=== PATIENT | female | born 1965 | race Caucasian/White ===

== ENCOUNTER 2024-06-25 14:11 | Emergency (ER) | payer OTHER ==
[2024-06-25] MEDS: KETOROLAC 15 MG/ML 1 ML VIAL IVP STA (15:40)
[2024-06-25] MEDS: CYCLOBENZAPRINE 10 MG TAB PO STA (15:46)
[2024-06-25] MEDS: DEXAMETHASONE SOD PHOSPHATE 10 MG/ML 1 ML VIAL IVP STA (15:54)
[2024-06-25] MEDS: MORPHINE SULFATE 4 MG/ML SYRINGE IVP STA (15:57)
--- NOTE | 2024-06-25 16:15 | ED ---
Back Pain HPI - General Chief Complaint: Neck Pain/Injury Stated Complaint: back pain Time Seen by Provider: 06/25/24 14:26 Source: patient, RN notes reviewed Mode of arrival: ambulatory Limitations: no limitations - History of Present Illness Initial Comments: This is a 59-year-old female who presents to the emergency department for lower back pain. States that this started about 3 months ago. Pain is across the majority of the low back. Denies any injuries. She has not yet had this evaluated. She tried taking naproxen without much relief. She occasionally has some pain going down both of her legs, but states that this is not all of the time. Denies any loss of bowel/bladder control or saddle anesthesia. MD Complaint: back pain - Related Data Previous Rx's Medication Instructions Recorded Cyclobenzaprine [Flexeril] 10 mg PO TID PRN #30 tab 06/25/24 Meloxicam [Mobic] 15 mg PO DAILY PRN #30 tab 06/25/24 Allergies Allergy/AdvReac Type Severity Reaction Status Date / Time No Known Allergies Allergy Verified 06/25/24 14:16 Review of Systems ROS Statement: Those systems with pertinent positive or pertinent negative responses have been documented in the HPI. ROS Other: All systems not noted in ROS Statement are negative. Past Medical History Past Medical History: No Reported History History of Any Multi-Drug Resistant Organisms: None Reported Past Surgical History: Orthopedic Surgery Smoking Status: Current every day smoker Past Alcohol Use History: None Reported Past Drug Use History: None Reported General Exam Limitations: no limitations General appearance: alert, in no apparent distress Head exam: Present: atraumatic, normocephalic, normal inspection Respiratory exam: Present: normal lung sounds bilaterally. Absent: respiratory distress, wheezes, rales, rhonchi, stridor Cardiovascular Exam: Present: regular rate, normal rhythm, normal heart sounds. Absent: systolic murmur, diastolic murmur, rubs, gallop, clicks Back exam: Present: other (Tenderness to palpation of the lumbar spine) Neurological exam: Present: alert, oriented X3, CN II-XII intact Psychiatric exam: Present: normal affect, normal mood Skin exam: Present: warm, dry, intact, normal color. Absent: rash Course Vital Signs 06/25/24 06/25/24 06/25/24 14:14 15:38 17:03 Temperature 98 F 98.1 F Pulse Rate 100 99 89 Respiratory 16 18 16 Rate Blood Pressure 157/74 134/72 146/81 O2 Sat by Pulse 97 99 100 Oximetry Medical Decision Making - Medical Decision Making This is a 59 year old female who presents to the emergency department for back pain. Was pt. sent in by a medical professional or institution? @ -No Did you speak to anyone other than the patient for history? @ -No Did you review nursing and triage notes? @ -Yes, and I agree, it is accurate with regards to the patient's symptoms. Were old charts reviewed? @ -No Differential Diagnosis? @ -Differential Back Pain: Strain, zoster, cauda equina syndrome, epidural abscess, vertebral osteomyelitis, discitis, fracture, subluxation, disc herniation, DJD, spinal stenosis, dissection, AAA, pancreatitis, peptic ulcer disease, pyelonephritis, kidney stone, this is not meant to be an all-inclusive list. EKG interpreted by me (3pts min.)? @ -Not obtained X-rays interpreted by me (1pt min.)? @ -X-ray of the lumbar spine obtained. My interpretation identifies no acute fractures. CT interpreted by me (1pt min.)? @ -Not obtained U/S interpreted by me (1pt. min.)? @ -Not obtained What testing was considered but not performed? (CT, X-rays, U/S, labs)? Why? @ -None What meds were considered but not given? Why? @ -None Did you discuss the management of the patient with other professionals? @ -No Did you reconcile home meds? @ -No Was smoking cessation discussed for >3mins.? @ -No Was critical care preformed (if so, how long)? @ -No Were there social determinants of health that impacted care today? How? (Homelessness, low income, unemployed, alcoholism, drug addiction, transportation, low edu. Level, literacy, decrease access to med. care, [facility], rehab)? @ -No Was there de-escalation of care discussed even if they declined? (Discuss DNR or withdrawal of care, Hospice)? @ -No What co-morbidities impacted this encounter? (DM, HTN, Smoking, COPD, CAD, Cancer, CVA, Hep., AIDS, mental health diagnosis, sleep apnea, morbid obesity)? @ -None Was patient admitted / discharged? @ -Discharged. X-ray of the lumbar spine demonstrates degenerative changes without any acute process. Pain managed in the emergency department. Rx for Mobic and Flexeril provided. Advised continuing with Tylenol and Lidocaine patches as well. Information for orthopedic follow up provided, advised she contact them for further evaluation. Patient discharged home in stable condition. Case discussed with ED attending, Dr. Paige. Undiagnosed new problem with uncertain prognosis? @ -None Drug Therapy requiring intensive monitoring for toxicity (Heparin, Nitro, Insulin, Cardizem)? @ -None Were any procedures done? @ -None Diagnosis/symptom? @ -Low back pain Acute, or Chronic, or Acute on Chronic? @ -Chronic Uncomplicated (without systemic symptoms) or Complicated (systemic symptoms)? @ -Uncomplicated Side effects of treatment? @ -None Exacerbation, Progression, or Severe Exacerbation] @ -Progression Poses a threat to life or bodily function? @ -The pain is limiting her function to some extent. - Radiology Data Radiology results: report reviewed, image reviewed Disposition Clinical Impression: Back pain Disposition: HOME SELF-CARE Instructions (If sedation given, give patient instructions): Back Pain (ED) Additional Instructions: Return to the emergency department with any new, worsening, or concerning symptoms. Try taking the Mobic once daily as needed for pain relief. Avoid taking any other anti-inflammatories such as ibuprofen or Aleve when you take this. Take whichever is more effective. Take this with Tylenol for additional relief. Take the Flexeril up to 3 times daily, however be aware that this may make you drowsy. Contact the orthopedic provider listed below for a follow-up appointment. Prescriptions: Cyclobenzaprine [Flexeril] 10 mg PO TID PRN #30 tab PRN Reason: Pain Meloxicam [Mobic] 15 mg PO DAILY PRN #30 tab PRN Reason: Pain Is patient prescribed a controlled substance at d/c from ED?: No Referrals: None,Stated [Primary Care Provider] - 1-2 days Robert Tobar DO [Doctor of Osteopathic Medicine] - 1-2 days Forms: Area PCPs Time of Disposition: 16:45
--- NOTE | 2024-06-25 16:33 | XR ---
Lumbar spine HISTORY: Low back pain COMPARISON: None. TECHNIQUE: 3 views lumbar spine were obtained. FINDINGS: The lumbar vertebral segments are normal in height and alignment and there is no fracture or subluxat ion. Disc spaces are well-maintained in height is no significant degenerative disc disease. There is sclerotic changes of facet joints from L3 through S1 indicating facet osteoarthrosis. Sacrum and SI joints normal. IMPRESSION: Facet arthritis with no other significant abnormality seen.
[2024-06-25] MEDS: traMADol 50 MG STARTER PACK 3 TAB BTL PO STA (16:59)
[2024-06-25 17:05] VITALS: BP 146/81; PULSE 89; RESP 16; TEMP 98.1
== END 2024-06-25 17:05 | disposition home or self-care (01) ==
LOC: EC 14:11
DX: M47.816 Spondylosis without myelopathy or radiculopathy, lumbar region (principal); F17.200 Nicotine dependence, unspecified, uncomplicated
CPT/HCPCS: 72100; 99283; 96374; 96375 ×2; J2270; J1100; J1885

== ENCOUNTER 2024-07-11 12:47 | Emergency (ER) | payer OTHER ==
--- NOTE | 2024-07-11 13:02 | ED ---
Back Pain HPI - General Chief Complaint: Back Pain/Injury Stated Complaint: severe back pain Time Seen by Provider: 07/11/24 13:01 Source: patient, RN notes reviewed Mode of arrival: ambulatory Limitations: no limitations - History of Present Illness Initial Comments: 59-year-old female presented the ER with a chief complaint of chronic back pain. Patient states has been ongoing for the past 3 months and as she is having difficulty following up outpatient. She has been taking Aleve, using pain patches and gel without relief. She denies any saddle paresthesias, bowel or bladder incontinence. She does report frequent radiation down bilateral lower extremities. No new injuries or traumas. - Related Data Previous Rx's Medication Instructions Recorded Cyclobenzaprine [Flexeril] 10 mg PO TID PRN #30 tab 06/25/24 Meloxicam [Mobic] 15 mg PO DAILY PRN #30 tab 06/25/24 Cyclobenzaprine [Flexeril] 10 mg PO TID PRN #15 tab 07/11/24 Lidocaine 4% Patch 1 patch TOPICAL DAILY #30 patch 07/11/24 Allergies Allergy/AdvReac Type Severity Reaction Status Date / Time No Known Allergies Allergy Verified 07/11/24 12:59 Review of Systems ROS Statement: Those systems with pertinent positive or pertinent negative responses have been documented in the HPI. ROS Other: All systems not noted in ROS Statement are negative. Past Medical History Past Medical History: No Reported History History of Any Multi-Drug Resistant Organisms: None Reported Past Surgical History: Orthopedic Surgery Past Psychological History: No Psychological Hx Reported Smoking Status: Current every day smoker Past Alcohol Use History: None Reported Past Drug Use History: None Reported General Exam - General Exam Comments Initial Comments: Visual Physical Exam General: Well-appearing, nontoxic, no acute distress. Head: Normocephalic, atraumatic Eyes: PERRLA, EOMI ENT: Airway patent Chest: Nonlabored breathing Skin: No visual rash, normal skin tone Neuro: Alert and oriented 3 Musculoskeletal: No gross abnormalities Limitations: no limitations General appearance: alert, in no apparent distress Neck exam: Present: normal inspection. Absent: tenderness, meningismus, lymphadenopathy Respiratory exam: Present: normal lung sounds bilaterally. Absent: respiratory distress, wheezes, rales, rhonchi, stridor Cardiovascular Exam: Present: regular rate, normal rhythm, normal heart sounds. Absent: systolic murmur, diastolic murmur, rubs, gallop, clicks Extremities exam: Present: normal inspection, full ROM, normal capillary refill. Absent: tenderness, pedal edema, joint swelling, calf tenderness Back exam: Present: tenderness (Lumbar spine. No overlying skin changes. Negative straight leg raise bilaterally.) Course Vital Signs 07/11/24 07/11/24 12:56 17:41 Temperature 97.3 F L 97.6 F Pulse Rate 121 H 98 Respiratory 20 18 Rate Blood Pressure 134/60 128/89 O2 Sat by Pulse 100 100 Oximetry - Reevaluation(s) Reevaluation #1: 07/11/24 17:25 Patient reevaluated. Patient is reporting improved pain. Patient eager for discharge. No signs of acute distress. Medical Decision Making - Medical Decision Making I performed the quick note portion of this chart. Electronically signed by Jose Putnam PA-C Was pt. sent in by a medical professional or institution (RANJANA Walker, PREPARATION CENTER COORDINATOR, urgent care, hospital, or [facility]...) When possible be specific @ -No Did you speak to anyone other than the patient for history (EMS, parent, family, police, friend...)? What history was obtained from this source @ -No Did you review nursing and triage notes (agree or disagree)? Why? @ -I reviewed and agree with nursing and triage notes Were old charts reviewed (outside hosp., previous admission, EMS record, old EKG, old radiological studies, urgent care reports/EKG's, [facility] records)? Report findings @ -No old charts were reviewed Differential Diagnosis (chest pain, altered mental status, abdominal pain women, abdominal pain men, vaginal bleeding, weakness, fever, dyspnea, syncope, headache, dizziness, GI bleed, back pain, seizure, CVA, palpatations, mental health, musculoskeletal)? @ -Differential Back Pain:Strain, zoster, cauda equina syndrome, epidural abscess, vertebral osteomyelitis, discitis, fracture, subluxation, disc herniation, DJD, spinal stenosis, dissection, AAA, pancreatitis, peptic ulcer disease, pyelonephritis, kidney stone, this is not meant to be an all-inclusive list. EKG interpreted by me (3pts min.). @ -None X-rays interpreted by me (1pt min.). @ -Lumbar spine x-ray showing a minimal superior endplate irregularity of L3. Scattered mild degenerative disc disease. CT interpreted by me (1pt min.). @ -None done U/S interpreted by me (1pt. min.). @ -None done What testing was considered but not performed or refused? (CT, X-rays, U/S, labs)? Why? @ -None What meds were considered but not given or refused? Why? @ -None Did you discuss the management of the patient with other professionals (professionals i.e. , PA, PREPARATION CENTER COORDINATOR, lab, RT, psych nurse, social insurance administrator, digital director, teacher, founder and chief technical officer, case maker)? Give summary @ -No Was smoking cessation discussed for >3mins.? @ -No Was critical care preformed (if so, how long)? @ -No Were there social determinants of health that impacted care today? How? (Homelessness, low income, unemployed, alcoholism, drug addiction, transportation, low edu. Level, literacy, decrease access to med. care, prison, rehab)? @ -No Was there de-escalation of care discussed even if they declined (Discuss DNR or withdrawal of care, Hospice)? DNR status @ -No What co-morbidities impacted this encounter? (DM, HTN, Smoking, COPD, CAD, Cancer, CVA, ARF, Chemo, Hep., AIDS, mental health diagnosis, sleep apnea, morbid obesity)? @ -None Was patient admitted / discharged? Hospital course, mention meds given and route, prescriptions, significant lab abnormalities, going to OR and other pertinent info. @ -Discharge. 59-year-old female presented to ER with a chief complaint of back pain. History and physical exam completed. Vitals stable. Patient mildly tachycardic but believed to be anxiety and pain related. No red flag back pain symptoms indicative of cauda equina syndrome.. X-rays obtained concerning of a compression fracture of L3. Symptomatic control in the ER, with improvement. Patient stable for discharge at this time. Advise close follow-up with spine orthopedics, referral given. Tylenol 3 starter pack given. Lidocaine patch and Flexeril prescribed. Return parameters discussed. Patient discharged in stable condition. Patient verbally expressed understanding agreement care plan. Case discussed with the attending, Dr. Reed. Undiagnosed new problem with uncertain prognosis? @ -No Drug Therapy requiring intensive monitoring for toxicity (Heparin, Nitro, Insulin, Cardizem)? @ -No Were any procedures done? @ -No Diagnosis/symptom? @ -Compression fracture L3 Acute, or Chronic, or Acute on Chronic? @ -Acute Uncomplicated (without systemic symptoms) or Complicated (systemic symptoms)? @ -Uncomplicated Side effects of treatment? @ -No Exacerbation, Progression, or Severe Exacerbation? @ -No Poses a threat to life or bodily function? How? (Chest pain, [place], NH, pneumonia, PE, COPD, DKA, ARF, appy, cholecystitis, CVA, Diverticulitis, Homicidal, Suicidal, threat to staff... and all critical care pts) @ -No - Radiology Data Radiology results: report reviewed, image reviewed Disposition Clinical Impression: Back pain, Compression fracture of L3 vertebra Disposition: HOME SELF-CARE Condition: Stable Instructions (If sedation given, give patient instructions): Acute Low Back Pain (ED) Additional Instructions: Follow-up with orthopedics for further evaluation and treatment. Return to the ER for any new or worsening concerns. Prescriptions: Cyclobenzaprine [Flexeril] 10 mg PO TID PRN #15 tab PRN Reason: Muscle Spasm Lidocaine 4% Patch 1 patch TOPICAL DAILY #30 patch Is patient prescribed a controlled substance at d/c from ED?: No Referrals: None,Stated [Primary Care Provider] - 1-2 days Robb Lindsay MD [STAFF PHYSICIAN] - 1-2 days Forms: Area PCPs Time of Disposition: 17:25
--- NOTE | 2024-07-11 13:55 | XR ---
EXAMINATION TYPE: XR lumbar spine 3V DATE OF EXAM: 07/11/2024 Comparison: 06/25/2024 Clinical History: 59-year-old female back pain for 3 months Findings: 5 lumbar type vertebral bodies. Hypertrophic facet arthropathy mid to lower lumbar spine. Trace grade 1 retrolisthesis L4-L5. Remaining alignment is maintained. There is mild degenerative disc disease t hroughout. Minimal superior endplate Schmorl's node at L3 remains unchanged but is better seen on the present exam. Otherwise, vertebral body heights are preserved and remaining alignment is maintained. Impression: 1. Minimal superior endplate irregularity of L3 is better seen on the present exam. Age-indeterminate Schmorl's node injury is suspected. Correlate for any focal pain at this level. 2. Scattered mild degenerative disc disease. Hypertrophic facet arthropathy mid to lower lumbar spine . Trace grade 1 retrolisthesis L4-L5.
[2024-07-11] MEDS: KETOROLAC 15 MG/ML 1 ML VIAL IVP STA (15:33)
[2024-07-11] MEDS: CYCLOBENZAPRINE 10 MG TAB PO STA (15:34)
[2024-07-11] MEDS: DEXAMETHASONE SOD PHOSPHATE 10 MG/ML 1 ML VIAL IVP STA (15:34)
[2024-07-11] MEDS: MORPHINE SULFATE 2 MG/ML SYRINGE IVP ONE (16:36)
[2024-07-11] MEDS: ACET/COD 300 MG/30 MG STARTER PACK 6 TAB BTL PO STA (17:38)
[2024-07-11 17:43] VITALS: BP 128/89; PULSE 98; RESP 18; TEMP 97.6
== END 2024-07-11 17:43 | disposition home or self-care (01) ==
LOC: EC 12:47
CPT/HCPCS: 72100; 96374; 96375; 99283

== ENCOUNTER 2024-08-05 09:25 | Inpatient (IN) | payer OTHER ==
[2024-08-05] MEDS: SODIUM CHLORIDE 0.9% 500 ML 500 ML IV STA (10:02)
[2024-08-05] MEDS: HYDROmorphone 0.5 MG/0.5 ML SYRINGE IVP STA ×2 (10:03→13:01)
--- NOTE | 2024-08-05 10:16 | ED ---
General Adult HPI - General Chief complaint: Back Pain/Injury Stated complaint: Back Pain Time Seen by Provider: 08/05/24 09:28 Source: patient, EMS, RN notes reviewed Mode of arrival: EMS Limitations: no limitations - History of Present Illness Initial comments: 5-year-old female presents emergency department via EMS chief complaint of back pain, weakness. Patient states that she has been dealing with increasing back pain for several months and saw orthopedics in which she had an MRI as she received a phone call stating that she needs to see oncology because of concerning changes for cancer of her spine. Patient states pain has become so unbearable she cannot get around she states she is also had increasing shortness of breath, leg swelling. She denies any bowel, bladder and cons retention no saddle anesthesias she does have pain at radiates down both legs. She has noticed leg swelling without history of CHF. - Related Data Previous Rx's Medication Instructions Recorded Cyclobenzaprine [Flexeril] 10 mg PO TID PRN #30 tab 06/25/24 Meloxicam [Mobic] 15 mg PO DAILY PRN #30 tab 06/25/24 Cyclobenzaprine [Flexeril] 10 mg PO TID PRN #15 tab 07/11/24 Lidocaine 4% Patch 1 patch TOPICAL DAILY #30 patch 07/11/24 Allergies Allergy/AdvReac Type Severity Reaction Status Date / Time No Known Allergies Allergy Verified 08/05/24 09:33 Review of Systems ROS Statement: Those systems with pertinent positive or pertinent negative responses have been documented in the HPI. ROS Other: All systems not noted in ROS Statement are negative. Past Medical History Past Medical History: No Reported History History of Any Multi-Drug Resistant Organisms: None Reported Past Surgical History: Orthopedic Surgery Past Psychological History: No Psychological Hx Reported Smoking Status: Current every day smoker Past Alcohol Use History: None Reported Past Drug Use History: None Reported General Exam Limitations: no limitations General appearance: alert, in no apparent distress Head exam: Present: atraumatic, normocephalic, normal inspection Eye exam: Present: normal appearance, PERRL, EOMI. Absent: scleral icterus, conjunctival injection, periorbital swelling ENT exam: Present: normal exam, normal oropharynx, mucous membranes moist Neck exam: Present: normal inspection, full ROM. Absent: tenderness, meningismus, lymphadenopathy Respiratory exam: Present: normal lung sounds bilaterally. Absent: respiratory distress, wheezes, rales, rhonchi, stridor Cardiovascular Exam: Present: normal rhythm, tachycardia, normal heart sounds. Absent: systolic murmur, diastolic murmur, rubs, gallop, clicks GI/Abdominal exam: Present: soft, normal bowel sounds. Absent: distended, tenderness, guarding, rebound, rigid Extremities exam: Present: pedal edema. Absent: full ROM Back exam: Present: tenderness, paraspinal tenderness, vertebral tenderness. Absent: full ROM Neurological exam: Present: alert, oriented X3, CN II-XII intact, reflexes normal. Absent: motor sensory deficit Course Vital Signs 08/05/24 08/05/24 08/05/24 09:27 11:30 12:25 Temperature 99.1 F 98.6 F Pulse Rate 115 H 98 101 H Respiratory 18 18 20 Rate Blood Pressure 153/62 136/79 140/67 O2 Sat by Pulse 100 97 Oximetry 08/05/24 12:40 Temperature 98 F Pulse Rate 102 H Respiratory 20 Rate Blood Pressure 134/64 O2 Sat by Pulse 99 Oximetry Medical Decision Making - Medical Decision Making Was pt. sent in by a medical professional or institution (, PA, BARREL ASSEMBLER, urgent c are, hospital, or group home...) When possible be specific @ -No Did you speak to anyone other than the patient for history (EMS, parent, family, police, friend...)? What history was obtained from this source @ -No Did you review nursing and triage notes (agree or disagree)? Why? @ -I reviewed and agree with nursing and triage notes Were old charts reviewed (outside hosp., previous admission, EMS record, old EKG, old radiological studies, urgent care reports/EKG's, group home records)? Report findings @ -No old charts were reviewed Differential Diagnosis (chest pain, altered mental status, abdominal pain women, abdominal pain men, vaginal bleeding, weakness, fever, dyspnea, syncope, h eadache, dizziness, GI bleed, back pain, seizure, CVA, palpatations, mental health, musculoskeletal)? @ -Differential Weakness: Hypoglycemia, shock, sepsis, hyponatremia, anemia, infection, LA, ETOH, adverse medicine reaction, overdose, stroke, this is not meant to be an all-inclusive list. Differential Back Pain: Strain, zoster, cauda equina syndrome, epidural abscess, vertebral osteomyelitis, discitis, fracture, subluxation, disc herniation, DJD, spinal stenosis, dissection, AAA, pancreatitis, peptic ulcer disease, pyelonephritis, kidney stone, this is not meant to be an all-inclusive list. EKG interpreted by me (3pts min.). @ -As above X-rays interpreted by me (1pt min.). @ -X-ray shows no acute cardiopulmonary process CT interpreted by me (1pt min.). @ -CT angio chest negative for acute PE no acute pulmonary process CT abdomen pelvis showing mass within the left renal pelvis, left ureter concerning for transitional cell carcinoma, lytic lesion L3 U/S interpreted by me (1pt. min.). @ -None done What testing was considered but not performed or refused? (CT, X-rays, U/S, labs)? Why? @ -None What meds were considered but not given or refused? Why? @ -None Did you discuss the management of the patient with other professionals (professionals i.e. , PA, BARREL ASSEMBLER, lab, RT, psych nurse, rn social work, distribution driver, teacher, division officer weapons department, family service caseworker)? Give summary @ -EMH for admission Was smoking cessation discussed for >3mins.? @ -No Was critical care preformed (if so, how long)? @ -35 minutes Were there social determinants of health that impacted care today? How? (Homelessness, low income, unemployed, alcoholism, drug addiction, transportation, low edu. Level, literacy, decrease access to med. care, m[facility], rehab)? @ -No Was there de-escalation of care discussed even if they declined (Discuss DNR or withdrawal of care, Hospice)? DNR status @ -No What co-morbidities impacted this encounter? (DM, HTN, Smoking, COPD, CAD, Cancer, CVA, ARF, Chemo, Hep., AIDS, mental health diagnosis, sleep apnea, morbid obesity)? @ -None Was patient admitted / discharged? Hospital course, mention meds given and route, prescriptions, significant lab abnormalities, going to OR and other pertinent info. @ -Admitted patient presented for increasing weakness, back pain. 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 Patient updated on results Undiagnosed new problem with uncertain prognosis? @ -Yes Drug Therapy requiring intensive monitoring for toxicity (Heparin, Nitro, Insulin, Cardizem)? @ -No Were any procedures done? @ -No Diagnosis/symptom? @ -Anemia, transitional cell carcinoma, L3 lytic lesion, Acute, or Chronic, or Acute on Chronic? @ -Acute Uncomplicated (without systemic symptoms) or Complicated (systemic symptoms)? @ -Complicated Side effects of treatment? @ -No Exacerbation, Progression, or Severe Exacerbation? @ -No Poses a threat to life or bodily function? How? (Chest pain, USA, LA, pneumonia, PE, COPD, DKA, ARF, appy, cholecystitis, CVA, Diverticulitis, Homicidal, Suicidal, threat to staff... and all critical care pts) @ -Yes anemia, cancer causing endorgan failure - Lab Data Result diagrams: 08/05/24 10:36 08/05/24 10:36 Lab Results 08/05/24 08/05/24 08/05/24 Range/Units 10:05 10:05 10:05 WBC 17.5 H (3.8-10.6) k/uL RBC 1.41 L (3.80-5.40) m/uL Hgb 3.9 L* (11.4-16.0) gm/dL Hct 12.9 L* (34.0-46.0) % MCV 91.6 (80.0-100.0) fL MCH 27.5 (25.0-35.0) pg MCHC 30.0 L (31.0-37.0) g/dL RDW 23.8 H (11.5-15.5) % Plt Count 306 (150-450) k/uL MPV 7.8 Neutrophils % (Manual) 74 % Band Neuts % (Manual) 3 % Lymphocytes % (Manual) 19 % Monocytes % (Manual) 2 % Eosinophils % (Manual) 1 % Metamyelocytes % 2 % Myelocytes % 1 % Neutrophils # (Manual) 13.40 H (1.3-7.7) k/uL Lymphocytes # (Manual) 3.33 (1.0-4.8) k/uL Monocytes # (Manual) 0.35 (0-1.0) k/uL Eosinophils # (Manual) 0.18 (0-0.7) k/uL Metamyelocytes # (Man) 0.35 H (0) k/uL Myelocytes # (Manual) 0.18 H (0) k/uL Nucleated RBCs 2 H (0-0) /100 WBC Manual Slide Review Performed Hypochromasia Marked Poikilocytosis Anisocytosis Moderate Macrocytosis Slight Target Cells Present PT (10.0-12.5) sec INR (<1.2) APTT (22.0-30.0) sec D-Dimer (<0.60) mg/L FEU Sodium (137-145) mmol/L Potassium (3.5-5.1) mmol/L Chloride (98-107) mmol/L Carbon Dioxide (22-30) mmol/L Anion Gap mmol/L BUN (7-17) mg/dL Creatinine (0.52-1.04) mg/dL Est GFR (CKD-EPI)AfAm (>60 ml/min/1.73 sqM) Est GFR (CKD-EPI)NonAf (>60 ml/min/1.73 sqM) Glucose (74-99) mg/dL Lactic Ac Sepsis Rflx Plasma Lactic Acid Jared (0.7-2.0) mmol/L Calcium (8.4-10.2) mg/dL Magnesium (1.6-2.3) mg/dL Total Bilirubin (0.2-1.3) mg/dL AST (14-36) U/L ALT (4-34) U/L Alkaline Phosphatase (38-126) U/L Troponin I (0.000-0.034) ng/mL C-Reactive Protein (<1.0) mg/dL NT-Pro-B Natriuret Pep pg/mL Total Protein (6.3-8.2) g/dL Albumin (3.5-5.0) g/dL Urine Color Yellow Urine Appearance Cloudy H (Clear) Urine pH 7.5 (5.0-8.0) Ur Specific [place] 1.030 (1.001-1.035) Urine Protein 1+ H (Negative) Urine Glucose (UA) Negative (Negative) Urine Ketones Negative (Negative) Urine Blood Moderate H (Negative) Urine Nitrite Negative (Negative) Urine Bilirubin Negative (Negative) Urine Urobilinogen <2.0 (<2.0) mg/dL Ur Leukocyte Esterase Negative (Negative) Urine RBC 98 H (0-5) /hpf Urine WBC 59 H (0-5) /hpf Urine WBC Clumps Rare H (None) /hpf Ur Squamous Epith Cells <1 (0-4) /hpf Urine Bacteria Rare H (None) /hpf Hyaline Casts 4 H (0-2) /lpf Blood Type Blood Type Confirm Blood Type Recheck Bld Type Recheck Status Antibody Screen Crossmatch Spec Expiration Date 08/05/24 08/05/24 08/05/24 Range/Units 10:36 10:36 10:36 WBC (3.8-10.6) k/uL RBC (3.80-5.40) m/uL Hgb (11.4-16.0) gm/dL Hct (34.0-46.0) % MCV (80.0-100.0) fL MCH (25.0-35.0) pg MCHC (31.0-37.0) g/dL RDW (11.5-15.5) % Plt Count (150-450) k/uL MPV Neutrophils % (Manual) % Band Neuts % (Manual) % Lymphocytes % (Manual) % Monocytes % (Manual) % Eosinophils % (Manual) % Metamyelocytes % % Myelocytes % % Neutrophils # (Manual) (1.3-7.7) k/uL Lymphocytes # (Manual) (1.0-4.8) k/uL Monocytes # (Manual) (0-1.0) k/uL Eosinophils # (Manual) (0-0.7) k/uL Metamyelocytes # (Man) (0) k/uL Myelocytes # (Manual) (0) k/uL Nucleated RBCs (0-0) /100 WBC Manual Slide Review Hypochromasia Poikilocytosis Anisocytosis Macrocytosis Target Cells PT 14.5 H (10.0-12.5) sec INR 1.4 H (<1.2) APTT 27.2 (22.0-30.0) sec D-Dimer 1.83 H (<0.60) mg/L FEU Sodium 131 L (137-145) mmol/L Potassium 4.0 (3.5-5.1) mmol/L Chloride 106 (98-107) mmol/L Carbon Dioxide 17 L (22-30) mmol/L Anion Gap 8 mmol/L BUN 23 H (7-17) mg/dL Creatinine 0.88 (0.52-1.04) mg/dL Est GFR (CKD-EPI)AfAm 83 (>60 ml/min/1.73 sqM) Est GFR (CKD-EPI)NonAf 72 (>60 ml/min/1.73 sqM) Glucose 113 H (74-99) mg/dL Lactic Ac Sepsis Rflx Plasma Lactic Acid Jared 2.4 H* (0.7-2.0) mmol/L Calcium 8.5 (8.4-10.2) mg/dL Magnesium 1.7 (1.6-2.3) mg/dL Total Bilirubin 0.5 (0.2-1.3) mg/dL AST 27 (14-36) U/L ALT 12 (4-34) U/L Alkaline Phosphatase 503 H (38-126) U/L Troponin I (0.000-0.034) ng/mL C-Reactive Protein 41.1 H (<1.0) mg/dL NT-Pro-B Natriuret Pep 4880 pg/mL Total Protein 4.9 L (6.3-8.2) g/dL Albumin 2.4 L (3.5-5.0) g/dL Urine Color Urine Appearance (Clear) Urine pH (5.0-8.0) Ur Specific [place] (1.001-1.035) Urine Protein (Negative) Urine Glucose (UA) (Negative) Urine Ketones (Negative) Urine Blood (Negative) Urine Nitrite (Negative) Urine Bilirubin (Negative) Urine Urobilinogen (<2.0) mg/dL Ur Leukocyte Esterase (Negative) Urine RBC (0-5) /hpf Urine WBC (0-5) /hpf Urine WBC Clumps (None) /hpf Ur Squamous Epith Cells (0-4) /hpf Urine Bacteria (None) /hpf Hyaline Casts (0-2) /lpf Blood Type Blood Type Confirm Blood Type Recheck Bld Type Recheck Status Antibody Screen Crossmatch Spec Expiration Date 08/05/24 08/05/24 08/05/24 Range/Units 10:36 10:36 10:45 WBC 15.3 H (3.8-10.6) k/uL RBC 1.73 L (3.80-5.40) m/uL Hgb 4.7 L* (11.4-16.0) gm/dL Hct 15.6 L* (34.0-46.0) % MCV 90.2 (80.0-100.0) fL MCH 27.3 (25.0-35.0) pg MCHC 30.3 L (31.0-37.0) g/dL RDW 24.1 H (11.5-15.5) % Plt Count 261 (150-450) k/uL MPV 8.0 Neutrophils % (Manual) 79 % Band Neuts % (Manual) 3 % Lymphocytes % (Manual) 13 % Monocytes % (Manual) 3 % Eosinophils % (Manual) % Metamyelocytes % 2 % Myelocytes % 2 % Neutrophils # (Manual) 12.50 H (1.3-7.7) k/uL Lymphocytes # (Manual) 1.99 (1.0-4.8) k/uL Monocytes # (Manual) 0.46 (0-1.0) k/uL Eosinophils # (Manual) (0-0.7) k/uL Metamyelocytes # (Man) 0.31 H (0) k/uL Myelocytes # (Manual) 0.31 H (0) k/uL Nucleated RBCs 2 H (0-0) /100 WBC Manual Slide Review Performed Hypochromasia Marked Poikilocytosis Slight Anisocytosis Marked Macrocytosis Slight Target Cells Present PT (10.0-12.5) sec INR (<1.2) APTT (22.0-30.0) sec D-Dimer (<0.60) mg/L FEU Sodium (137-145) mmol/L Potassium (3.5-5.1) mmol/L Chloride (98-107) mmol/L Carbon Dioxide (22-30) mmol/L Anion Gap mmol/L BUN (7-17) mg/dL Creatinine (0.52-1.04) mg/dL Est GFR (CKD-EPI)AfAm (>60 ml/min/1.73 sqM) Est GFR (CKD-EPI)NonAf (>60 ml/min/1.73 sqM) Glucose (74-99) mg/dL Lactic Ac Sepsis Rflx Plasma Lactic Acid Jared (0.7-2.0) mmol/L Calcium (8.4-10.2) mg/dL Magnesium (1.6-2.3) mg/dL Total Bilirubin (0.2-1.3) mg/dL AST (14-36) U/L ALT (4-34) U/L Alkaline Phosphatase (38-126) U/L Troponin I <0.012 (0.000-0.034) ng/mL C-Reactive Protein (<1.0) mg/dL NT-Pro-B Natriuret Pep pg/mL Total Protein (6.3-8.2) g/dL Albumin (3.5-5.0) g/dL Urine Color Urine Appearance (Clear) Urine pH (5.0-8.0) Ur Specific [place] (1.001-1.035) Urine Protein (Negative) Urine Glucose (UA) (Negative) Urine Ketones (Negative) Urine Blood (Negative) Urine Nitrite (Negative) Urine Bilirubin (Negative) Urine Urobilinogen (<2.0) mg/dL Ur Leukocyte Esterase (Negative) Urine RBC (0-5) /hpf Urine WBC (0-5) /hpf Urine WBC Clumps (None) /hpf Ur Squamous Epith Cells (0-4) /hpf Urine Bacteria (None) /hpf Hyaline Casts (0-2) /lpf Blood Type O Positive Blood Type Confirm Blood Type Recheck No Previous Record Bld Type Recheck Status CABO Indicated Antibody Screen NEGATIVE Crossmatch See Detail Spec Expiration Date 08/08/2024 - 234408/05/24 08/05/24 Range/Units 11:00 11:31 WBC (3.8-10.6) k/uL RBC (3.80-5.40) m/uL Hgb (11.4-16.0) gm/dL Hct (34.0-46.0) % MCV (80.0-100.0) fL MCH (25.0-35.0) pg MCHC (31.0-37.0) g/dL RDW (11.5-15.5) % Plt Count (150-450) k/uL MPV Neutrophils % (Manual) % Band Neuts % (Manual) % Lymphocytes % (Manual) % Monocytes % (Manual) % Eosinophils % (Manual) % Metamyelocytes % % Myelocytes % % Neutrophils # (Manual) (1.3-7.7) k/uL Lymphocytes # (Manual) (1.0-4.8) k/uL Monocytes # (Manual) (0-1.0) k/uL Eosinophils # (Manual) (0-0.7) k/uL Metamyelocytes # (Man) (0) k/uL Myelocytes # (Manual) (0) k/uL Nucleated RBCs (0-0) /100 WBC Manual Slide Review Hypochromasia Poikilocytosis Anisocytosis Macrocytosis Target Cells PT (10.0-12.5) sec INR (<1.2) APTT (22.0-30.0) sec D-Dimer (<0.60) mg/L FEU Sodium (137-145) mmol/L Potassium (3.5-5.1) mmol/L Chloride (98-107) mmol/L Carbon Dioxide (22-30) mmol/L Anion Gap mmol/L BUN (7-17) mg/dL Creatinine (0.52-1.04) mg/dL Est GFR (CKD-EPI)AfAm (>60 ml/min/1.73 sqM) Est GFR (CKD-EPI)NonAf (>60 ml/min/1.73 sqM) Glucose (74-99) mg/dL Lactic Ac Sepsis Rflx Y Plasma Lactic Acid Jared (0.7-2.0) mmol/L Calcium (8.4-10.2) mg/dL Magnesium (1.6-2.3) mg/dL Total Bilirubin (0.2-1.3) mg/dL AST (14-36) U/L ALT (4-34) U/L Alkaline Phosphatase (38-126) U/L Troponin I (0.000-0.034) ng/mL C-Reactive Protein (<1.0) mg/dL NT-Pro-B Natriuret Pep pg/mL Total Protein (6.3-8.2) g/dL Albumin (3.5-5.0) g/dL Urine Color Urine Appearance (Clear) Urine pH (5.0-8.0) Ur Specific [place] (1.001-1.035) Urine Protein (Negative) Urine Glucose (UA) (Negative) Urine Ketones (Negative) Urine Blood (Negative) Urine Nitrite (Negative) Urine Bilirubin (Negative) Urine Urobilinogen (<2.0) mg/dL Ur Leukocyte Esterase (Negative) Urine RBC (0-5) /hpf Urine WBC (0-5) /hpf Urine WBC Clumps (None) /hpf Ur Squamous Epith Cells (0-4) /hpf Urine Bacteria (None) /hpf Hyaline Casts (0-2) /lpf Blood Type Blood Type Confirm O Positive Blood Type Recheck Bld Type Recheck Status Antibody Screen Crossmatch Spec Expiration Date Critical Care Time Critical Care Time: Yes Total Critical Care Time: 35 Disposition Clinical Impression: Transitional cell carcinoma, Lesion of lumbar spine, Anemia, Weakness Disposition: ADMITTED IP TO THIS [facility] Condition: Poor Time of Disposition: 13:27
[2024-08-05 10:21] LABS: Anisocytosis Moderate; Hypochromasia Marked; MCH 27.5 pg (25.0-35.0); MCV 91.6 fL (80.0-100.0); Macrocytosis Slight; Mean Platelet Volume 7.8; Platelet Count 306 k/uL (150-450); RBC 1.41 m/uL (3.80-5.40); RDW 23.8 % (11.5-15.5)
[2024-08-05 10:26] LABS: HCT 12.9 % (34.0-46.0); HGB 3.9 gm/dL (11.4-16.0)
[2024-08-05 10:41] LABS: Band Neutrophils % 3 %; Eosinophils # (M) 0.18 k/uL (0-0.7); Metamyelocytes % 2 %; Myelocytes # (M) 0.18 k/uL (0); Myelocytes % 1 %; Neutrophils % (M) 74 %; Nucleated Red Blood Cells 2 /100 WBC (0-0); Total Cells Counted 200
[2024-08-05 10:46] LABS: Lymphocytes # (M) 3.33 k/uL (1.0-4.8); Metamyelocytes # (M) 0.35 k/uL (0); Monocytes # (M) 0.35 k/uL (0-1.0); WBC 17.5 k/uL (3.8-10.6)
[2024-08-05 10:48] LABS: Target Cells Present
[2024-08-05 11:05] LABS: Anisocytosis Marked; Hypochromasia Marked; MCH 27.3 pg (25.0-35.0); MCHC 30.3 g/dL (31.0-37.0); MCV 90.2 fL (80.0-100.0); Macrocytosis Slight; Platelet Count 261 k/uL (150-450); Poikilocytosis Slight; RBC 1.73 m/uL (3.80-5.40); RDW 24.1 % (11.5-15.5)
[2024-08-05 11:09] LABS: HGB 4.7 gm/dL (11.4-16.0)
[2024-08-05 11:10] LABS: HCT 15.6 % (34.0-46.0)
[2024-08-05 11:16] LABS: ALT 12 U/L (4-34); AST 27 U/L (14-36); African American GFR (CKD) 83 (>60 ml/min/1.73 sqM); Albumin 2.4 g/dL (3.5-5.0); Alkaline Phosphatase 503 U/L (38-126); Anion Gap 8 mmol/L; Blood Urea Nitrogen 23 mg/dL (7-17); Calcium 8.5 mg/dL (8.4-10.2); Carbon Dioxide 17 mmol/L (22-30); Chloride 106 mmol/L (98-107); Glucose 113 mg/dL (74-99); INR 1.4 (<1.2); Magnesium 1.7 mg/dL (1.6-2.3); Non-African American GFR(CKD) 72 (>60 ml/min/1.73 sqM); Partial Thromboplastin Time 27.2 sec (22.0-30.0); Prothrombin Time 14.5 sec (10.0-12.5); Sodium 131 mmol/L (137-145); Total Bilirubin 0.5 mg/dL (0.2-1.3); Total Protein 4.9 g/dL (6.3-8.2)
[2024-08-05 11:21] LABS: NT-Pro-B-Type Natriuretic Pept 4880 pg/mL
--- NOTE | 2024-08-05 11:24 | XR ---
EXAMINATION TYPE: XR chest 2V DATE OF EXAM: 08/05/2024 COMPARISON: None INDICATION: Back pain and chest pain TECHNIQUE: Frontal and lateral views of the chest are obtained. FINDINGS: The heart size is normal. The pulmonary vasculature is normal. The lungs are clear. IMPRESSION: 1. No acute pulmonary process. [facility], Workstation: [facility], 08/05/2024 11:21 AM
[2024-08-05 11:44] LABS: C Reactive Protein 41.1 mg/dL (<1.0)
[2024-08-05 11:46] LABS: Band Neutrophils % 3 %; Lymphocytes # (M) 1.99 k/uL (1.0-4.8); Metamyelocytes # (M) 0.31 k/uL (0); Metamyelocytes % 2 %; Monocytes # (M) 0.46 k/uL (0-1.0); Myelocytes # (M) 0.31 k/uL (0); Myelocytes % 2 %; Neutrophils % (M) 79 %; Nucleated Red Blood Cells 2 /100 WBC (0-0); Total Cells Counted 200; WBC 15.3 k/uL (3.8-10.6)
[2024-08-05 11:48] LABS: Target Cells Present
--- NOTE | 2024-08-05 12:49 | CT ---
CTA CHEST EXAMINATION TYPE: CT chest angio for PE DATE OF EXAM: 08/05/2024 INDICATION: pe CT DLP: 386.1 mGycm, Automated exposure control for dose reduction was used. CONTRAST: Patient injected with 100 mL of Isovue 370. COMPARISON: None TECHNIQUE: CT of the chest is performed on a spiral scan at 2 mm thick sections. Study is performed with intravenous contrast timed for evaluation for pulmonary embolism. This will limit additional po rtions of the evaluation. 3-D MIP images reconstructed by the technologist are reviewed on the compu ter in the coronal and sagittal planes. FINDINGS: No persistent filling defects are evident to suggest an acute pulmonary embolism. No mediastinal or hilar adenopathy enlarged by CT criteria is evident. The ascending aorta diameter at the level of the main pulmonary artery is 2.6 cm. The main pulmonary artery diameter at the bifurcation is 2.5 cm. Lung windows are clear. Some emphysematous changes are present. Limited CT sections were through the upper abdomen. Left adrenal gland is thickened measuring 1.7 cm . There appears to be hydronephrosis of the superior pole left kidney. IMPRESSION: 1. No acute pulmonary embolism 2. No acute pulmonary process. 3. Cc CT abdomen and pelvis report regarding right kidney. [facility], Workstation: [facility], 08/05/2024 12:46 PM
[2024-08-05 13:17] LABS: Appearance,Urine Cloudy (Clear); Bacteria,Urine Rare /hpf; Bilirubin,Urine Negative (Negative); Blood,Urine Moderate (Negative); Color,Urine Yellow; Glucose,Urine (UA) Negative (Negative); Hyaline Casts,Urine 4 /lpf (0-2); Ketones,Urine Negative (Negative); Leukocyte Esterase,Urine Negative (Negative); Nitrite,Urine Negative (Negative); PH, Urine 7.5 (5.0-8.0); Protein,Urine 1+ (Negative); RBC,Urine 98 /hpf (0-5); Squamous Epithelial Cell,Urine <1 /hpf (0-4); Urobilinogen,Urine <2.0 mg/dL (<2.0); WBC,Urine 59 /hpf (0-5)
--- NOTE | 2024-08-05 13:18 | CT ---
EXAMINATION TYPE: CT abdomen pelvis w con DATE OF EXAM: 08/05/2024 COMPARISON: None INDICATION: WEAKNESS DLP: 341 mGycm, Automated exposure control for dose reduction was used. CONTRAST: 100 mL of Isovue 370. Study performed without Oral Contrast TECHNIQUE: Axial images were obtained from above the diaphragm to the pubic rami in the axial plane a t 5 mm thick sections. Reconstructed images are reviewed on the computer in the coronal plane. FINDINGS: Limited CT sections are obtained the lung bases. The lung bases are clear. CT ABDOMEN: Liver: Normal Spleen: Normal Pancreas: Normal Adrenal glands: Left adrenal gland is thickened at 1.7 cm. Right adrenal gland appears normal. Gallbladder: Normal Kidneys: No masses are evident. There is hydronephrosis of the left kidney. There is increased size o f the left renal pelvis. Density is somewhat increased in relation to the hydronephrosis. Underlying mass should be considered. There may be some additional area of increased density within the distal m id left pelvic ureter. Consider neoplasm such as transitional cell carcinoma. Additional workup is re commended. Moderately prominent hydroureter is present. No cysts are present. There may be some megan yed excretion of the left kidney in relation to the right. Aorta: Vascular calcification is within the aorta. Inferior vena cava: Normal. CT PELVIS: Loops of bowel within the abdomen and pelvis are normal. This study is without oral contrast limi ting bowel evaluation. Appendix: Normal as visualized. Urinary bladder: Distended but otherwise unremarkable Genitourinary structures: Uterus appears normal, adnexa are normal. Osseous structures: There may be a lytic area along the lateral aspect of the L3 vertebral level. IMPRESSION: 1. 1. Increased density within the prominent left renal pelvis and distal left ureter. Consider neoplasm such as transitional cell carcinoma. 2. Moderate left hydronephrosis. 3. Suspected lytic area of L3. 4. Thickened left adrenal gland. [facility], Workstation: [facility], 08/05/2024 1:16 PM
[2024-08-05] MEDS ORDERED: NALOXONE 0.4 MG/ML 1 ML VIAL IV PRN (13:27)
[2024-08-05] MEDS: HYDROmorphone 0.5 MG/0.5 ML SYRINGE IVP PRN (15:05)
[2024-08-05] MEDS: ALPRAZolam 0.25 MG TAB PO PRN (15:05)
[2024-08-05] MEDS: HYDROcodone/APAP 5-325MG 1 EACH TAB PO PRN (17:07)
[2024-08-05 19:21] LABS: Anisocytosis Moderate; HCT 25.4 % (34.0-46.0); Hypochromasia Marked; MCH 26.8 pg (25.0-35.0); MCHC 30.8 g/dL (31.0-37.0); MCV 86.9 fL (80.0-100.0); Mean Platelet Volume 7.9; Platelet Count 214 k/uL (150-450); Poikilocytosis Slight; RBC 2.93 m/uL (3.80-5.40); RDW 21.1 % (11.5-15.5)
[2024-08-05 19:32] LABS: HGB 7.8 gm/dL (11.4-16.0)
[2024-08-05 19:52] LABS: Nucleated Red Blood Cells 4 /100 WBC (0-0)
[2024-08-05 19:55] LABS: Band Neutrophils % 6 %; Lymphocytes # (M) 2.12 k/uL (1.0-4.8); Monocytes # (M) 0.14 k/uL (0-1.0); Myelocytes # (M) 0.28 k/uL (0); Myelocytes % 2 %; Neutrophils % (M) 77 %; Total Cells Counted 200; WBC 14.1 k/uL (3.8-10.6)
[2024-08-05] MEDS: PANTOPRAZOLE 40 MG/10 ML VIAL IVP SCH (21:16)
[2024-08-05] MEDS: SYMBICORT 80-4.5 MCG INHALER INHALATION SCH (21:26)
[2024-08-06] MEDS: CYCLOBENZAPRINE 10 MG TAB PO PRN (00:03)
--- NOTE | 2024-08-06 01:46 | HP ---
HISTORY AND PHYSICAL CHIEF COMPLAINT: Back pain. HISTORY OF PRESENT ILLNESS: This 59-year-old woman with a past medical history of multiple medical problems including DJD was complaining of back pain. The patient apparently was evaluated by Orthopedic Surgery. MRI showed lytic lesions. The patient was asked to come to the [facility]. CT scan of the abdomen showed possible left transitional carcinoma and a suspected lytic lesion in the L3. The patient also complains of bilateral leg weakness and has swelling also. There is no history of fever, rigors, or chills at this time. Hemoglobin is 4.6. PAST MEDICAL HISTORY: DJD. Rest of the chart is also reviewed. HOME MEDICATIONS: Reviewed and include fluticasone and Flexeril. ALLERGIES: None. FAMILY HISTORY: No history of heart disease or strokes. SOCIAL HISTORY: Current smoker. REVIEW OF SYSTEMS: A 14-point review is negative except as mentioned earlier. PHYSICAL EXAMINATION: VITAL SIGNS: Pulse is 98, blood pressure 130/64, respirations 20. HEENT: Conjunctivae normal. NECK: No JVD. CARDIOVASCULAR: S1, S2. RESPIRATIONS: Breath sounds diminished at the bases. ABDOMEN: Soft, obese. LEGS: Bilateral leg edema and diffuse significant swelling. SKIN: Pale. 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 Sensation is also impaired. LABORATORY DATA: WBC 15.2, hemoglobin 4.7. Rest of the labs noted. ASSESSMENT: 1. Severe back pain with possible L3 lytic lesion with renal cell carcinoma and mets. 2. Severe symptomatic anemia of undetermined etiology. 3. Rule out paraparesis. 4. Elevated white blood count. 5. Degenerative joint disease. RECOMMENDATIONS: This is a 59-year-old woman who presented with multiple complex medical issues. We will monitor the patient closely. I would recommend transfusions. Hematology/oncology consultations. Urology consultation has been also requested from the ER. I would monitor hemoglobin closely. We will also obtain cultures to rule out the possibility of sepsis also. Otherwise, the D-dimer is elevated, and the CT angio of the chest was also done, which showed no acute pulmonary embolism. I have reviewed the radiological studies, and as mentioned earlier, prognosis is extremely guarded. I would also recommend ultrasound of the legs also to rule out the possibility of any pulmonary embolism. Neurology will be consulted. The patient might require further MRI testing of the lumbosacral spine also. DVT prophylaxis. See orders for details. MMODL / IJN: [id number] /
[2024-08-06] MEDS: ACETAMINOPHEN TAB 325 MG TAB PO PRN (06:40)
[2024-08-06 07:00] LABS: Anisocytosis Moderate; Basophils % (A) 0 %; Eosinophils % (A) 0 %; HCT 24.7 % (34.0-46.0); HGB 7.8 gm/dL (11.4-16.0); Hypochromasia Marked; Lymphocytes # (A) 1.5 k/uL (1.0-4.8); Lymphocytes % (A) 10 %; MCH 27.4 pg (25.0-35.0); MCHC 31.7 g/dL (31.0-37.0); MCV 86.4 fL (80.0-100.0); Mean Platelet Volume 7.6; Monocytes # (A) 0.7 k/uL (0-1.0); Monocytes % (A) 5 %; Neutrophils # (A) 12.2 k/uL (1.3-7.7); Neutrophils % (A) 83 %; Platelet Count 211 k/uL (150-450); Poikilocytosis Slight; RBC 2.86 m/uL (3.80-5.40); RDW 21.6 % (11.5-15.5); WBC 14.7 k/uL (3.8-10.6)
[2024-08-06 07:14] LABS: African American GFR (CKD) >90 (>60 ml/min/1.73 sqM); Anion Gap 8 mmol/L; Blood Urea Nitrogen 18 mg/dL (7-17); Calcium 8.7 mg/dL (8.4-10.2); Carbon Dioxide 20 mmol/L (22-30); Chloride 104 mmol/L (98-107); Glucose 98 mg/dL (74-99); Non-African American GFR(CKD) >90 (>60 ml/min/1.73 sqM); Potassium 4.6 mmol/L (3.5-5.1); Sodium 132 mmol/L (137-145)
[2024-08-06] MEDS: DEXAMETHASONE SOD PHOSPHATE 4 MG/ML 1 ML VIAL IVP SCH (12:06)
--- NOTE | 2024-08-06 14:36 | NM ---
EXAMINATION TYPE: NM bone scan whole body DATE OF EXAM: 08/06/2024 COMPARISON: NONE CLINICAL INDICATION: Female, 59 years old with history of bone mets; TECHNIQUE: Delayed whole-body scanning was performed following the injection of 23.3 mCi Tc 99m MDP. Images acquired 4.25 hours post injection. FINDINGS: There is diffuse increased activity throughout both appendicular and axial skeleton. IMPRESSION: SuperScan compatible with diffuse osseous metastatic disease. [facility], , 08/06/2024 2:34 PM
--- NOTE | 2024-08-06 14:56 | CT ---
CT cervical, thoracic and lumbar spine with contrast HISTORY: Metastatic disease. COMPARISON: None TECHNIQUE: Multiple axial images are obtained from the skull base through the sacrum finding uneventf ul administration of nonionic IV contrast material. There are multiple subtle areas of mixed sclerotic/ lucent lesions of C6 and probably T1, T2 T4, T5, T7, T11, L3, L4 and S1. There are no compression fractures. T9/T10 level there is a posterior hypertrophic spur results in mild mass effect on the ventral aspect of thecal sac. There are small bilateral pleural effusions and bibasilar atelectasis. There is an enlarged 13 mm supraclavicular lymph node on the left. There is mild pericholecystic fluid. There is marked hydronephrosis of the left kidney. There is retroperitoneal adenopathy. IMPRESSION: 1. Multiple mixed lucent/sclerotic lesions in the dorsal spine as described above. There are no compr ession fractures. Correlate with bone scan regarding bone metastasis. 2. Multiple abdominal abnormalities as described above. Refer to CT abdomen and pelvis dated 4. 3 small bibasilar pleural effusions and atelectasis 4. Enlargement of a left supraclavicular lymph node 5. Retroperitoneal adenopathy on the left. 6. Possible acute cholecystitis [facility], , 08/06/2024 2:54 PM
--- NOTE | 2024-08-06 15:02 | P.PN ---
Progress Note - Text Progress Note Date: 08/06/24 I went multiple times to see the patient but he was not in the room and he was getting tested. Will attempt to come back again.
--- NOTE | 2024-08-06 15:11 | US ---
EXAMINATION TYPE: US venous doppler duplex LE DATE OF EXAM: 08/06/2024 12:40 PM COMPARISON: NONE CLINICAL INDICATION: Female, 59 years old with history of rule out dvt; Left leg pain TECHNIQUE: The lower extremity deep venous system is examined utilizing real time linear array sonog sharlene with graded compression, color doppler sonography, and spectral doppler. SIDE PERFORMED: Bilateral FINDINGS: VESSELS IMAGED: Common Femoral Vein Deep Femoral Vein Greater Saphenous Vein * Femoral Vein Popliteal Vein Small Saphenous Vein * Proximal Calf Veins (* superficial vessels) Right Leg: Appears negative for DVT Left Leg: Appears negative for DVT Grayscale, color doppler, spectral doppler imaging performed of the deep veins of the lower extremiti es. IMPRESSION: No evidence for DVT within the bilateral lower extremities imaged from the groin to the upper calves. [facility], , 08/06/2024 3:09 PM
[2024-08-06 16:27] LABS: Glucose,Whole Blood 198 mg/dL (70-110)
[2024-08-06] MEDS: HYDROcodone/APAP 10-325MG 1 EACH TAB PO PRN (16:58)
[2024-08-06] MEDS: INSULIN ASPART (NovoLOG) 100 UNIT/ML VIAL SQ SCH (16:59)
--- NOTE | 2024-08-06 19:41 | P.CNNES ---
History of Present Illness Consult date: 08/06/24 Requesting physician: Faustina Ocampo Reason for Consult: paraparesis, L3 lsion History of Present Illness: This is a 59-year-old woman who presented emergency department because of back pain with weakness over the left lower extremity. Patient stated she has been having lower back pain with radiation to her bilateral lower extremity and has weakness and she noticed this has been going on for the past several months. In itially she was referred to orthopedic and she was notified that she needs to follow-up with a neurologist. Did not have any upper extremity weakness according to her. But she feels when she is trying to grab something she is having pain in the left upper extremity but denies any dropping things from her left upper extremity. Has denies any numbness. Denies any speech difficulty. Denies any difficulty swallowing. Denies any history of stroke. She states that she smokes half a pack a day. She denies any A-fib. States she has not bowel movement in a few days. It seems that the patient had recent MRI back at outside outpatient facility and there is concern for changes for cancer of the spine and needs to see an oncologist. Some of workup during this hospital visit consisted of: This hospital visit patient hemoglobin was severely low was 3.9 and 08/05/2024 and she had blood transfusion currently 7.8. CT cervical, thoracic and lumbar spine is reported as multiple mixed lucent scle rotic lesion in the dorsal spine. Correlate with bone scan regarding bone metastasis. NM bone scan whole body is reported as SuperScan compatible with diffuse osseous metastasis disease. CT abdomen and pelvis is reported as increased density with and a prominent left renal pelvis and distal left ureter consider neoplasm such as transitional cell carcinoma. Moderate left hydronephrosis. Suspected lytic area of L3. Thickened left adrenal gland. Review of Systems The positive and negative as per HPI. Past Medical History Past Medical History: No Reported History History of Any Multi-Drug Resistant Organisms: None Reported Past Surgical History: Orthopedic Surgery Additional Past Surgical History / Comment(s): CAtaract surgery, shoulder surgery Past Anesthesia/Blood Transfusion Reactions: No Reported Reaction Past Psychological History: No Psychological Hx Reported Smoking Status: Current every day smoker Past Alcohol Use History: None Reported Past Drug Use History: None Reported Medications and Allergies Home Medications Medication Instructions Recorded Confirmed Type Cyclobenzaprine [Flexeril] 10 mg PO TID PRN #15 tab 07/11/24 08/05/24 Rx Fluticasone Propion/Salmeterol 1 puff INHALATION RT-BID 08/05/24 08/05/24 History [Advair 250-50 Diskus] HYDROcodone/APAP 5-325MG [[place] 1 tab PO BID PRN 08/05/24 08/05/24 History 5-325] Allergies Allergy/AdvReac Type Severity Reaction Status Date / Time No Known Allergies Allergy Verified 08/05/24 14:23 Physical Examination - Vital Signs Vital Signs: Vital Signs Temp Pulse Pulse Resp BP BP Pulse Ox 08/06/24 17:03 100 18 136/72 97 08/06/24 12:05 98.6 F 104 H 16 133/72 99 08/06/24 07:50 98.5 F 107 H 18 137/71 97 08/06/24 07:00 99 14 149/63 98 08/06/24 06:00 103 H 15 148/81 97 08/06/24 05:56 99.8 F H 08/06/24 05:00 98 12 153/67 96 08/06/24 04:00 99 17 143/53 97 08/06/24 03:00 99.1 F 96 18 135/58 98 08/06/24 02:00 98 16 132/58 97 08/06/24 01:00 96 15 137/60 95 08/06/24 00:00 94 13 135/52 98 08/05/24 23:11 96 15 135/52 99 Intake and Output 08/06/24 08/06/24 08/06/24 06:59 14:59 22:59 Intake Total 230 236 Output Total 800 Balance 230 -564 Intake: Oral 230 236 Output: Urine 800 Other: Weight 68.039 kg GENERAL: The patient is lying in bed and is not in acute distress. HENT: Supple neck. NEUROLOGICAL: Higher mental function: The patient is awake, alert, oriented to self, place and time. Patient is following commands. No aphasia and no neglect. Cranial nerves: The pupils are round, equal and reactive to light and accommodation. Visual hutchison are full to confrontation throughout. Extraocular movement is intact no nystagmus is noted. Facial sensation is normal to touch throughout. The facial strength is normal throughout. Hearing is normal bilaterally to hand rub. Tongue is midline and moved [id number] without any difficulty. +ve mild dysatrhia. Shoulder shrug is normal bilaterally. Motor: The strength is left upper extremity is 4- and left hand ppa teacher is 4+ to 5- . Otherwise the right upper is 5/5. Left lower is 3/5 and ankle is 4-4+. Right lower is 4+ to 5-. Decrease tone over the left lower. Normal bulk. Cerebellum: Normal finger to nose bilaterally. Sensation: Sensation is normal to touch throughout. Reflexes (right/left): 2+ throughout. Plantars are downgoing bilaterally. Results - Laboratory Findings CBC and BMP: 08/06/24 06:34 08/06/24 06:34 Abnormal Lab Findings: Abnormal Labs 08/05/24 08/05/24 08/05/24 10:05 10:05 10:36 WBC 17.5 H RBC 1.41 L Hgb 3.9 L* Hct 12.9 L* MCHC 30.0 L RDW 23.8 H Neutrophils # Neutrophils # (Manual) 13.40 H Metamyelocytes # (Man) 0.35 H Myelocytes # (Manual) 0.18 H Nucleated RBCs 2 H PT INR D-Dimer Sodium 131 L Carbon Dioxide 17 L BUN 23 H Glucose 113 H POC Glucose (mg/dL) Plasma Lactic Acid Jared Alkaline Phosphatase 503 H C-Reactive Protein 41.1 H Total Protein 4.9 L Albumin 2.4 L Urine Appearance Cloudy H Urine Protein 1+ H Urine Blood Moderate H Urine RBC 98 H Urine WBC 59 H Urine WBC Clumps Rare H Urine Bacteria Rare H Hyaline Casts 4 H Crossmatch 08/05/24 08/05/24 08/05/24 10:36 10:36 10:36 WBC 15.3 H RBC 1.73 L Hgb 4.7 L* Hct 15.6 L* MCHC 30.3 L RDW 24.1 H Neutrophils # Neutrophils # (Manual) 12.50 H Metamyelocytes # (Man) 0.31 H Myelocytes # (Manual) 0.31 H Nucleated RBCs 2 H PT 14.5 H INR 1.4 H D-Dimer 1.83 H Sodium Carbon Dioxide BUN Glucose POC Glucose (mg/dL) Plasma Lactic Acid Jared 2.4 H* Alkaline Phosphatase C-Reactive Protein Total Protein Albumin Urine Appearance Urine Protein Urine Blood Urine RBC Urine WBC Urine WBC Clumps Urine Bacteria Hyaline Casts Crossmatch 08/05/24 08/05/24 08/06/24 10:45 19:12 06:34 WBC 14.1 H 14.7 H RBC 2.93 L 2.86 L Hgb 7.8 L D 7.8 L Hct 25.4 L 24.7 L MCHC 30.8 L RDW 21.1 H 21.6 H Neutrophils # 12.2 H Neutrophils # (Manual) 11.70 H Metamyelocytes # (Man) Myelocytes # (Manual) 0.28 H Nucleated RBCs 4 H PT INR D-Dimer Sodium Carbon Dioxide BUN Glucose POC Glucose (mg/dL) Plasma Lactic Acid Jared Alkaline Phosphatase C-Reactive Protein Total Protein Albumin Urine Appearance Urine Protein Urine Blood Urine RBC Urine WBC Urine WBC Clumps Urine Bacteria Hyaline Casts Crossmatch See Detail 08/06/24 08/06/24 06:34 16:17 WBC RBC Hgb Hct MCHC RDW Neutrophils # Neutrophils # (Manual) Metamyelocytes # (Man) Myelocytes # (Manual) Nucleated RBCs PT INR D-Dimer Sodium 132 L Carbon Dioxide 20 L BUN 18 H Glucose POC Glucose (mg/dL) 198 H Plasma Lactic Acid Jared Alkaline Phosphatase C-Reactive Protein Total Protein Albumin Urine Appearance Urine Protein Urine Blood Urine RBC Urine WBC Urine WBC Clumps Urine Bacteria Hyaline Casts Crossmatch Assessment and Plan Assessment: This is a 59-year-old woman with lower back pain for several months is having radicular pain to her legs and feels she is having significant weakness in the left lower extremity. She was referred to orthopedic as an outpatient she had MRI which there is a concern for spinal cancer and was recommended to follow-up with oncologist. In our facility she had a bone scan whole body which shows feels osseous metastatic disease that is diffuse. On imaging of the CT of the abdomen pelvis there is a concern for neoplasm in the left renal pelvis and left ureter. Suspected lytic area of the L3. Examination patient has weakness over the left side with some dysarthria. Acute left-hemipresis with some dysarthria rule out brain mets and cervical mass Newly diagnosed diffuse osseous metastatic disease Suspected lytic area of L3 due osseous metastatic disease Concern for neoplasm in the left renal pelvis and ureter on imaging Tobacco use. Plan: I ordered MRI of the brain and cervical spine with and without. Oncology is consulted Will defer the rest of the medical management to primary and other specialist Patient was counseled on tobacco cessation. Thank you for the consultation. Time with Patient: Greater than 30
[2024-08-06] MEDS: DOCUSATE 100 MG CAP PO SCH (20:07)
--- NOTE | 2024-08-06 20:26 | P.CONS ---
History of Present Illness - Reason for Consult Consult date: 08/06/24 kidney mass, lytic lesion Requesting physician: Leroy Marquez - Chief Complaint weakness, back pain - History of Present Illness Patient is a 59-year-old female presented emergency room for lower back pain. Patient reports over the last couple months she has been having progressing lower back pain. Today she reports "my legs feel like bricks." She reports 1 episode of fecal incontinence during episodes of loose stools. Denies urinary incontinence. Denies hematuria. Denies dizziness and lightheadedness. She is also reporting difficulty ambulating over the last couple days. Denies abdominal pain, nausea vomiting, blood in stool, and melena. Upon admission hemoglobin was noted at 4.7, MCV 90.2, MCH 27.3. WBC 15.3, platelets 261,000. S/p 2 units PRBCs with an appropriate response in hemoglobin, 7.8 today. Patient states she has been evaluated Dr. Tobar and had an MRI of the spine which showed spinal lesions at which time she was instructed to present to the emergency room for further evaluation. MRI is not within EMR and is not able to be reviewed. Patient has a significant history of approx [id number] smoker. Denies personal history of cancer. ALP elevated 503. Calcium 8.5. Chest x-ray showed no acute cardiopulmonary processes. CTA chest showed negative for acute PE. No acute pulmonary processes. CT abdomen pelvis showed increased density within the prominent left renal pelvis and distal left ureter. Moderate left hydronephrosis. Suspected lytic lesion of T3. Thickened left adrenal gland. UA positive for hematuria. Urology consulted Review of Systems 10 point ROS is negative except as stated in the HPI Past Medical History Past Medical History: No Reported History History of Any Multi-Drug Resistant Organisms: None Reported Past Surgical History: Orthopedic Surgery Additional Past Surgical History / Comment(s): CAtaract surgery, shoulder surgery Past Anesthesia/Blood Transfusion Reactions: No Reported Reaction Past Psychological History: No Psychological Hx Reported Smoking Status: Current every day smoker Past Alcohol Use History: None Reported Past Drug Use History: None Reported Medications and Allergies Home Medications Medication Instructions Recorded Confirmed Type Cyclobenzaprine [Flexeril] 10 mg PO TID PRN #15 tab 07/11/24 08/05/24 Rx Fluticasone Propion/Salmeterol 1 puff INHALATION RT-BID 08/05/24 08/05/24 History [Advair 250-50 Diskus] HYDROcodone/APAP 5-325MG [[place] 1 tab PO BID PRN 08/05/24 08/05/24 History 5-325] Allergies Allergy/AdvReac Type Severity Reaction Status Date / Time No Known Allergies Allergy Verified 08/05/24 14:23 Physical Exam Vitals: Vital Signs Temp Pulse Pulse Resp BP BP Pulse Ox 08/06/24 07:50 98.5 F 107 H 18 137/71 97 08/06/24 07:00 99 14 149/63 98 08/06/24 06:00 103 H 15 148/81 97 08/06/24 05:56 99.8 F H 08/06/24 05:00 98 12 153/67 96 08/06/24 04:00 99 17 143/53 97 08/06/24 03:00 99.1 F 96 18 135/58 98 08/06/24 02:00 98 16 132/58 97 08/06/24 01:00 96 15 137/60 95 08/06/24 00:00 94 13 135/52 98 08/05/24 23:11 96 15 135/52 99 08/05/24 18:15 97.6 F 98 16 144/63 99 08/05/24 15:45 97.7 F 98 16 136/61 98 08/05/24 15:25 97.7 F 92 16 132/59 99 08/05/24 14:59 97.7 F 92 18 139/83 100 08/05/24 14:53 97.9 F 96 18 133/66 100 08/05/24 14:00 97.9 F 99 18 117/59 100 08/05/24 13:00 97.9 F 98 20 138/64 100 08/05/24 12:40 98 F 102 H 20 134/64 99 08/05/24 12:25 98.6 F 101 H 20 140/67 Intake and Output 08/05/24 08/06/24 08/06/24 22:59 06:59 14:59 Intake Total 285 120 Output Total 1500 Balance -1215 120 Intake: Oral 120 Blood Product 285 Rc Pheresis 2 As3 Unit 285 [id number] Output: Urine 1500 Other: Weight 68.039 kg - Constitutional General appearance: average body habitus, no acute distress - EENT Eyes: anicteric sclerae, EOMI ENT: hearing grossly normal Results CBC & Chem 7: 08/06/24 06:34 08/06/24 06:34 Labs: Abnormal Lab Results - Last 24 Hours (Table) 08/05/24 08/05/24 08/05/24 Range/Units 10:05 10:45 19:12 WBC 14.1 H (3.8-10.6) k/uL RBC 2.93 L (3.80-5.40) m/uL Hgb 7.8 L D (11.4-16.0) gm/dL Hct 25.4 L (34.0-46.0) % MCHC 30.8 L (31.0-37.0) g/dL RDW 21.1 H (11.5-15.5) % Neutrophils # (1.3-7.7) k/uL Neutrophils # (Manual) 11.70 H (1.3-7.7) k/uL Myelocytes # (Manual) 0.28 H (0) k/uL Nucleated RBCs 4 H (0-0) /100 WBC Sodium (137-145) mmol/L Carbon Dioxide (22-30) mmol/L BUN (7-17) mg/dL Urine Appearance Cloudy H (Clear) Urine Protein 1+ H (Negative) Urine Blood Moderate H (Negative) Urine RBC 98 H (0-5) /hpf Urine WBC 59 H (0-5) /hpf Urine WBC Clumps Rare H (None) /hpf Urine Bacteria Rare H (None) /hpf Hyaline Casts 4 H (0-2) /lpf Crossmatch See Detail 08/06/24 08/06/24 Range/Units 06:34 06:34 WBC 14.7 H (3.8-10.6) k/uL RBC 2.86 L (3.80-5.40) m/uL Hgb 7.8 L (11.4-16.0) gm/dL Hct 24.7 L (34.0-46.0) % MCHC (31.0-37.0) g/dL RDW 21.6 H (11.5-15.5) % Neutrophils # 12.2 H (1.3-7.7) k/uL Neutrophils # (Manual) (1.3-7.7) k/uL Myelocytes # (Manual) (0) k/uL Nucleated RBCs (0-0) /100 WBC Sodium 132 L (137-145) mmol/L Carbon Dioxide 20 L (22-30) mmol/L BUN 18 H (7-17) mg/dL Urine Appearance (Clear) Urine Protein (Negative) Urine Blood (Negative) Urine RBC (0-5) /hpf Urine WBC (0-5) /hpf Urine WBC Clumps (None) /hpf Urine Bacteria (None) /hpf Hyaline Casts (0-2) /lpf Crossmatch Chest x-ray: report reviewed CT scan - abdomen: report reviewed CT scan - chest: report reviewed CT scan - pelvis: report reviewed Assessment and Plan (1) Renal mass Current Visit: Yes Status: Acute Priority: High Code(s): N28.89 - OTHER SPECIFIED DISORDERS OF KIDNEY AND URETER SNOMED Code(s): 291800312 (2) Anemia Current Visit: Yes Status: Acute Priority: High Code(s): D64.9 - ANEMIA, UNSPECIFIED SNOMED Code(s): 453237014 (3) Lesion of lumbar spine Current Visit: Yes Status: Acute Priority: High Code(s): M89.9 - DISORDER OF BONE, UNSPECIFIED SNOMED Code(s): 608595654 (4) Weakness Current Visit: Yes Status: Acute Priority: High Code(s): R53.1 - WEAKNESS SNOMED Code(s): 36195186 Plan: L3 lesion/kidney mass: Presented to the emergency room for lower back pain. Patient reports over the last couple months she has been having progressing lower back pain. Today she reports "my legs feel like bricks", and has not been able to ambulate over the last cpl days. She also reports 1 episode of fecal incontinence during episodes of diarrhea. Denies urinary incontinence. MRI obtained by orthopedic surgery not within EMR, but per pt suspicious osseous lesions noted -Progressing BLE weakness, and RUE parentheses -Urology consulted for kidney mass -Decadron 4mg q6hrs ordered due to progressing BLE weakness -Unfortunately patient was unable to tolerate recent MRI exam. Will obtain CT cervical/thoracic/lumbar spine with contrast for further evaluation Normocytic anemia: Denies abdominal pain, blood in stool, and melena. Upon admission hemoglobin was noted at 4.7, MCV 90.2, MCH 27.3. WBC 15.3, platelets 261,000. -S/p 2 units PRBCs with an appropriate response in hemoglobin, 7.8 today. -Upon admit, metamyelocytes and myelocytes elevated, likely reactive, with mostly neutrophilia -Will obtain nutritional studies and paraproteineia labs -Contnue to monitor CBC. Transfuse for hgb less than 7 or if symptomatic attests: I have seen and examined patient, performed H&P, developed imp ression and plan of care. Discussed with dictator. Agree with documentation, dictated as a scribe
[2024-08-06 20:38] LABS: Glucose,Whole Blood 189 mg/dL (70-110)
[2024-08-07 01:19] LABS: Immunoglobulin M <35.0 mg/dL (40.0-280.0)
--- NOTE | 2024-08-07 01:26 | PN ---
PROGRESS NOTE DATE OF SERVICE: 08/06/2024 SUBJECTIVE: This is a 59-year-old woman, who was admitted with severe back pain and paraparesis, being closely monitored for possible metastases. Hematology/Oncology recommended cervical, thoracic, lumbar CT scan, and bone scan. OBJECTIVE: VITAL SIGNS: Pulse is 107, blood pressure 137/70, respirations 18. CHEST: Clear to auscultation. CARDIOVASCULAR: S1, S2. ABDOMEN: Soft. NERVOUS SYSTEM: Nonfocal. LABORATORY DATA: Hemoglobin 7.8, white count 14.7. Sodium is 132. ASSESSMENT: 1. Severe back pain and possible L3 lytic lesion with renal cell carcinoma with mets. 2. Severe symptomatic anemia of undetermined etiology. 3. Paraparesis. 4. Elevated WBC. 5. Degenerative joint disease. RECOMMENDATIONS: Recommend to continue current management and continue symptomatic treatment. Closely follow with Neurology and as well as Hematology/Oncology. Guarded prognosis because of multiple complex medical issues. Further recommendations to follow. MMODL / IJN: [id number] /
[2024-08-07 01:36] LABS: % Iron Saturation 23.16 (12.00-45.00)
[2024-08-07 06:04] LABS: Glucose,Whole Blood 147 mg/dL (70-110)
--- NOTE | 2024-08-07 06:40 | P.GSCN ---
History of Present Illness Consult date: 08/06/24 Reason for Consult: Left renal pelvic mass Requesting physician: Faustina Ocampo History of present illness: The patient is a 59-year-old white female with recent low back pain. Evaluation showed a lytic lesion at L-3. She has been admitted for further evaluation. Bone scan shows widespread osseous metastases. CT scan suggest the presence of tumor within the left renal pelvis and ureter, consistent with urothelial c arcinoma. She states that she has experienced lower back pain, predominantly midline and left-sided, for 2 to 3 months. She denies dysuria and hematuria. Review of Systems - Genitourinary Genitourinary: Reports as per HPI Past Medical History Past Medical History: No Reported History History of Any Multi-Drug Resistant Organisms: None Reported Past Surgical History: Orthopedic Surgery (shoulder surgery ) Additional Past Surgical History / Comment(s): Cataract surgery Past Psychological History: No Psychological Hx Reported Smoking Status: Current every day smoker Past Alcohol Use History: None Reported Past Drug Use History: None Reported Medications and Allergies Home Medications Medication Instructions Recorded Confirmed Type Cyclobenzaprine [Flexeril] 10 mg PO TID PRN #15 tab 07/11/24 08/05/24 Rx Fluticasone Propion/Salmeterol 1 puff INHALATION RT-BID 08/05/24 08/05/24 History [Advair 250-50 Diskus] HYDROcodone/APAP 5-325MG [Avenel 1 tab PO BID PRN 08/05/24 08/05/24 History 5-325] Allergies Allergy/AdvReac Type Severity Reaction Status Date / Time No Known Allergies Allergy Verified 08/05/24 14:23 Surgical - Exam Vital Signs Temp Pulse Resp BP Pulse Ox 99.1 F 115 H 18 153/62 100 08/05/24 09:27 08/05/24 09:27 08/05/24 09:27 08/05/24 09:27 08/05/24 09:27 - General well developed, well nourished, no distress - Respiratory normal respiratory effort - Abdomen Abdomen: soft, non tender, no guarding, no rigid, no rebound - Psychiatric oriented to time, oriented to person, oriented to place, speech is normal, me maria guadalupe intact Results - Labs 08/06/24 06:34 08/06/24 06:34 Abnormal Lab Results - Last 24 Hours (Table) 08/05/24 08/05/24 08/05/24 Range/Units 10:05 10:05 10:36 WBC 17.5 H (3.8-10.6) k/uL RBC 1.41 L (3.80-5.40) m/uL Hgb 3.9 L* (11.4-16.0) gm/dL Hct 12.9 L* (34.0-46.0) % MCHC 30.0 L (31.0-37.0) g/dL RDW 23.8 H (11.5-15.5) % Neutrophils # (1.3-7.7) k/uL Neutrophils # (Manual) 13.40 H (1.3-7.7) k/uL Metamyelocytes # (Man) 0.35 H (0) k/uL Myelocytes # (Manual) 0.18 H (0) k/uL Nucleated RBCs 2 H (0-0) /100 WBC PT (10.0-12.5) sec INR (<1.2) D-Dimer (<0.60) mg/L FEU Sodium 131 L (137-145) mmol/L Carbon Dioxide 17 L (22-30) mmol/L BUN 23 H (7-17) mg/dL Glucose 113 H (74-99) mg/dL Plasma Lactic Acid Jared (0.7-2.0) mmol/L Alkaline Phosphatase 503 H (38-126) U/L C-Reactive Protein 41.1 H (<1.0) mg/dL Total Protein 4.9 L (6.3-8.2) g/dL Albumin 2.4 L (3.5-5.0) g/dL Urine Appearance Cloudy H (Clear) Urine Protein 1+ H (Negative) Urine Blood Moderate H (Negative) Urine RBC 98 H (0-5) /hpf Urine WBC 59 H (0-5) /hpf Urine WBC Clumps Rare H (None) /hpf Urine Bacteria Rare H (None) /hpf Hyaline Casts 4 H (0-2) /lpf Crossmatch 08/05/24 08/05/24 08/05/24 Range/Units 10:36 10:36 10:36 WBC 15.3 H (3.8-10.6) k/uL RBC 1.73 L (3.80-5.40) m/uL Hgb 4.7 L* (11.4-16.0) gm/dL Hct 15.6 L* (34.0-46.0) % MCHC 30.3 L (31.0-37.0) g/dL RDW 24.1 H (11.5-15.5) % Neutrophils # (1.3-7.7) k/uL Neutrophils # (Manual) 12.50 H (1.3-7.7) k/uL Metamyelocytes # (Man) 0.31 H (0) k/uL Myelocytes # (Manual) 0.31 H (0) k/uL Nucleated RBCs 2 H (0-0) /100 WBC PT 14.5 H (10.0-12.5) sec INR 1.4 H (<1.2) D-Dimer 1.83 H (<0.60) mg/L FEU Sodium (137-145) mmol/L Carbon Dioxide (22-30) mmol/L BUN (7-17) mg/dL Glucose (74-99) mg/dL Plasma Lactic Acid Jared 2.4 H* (0.7-2.0) mmol/L Alkaline Phosphatase (38-126) U/L C-Reactive Protein (<1.0) mg/dL Total Protein (6.3-8.2) g/dL Albumin (3.5-5.0) g/dL Urine Appearance (Clear) Urine Protein (Negative) Urine Blood (Negative) Urine RBC (0-5) /hpf Urine WBC (0-5) /hpf Urine WBC Clumps (None) /hpf Urine Bacteria (None) /hpf Hyaline Casts (0-2) /lpf Crossmatch 08/05/24 08/05/24 08/06/24 Range/Units 10:45 19:12 06:34 WBC 14.1 H 14.7 H (3.8-10.6) k/uL RBC 2.93 L 2.86 L (3.80-5.40) m/uL Hgb 7.8 L D 7.8 L (11.4-16.0) gm/dL Hct 25.4 L 24.7 L (34.0-46.0) % MCHC 30.8 L (31.0-37.0) g/dL RDW 21.1 H 21.6 H (11.5-15.5) % Neutrophils # 12.2 H (1.3-7.7) k/uL Neutrophils # (Manual) 11.70 H (1.3-7.7) k/uL Metamyelocytes # (Man) (0) k/uL Myelocytes # (Manual) 0.28 H (0) k/uL Nucleated RBCs 4 H (0-0) /100 WBC PT (10.0-12.5) sec INR (<1.2) D-Dimer (<0.60) mg/L FEU Sodium (137-145) mmol/L Carbon Dioxide (22-30) mmol/L BUN (7-17) mg/dL Glucose (74-99) mg/dL Plasma Lactic Acid Jared (0.7-2.0) mmol/L Alkaline Phosphatase (38-126) U/L C-Reactive Protein (<1.0) mg/dL Total Protein (6.3-8.2) g/dL Albumin (3.5-5.0) g/dL Urine Appearance (Clear) Urine Protein (Negative) Urine Blood (Negative) Urine RBC (0-5) /hpf Urine WBC (0-5) /hpf Urine WBC Clumps (None) /hpf Urine Bacteria (None) /hpf Hyaline Casts (0-2) /lpf Crossmatch See Detail 08/06/24 Range/Units 06:34 WBC (3.8-10.6) k/uL RBC (3.80-5.40) m/uL Hgb (11.4-16.0) gm/dL Hct (34.0-46.0) % MCHC (31.0-37.0) g/dL RDW (11.5-15.5) % Neutrophils # (1.3-7.7) k/uL Neutrophils # (Manual) (1.3-7.7) k/uL Metamyelocytes # (Man) (0) k/uL Myelocytes # (Manual) (0) k/uL Nucleated RBCs (0-0) /100 WBC PT (10.0-12.5) sec INR (<1.2) D-Dimer (<0.60) mg/L FEU Sodium 132 L (137-145) mmol/L Carbon Dioxide 20 L (22-30) mmol/L BUN 18 H (7-17) mg/dL Glucose (74-99) mg/dL Plasma Lactic Acid Jared (0.7-2.0) mmol/L Alkaline Phosphatase (38-126) U/L C-Reactive Protein (<1.0) mg/dL Total Protein (6.3-8.2) g/dL Albumin (3.5-5.0) g/dL Urine Appearance (Clear) Urine Protein (Negative) Urine Blood (Negative) Urine RBC (0-5) /hpf Urine WBC (0-5) /hpf Urine WBC Clumps (None) /hpf Urine Bacteria (None) /hpf Hyaline Casts (0-2) /lpf Crossmatch Diabetes panel 08/05/24 08/06/24 Range/Units 10:36 06:34 Sodium 131 L 132 L (137-145) mmol/L Potassium 4.0 4.6 (3.5-5.1) mmol/L Chloride 106 104 (98-107) mmol/L Carbon Dioxide 17 L 20 L (22-30) mmol/L BUN 23 H 18 H (7-17) mg/dL Creatinine 0.88 0.70 (0.52-1.04) mg/dL Glucose 113 H 98 (74-99) mg/dL Calcium 8.5 8.7 (8.4-10.2) mg/dL AST 27 (14-36) U/L ALT 12 (4-34) U/L Alkaline Phosphatase 503 H (38-126) U/L Total Protein 4.9 L (6.3-8.2) g/dL Albumin 2.4 L (3.5-5.0) g/dL Calcium panel 08/05/24 08/06/24 Range/Units 10:36 06:34 Calcium 8.5 8.7 (8.4-10.2) mg/dL Albumin 2.4 L (3.5-5.0) g/dL Pituitary panel 08/05/24 08/06/24 Range/Units 10:36 06:34 Sodium 131 L 132 L (137-145) mmol/L Potassium 4.0 4.6 (3.5-5.1) mmol/L Chloride 106 104 (98-107) mmol/L Carbon Dioxide 17 L 20 L (22-30) mmol/L BUN 23 H 18 H (7-17) mg/dL Creatinine 0.88 0.70 (0.52-1.04) mg/dL Glucose 113 H 98 (74-99) mg/dL Calcium 8.5 8.7 (8.4-10.2) mg/dL Adrenal panel 08/05/24 08/06/24 Range/Units 10:36 06:34 Sodium 131 L 132 L (137-145) mmol/L Potassium 4.0 4.6 (3.5-5.1) mmol/L Chloride 106 104 (98-107) mmol/L Carbon Dioxide 17 L 20 L (22-30) mmol/L BUN 23 H 18 H (7-17) mg/dL Creatinine 0.88 0.70 (0.52-1.04) mg/dL Glucose 113 H 98 (74-99) mg/dL Calcium 8.5 8.7 (8.4-10.2) mg/dL Total Bilirubin 0.5 (0.2-1.3) mg/dL AST 27 (14-36) U/L ALT 12 (4-34) U/L Alkaline Phosphatase 503 H (38-126) U/L Total Protein 4.9 L (6.3-8.2) g/dL Albumin 2.4 L (3.5-5.0) g/dL - Imaging CT scan - abdomen: report reviewed, image reviewed Assessment and Plan (1) 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 CT scan findings suggest the possibility of urothelial carcinoma within the left renal pelvis. In order to confirm this, I have suggested to the patient that she undergo cystoscopy, left retrograde pyelogram, left ureteroscopy with biopsy, possible left ureteral stent insertion. The rationale for this has been discussed, along with potential risks which include anesthesia, bleeding, infection, and ureteral injury. I am hopeful that this can be performed on August 07. Time with Patient: Greater than 30
[2024-08-07 07:23] LABS: African American GFR (CKD) >90 (>60 ml/min/1.73 sqM); Anion Gap 4 mmol/L; Blood Urea Nitrogen 22 mg/dL (7-17); Calcium 8.9 mg/dL (8.4-10.2); Carbon Dioxide 21 mmol/L (22-30); Chloride 106 mmol/L (98-107); Glucose 113 mg/dL (74-99); Non-African American GFR(CKD) >90 (>60 ml/min/1.73 sqM); Potassium 4.8 mmol/L (3.5-5.1); Sodium 131 mmol/L (137-145)
[2024-08-07 07:32] LABS: Anisocytosis Moderate; Basophils % (A) 0 %; Eosinophils % (A) 0 %; HCT 24.2 % (34.0-46.0); HGB 7.5 gm/dL (11.4-16.0); Hypochromasia Marked; Lymphocytes % (A) 11 %; MCH 27.1 pg (25.0-35.0); MCHC 31.1 g/dL (31.0-37.0); MCV 87.1 fL (80.0-100.0); Mean Platelet Volume 7.8; Monocytes # (A) 0.4 k/uL (0-1.0); Monocytes % (A) 2 %; Neutrophils # (A) 15.3 k/uL (1.3-7.7); Neutrophils % (A) 86 %; Platelet Count 187 k/uL (150-450); Poikilocytosis Slight; RBC 2.77 m/uL (3.80-5.40); RDW 22.2 % (11.5-15.5); WBC 17.9 k/uL (3.8-10.6)
[2024-08-07 12:07] LABS: Glucose,Whole Blood 123 mg/dL (70-110)
[2024-08-07] MEDS: IV FLUID CONTINUATION 1,000 ML IV ONE (15:01)
[2024-08-07] MEDS: ONDANSETRON 4 MG/2 ML VIAL IVP PRN (15:11)
[2024-08-07] MEDS: fentaNYL (PF) 50 MCG/ML 2 ML AMP IVP ONE (15:22)
[2024-08-07 15:32] LABS: Protein, Total 4.9 g/dL (6.2-8.2)
[2024-08-07] MEDS ORDERED: LIDOCAINE 1% INJ 10MG/ML (20 ML MDV) ONE (15:43)
[2024-08-07] MEDS ORDERED: HYDROmorphone (PF) 1 MG/ML ONE (15:43)
[2024-08-07] MEDS ORDERED: SUCCINYLCHOLINE CHLORIDE 200 MG/10 ML VIAL IV ONE (15:43)
[2024-08-07] MEDS ORDERED: KETOROLAC 15 MG/ML 1 ML VIAL ONE (15:43)
[2024-08-07] MEDS ORDERED: fentaNYL (PF) 50 MCG/ML 2 ML AMP ONE (15:43)
[2024-08-07] MEDS ORDERED: PROPOFOL 10 MG/ML 20 ML VIAL IV ONE (15:43)
[2024-08-07] MEDS ORDERED: MIDAZOLAM 2 MG/2 ML VIAL ONE (15:43)
[2024-08-07] MEDS: HEPARIN SODIUM,PORCINE 5,000 UNIT/ML 1 ML VIAL SQ SCH (16:08)
[2024-08-07] MEDS: IOPAMIDOL-370 100ML BTL MISCELLANE ONE (16:13)
--- NOTE | 2024-08-07 17:33 | P.OP ---
Date of Procedure: 08/07/24 Preoperative Diagnosis: Left ureteral neoplasm of uncertain behavior Postoperative Diagnosis: Same Procedure(s) Performed: Cystoscopy, left retrograde pyelogram, left ureteroscopy with biopsies Anesthesia: JOSH Surgeon: David Farrell Estimated Blood Loss (ml): 5 IV fluids (ml): 600 Condition: stable Disposition: PACU Indications for Procedure: The patient is a 59-year-old white female found to have widespread osseous metastases. CT scan shows what appears to be tumor within the left renal pelvis and left ureter. She now comes for further evaluation. Operative Findings: Multiple left distal ureteral papillary tumors. These have a low-grade, booker nvasive appearance. Description of Procedure: The patient was taken to the operating room and placed in the dorsolithotomy position, with her legs supported in Jarod stirrups. The external genitalia was prepped and draped sterilely. The 30 degree lens was used to introduce the 22 Ukrainian start cystoscopic sheath through the urethra and into the bladder under direct vision. The urethra appeared normal. The bladder was unremarkable. No tumors or foreign bodies were seen. The right ureteral orifice appeared normal. However, the left ureteral orifice was bulging, suggesting an intramural mass. A small amount of papillary tumor was seen extruding from the left ureteral orifice. A 6 Ukrainian open-ended catheter was passed through the cystoscope. The left ureteral orifice was cannulated, and the catheter was advanced several centimeters, at which point resistance was met. Contrast was injected, revealing multiple filling defects within the left distal ureter. The cystoscope was then removed, and the [facility] semirigid ureteroscope was advanced into the bladder. The left ureteral orifice was cannulated, and the ureteroscope was slowly advanced under direct vision. Multiple tumors were seen within the left distal ureter. These had a papillary, low-grade appearance. Piranha forceps were used to obtain multiple biopsies, which were saved and sent to Pathology. There was no evidence ureteral perforation. Bleeding was minimal. The patient tolerated the procedure well was taken to the recovery in stable condition.
--- NOTE | 2024-08-07 17:44 | FL ---
EXAMINATION TYPE: FL guidance operating room DATE OF EXAM: 08/07/2024 FLUOROSCOPY CYSTO. 0.6925 DAP AND 4.6 SEC FL TIME Images show injection into the left ureter with multiple filling defects encountered. Air bubbles uriel lolis urothelial lesions, or other filling defects such as stones or clot are all possibilities. [facility], , 08/07/2024 5:42 PM
[2024-08-07] MEDS: hydrALAZINE HCL 20 MG/ML 1 ML VIAL IVP STA (17:47)
--- NOTE | 2024-08-07 18:24 | P.PN ---
Subjective Progress Note Date: 08/07/24 No acute events. Reporting improved pain control on current pain regimen. States she was able to ambulate short distance with walker today. Scheduled today for cystoscopy Objective - Vital Signs Vital signs: Vital Signs Temp 97.4 F L 08/07/24 08:00 Pulse 91 08/07/24 08:00 Resp 16 08/07/24 08:00 BP 139/70 08/07/24 08:00 Pulse Ox 98 08/07/24 08:00 FiO2 Intake & Output 08/06/24 08/07/24 08/07/24 18:59 06:59 18:59 Intake Total 466 0 Output Total 800 500 Balance -334 -500 0 Weight 68.039 kg 64.5 kg Intake: Oral 466 0 Output: Urine 800 500 Other: Voiding Method Indwelling Catheter Indwelling Catheter # Voids 0 # Bowel Movements 1 0 - Constitutional General appearance: Present: average body habitus, no acute distress - EENT Eyes: Present: anicteric sclerae, EOMI ENT: Present: hearing grossly normal - Respiratory Details: breathing is even and unlabored - Cardiovascular Details: skin warm and dry - Integumentary Integumentary: Present: pale. Absent: cyanotic, jaundiced - Psychiatric Psychiatric: Present: A&O x's 3 - Labs CBC & Chem 7: 08/07/24 06:46 08/07/24 06:46 Labs: Abnormal Lab Results - Last 24 Hours (Table) 08/05/24 08/06/24 08/06/24 Range/Units 10:36 06:34 16:17 WBC (3.8-10.6) k/uL RBC (3.80-5.40) m/uL Hgb (11.4-16.0) gm/dL Hct (34.0-46.0) % RDW (11.5-15.5) % Neutrophils # (1.3-7.7) k/uL Sodium (137-145) mmol/L Carbon Dioxide (22-30) mmol/L BUN (7-17) mg/dL Glucose (74-99) mg/dL POC Glucose (mg/dL) 198 H (70-110) mg/dL Iron 44 L (50-170) UG/DL TIBC 190 L (228-460) UG/DL Transferrin 136.0 L (204.0-354.0) mg/dL Ferritin 1729.0 H (10.0-291.0) ng/mL Vitamin B12 2321.0 H (200.0-944.0) pg/mL IgG 687.0 L (700.0-1600.0) mg/dL IgM <35.0 L (40.0-280.0) mg/dL 08/06/24 08/07/24 08/07/24 Range/Units 20:35 06:02 06:46 WBC 17.9 H (3.8-10.6) k/uL RBC 2.77 L (3.80-5.40) m/uL Hgb 7.5 L (11.4-16.0) gm/dL Hct 24.2 L (34.0-46.0) % RDW 22.2 H (11.5-15.5) % Neutrophils # 15.3 H (1.3-7.7) k/uL Sodium (137-145) mmol/L Carbon Dioxide (22-30) mmol/L BUN (7-17) mg/dL Glucose (74-99) mg/dL POC Glucose (mg/dL) 189 H 147 H (70-110) mg/dL Iron (50-170) UG/DL TIBC (228-460) UG/DL Transferrin (204.0-354.0) mg/dL Ferritin (10.0-291.0) ng/mL Vitamin B12 (200.0-944.0) pg/mL IgG (700.0-1600.0) mg/dL IgM (40.0-280.0) mg/dL 08/07/24 Range/Units 06:46 WBC (3.8-10.6) k/uL RBC (3.80-5.40) m/uL Hgb (11.4-16.0) gm/dL Hct (34.0-46.0) % RDW (11.5-15.5) % Neutrophils # (1.3-7.7) k/uL Sodium 131 L (137-145) mmol/L Carbon Dioxide 21 L (22-30) mmol/L BUN 22 H (7-17) mg/dL Glucose 113 H (74-99) mg/dL POC Glucose (mg/dL) (70-110) mg/dL Iron (50-170) UG/DL TIBC (228-460) UG/DL Transferrin (204.0-354.0) mg/dL Ferritin (10.0-291.0) ng/mL Vitamin B12 (200.0-944.0) pg/mL IgG (700.0-1600.0) mg/dL IgM (40.0-280.0) mg/dL Microbiology - Last 24 Hours (Table) 08/05/24 19:12 Blood Culture - Preliminary Blood 08/05/24 10:05 Urine Culture - Final Urine,Voided Assessment and Plan (1) Renal mass Current Visit: Yes Status: Acute Priority: High Code(s): N28.89 - OTHER SPECIFIED DISORDERS OF KIDNEY AND URETER SNOMED Code(s): 240431183 (2) Anemia Current Visit: Yes Status: Acute Priority: High Code(s): D64.9 - ANEMIA, U NSPECIFIED SNOMED Code(s): 334065084 (3) Lesion of lumbar spine Current Visit: Yes Status: Acute Priority: High Code(s): M89.9 - DISORDER OF BONE, UNSPECIFIED SNOMED Code(s): 844484315 (4) Weakness Current Visit: Yes Status: Acute Priority: High Code(s): R53.1 - WEAKNESS SNOMED Code(s): 50125407 Plan: Metastatic osseous lesions/kidney mass: Presented to the emergency room for lower back pain. Patient reports over the last couple months she has been having progressing lower back pain. Today she reports "my legs feel like bricks", and has not been able to ambulate over the last cpl days. She also reports 1 episode of fecal incontinence during episodes of diarrhea. Denies urinary incontinence. MRI obtained by orthopedic surgery not within EMR, but per pt suspicious osseous lesions noted -Progressing BLE weakness, and RUE parentheses -Urology consulted for kidney mass. Scheduled for cystoscopy today -Continue Decadron 4mg q6hrs -Patient was unable to tolerate recent MRI exam. Will obtain CT cervical/thoracic/lumbar spine with contrast for further evaluation -CT scan showed multiple mixed lucent/sclerotic lesions in the dorsal spine at C6, T1, T2, T4, T5, T8 7, T11, L3, L4, and S1. Enlargement of left supraclavicular lymph node. Retroperitoneal adenopathy on the left. Bone scan compatible with diffuse osseous metastatic disease throughout both appendicular and axial skeleton. Results and POC discussed with patient. All questions and concerns were addressed Normocytic anemia: Denies abdominal pain, blood in stool, and melena and gross hematuria. UA positive for hematuria. Upon admission hemoglobin was noted at 4.7, MCV 90.2, MCH 27.3. WBC 15.3, platelets 261,000. -S/p 2 units PRBCs with an appropriate response. Hemoglobin 7.5 today. -Upon admit, metamyelocytes and myelocytes elevated, likely reactive, with mostly neutrophilia -No nutritional deficiencies noted, consistent with anemia of inflammation. Paraproteinemia workup pending -Continue to monitor CBC. Transfuse for hgb less than 7 or if symptomatic attests: I have seen and examined patient, performed H&P, developed impression and plan of care. Discussed with dictator. Agree with documentation, dictated as a scribe
--- NOTE | 2024-08-07 19:13 | P.PN ---
Progress Note - Text Progress Note Date: 08/07/24 I went to follow-up with patient and was not in room. Will reassess later.
[2024-08-07 20:06] LABS: Glucose,Whole Blood 136 mg/dL (70-110)
--- NOTE | 2024-08-08 00:44 | PN ---
PROGRESS NOTE DATE OF SERVICE: 08/07/2024 SUBJECTIVE: This is a 59-year-old woman who was admitted with severe back pain and possible L3 lytic lesion, is being closely monitored at this time. Venous Doppler was negative for DVT. A CT scan of the thoracic, cervical, and lumbar CT scan showed multiple lesions in the osseous spine with no compression fractures. Enlargement of the left supraclavicular lymph node, retroperitoneal neuropathy and multiple abnormalities also. The bone scan showed diffuse osseous metastatic disease. PAST MEDICAL HISTORY: Reviewed. REVIEW OF SYSTEMS: A 14-point review is negative except as mentioned earlier. CURRENT MEDICATIONS: Reviewed. PHYSICAL EXAMINATION: VITAL SIGNS: Pulse is 91, blood pressure 139/70, respirations 16. HEENT: Conjunctivae normal. CARDIOVASCULAR: S1, S2. RESPIRATIONS: Breath sounds diminished at the bases. A few scattered rhonchi. ABDOMEN: Soft. LEGS: No edema. NERVOUS SYSTEM: Diffusely weak. Paraparesis present. LABORATORY DATA: WBC 17.9. ASSESSMENT: 1. Severe back pain, possibly L3 lytic lesion with renal cell carcinoma with multiple METS. 2. Diffuse bony METS, possibly. 3. Severe symptomatic anemia possibly secondary to malignancy. 4. Paraparesis. 5. Increased WBC. 6. Degenerative joint disease. 7. Full code. RECOMMENDATIONS AND DISCUSSION: This is a 59-year-old woman, who presented with multiple complex medical history. We will monitor the patient closely. Continue the current medications, continue symptomatic treatment. Otherwise, I recommend empiric steroids and closely monitor. Overall prognosis extremely guarded because of multiple complex medical issues and further recommendations to follow. MMODL / IJN: [id number] /
[2024-08-08 05:20] LABS: Methylmalonic Acid 0.24 umol/L (<0.40)
[2024-08-08 06:15] LABS: Glucose,Whole Blood 111 mg/dL (70-110)
[2024-08-08 07:33] LABS: Anisocytosis Moderate; HCT 22.1 % (34.0-46.0); Hypochromasia Marked; MCH 27.7 pg (25.0-35.0); MCHC 31.6 g/dL (31.0-37.0); MCV 87.7 fL (80.0-100.0); Mean Platelet Volume 8.3; Platelet Count 182 k/uL (150-450); Poikilocytosis Slight; RBC 2.51 m/uL (3.80-5.40); RDW 21.7 % (11.5-15.5)
[2024-08-08 07:44] LABS: ALT 12 U/L (4-34); AST 29 U/L (14-36); African American GFR (CKD) >90 (>60 ml/min/1.73 sqM); Albumin 2.2 g/dL (3.5-5.0); Alkaline Phosphatase 453 U/L (38-126); Anion Gap 5 mmol/L; Blood Urea Nitrogen 29 mg/dL (7-17); Calcium 8.2 mg/dL (8.4-10.2); Carbon Dioxide 23 mmol/L (22-30); Chloride 102 mmol/L (98-107); Glucose 90 mg/dL (74-99); Non-African American GFR(CKD) 86 (>60 ml/min/1.73 sqM); Sodium 130 mmol/L (137-145); Total Bilirubin 0.5 mg/dL (0.2-1.3); Total Protein 4.6 g/dL (6.3-8.2)
[2024-08-08 08:32] LABS: Band Neutrophils % 1 %; Metamyelocytes % 4 %; Monocytes # (M) 0.17 k/uL (0-1.0); Myelocytes # (M) 0.17 k/uL (0); Myelocytes % 1 %; Neutrophils % (M) 80 %; Nucleated Red Blood Cells 2 /100 WBC (0-0); Total Cells Counted 200
[2024-08-08 08:33] LABS: Lymphocytes # (M) 2.39 k/uL (1.0-4.8); Metamyelocytes # (M) 0.68 k/uL (0); WBC 17.1 k/uL (3.8-10.6)
[2024-08-08 11:20] LABS: Glucose,Whole Blood 159 mg/dL (70-110)
--- NOTE | 2024-08-08 12:31 | P.PN ---
Subjective Progress Note Date: 08/08/24 Principal diagnosis: Neoplasm of uncertain behavior, left renal pelvis and left ureter. The patient was admitted with back pain and has been found to have widespread osseous metastases. CT scan suggested the presence of tumor within the left renal pelvis and ureter. Cystoscopy and left ureteroscopy on August 07 confirmed the presence of multiple ureteral tumors. Biopsy results are pending but are expected to show urothelial carcinoma. She currently denies dysuria and hematuria. Objective - Vital Signs Vital signs: Vital Signs Temp 98.1 F 08/08/24 04:00 Pulse 90 08/08/24 04:00 Resp 18 08/08/24 04:00 BP 118/66 08/08/24 04:00 Pulse Ox 96 08/08/24 04:00 FiO2 Intake & Output 08/07/24 08/08/24 08/08/24 18:59 06:59 18:59 Intake Total 800 300 Output Total 5 Balance 795 300 Weight 60.3 kg Intake: IV 800 Oral 0 300 Output: Estimated Blood Loss 5 Other: Voiding Method Indwelling Catheter Toilet External Catheter # Voids 0 1 # Bowel Movements 0 - Constitutional General appearance: Present: average body habitus, no acute distress - Psychiatric Psychiatric: Present: A&O x's 3 - Labs CBC & Chem 7: 08/08/24 06:51 08/08/24 06:51 Labs: Abnormal Lab Results - Last 24 Hours (Table) 08/07/24 08/07/24 08/07/24 Range/Units 11:43 12:04 20:05 POC Glucose (mg/dL) 123 H 136 H (70-110) mg/dL Total Protein (PEP) 4.9 L (6.2-8.2) g/dL 08/08/24 Range/Units 06:14 POC Glucose (mg/dL) 111 H (70-110) mg/dL Total Protein (PEP) (6.2-8.2) g/dL Microbiology - Last 24 Hours (Table) 08/05/24 19:12 Blood Culture - Preliminary Blood Assessment and Plan (1) 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
--- NOTE | 2024-08-08 14:26 | P.PN ---
Subjective Progress Note Date: 08/08/24 This is a pleasant 59-year-old female who was recently admitted with back pain and difficulty with ambulation and a possible L3 lytic lesion being closely monitored with multiple medical consultations. Patient also underwent CT scanning showing multiple lesions in the osseous spine although no compression fractures noted. Patient also with a left supraclavicular lymph node enlargement and underwent a nuclear med bone scan which showed diffuse osseous metastatic disease. Patient is status post cystoscopy with pyelogram and left biopsy of the ureter and highly suspicious of carcinoma per urology. Patient's hemoglobin is 7.0 today with no active bleeding noted although will give unit of PRBC and follow-up with repeat labs. Recommend PT/OT therapy evaluation and discuss further with case management for possible ECF. Review of systems: Constitutional: No reports of fatigue, fever, or chills Cardiovascular: No reports of chest pain or palpitations Respiratory: No reports of shortness of breath or cough GI: No reports of nausea, no reports of vomiting, no diarrhea : No reports of dysuria or retention Neurovascular: reports of generalized weakness, but feels is improving All medications have been reviewed PHYSICAL EXAMINATION: GENERAL: The patient is alert and oriented x4, Well developed, thin built, elderly appearing HEENT: Pupils are round and equally reacting to light. EOMI. no scleral icterus. No conjunctival pallor. Normocephalic, atraumatic. No pharyngeal erythema. No thyromegaly. CARDIOVASCULAR: S1 and S2 muffled PULMONARY: diminished breath sounds bilaterally with no wheezing or rhonchi noted. ABDOMEN: soft. Nontender on exam. non-distended, normoactive bowel sounds. No palpable organomegaly. MUSCULOSKELETAL: No joint swelling or deformity. EXTREMITIES: No cyanosis, clubbing, or pedal edema. NEUROLOGICAL: Gross neurological examination did not reveal any focal deficits. Diffuse weakness SKIN: No rashes. Assessment: Severe back pain, possible L3 lytic lesion with renal cell carcinoma with multiple mets Bone scan this admission showing concerns for diffuse bony mets Severe symptomatic anemia, possibly secondary to malignancy Possible neoplasm of uncertain behavior of the left renal pelvis and left ureter status post ureteroscopy with cystoscopy and biopsies taken, pending Paraparesis Increased white count, improving Degenerative joint disease Continued ongoing nicotine dependence GI prophylaxis DVT prophylaxis Full code Plan: Recommend to continue with current medications and management with multiple consultations following. Patient is status post biopsies with urology with cystoscopy and awaiting pathology report Oncology following recommending outpatient follow-up once biopsy results have been obtained PT/OT therapy evaluation. Patient is persistent ongoing home and will arrange for home care and also necessary equipment including a wheelchair and walker. Will follow-up on repeat labs and follow-up on CBC status post PRBC today. Hemoglobin was 7 and 1 unit of PRBC ordered Will discuss with other consultations with possible discharge planning in the next 24 to 48 hours Overall prognosis is guarded at this time The impression and plan of care has been dictated by Carmella Moore, nurse practitioner as directed. Dr. Terrence MD I have performed a history and examination and MDM of this patient, discussed the same with the dictator, and agree with the dictator's assessment and plan as written ,documented as a scribe. Based on total visit time, I have performed more than 50% of the visit. Any additional findings or plans will be noted. Objective - Vital Signs Vital signs: Vital Signs Temp 97.9 F 08/08/24 11:11 Pulse 83 08/08/24 11:41 Resp 16 08/08/24 11:41 BP 149/71 08/08/24 11:41 Pulse Ox 99 08/08/24 11:41 FiO2 Intake & Output 08/07/24 08/08/24 08/08/24 18:59 06:59 18:59 Intake Total 800 300 120 Output Total 5 Balance 795 300 120 Weight 60.3 kg Intake: IV 800 Oral 0 300 120 Blood Product 0 Rc As-1 Unit 0 [id number] Output: Estimated Blood Loss 5 Other: Voiding Method Indwelling Catheter Toilet Toilet External Catheter External Catheter # Voids 0 1 # Bowel Movements 0 - Labs CBC & Chem 7: 08/08/24 06:51 08/08/24 06:51 Labs: Abnormal Lab Results - Last 24 Hours (Table) 08/05/24 08/07/24 08/07/24 Range/Units 10:45 11:43 20:05 WBC (3.8-10.6) k/uL RBC (3.80-5.40) m/uL Hgb (11.4-16.0) gm/dL Hct (34.0-46.0) % RDW (11.5-15.5) % Neutrophils # (Manual) (1.3-7.7) k/uL Metamyelocytes # (Man) (0) k/uL Myelocytes # (Manual) (0) k/uL Nucleated RBCs (0-0) /100 WBC Sodium (137-145) mmol/L BUN (7-17) mg/dL POC Glucose (mg/dL) 136 H (70-110) mg/dL Calcium (8.4-10.2) mg/dL Alkaline Phosphatase (38-126) U/L Total Protein (6.3-8.2) g/dL Total Protein (PEP) 4.9 L (6.2-8.2) g/dL Albumin (3.5-5.0) g/dL Crossmatch See Detail 08/08/24 08/08/24 08/08/24 Range/Units 06:14 06:51 06:51 WBC 17.1 H (3.8-10.6) k/uL RBC 2.51 L (3.80-5.40) m/uL Hgb 7.0 L (11.4-16.0) gm/dL Hct 22.1 L (34.0-46.0) % RDW 21.7 H (11.5-15.5) % Neutrophils # (Manual) 13.80 H (1.3-7.7) k/uL Metamyelocytes # (Man) 0.68 H (0) k/uL Myelocytes # (Manual) 0.17 H (0) k/uL Nucleated RBCs 2 H (0-0) /100 WBC Sodium 130 L (137-145) mmol/L BUN 29 H (7-17) mg/dL POC Glucose (mg/dL) 111 H (70-110) mg/dL Calcium 8.2 L (8.4-10.2) mg/dL Alkaline Phosphatase 453 H (38-126) U/L Total Protein 4.6 L (6.3-8.2) g/dL Total Protein (PEP) (6.2-8.2) g/dL Albumin 2.2 L (3.5-5.0) g/dL Crossmatch 08/08/24 Range/Units 11:16 WBC (3.8-10.6) k/uL RBC (3.80-5.40) m/uL Hgb (11.4-16.0) gm/dL Hct (34.0-46.0) % RDW (11.5-15.5) % Neutrophils # (Manual) (1.3-7.7) k/uL Metamyelocytes # (Man) (0) k/uL Myelocytes # (Manual) (0) k/uL Nucleated RBCs (0-0) /100 WBC Sodium (137-145) mmol/L BUN (7-17) mg/dL POC Glucose (mg/dL) 159 H (70-110) mg/dL Calcium (8.4-10.2) mg/dL Alkaline Phosphatase (38-126) U/L Total Protein (6.3-8.2) g/dL Total Protein (PEP) (6.2-8.2) g/dL Albumin (3.5-5.0) g/dL Crossmatch Microbiology - Last 24 Hours (Table) 08/05/24 19:12 Blood Culture - Preliminary Blood
[2024-08-08 16:23] LABS: Glucose,Whole Blood 147 mg/dL (70-110)
--- NOTE | 2024-08-08 19:10 | P.PN ---
Subjective Progress Note Date: 08/08/24 No acute events. S/p cystoscopy, tolerated procedure well. Reporting improved pain control on current pain regimen, pain is controlled with pain <5. States she is having better ROM of lower extremities and ambulation is improving Objective - Vital Signs Vital signs: Vital Signs Temp 97.9 F 08/08/24 11:11 Pulse 83 08/08/24 11:41 Resp 16 08/08/24 11:41 BP 149/71 08/08/24 11:41 Pulse Ox 99 08/08/24 11:41 FiO2 Intake & Output 08/07/24 08/08/24 08/08/24 18:59 06:59 18:59 Intake Total 800 300 120 Output Total 5 Balance 795 300 120 Weight 60.3 kg Intake: IV 800 Oral 0 300 120 Blood Product 0 Rc As-1 Unit 0 [id number] Output: Estimated Blood Loss 5 Other: Voiding Method Indwelling Catheter Toilet Toilet External Catheter External Catheter # Voids 0 1 # Bowel Movements 0 - Constitutional General appearance: Present: average body habitus, no acute distress - EENT Eyes: Present: anicteric sclerae, EOMI ENT: Present: hearing grossly normal - Respiratory Details: breathing is even and unlabored - Cardiovascular Details: skin warm and dry - Integumentary Integumentary: Absent: cyanotic - Psychiatric Psychiatric: Present: A&O x's 3 - Labs CBC & Chem 7: 08/08/24 06:51 08/08/24 06:51 Labs: Abnormal Lab Results - Last 24 Hours (Table) 08/05/24 08/07/24 08/07/24 Range/Units 10:45 11:43 20:05 WBC (3.8-10.6) k/uL RBC (3.80-5.40) m/uL Hgb (11.4-16.0) gm/dL Hct (34.0-46.0) % RDW (11.5-15.5) % Neutrophils # (Manual) (1.3-7.7) k/uL Metamyelocytes # (Man) (0) k/uL Myelocytes # (Manual) (0) k/uL Nucleated RBCs (0-0) /100 WBC Sodium (137-145) mmol/L BUN (7-17) mg/dL POC Glucose (mg/dL) 136 H (70-110) mg/dL Calcium (8.4-10.2) mg/dL Alkaline Phosphatase (38-126) U/L Total Protein (6.3-8.2) g/dL Total Protein (PEP) 4.9 L (6.2-8.2) g/dL Albumin (3.5-5.0) g/dL Crossmatch See Detail 08/08/24 08/08/24 08/08/24 Range/Units 06:14 06:51 06:51 WBC 17.1 H (3.8-10.6) k/uL RBC 2.51 L (3.80-5.40) m/uL Hgb 7.0 L (11.4-16.0) gm/dL Hct 22.1 L (34.0-46.0) % RDW 21.7 H (11.5-15.5) % Neutrophils # (Manual) 13.80 H (1.3-7.7) k/uL Metamyelocytes # (Man) 0.68 H (0) k/uL Myelocytes # (Manual) 0.17 H (0) k/uL Nucleated RBCs 2 H (0-0) /100 WBC Sodium 130 L (137-145) mmol/L BUN 29 H (7-17) mg/dL POC Glucose (mg/dL) 111 H (70-110) mg/dL Calcium 8.2 L (8.4-10.2) mg/dL Alkaline Phosphatase 453 H (38-126) U/L Total Protein 4.6 L (6.3-8.2) g/dL Total Protein (PEP) (6.2-8.2) g/dL Albumin 2.2 L (3.5-5.0) g/dL Crossmatch 08/08/24 Range/Units 11:16 WBC (3.8-10.6) k/uL RBC (3.80-5.40) m/uL Hgb (11.4-16.0) gm/dL Hct (34.0-46.0) % RDW (11.5-15.5) % Neutrophils # (Manual) (1.3-7.7) k/uL Metamyelocytes # (Man) (0) k/uL Myelocytes # (Manual) (0) k/uL Nucleated RBCs (0-0) /100 WBC Sodium (137-145) mmol/L BUN (7-17) mg/dL POC Glucose (mg/dL) 159 H (70-110) mg/dL Calcium (8.4-10.2) mg/dL Alkaline Phosphatase (38-126) U/L Total Protein (6.3-8.2) g/dL Total Protein (PEP) (6.2-8.2) g/dL Albumin (3.5-5.0) g/dL Crossmatch Microbiology - Last 24 Hours (Table) 08/05/24 19:12 Blood Culture - Preliminary Blood Assessment and Plan (1) Renal mass Current Visit: Yes Status: Acute Priority: High Code(s): N28.89 - OTHER SPECIFIED DISORDERS OF KIDNEY AND URETER SNOMED Code(s): 817932634 (2) Anemia Current Visit: Yes Status: Acute Priority: High Code(s): D64.9 - ANEMIA, UNSPECIFIED SNOMED Code(s): 828460886 (3) Lesion of lumbar spine Current Visit: Yes Status: Acute Priority: High Code(s): M89.9 - DISORDER OF BONE, UNSPECIFIED SNOMED Code(s): 794385487 (4) Weakness Current Visit: Yes Status: Acute Priority: High Code(s): R53.1 - WEAKNESS SNOMED Code(s): 82621745 Plan: Metastatic osseous lesions/kidney mass: Presented to the emergency room for lower back pain. Patient reports over the last couple months she has been having progressing lower back pain. Today she reports "my legs feel like bricks", and has not been able to ambulate over the last cpl days. She also reports 1 episode of fecal incontinence during episodes of diarrhea. Denies urinary incontinence. MRI obtained by orthopedic surgery not within EMR, but per pt suspicious osseous lesions noted -Progressing BLE weakness, and RUE parentheses. PT/OT consulted -Urology consulted for kidney mass. S/p cystoscopy. 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 Will obtain CT cervical/thoracic/lumbar spine with contrast for further evaluation -CT scan showed multiple mixed lucent/sclerotic lesions in the dorsal spine at C6, T1, T2, T4, T5, T8 7, T11, L3, L4, and S1. Enlargement of left supr aclavicular lymph node. Retroperitoneal adenopathy on the left. Bone scan compatible with diffuse osseous metastatic disease throughout both appendicular and axial skeleton. -No cord compression noted on CT scans. Decadron discontinued Results and POC discussed with patient. All questions and concerns were addressed Normocytic anemia: Denies abdominal pain, blood in stool, and melena and gross hematuria. UA positive for hematuria. Upon admission hemoglobin was noted at 4.7, MCV 90.2, M CH 27.3. WBC 15.3, platelets 261,000. -S/p 2 units PRBCs with an appropriate response. Hemoglobin 7.0 today, additional unit PRBCs ordered. -Upon admit, metamyelocytes and myelocytes elevated, likely reactive, with mostly neutrophilia -No nutritional deficiencies noted, consistent with anemia of inflammation. Paraproteinemia workup pending -Continue to monitor CBC. Transfuse for hgb less than 7 or if symptomatic Briefly discussed case with admitting team. Pt will likely need rehab upon d ischarge attests: I have seen and examined patient, performed H&P, developed impression and plan of care. Discussed with dictator. Agree with documentation, dictated as a scribe
[2024-08-08 20:01] LABS: Glucose,Whole Blood 171 mg/dL (70-110)
[2024-08-08] MEDS: LIDOCAINE 4% CREAM 5 GM TUBE TOPICAL PRN (20:46)
[2024-08-09 04:19] LABS: Anisocytosis Slight; HCT 30.1 % (34.0-46.0); Hypochromasia Moderate; MCH 28.2 pg (25.0-35.0); MCHC 32.1 g/dL (31.0-37.0); MCV 87.7 fL (80.0-100.0); Mean Platelet Volume 8.3; Platelet Count 170 k/uL (150-450); Poikilocytosis Slight; RBC 3.43 m/uL (3.80-5.40); RDW 19.5 % (11.5-15.5); WBC 18.1 k/uL (3.8-10.6)
[2024-08-09 04:23] LABS: HGB 9.7 gm/dL (11.4-16.0)
[2024-08-09 04:44] LABS: Band Neutrophils % 15 %; Lymphocytes # (M) 0.72 k/uL (1.0-4.8); Metamyelocytes # (M) 0.36 k/uL (0); Metamyelocytes % 2 %; Monocytes # (M) 0.36 k/uL (0-1.0); Myelocytes # (M) 0.54 k/uL (0); Myelocytes % 3 %; Neutrophils % (M) 75 %; Nucleated Red Blood Cells 0 /100 WBC (0-0); Total Cells Counted 200
[2024-08-09 04:45] LABS: Toxic Granulation Present
[2024-08-09 07:23] LABS: Glucose,Whole Blood 124 mg/dL (70-110)
[2024-08-09] MEDS: HYDROmorphone 0.5 MG/0.5 ML SYRINGE IVP STA (09:38)
[2024-08-09] MEDS: HYDROmorphone 1 MG/ML 1 ML SYRINGE IVP PRN (10:56)
[2024-08-09] MEDS: MORPHINE SULFATE ER 15 MG TABLET PO SCH (11:00)
[2024-08-09 12:23] LABS: Glucose,Whole Blood 83 mg/dL (70-110)
[2024-08-09 14:32] LABS: Free Kappa Lt Chain Qnt, Serum 2.67 mg/dL (0.33-1.94); Free Lambda Lt Chain Qnt, Seru 2.22 mg/dL (0.57-2.63)
--- NOTE | 2024-08-09 14:48 | P.PN ---
Subjective Progress Note Date: 08/09/24 This is a pleasant 59-year-old female who was recently admitted with back pain and difficulty with ambulation and a possible L3 lytic lesion being closely monitored with multiple medical consultations. Patient also underwent CT scanning showing multiple lesions in the osseous spine although no compression fractures noted. Patient also with a left supraclavicular lymph node enlargement and underwent a nuclear med bone scan which showed diffuse osseous metastatic disease. Patient is status post cystoscopy with pyelogram and left biopsy of the ureter and highly suspicious of carcinoma per urology. Patient's hemoglobin is 7.0 today with no active bleeding noted although will give unit of PRBC and follow-up with repeat labs. Recommend PT/OT therapy evaluation and discuss further with case management for possible ECF. 08/09/2024 Patient is seen in follow-up today in severe 10/10 pain. Patient reports since yesterday afternoon into last night and this morning she was having severe pain in the lower back and is maintained on IV Dilaudid along with oral medications and lidocaine. Will adjust and have also discussed with oncology regarding pain management and they will be initiating long-acting pain management. Patient is scheduled to undergo an MRI of the brain which has been pending. Pathology remains pending as well. White count remains elevated although patient was on steroids which has been discontinued. Patient is afebrile with no reports of chest pain or shortness of breath. Will have PT/OT therapy reevaluate once pain is better controlled as patient reports she wants to go home. Concerned and fearful that she is extremely weak and may need ECF on discharge for continued strength and mobility. Review of systems: Constitutional: No reports of fatigue, fever, or chills Cardiovascular: No reports of chest pain or palpitations Respiratory: No reports of shortness of breath or cough GI: No reports of nausea, no reports of vomiting, no diarrhea : No reports of dysuria or retention Neurovascular: reports of generalized weakness, reports severe back pain All medications have been reviewed PHYSICAL EXAMINATION: GENERAL: The patient is alert and oriented x4, Well developed, thin built, elderly appearing, extremely anxious on exam HEENT: Pupils are round and equally reacting to light. EOMI. no scleral icterus. No conjunctival pallor. Normocephalic, atraumatic. No pharyngeal erythema. No thyromegaly. CARDIOVASCULAR: S1 and S2 muffled PULMONARY: diminished breath sounds bilaterally with no wheezing or rhonchi noted. ABDOMEN: soft. Nontender on exam. non-distended, normoactive bowel sounds. No palpable organomegaly. MUSCULOSKELETAL: No joint swelling or deformity. EXTREMITIES: No cyanosis, clubbing, or pedal edema. NEUROLOGICAL: Gross neurological examination did not reveal any focal deficits. Diffuse weakness SKIN: No rashes. Assessment: Severe back pain, possible L3 lytic lesion with renal cell carcinoma with multiple mets Bone scan this admission showing concerns for diffuse bony mets Severe symptomatic anemia, possibly secondary to malignancy Possible neoplasm of uncertain behavior of the left renal pelvis and left ureter status post ureteroscopy with cystoscopy and biopsies taken, biopsies pending Paraparesis Increased white count, improving, likely reactive as well as patient was on high-dose steroids Degenerative joint disease Continued ongoing nicotine dependence GI prophylaxis DVT prophylaxis Full code Plan: Recommend to continue with current medications and management with multiple consultations following. Patient is status post biopsies with urology with cystoscopy and awaiting pathology report Oncology following recommending outpatient follow-up once biopsy results have been obtained. Oncology initiating a long-acting pain medication as patient has uncontrolled lower back pain PT/OT therapy evaluation. Patient is persistent ongoing home and will arrange for home care and also necessary equipment including a wheelchair and walker. Discussed with patient and possibly considering rehab. Will have PT/OT therapy evaluate once pain is more manageable Patient is scheduled to undergo an MRI of the brain which is pending Repeat labs ordered for a.m. replace electrolytes per protocol Will discontinue Accu-Cheks and sliding scale as patient is no longer on high- dose steroids and patient is not a diabetic Overall prognosis is extremely guarded at this time The impression and plan of care has been dictated by Carmella Moore, nurse practitioner as directed. Dr. Terrence MD I have performed a history and examination and MDM of this patient, discussed the same with the dictator, and agree with the dictator's assessment and plan as written ,documented as a scribe. Based on total visit time, I have performed more than 50% of the visit. Any additional findings or plans will be noted. Objective - Vital Signs Vital signs: Vital Signs Temp 97.6 F 08/09/24 06:59 Pulse 85 08/09/24 06:59 Resp 20 08/09/24 06:59 BP 144/73 08/09/24 06:59 Pulse Ox 96 08/09/24 06:59 FiO2 Intake & Output 08/08/24 08/09/24 08/09/24 18:59 06:59 18:59 Intake Total 430 590 Output Total 600 900 Balance -170 -310 Intake: Oral 120 590 Blood Product 310 Rc As-1 Unit 310 [id number] Output: Urine 600 900 Other: Voiding Method Toilet External Catheter External Catheter - Labs CBC & Chem 7: 08/09/24 03:32 08/08/24 06:51 Labs: Abnormal Lab Results - Last 24 Hours (Table) 08/05/24 08/05/24 08/08/24 Range/Units 10:36 10:45 11:16 WBC (3.8-10.6) k/uL RBC (3.80-5.40) m/uL Hgb (11.4-16.0) gm/dL Hct (34.0-46.0) % RDW (11.5-15.5) % Neutrophils # (Manual) (1.3-7.7) k/uL Lymphocytes # (Manual) (1.0-4.8) k/uL Metamyelocytes # (Man) (0) k/uL Myelocytes # (Manual) (0) k/uL POC Glucose (mg/dL) 159 H (70-110) mg/dL RBC Folate 1,694 H (280 - 791) ng/mL Crossmatch See Detail 08/08/24 08/08/24 08/09/24 Range/Units 16:18 19:59 03:32 WBC 18.1 H (3.8-10.6) k/uL RBC 3.43 L (3.80-5.40) m/uL Hgb 9.7 L D (11.4-16.0) gm/dL Hct 30.1 L (34.0-46.0) % RDW 19.5 H (11.5-15.5) % Neutrophils # (Manual) 16.20 H (1.3-7.7) k/uL Lymphocytes # (Manual) 0.72 L (1.0-4.8) k/uL Metamyelocytes # (Man) 0.36 H (0) k/uL Myelocytes # (Manual) 0.54 H (0) k/uL POC Glucose (mg/dL) 147 H 171 H (70-110) mg/dL RBC Folate (280 - 791) ng/mL Crossmatch 08/09/24 Range/Units 07:22 WBC (3.8-10.6) k/uL RBC (3.80-5.40) m/uL Hgb (11.4-16.0) gm/dL Hct (34.0-46.0) % RDW (11.5-15.5) % Neutrophils # (Manual) (1.3-7.7) k/uL Lymphocytes # (Manual) (1.0-4.8) k/uL Metamyelocytes # (Man) (0) k/uL Myelocytes # (Manual) (0) k/uL POC Glucose (mg/dL) 124 H (70-110) mg/dL RBC Folate (280 - 791) ng/mL Crossmatch Microbiology - Last 24 Hours (Table) 08/05/24 19:12 Blood Culture - Preliminary Blood
[2024-08-09 16:53] LABS: Albumin 1.72 g/dL (3.80-4.90); Gamma Globulin 0.52 g/dL (0.70-1.50)
--- NOTE | 2024-08-09 17:20 | P.PN ---
Subjective Progress Note Date: 08/09/24 Patient reporting increased BLE pain and stiffness since yesterday evening. Reports norco is now not helping manage pain and is having to use IVP dilaudid. Also reporting bilateral shoulder pain. Shoulder pain is acute on chronic. Objective - Vital Signs Vital signs: Vital Signs Temp 97.6 F 08/09/24 06:59 Pulse 85 08/09/24 06:59 Resp 20 08/09/24 06:59 BP 144/73 08/09/24 06:59 Pulse Ox 96 08/09/24 06:59 FiO2 Intake & Output 08/08/24 08/09/24 08/09/24 18:59 06:59 18:59 Intake Total 430 590 Output Total 600 900 Balance -170 -310 Intake: Oral 120 590 Blood Product 310 Rc As-1 Unit 310 [id number] Output: Urine 600 900 Other: Voiding Method Toilet External Catheter External Catheter - Constitutional General appearance: Present: mild distress - EENT Eyes: Present: anicteric sclerae, EOMI ENT: Present: hearing grossly normal - Respiratory Details: breathing is even and unlabored - Cardiovascular Details: skin warm and dry - Integumentary Integumentary: Absent: cyanotic - Musculoskeletal Musculoskeletal Comment(s): BLE weakness - Psychiatric Psychiatric: Present: A&O x's 3 - Labs CBC & Chem 7: 08/09/24 03:32 08/08/24 06:51 Labs: Abnormal Lab Results - Last 24 Hours (Table) 08/05/24 08/05/24 08/08/24 Range/Units 10:36 10:45 11:16 WBC (3.8-10.6) k/uL RBC (3.80-5.40) m/uL Hgb (11.4-16.0) gm/dL Hct (34.0-46.0) % RDW (11.5-15.5) % Neutrophils # (Manual) (1.3-7.7) k/uL Lymphocytes # (Manual) (1.0-4.8) k/uL Metamyelocytes # (Man) (0) k/uL Myelocytes # (Manual) (0) k/uL POC Glucose (mg/dL) 159 H (70-110) mg/dL RBC Folate 1,694 H (280 - 791) ng/mL Crossmatch See Detail 08/08/24 08/08/24 08/09/24 Range/Units 16:18 19:59 03:32 WBC 18.1 H (3.8-10.6) k/uL RBC 3.43 L (3.80-5.40) m/uL Hgb 9.7 L D (11.4-16.0) gm/dL Hct 30.1 L (34.0-46.0) % RDW 19.5 H (11.5-15.5) % Neutrophils # (Manual) 16.20 H (1.3-7.7) k/uL Lymphocytes # (Manual) 0.72 L (1.0-4.8) k/uL Metamyelocytes # (Man) 0.36 H (0) k/uL Myelocytes # (Manual) 0.54 H (0) k/uL POC Glucose (mg/dL) 147 H 171 H (70-110) mg/dL RBC Folate (280 - 791) ng/mL Crossmatch 08/09/24 Range/Units 07:22 WBC (3.8-10.6) k/uL RBC (3.80-5.40) m/uL Hgb (11.4-16.0) gm/dL Hct (34.0-46.0) % RDW (11.5-15.5) % Neutrophils # (Manual) (1.3-7.7) k/uL Lymphocytes # (Manual) (1.0-4.8) k/uL Metamyelocytes # (Man) (0) k/uL Myelocytes # (Manual) (0) k/uL POC Glucose (mg/dL) 124 H (70-110) mg/dL RBC Folate (280 - 791) ng/mL Crossmatch Microbiology - Last 24 Hours (Table) 08/05/24 19:12 Blood Culture - Preliminary Blood Assessment and Plan (1) Renal mass Current Visit: Yes Status: Acute Priority: High Code(s): N28.89 - OTHER SPECIFIED DISORDERS OF KIDNEY AND URETER SNOMED Code(s): 632806790 (2) Anemia Current Visit: Yes Status: Acute Priority: High Code(s): D64.9 - ANEMIA, UNSPECIFIED SNOMED Code(s): 020249816 (3) Lesion of lumbar spine Current Visit: Yes Status: Acute Priority: High Code(s): M89.9 - DISORDER OF BONE, UNSPECIFIED SNOMED Code(s): 202032998 (4) Weakness Current Visit: Yes Status: Acute Priority: High Code(s): R53.1 - WEAKNESS SNOMED Code(s): 59049409 Plan: Metastatic osseous lesions/kidney mass: Presented to the emergency room for lower back pain. Patient reports over the last couple months she has been having progressing lower back pain. Today she reports "my legs feel like bricks", and has not been able to ambulate over the last cpl days. She also reports 1 episode of fecal incontinence during episodes of diarrhea. Denies urinary incontinence. MRI obtained by orthopedic surgery not within EMR, but per pt suspicious osseous lesions noted -Progressing BLE weakness, and RUE parentheses. PT/OT consulted -Urology consulted for kidney mass. S/p cystoscopy. 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 Will obtain CT cervical/thoracic/lumbar spine with contrast for further evaluation -CT scan showed multiple mixed lucent/sclerotic lesions in the dorsal spine at C6, T1, T2, T4, T5, T8 7, T11, L3, L4, and S1. Enlargement of left supraclavicular lymph node. Retroperitoneal adenopathy on the left. Bone scan compatible with diffuse osseous metastatic disease throughout both appendicular and axial skeleton. -No cord compression noted on CT scans. Decadron discontinued -Pain increased over the last 24 hours. Will start long acting pain medications and continue on IV dilaudid and norco prn, as well as flexiril and topical analgesics. If pain contonues to be difficult to manage, will likely need to add decadron back to regimen and do a slow taper. Results and POC discussed with patient. All questions and concerns were addressed Normocytic anemia: Denies abdominal pain, blood in stool, and melena and gross hematuria. UA positive for hematuria. Upon admission hemoglobin was noted at 4.7, MCV 90.2, MCH 27.3. WBC 15.3, platelets 261,000. -S/p 3 units PRBCs with an appropriate response. Hemoglobin 9.70 today -Upon admit, metamyelocytes and myelocytes elevated, likely reactive, with mostly neutrophilia -No nutritional deficiencies noted, consistent with anemia of inflammation. Paraproteinemia workup pending -Continue to monitor CBC. Transfuse for hgb less than 7 or if symptomatic Briefly discussed case with admitting team. Pt will likely need rehab upon discharge but is wanting to go home with boyfriend. Will continue monitor course of hospitalization and see how she progresses attests: I have seen and examined patient, performed H&P, developed impression and plan of care. Discussed with dictator. Agree with documentation, dictated as a scribe
--- NOTE | 2024-08-09 17:54 | P.PN ---
Subjective Progress Note Date: 08/09/24 I am following-up with patient and she state she could not tolerate MRI since having pain. Otherwise denies any new neurological issues. During this hospital visit patient had cystoscopy with left ureteroscopy with biopsy on 08/07/2024. Objective - Vital Signs Vital signs: Vital Signs Temp 98.1 F 08/09/24 14:00 Pulse 96 08/09/24 14:00 Resp 17 08/09/24 14:00 BP 136/78 08/09/24 14:00 Pulse Ox 97 08/09/24 14:00 FiO2 Intake & Output 08/08/24 08/09/24 08/09/24 18:59 06:59 18:59 Intake Total 430 590 Output Total 600 900 Balance -170 -310 Intake: Oral 120 590 Blood Product 310 Rc As-1 Unit 310 [id number] Output: Urine 600 900 Other: Voiding Method Toilet External Catheter External Catheter External Catheter # Voids 1 - Exam GENERAL: The patient is lying in bed and is not in acute distress. HENT: Supple neck. NEUROLOGICAL: Higher mental function: The patient is awake, alert, oriented to self, place and time. Patient is following commands. No aphasia and no neglect. Cranial nerves: The pupils are round, equal and reactive to light and accommodation. Visual [place] are full to confrontation throughout. Extraocular movement is intact no nystagmus is noted. Facial sensation is normal to touch throughout. The facial strength is normal throughout. Hearing is normal bilaterally to hand rub. Tongue is midline and moved [id number] without any difficulty. +ve mild dysatrhia. Shoulder shrug is normal bilaterally. Motor: The strength is left upper extremity is 4- and left hand [employer] is 4+ to 5- . Otherwise the right upper is 5/5. Left lower is 3/5 and ankle is 4-4+. Right lower is 4+ to 5-. Decrease tone over the left lower. Normal bulk. Cerebellum: Normal finger to nose bilaterally. Sensation: Sensation is normal to touch throughout. Reflexes (right/left): 2+ throughout. Plantars are downgoing bilaterally. Some of workup during this hospital visit consisted of: This hospital visit patient hemoglobin was severely low was 3.9 and 08/05/2024 and she had blood transfusion currently 7.8. Vitamin B12: 2321 RBC 1694 MMA: 0.24 CT cervical, thoracic and lumbar spine is reported as multiple mixed lucent sclerotic lesion in the dorsal spine. Correlate with bone scan regarding bone metastasis. NM bone scan whole body is reported as SuperScan compatible with diffuse osseous metastasis disease. CT abdomen and pelvis is reported as increased density with and a prominent left renal pelvis and distal left ureter consider neoplasm such as transitional cell carcinoma. Moderate left hydronephrosis. Suspected lytic area of L3. Thickened left adrenal gland. - Labs CBC & Chem 7: 08/09/24 03:32 08/08/24 06:51 Labs: Abnormal Lab Results - Last 24 Hours (Table) 08/07/24 08/08/24 08/09/24 Range/Units 11:43 19:59 03:32 WBC 18.1 H (3.8-10.6) k/uL RBC 3.43 L (3.80-5.40) m/uL Hgb 9.7 L D (11.4-16.0) gm/dL Hct 30.1 L (34.0-46.0) % RDW 19.5 H (11.5-15.5) % Neutrophils # (Manual) 16.20 H (1.3-7.7) k/uL Lymphocytes # (Manual) 0.72 L (1.0-4.8) k/uL Metamyelocytes # (Man) 0.36 H (0) k/uL Myelocytes # (Manual) 0.54 H (0) k/uL POC Glucose (mg/dL) 171 H (70-110) mg/dL Albumin (PEP) 1.72 L (3.80-4.90) g/dL Fjtbq-6-Bglaozvsg 0.94 H (0.10-0.40) g/dL Gamma Globulins 0.52 L (0.70-1.50) g/dL Free [place] LC, Quant 2.67 H (0.33-1.94) mg/dL 08/09/24 Range/Units 07:22 WBC (3.8-10.6) k/uL RBC (3.80-5.40) m/uL Hgb (11.4-16.0) gm/dL Hct (34.0-46.0) % RDW (11.5-15.5) % Neutrophils # (Manual) (1.3-7.7) k/uL Lymphocytes # (Manual) (1.0-4.8) k/uL Metamyelocytes # (Man) (0) k/uL Myelocytes # (Manual) (0) k/uL POC Glucose (mg/dL) 124 H (70-110) mg/dL Albumin (PEP) (3.80-4.90) g/dL Gnahu-8-Ctflpzyyv (0.10-0.40) g/dL Gamma Globulins (0.70-1.50) g/dL Free [place] LC, Quant (0.33-1.94) mg/dL Microbiology - Last 24 Hours (Table) 08/05/24 19:12 Blood Culture - Preliminary Blood Assessment and Plan Assessment: This is a 59-year-old woman with lower back pain for several months is having radicular pain to her legs and feels she is having significant weakness in the left lower extremity. She was referred to orthopedic as an outpatient she had MRI which there is a concern for spinal cancer and was recommended to follow-up with oncologist. In our facility she had a bone scan whole body which shows feels osseous metastatic disease that is diffuse. On imaging of the CT of the abdomen pelvis there is a concern for neoplasm in the left renal pelvis and left ureter. Suspected lytic area of the L3. Examination patient has weakness over the left side with some dysarthria. Acute left-hemipresis with some dysarthria rule out brain mets and cervical mass Newly diagnosed diffuse osseous metastatic disease Suspected lytic area of L3 due osseous metastatic disease Concern for neoplasm in the left renal pelvis and ureter on imaging Cystoscopy with left ureteroscopy with biopsy on 08/07/2024. Tobacco use. Plan: Could not tolerate MRI since had pain. Once pain is more controlled then recommend pursuing with MRI brain and cervical spine with and without. Oncology is consulted Biopsy report is pending Will defer the rest of the medical management to primary and other specialist Patient was counseled on tobacco cessation. Will follow-up with patient sporadically. Time with Patient: Less than 30
[2024-08-09] MEDS: TEMAZEPAM 15 MG CAP PO PRN (21:14)
[2024-08-10 08:39] LABS: HCT 31.6 % (37.2-46.3); HGB 10.1 g/dL (12.0-15.0); MCH 27.7 pg (27.0-32.0); MCV 86.6 FL (80.0-97.0); Mean Platelet Volume 10.4 FL (9.5-12.2); NRBC Per 100 WBC 0.12 X 10*3/uL (0.00-0.01); Platelet Count 158 X 10*3/uL (140-440); RBC 3.65 X 10*6/uL (4.10-5.20); RDW 20.5 % (11.5-14.5)
[2024-08-10 08:53] LABS: ALT 11 U/L (8-44); AST 28 U/L (13-35); Albumin 2.4 g/dL (3.8-4.9); Albumin/Globulin Ratio 1.09 Ratio (1.60-3.17); Alkaline Phosphatase 579 U/L (41-126); Blood Urea Nitrogen 14.1 mg/dL (9.0-27.0); Carbon Dioxide 20.8 mmol/L (21.6-31.8); Chloride 99 mmol/L (96-109); Globulin 2.2 g/dL (1.6-3.3); Glucose 78 mg/dL (70-110); Magnesium 1.6 mg/dL (1.5-2.4); Potassium 4.2 mmol/L (3.5-5.5); Sodium 131 mmol/L (135-145); Total Bilirubin 0.9 mg/dL (0.3-1.2); Total Protein 4.6 g/dL (6.2-8.2)
--- NOTE | 2024-08-10 09:31 | P.PN ---
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 The patient was admitted with back pain and has been found to have widespread osseous metastases. CT scan suggested the presence of tumor within the left renal pelvis and ureter. Cystoscopy and left ureteroscopy on August 07 confirmed the presence of multiple ureteral tumors, and biopsies reveal high- grade urothelial carcinoma. She currently denies dysuria and hematuria. Objective - Vital Signs Vital signs: Vital Signs Temp 98.7 F 08/10/24 07:26 Pulse 110 H 08/10/24 07:26 Resp 16 08/10/24 07:26 BP 137/87 08/10/24 07:26 Pulse Ox 96 08/10/24 07:26 FiO2 Intake & Output 08/09/24 08/10/24 08/10/24 18:59 06:59 18:59 Intake Total 590 Output Total 300 Balance 290 Intake: Oral 590 Output: Urine 300 Other: Voiding Method External Catheter External Catheter # Voids 1 - Constitutional General appearance: Present: average body habitus, cooperative, no acute distress - Psychiatric Psychiatric: Present: A&O x's 3 - Labs CBC & Chem 7: 08/09/24 03:32 08/08/24 06:51 Labs: Abnormal Lab Results - Last 24 Hours (Table) 08/07/24 Range/Units 11:43 Albumin (PEP) 1.72 L (3.80-4.90) g/dL Rulbt-1-Urxwpfugw 0.94 H (0.10-0.40) g/dL Gamma Globulins 0.52 L (0.70-1.50) g/dL Free [place] LC, Quant 2.67 H (0.33-1.94) mg/dL Assessment and Plan (1) Neoplasm of uncertain behavior of left renal pelvis Current Visit: Yes Status: Acute Code(s): D41.12 - NEOPLASM OF UNCERTAIN BEHAVIOR OF LEFT RENAL PELVIS SNOMED Code(s): 626853645106516 Plan: It is my impression Mrs. Reyes has metastatic urothelial carcinoma. I do not believe that she would benefit from surgery, and it would be my recommendation that she be evaluated by Medical Oncology.
[2024-08-10 10:08] LABS: Anisocytosis (M) 2+; Basophils # (M) 0 X 10*3/uL (0.00-0.10); Eosinophils # (M) 0 X 10*3/uL (0.04-0.35); Lymphocytes # (M) 0.95 X 10*3/uL (0.90-5.00); Metamyelocytes % 4 % (0-0); Monocytes # (M) 0.71 X 10*3/uL (0.20-1.00); Myelocytes % 2 % (0-0); Neutrophils # (M) 20.62 X 10*3/uL (1.80-7.70); Neutrophils % (M) 87 %
[2024-08-10 13:10] VITALS: BMI 25.9
[2024-08-10] MEDS ORDERED: LORazepam 2 MG/ML INJ IV PRN (13:37)
[2024-08-10] MEDS: HYDROmorphone 1 MG/ML 1 ML SYRINGE IVP PRN (14:54)
[2024-08-10] MEDS: DEXAMETHASONE SOD PHOSPHATE 10 MG/ML 1 ML VIAL IVP SCH (14:54)
--- NOTE | 2024-08-10 17:13 | MR ---
EXAMINATION TYPE: MR brain/cspine wo/w DATE OF EXAM: 08/10/2024 4:27 PM COMPARISON: NONE HISTORY: Left sided weakness, concern for metastasis CONTRAST: Patient received 6 mL intravenous Gadavist gadolinium contrast. Multiplanar and multispin-echo imaging of the brain was performed . Pre and post contrast enhanced i mages are obtained. The ventricles, basal cisterns and sulci overlying the cerebral convexities are mildly enlarged. There is evidence of mild periventricular white matter ischemic demyelination. Remote deep white matter insults are also noted. No acute edema is seen on diffusion weighted imaging. There is no evidence for midline shift or mass effect. Acute intracranial hemorrhage or extra-axial collection is not evident. No enhancing lesions are seen. Suspect calvarial metastases. Chronic mastoiditis and mild chronic ethmoidal and frontal sinusitis changes seen. IMPRESSION: Age-related atrophic and chronic small vessel ischemic change. No acute intracranial process at this time. No enhancing lesions are seen. EXAMINATION TYPE: MR brain/cspine wo/w DATE OF EXAM: 08/10/2024 4:27 PM COMPARISON: NONE HISTORY: Left sided weakness, concern for metastasis CONTRAST: The patient was injected with 6 mL intravenous Gadavist gadolinium contrast. Multiplanar MultiSpin echo imaging of the cervical spine was performed. C2-C3: No evidence for degenerative disc disease. No disc bulge/herniation or protrusion. No Canal stenosis. Foramina are patent bilaterally. C3-C4: Moderate disc desiccation with circumferential disc bulge greatest posteriorly. There is moder ate central stenosis with early compressive myelopathy difficult to exclude. Degenerative change of t he cervical apophyseal joints resulting right greater than left foraminal encroachment. C4-C5: Moderate disc desiccation with circumferential disc bulge greatest posteriorly. There is moder ate central stenosis with early compressive myelopathy difficult to exclude. Degenerative change of t he cervical apophyseal joints resulting in bilateral foraminal encroachment. C5-C6: No evidence for d egenerative disc disease. No disc bulge/herniation or protrusion. No Canal stenosis. Foramina are patent bilaterally. C6-C7:Moderate disc desiccation with circumferential disc bulge greatest posteriorly. There is modera te central stenosis with early compressive myelopathy difficult to exclude. Degenerative change of th e cervical apophyseal joints resulting in moderate right-sided foraminal encroachment and severe left -sided encroachment seen. C7-T1: No evidence for degenerative disc disease. No disc bulge/herniation or protrusion. No Canal stenosis. Foramina are patent bilaterally. No cervical spine fracture. Sclerotic cervical lesions noted to involve C2, C4, C5, C6 and C7 as wel l as various thoracic segments compatible with bony metastases. There is normal alignment. Cervical spinal cord is of normal signal. Craniovertebral junction relationships are within normal limits. N o pathologic enhancement. IMPRESSION: 1. Multilevel degenerative disc disease and central stenosis as well as foraminal encroachment as out lined above. 2. Bony metastatic lesions as discussed. [facility], , 08/10/2024 5:10 PM
[2024-08-10] MEDS: ZOLEDRONIC ACID 4 MG in SODIUM CHLORIDE 0.9% 100 ML IV ONE (17:42)
[2024-08-10] MEDS ORDERED: DEXTROSE 50% SYRINGE 50 ML IVP PRN ×2 (17:52)
--- NOTE | 2024-08-10 17:52 | P.PN ---
Subjective Progress Note Date: 08/10/24 This is a pleasant 59-year-old female who was recently admitted with back pain and difficulty with ambulation and a possible L3 lytic lesion being closely monitored with multiple medical consultations. Patient also underwent CT scanning showing multiple lesions in the osseous spine although no compression fractures noted. Patient also with a left supraclavicular lymph node enlargement and underwent a nuclear med bone scan which showed diffuse osseous metastatic disease. Patient is status post cystoscopy with pyelogram and left biopsy of the ureter and highly suspicious of carcinoma per urology. Patient's hemoglobin is 7.0 today with no active bleeding noted although will give unit of PRBC and follow-up with repeat labs. Recommend PT/OT therapy evaluation and discuss further with case management for possible ECF. 08/09/2024 Patient is seen in follow-up today in severe 10/10 pain. Patient reports since yesterday afternoon into last night and this morning she was having severe pain in the lower back and is maintained on IV Dilaudid along with oral medications and lidocaine. Will adjust and have also discussed with oncology regarding pain management and they will be initiating long-acting pain management. Patient is scheduled to undergo an MRI of the brain which has been pending. Pathology remains pending as well. White count remains elevated although patient was on steroids which has been discontinued. Patient is afebrile with no reports of chest pain or shortness of breath. Will have PT/OT therapy reevaluate once pain is better controlled as patient reports she wants to go home. Concerned and fearful that she is extremely weak and may need ECF on discharge for continued strength and mobility. 08/10/2024 Patient is seen in follow-up this morning with multiple consultations following including urology status post biopsy. Pathology is positive for high-grade non invasive papillary urothelial carcinoma. Patient is scheduled to undergo MRI of the brain and cervical spine today for further evaluation and highly suspicious for bone mets. Patient is in extreme amount of pain reporting 10/10 and is having difficulty controlling the pain. Will adjust pain medications accordingly and oncology has added long-acting. Overall prognosis is guarded at this time. Review of systems: Constitutional: No reports of fatigue, fever, or chills Cardiovascular: No reports of chest pain or palpitations Respiratory: reports of shortness of breath due to the pain GI: No reports of nausea, no reports of vomiting, no diarrhea : No reports of dysuria or retention Neurovascular: reports of generalized weakness, reports severe back pain All medications have been reviewed PHYSICAL EXAMINATION: GENERAL: The patient is alert and oriented x2-3, Well developed, thin built, elderly appearing, ill-appearing, extremely anxious on exam HEENT: Pupils are round and equally reacting to light. EOMI. no scleral icterus. No conjunctival pallor. Normocephalic, atraumatic. No pharyngeal erythema. No thyromegaly. CARDIOVASCULAR: S1 and S2 muffled, mildly tachycardic PULMONARY: diminished breath sounds bilaterally with no wheezing or rhonchi noted. ABDOMEN: soft. Nontender on exam. non-distended, normoactive bowel sounds. No palpable organomegaly. MUSCULOSKELETAL: No joint swelling or deformity. EXTREMITIES: No cyanosis, clubbing, or pedal edema. Extreme weakness 2/5 strength bilaterally lower extremities NEUROLOGICAL: Gross neurological examination did not reveal any focal deficits. Diffuse weakness SKIN: No rashes. Assessment: Severe back pain, MRI positive for L3 lytic lesion with renal cell carcinoma with multiple mets Bone scan this admission showing concerns for diffuse bony mets Severe symptomatic anemia, possibly secondary to malignancy Possible neoplasm of uncertain behavior of the left renal pelvis and left ureter status post ureteroscopy with cystoscopy and biopsies taken, biopsies are positive for high-grade carcinoma Paraparesis Increased white count, improving, likely reactive as well as patient is on high- dose steroids Degenerative joint disease Continued ongoing nicotine dependence GI prophylaxis DVT prophylaxis Full code Plan: Recommend to continue with current medications and management with multiple consultations following. Patient is status post biopsies with urology with cystoscopy and pathology is positive for high-grade papillary urothelial carcinoma. Oncology following making recommendations regarding pain management and also following closely with multiple other consultations will discuss further treatm ent plan moving forward. MRI of the of the brain and spine are pending today. PT/OT therapy evaluation. Patient is persistent ongoing home and will arrange for home care and also necessary equipment including a wheelchair and walker. Discussed with patient and possibly considering rehab. Will have PT/OT therapy evaluate once pain is more manageable Repeat labs ordered for a.m. replace electrolytes per protocol Resume Accu-Cheks and sliding scale as patient is being resumed on steroids per oncology Overall prognosis is extremely guarded at this time The impression and plan of care has been dictated by Carmella Moore, nurse practitioner as directed. Dr. Terrence MD I have performed a history and examination and MDM of this patient, discussed the same with the dictator, and agree with the dictator's assessment and plan as written ,documented as a scribe. Based on total visit time, I have performed more than 50% of the visit. Any additional findings or plans will be noted. Objective - Vital Signs Vital signs: Vital Signs Temp 98.7 F 08/10/24 07:26 Pulse 98 08/10/24 08:20 Resp 16 08/10/24 07:26 BP 137/87 08/10/24 07:26 Pulse Ox 96 08/10/24 07:26 FiO2 Intake & Output 08/09/24 08/10/24 08/10/24 18:59 06:59 18:59 Intake Total 590 Output Total 300 Balance 290 Weight 60.3 kg Intake: Oral 590 Output: Urine 300 Other: Voiding Method External Catheter External Catheter External Catheter # Voids 1 - Labs CBC & Chem 7: 08/10/24 04:38 08/10/24 04:35 Labs: Abnormal Lab Results - Last 24 Hours (Table) 08/07/24 08/10/24 08/10/24 Range/Units 11:43 04:35 04:38 WBC 23.70 H (4.50-10.00) X 10*3/uL RBC 3.65 L (4.10-5.20) X 10*6/uL Hgb 10.1 L (12.0-15.0) g/dL Hct 31.6 L (37.2-46.3) % RDW 20.5 H (11.5-14.5) % Neutrophils # (Manual) 20.62 H (1.80-7.70) X 10*3/uL Eosinophils # (Manual) 0 L (0.04-0.35) X 10*3/uL NRBC/100 WBC Diff 0.12 H (0.00-0.01) X 10*3/uL Anisocytosis (manual) 2+ A Sodium 131 L (135-145) mmol/L Carbon Dioxide 20.8 L (21.6-31.8) mmol/L BUN/Creatinine Ratio 23.50 H (12.00-20.00) Ratio Alkaline Phosphatase 579 H (41-126) U/L Total Protein 4.6 L (6.2-8.2) g/dL Albumin 2.4 L (3.8-4.9) g/dL Albumin (PEP) 1.72 L (3.80-4.90) g/dL Albumin/Globulin Ratio 1.09 L (1.60-3.17) Ratio Bwjqp-3-Tfdwsxhau 0.94 H (0.10-0.40) g/dL Gamma Globulins 0.52 L (0.70-1.50) g/dL Free [place] LC, Quant 2.67 H (0.33-1.94) mg/dL
[2024-08-10 20:35] LABS: Glucose,Whole Blood 237 mg/dL (70-110)
[2024-08-10] MEDS: INSULIN ASPART (NovoLOG) 100 UNIT/ML VIAL SQ SCH (20:40)
[2024-08-11 07:10] LABS: Glucose,Whole Blood 157 mg/dL (70-110)
--- NOTE | 2024-08-11 07:58 | P.PN ---
Subjective Progress Note Date: 08/10/24 Patient reporting persisting BLE pain and stiffness and back pain. Continues on long acting and short acting pain meds. Scheduled for brain/cervical MRI today Objective - Vital Signs Vital signs: Vital Signs Temp 98.2 F 08/10/24 13:39 Pulse 107 H 08/10/24 13:39 Resp 16 08/10/24 13:39 BP 130/80 08/10/24 13:39 Pulse Ox 96 08/10/24 13:39 FiO2 Intake & Output 08/09/24 08/10/24 08/10/24 18:59 06:59 18:59 Intake Total 590 Output Total 300 Balance 290 Weight 60.3 kg Intake: Oral 590 Output: Urine 300 Other: Voiding Method External Catheter External Catheter External Catheter # Voids 1 - Constitutional General appearance: Present: no acute distress - EENT Eyes: Present: anicteric sclerae, EOMI ENT: Present: hearing grossly normal - Respiratory Details: breathing is even and unlabored - Cardiovascular Details: skin warm and dry - Integumentary Integumentary: Absent: cyanotic - Psychiatric Psychiatric: Present: A&O x's 3 - Labs CBC & Chem 7: 08/10/24 04:38 08/10/24 04:35 Labs: Abnormal Lab Results - Last 24 Hours (Table) 08/07/24 08/10/24 08/10/24 Range/Units 11:43 04:35 04:38 WBC 23.70 H (4.50-10.00) X 10*3/uL RBC 3.65 L (4.10-5.20) X 10*6/uL Hgb 10.1 L (12.0-15.0) g/dL Hct 31.6 L (37.2-46.3) % RDW 20.5 H (11.5-14.5) % Neutrophils # (Manual) 20.62 H (1.80-7.70) X 10*3/uL Eosinophils # (Manual) 0 L (0.04-0.35) X 10*3/uL NRBC/100 WBC Diff 0.12 H (0.00-0.01) X 10*3/uL Anisocytosis (manual) 2+ A Sodium 131 L (135-145) mmol/L Carbon Dioxide 20.8 L (21.6-31.8) mmol/L BUN/Creatinine Ratio 23.50 H (12.00-20.00) Ratio Alkaline Phosphatase 579 H (41-126) U/L Total Protein 4.6 L (6.2-8.2) g/dL Albumin 2.4 L (3.8-4.9) g/dL Albumin (PEP) 1.72 L (3.80-4.90) g/dL Albumin/Globulin Ratio 1.09 L (1.60-3.17) Ratio [id number] 0.94 H (0.10-0.40) g/dL Gamma Globulins 0.52 L (0.70-1.50) g/dL Assessment and Plan (1) Renal mass Current Visit: Yes Status: Acute Priority: High Code(s): N28.89 - OTHER SPECIFIED DISORDERS OF KIDNEY AND URETER SNOMED Code(s): 490139683 (2) Anemia Current Visit: Yes Status: Acute Priority: High Code(s): D64.9 - ANEMIA, UNSPECIFIED SNOMED Code(s): 061610153 (3) Lesion of lumbar spine Current Visit: Yes Status: Acute Priority: High Code(s): M89.9 - DISORDER OF BONE, UNSPECIFIED SNOMED Code(s): 223063042 (4) Weakness Current Visit: Yes Status: Acute Priority: High Code(s): R53.1 - WEAKNESS SNOMED Code(s): 08817164 Plan: Metastatic osseous lesions/kidney mass: Presented to the emergency room for lower back pain. Patient reports over the last couple months she has been having progressing lower back pain. Today she reports "my legs feel like bricks", and has not been able to ambulate over the last cpl days. She also reports 1 episode of fecal incontinence during episodes of diarrhea. Denies urinary incontinence. MRI obtained by orthopedic surgery not within EMR, but per pt suspicious osseous lesions noted -Progressing BLE weakness, and RUE parentheses. PT/OT consulted -Urology consulted for kidney mass. S/p cystoscopy. 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 Will obtain CT cervical/thoracic/lumbar spine with contrast for further evaluation -CT scan showed multiple mixed lucent/sclerotic lesions in the dorsal spine at C6, T1, T2, T4, T5, T8 7, T11, L3, L4, and S1. Enlargement of left supraclavicular lymph node. Retroperitoneal adenopathy on the left. Bone scan compatible with diffuse osseous metastatic disease throughout both appendicular and axial skeleton. -No cord compression noted on CT scans. Decadron was discontinued -Brain/Cervical MRI pending -Pain has increased over the last 48 hours. Continues on long acting and short acting pain meds. Continue flexiril and topical analgesics. Dexamethsone restarted at 8mg BID. Will continue to monitor pain control and adjust as needed. Bowel regimen in place Results and POC discussed with patient. All questions and concerns were addressed Normocytic anemia: Denies abdominal pain, blood in stool, and melena and gross hematuria. UA positive for hematuria. Upon admission hemoglobin was noted at 4.7, MCV 90.2, MCH 27.3. WBC 15.3, platelets 261,000. -S/p 3 units PRBCs with an appropriate response. Hemoglobin 10.1 today -Upon admit, metamyelocytes and myelocytes elevated, likely reactive, with mo stly neutrophilia -No nutritional deficiencies noted, consistent with anemia of inflammation. -Paraproteinemia workup showing IgG [place], M-spike negative, K/L ratio normal at 1.2. May be incidental finding/MGUS. Will repeat outpt in 3months -Continue to monitor CBC. Transfuse for hgb less than 7 or if symptomatic Briefly discussed case with admitting team. Pt will likely need rehab upon disc harge but is wanting to go home with boyfriend. Will continue monitor course of hospitalization and see how she progresses attests: I have seen and examined patient, performed H&P, developed im pression and plan of care. Discussed with dictator. Agree with documentation, dictated as a scribe
[2024-08-11 08:04] LABS: ALT 13 U/L (4-34); AST 26 U/L (14-36); African American GFR (CKD) >90 (>60 ml/min/1.73 sqM); Albumin 2.2 g/dL (3.5-5.0); Albumin/Globulin Ratio 0.9; Alkaline Phosphatase 492 U/L (38-126); Anion Gap 7 mmol/L; Anisocytosis Slight; Basophils % (A) 0 %; Blood Urea Nitrogen 20 mg/dL (7-17); Calcium 9.3 mg/dL (8.4-10.2); Carbon Dioxide 24 mmol/L (22-30); Chloride 100 mmol/L (98-107); Eosinophils % (A) 0 %; Globulin 2.4 g/dL; Glucose 139 mg/dL (74-99); HCT 29.9 % (34.0-46.0); HGB 9.4 gm/dL (11.4-16.0); Hypochromasia Moderate; Lymphocytes # (A) 1.6 k/uL (1.0-4.8); Lymphocytes % (A) 7 %; MCH 27.7 pg (25.0-35.0); MCHC 31.5 g/dL (31.0-37.0); MCV 88.1 fL (80.0-100.0); Mean Platelet Volume 8.7; Monocytes # (A) 0.6 k/uL (0-1.0); Monocytes % (A) 3 %; Neutrophils # (A) 19.3 k/uL (1.3-7.7); Neutrophils % (A) 89 %; Non-African American GFR(CKD) >90 (>60 ml/min/1.73 sqM); Platelet Count 199 k/uL (150-450); Potassium 4.3 mmol/L (3.5-5.1); RBC 3.39 m/uL (3.80-5.40); RDW 19.2 % (11.5-15.5); Sodium 131 mmol/L (137-145); Total Bilirubin 0.5 mg/dL (0.2-1.3); Total Protein 4.6 g/dL (6.3-8.2); WBC 21.7 k/uL (3.8-10.6)
[2024-08-11] MEDS: KETOROLAC 15 MG/ML 1 ML VIAL IVP PRN (08:09)
[2024-08-11] MEDS: MAGNESIUM HYDROXIDE 2,400 MG/30 ML CUP PO PRN (08:13)
[2024-08-11 08:22] LABS: Magnesium 1.7 mg/dL (1.6-2.3)
[2024-08-11 12:12] LABS: Glucose,Whole Blood 178 mg/dL (70-110)
[2024-08-11 17:32] LABS: Glucose,Whole Blood 177 mg/dL (70-110)
[2024-08-11 20:12] LABS: Glucose,Whole Blood 236 mg/dL (70-110)
--- NOTE | 2024-08-11 21:04 | P.PN ---
Subjective This is a pleasant 59-year-old female who was recently admitted with back pain and difficulty with ambulation and a possible L3 lytic lesion being closely monitored with multiple medical consultations. Patient also underwent CT scanning showing multiple lesions in the osseous spine although no compression fractures noted. Patient also with a left supraclavicular lymph node enlargement and underwent a nuclear med bone scan which showed diffuse osseous metastatic disease. Patient is status post cystoscopy with pyelogram and left biopsy of the ureter and highly suspicious of carcinoma per urology. Patient's hemoglobin is 7.0 today with no active bleeding noted although will give unit of PRBC and follow-up with repeat labs. Recommend PT/OT therapy evaluation and discuss further with case management for possible ECF. 08/09/2024 Patient is seen in follow-up today in severe 10/10 pain. Patient reports since yesterday afternoon into last night and this morning she was having severe pain in the lower back and is maintained on IV Dilaudid along with oral medications and lidocaine. Will adjust and have also discussed with oncology regarding pain management and they will be initiating long-acting pain management. Patient is scheduled to undergo an MRI of the brain which has been pending. Pathology remains pending as well. White count remains elevated although patient was on steroids which has been discontinued. Patient is afebrile with no reports of chest pain or shortness of breath. Will have PT/OT therapy reevaluate once pain is better controlled as patient reports she wants to go home. Concerned and fearful that she is extremely weak and may need ECF on discharge for continued strength and mobility. 08/10/2024 Patient is seen in follow-up this morning with multiple consultations following including urology status post biopsy. Pathology is positive for high-grade noninvasive papillary urothelial carcinoma. Patient is scheduled to undergo MRI of the brain and cervical spine today for further evaluation and highly suspicious for bone mets. Patient is in extreme amount of pain reporting 10/10 and is having difficulty controlling the pain. Will adjust pain medications accordingly and oncology has added long-acting. Overall prognosis is guarded at this time. 08/11/24 Patient sitting up in bed, looks tired and generally weak but pleasant and relaxed She states her pain almost controlled for her. She is not in distress Continue with pain medication Objective - Vital Signs Vital signs: Vital Signs Temp 97.9 F 08/11/24 07:07 Pulse 91 08/11/24 10:00 Resp 17 08/11/24 10:00 BP 152/88 08/11/24 07:07 Pulse Ox 93 L 08/11/24 07:07 FiO2 Intake & Output 08/10/24 08/11/24 08/11/24 18:59 06:59 18:59 Intake Total 590 590 Output Total 1200 Balance 590 -610 Weight 60.3 kg Intake: Oral 590 590 Output: Urine 1200 Other: Voiding Method External Catheter External Catheter - Exam -GENERAL: The patient is alert and oriented x3, not in any acute distress. Well developed, well nourished. Generally weak HEENT: Pupils are round and equally reacting to light. EOMI. No scleral icterus. No conjunctival pallor. Normocephalic, atraumatic. No pharyngeal erythema. No thyromegaly. CARDIOVASCULAR: S1 and S2 present. No murmurs, rubs, or gallops. PULMONARY: Chest is clear to auscultation, no wheezing , no crackles. ABDOMEN: Soft, nontender, nondistended, normoactive bowel sounds. No palpable organomegaly. MUSCULOSKELETAL: No joint swelling or deformity. EXTREMITIES: No cyanosis, clubbing, or pedal edema. NEUROLOGICAL: Gross neurological examination did not reveal any focal deficits. SKIN: No rashes. no petechiae. - Labs CBC & Chem 7: 08/11/24 07:24 08/11/24 07:24 Labs: Abnormal Lab Results - Last 24 Hours (Table) 08/10/24 08/11/24 08/11/24 Range/Units 20:34 07:08 07:24 WBC 21.7 H (3.8-10.6) k/uL RBC 3.39 L (3.80-5.40) m/uL Hgb 9.4 L (11.4-16.0) gm/dL Hct 29.9 L (34.0-46.0) % RDW 19.2 H (11.5-15.5) % Neutrophils # 19.3 H (1.3-7.7) k/uL Sodium (137-145) mmol/L BUN (7-17) mg/dL Glucose (74-99) mg/dL POC Glucose (mg/dL) 237 H 157 H (70-110) mg/dL Alkaline Phosphatase (38-126) U/L Total Protein (6.3-8.2) g/dL Albumin (3.5-5.0) g/dL 08/11/24 08/11/24 Range/Units 07:24 12:11 WBC (3.8-10.6) k/uL RBC (3.80-5.40) m/uL Hgb (11.4-16.0) gm/dL Hct (34.0-46.0) % RDW (11.5-15.5) % Neutrophils # (1.3-7.7) k/uL Sodium 131 L (137-145) mmol/L BUN 20 H (7-17) mg/dL Glucose 139 H (74-99) mg/dL POC Glucose (mg/dL) 178 H (70-110) mg/dL Alkaline Phosphatase 492 H (38-126) U/L Total Protein 4.6 L (6.3-8.2) g/dL Albumin 2.2 L (3.5-5.0) g/dL Microbiology - Last 24 Hours (Table) 08/05/24 19:12 Blood Culture - Final Blood Assessment and Plan Assessment: Severe back pain, MRI positive for L3 lytic lesion with renal cell carcinoma with multiple mets Bone scan this admission showing concerns for diffuse bony mets Severe symptomatic anemia, possibly secondary to malignancy Possible neoplasm of uncertain behavior of the left renal pelvis and left ureter status post ureteroscopy with cystoscopy and biopsies taken, biopsies are positive for high-grade carcinoma Paraparesis Increased white count, improving, likely reactive as well as patient is on high- dose steroids Degenerative joint disease Continued ongoing nicotine dependence Plan: Recommend to continue with current medications and management with multiple consultations following. Patient is status post biopsies with urology with cystoscopy and pathology is positive for high-grade papillary urothelial carcinoma. Oncology following making recommendations regarding pain management and also following closely with multiple other consultations will discuss further treatment plan moving forward. MRI of the of the brain and spine are pending today. PT/OT therapy evaluation. Patient is persistent ongoing home and will arrange for home care and also necessary equipment including a wheelchair and walker. Discussed with patient and possibly considering rehab. Will have PT/OT therapy evaluate once pain is more manageable Repeat labs ordered for a.m. replace electrolytes per protocol Resume Accu-Cheks and sliding scale as patient is being resumed on steroids per oncology Overall prognosis is extremely guarded at this time
[2024-08-12 07:10] LABS: Glucose,Whole Blood 127 mg/dL (70-110)
[2024-08-12 12:30] LABS: Glucose,Whole Blood 134 mg/dL (70-110)
--- NOTE | 2024-08-12 14:14 | P.PN ---
Subjective Progress Note Date: 08/12/24 Follow-up with the patient and she feels she is doing well. Denies any new neurological issues. Objective - Vital Signs Vital signs: Vital Signs Temp 98.1 F 08/12/24 12:59 Pulse 93 08/12/24 12:59 Resp 16 08/12/24 12:59 BP 146/76 08/12/24 12:59 Pulse Ox 94 L 08/12/24 12:59 FiO2 Intake & Output 08/11/24 08/12/24 08/12/24 18:59 06:59 18:59 Intake Total 590 Output Total 250 800 Balance -250 -210 Intake: Oral 590 Output: Urine 250 800 Other: Voiding Method External Catheter External Catheter # Voids 3 1 - Exam GENERAL: The patient is lying in bed and is not in acute distress. HENT: Supple neck. NEUROLOGICAL: Higher mental function: The patient is awake, alert, oriented to self, place and time. Patient is following commands. No aphasia and no neglect. Cranial nerves: The pupils are round, equal and reactive to light and accommodation. Visual [place] are full to confrontation throughout. Extraocular movement is intact no nystagmus is noted. Facial sensation is normal to touch throughout. The facial strength is normal throughout. Hearing is normal bilaterally to hand rub. Tongue is midline and moved [id number] without any difficulty. +ve mild dysatrhia. Shoulder shrug is normal bilaterally. 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 Otherwise the right upper is 5/5. Left lower is 4-4+. Right lower is 4+ to 5-. Decrease tone over the left lower. Normal bulk. Cerebellum: Normal finger to nose bilaterally. Sensation: Sensation is normal to touch throughout. Reflexes (right/left): 2+ throughout. Plantars are downgoing bilaterally. Some of workup during this hospital visit consisted of: This hospital visit patient hemoglobin was severely low was 3.9 and 08/05/2024 and she had blood transfusion currently 7.8. Vitamin B12: 2321 RBC 1694 MMA: 0.24 CT cervical, thoracic and lumbar spine is reported as multiple mixed lucent sclerotic lesion in the dorsal spine. Correlate with bone scan regarding bone metastasis. NM bone scan whole body is reported as SuperScan compatible with diffuse osseous metastasis disease. CT abdomen and pelvis is reported as increased density with and a prominent left renal pelvis and distal left ureter consider neoplasm such as transitional cell carcinoma. Moderate left hydronephrosis. Suspected lytic area of L3. Thi ckened left adrenal gland. MRI of the brain is reported as age related atrophy and chronic small vessel ischemic change. No acute intracranial process at this time. MRI of the cervical spine is reported as multilevel degenerative disc disease and central stenosis as well as foraminal encroachment. - Labs CBC & Chem 7: 08/11/24 07:24 08/11/24 07:24 Labs: Abnormal Lab Results - Last 24 Hours (Table) 08/11/24 08/11/24 08/12/24 Range/Units 17:30 20:11 07:09 POC Glucose (mg/dL) 177 H 236 H 127 H (70-110) mg/dL 08/12/24 Range/Units 12:29 POC Glucose (mg/dL) 134 H (70-110) mg/dL Assessment and Plan Assessment: This is a 59-year-old woman with lower back pain for several months is having radicular pain to her legs and feels she is having significant weakness in the left lower extremity. She was referred to orthopedic as an outpatient she had MRI which there is a concern for spinal cancer and was recommended to follow-up with oncologist. In our facility she had a bone scan whole body which shows feels osseous metastatic disease that is diffuse. On imaging of the CT of the abdomen pelvis there is a concern for neoplasm in the left renal pelvis and left ureter. Suspected lytic area of the L3. Examination patient has weakness over the left side with some dysarthria. Acute left-hemipresis with some dysarthria---dystharia has resolved. Possible due to severe cervical stenosis. No acute stroke or mets. Newly diagnosed diffuse osseous metastatic disease Suspected lytic area of L3 due osseous metastatic disease Concern for neoplasm in the left renal pelvis and ureter on imaging Cystoscopy with left ureteroscopy with biopsy on 08/07/2024. Tobacco use. Plan: I ordered MRI thoracic spine. Consulted orthopedic surgery team for left sided weakness. Oncology is consulted Biopsy report is pending Will defer the rest of the medical management to primary and other specialist Patient was counseled on tobacco cessation. Will follow-up with patient. Dr. Lucero will resume neurology service tomorrow A.M. Time with Patient: Less than 30
--- NOTE | 2024-08-12 14:20 | P.PN ---
Subjective Progress Note Date: 08/12/24 Patient reporting significant improvement in pain. Last Bm 4-5 days ago. Bowel regimen adjusted Objective - Vital Signs Vital signs: Vital Signs Temp 98.1 F 08/12/24 07:08 Pulse 92 08/12/24 07:08 Resp 16 08/12/24 07:08 BP 153/77 08/12/24 07:08 Pulse Ox 93 L 08/12/24 07:08 FiO2 Intake & Output 08/11/24 08/12/24 08/12/24 18:59 06:59 18:59 Intake Total 590 Output Total 250 800 Balance -250 -210 Intake: Oral 590 Output: Urine 250 800 Other: Voiding Method External Catheter # Voids 3 1 - Constitutional General appearance: Present: no acute distress - EENT Eyes: Present: anicteric sclerae, EOMI ENT: Present: hearing grossly normal - Respiratory Details: breathing is even and unlabored - Cardiovascular Details: skin warm and dry - Gastrointestinal General gastrointestinal: Present: soft. Absent: tenderness - Psychiatric Psychiatric: Present: A&O x's 3 - Labs CBC & Chem 7: 08/11/24 07:24 08/11/24 07:24 Labs: Abnormal Lab Results - Last 24 Hours (Table) 08/11/24 08/11/24 08/11/24 Range/Units 12:11 17:30 20:11 POC Glucose (mg/dL) 178 H 177 H 236 H (70-110) mg/dL 08/12/24 Range/Units 07:09 POC Glucose (mg/dL) 127 H (70-110) mg/dL - Imaging and Cardiology MRI - head: report reviewed Assessment and Plan (1) Renal mass Current Visit: Yes Status: Acute Priority: High Code(s): N28.89 - OTHER SPECIFIED DISORDERS OF KIDNEY AND URETER SNOMED Code(s): 109241012 (2) Anemia Current Visit: Yes Status: Acute Priority: High Code(s): D64.9 - ANEMIA, UNSPECIFIED SNOMED Code(s): 065227360 (3) Lesion of lumbar spine Current Visit: Yes Status: Acute Priority: High Code(s): M89.9 - DISORDER OF BONE, UNSPECIFIED SNOMED Code(s): 569961041 (4) Weakness Current Visit: Yes Status: Acute Priority: High Code(s): R53.1 - WEAKNESS SNOMED Code(s): 28848715 (5) Urothelial carcinoma Current Visit: Yes Status: Acute Priority: High Code(s): C68.9 - MALIGNANT NEOPLASM OF URINARY ORGAN, UNSPECIFIED SNOMED Code(s): 923226464 Plan: Metastatic urothelial carcinoma: Presented to the emergency room for lower back pain. Patient reports over the last couple months she has been having progressing lower back pain. Today she reports "my legs feel like bricks", and has not been able to ambulate over the last cpl days. She also reports 1 episode of fecal incontinence during episodes of diarrhea. Denies urinary incontinence. MRI obtained by orthopedic surgery not within EMR, but per pt suspicious osseous lesions noted -Progressing BLE weakness, and RUE paresthesia. PT/OT consulted. Home health referral placed -Urology consulted for kidney mass. S/p cystoscopy. 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 Will obtain CT cervical/thoracic/lumbar spine with contrast for further evaluation -CT scan showed multiple mixed lucent/sclerotic lesions in the dorsal spine at C6, T1, T2, T4, T5, T8 7, T11, L3, L4, and S1. Enlargement of left supraclavicular lymph node. Retroperitoneal adenopathy on the left. Bone scan compatible with diffuse osseous metastatic disease throughout both appendicular and axial skeleton. -No cord compression noted on CT scans. Decadron was discontinued -Pain had increased after d/c decadron. Continues on long acting and short acting pain meds. Continue flexiril and topical analgesics. Dexamethsone restarted at 8mg BID. Toradol added. Now reporting significant improvement in pain. Has not used IVP dilaudid since yesterday. Will continue to monitor pain control and adjust as needed. -No BM in 4-5 days. Bowel regimen adjusted -Brain/Cervical MRI negative for acute intracranial processes. No enhancing lesions noted. Cervical spine showing multilevel degenerative disc disease and central stenosis as well as foraminal encroachment. Metastatic lesions involving C2, C4, C5, C6 and C7 as well as various thoracic segments. Cervical spinal cord is of normal signal. No pathologic enhancement -Zometa given -Will discuss case with rad onc, inpt vs outpt evaluation Results and POC discussed with patient. All questions and concerns were addressed Normocytic anemia: Denies abdominal pain, blood in stool, and melena and gross hematuria. UA positive for hematuria. Upon admission hemoglobin was noted at 4.7, MCV 90.2, M CH 27.3. WBC 15.3, platelets 261,000. -S/p 3 units PRBCs with an appropriate response. Hemoglobin stable -No nutritional deficiencies noted, consistent with anemia of inflammation. -Paraproteinemia workup showing IgG [place], M-spike negative, K/L ratio normal at 1.2. May be incidental finding/MGUS. Will repeat outpt in 3months -Continue to monitor CBC. Transfuse for hgb less than 7 or if symptomatic Briefly discussed case with admitting team. Pt will likely need rehab upon discharge but is wanting to go home with boyfriend. Will continue monitor course of hospitalization and see how she progresses
[2024-08-12 17:06] LABS: Glucose,Whole Blood 141 mg/dL (70-110)
--- NOTE | 2024-08-12 17:50 | P.PN ---
Subjective This is a pleasant 59-year-old female who was recently admitted with back pain and difficulty with ambulation and a possible L3 lytic lesion being closely monitored with multiple medical consultations. Patient also underwent CT scanning showing multiple lesions in the osseous spine although no compression fractures noted. Patient also with a left supraclavicular lymph node enlargement and underwent a nuclear med bone scan which showed diffuse osseous metastatic disease. Patient is status post cystoscopy with pyelogram and left biopsy of the ureter and highly suspicious of carcinoma per urology. Patient's hemoglobin is 7.0 today with no active bleeding noted although will give unit of PRBC and follow-up with repeat labs. Recommend PT/OT therapy evaluation and discuss further with case management for possible ECF. 08/09/2024 Patient is seen in follow-up today in severe 10/10 pain. Patient reports since yesterday afternoon into last night and this morning she was having severe pain in the lower back and is maintained on IV Dilaudid along with oral medications and lidocaine. Will adjust and have also discussed with oncology regarding pain management and they will be initiating long-acting pain management. Patient is scheduled to undergo an MRI of the brain which has been pending. Pathology remains pending as well. White count remains elevated although patient was on steroids which has been discontinued. Patient is afebrile with no reports of chest pain or shortness of breath. Will have PT/OT therapy reevaluate once pain is better controlled as patient reports she wants to go home. Concerned and fearful that she is extremely weak and may need ECF on discharge for continued strength and mobility. 08/10/2024 Patient is seen in follow-up this morning with multiple consultations following including urology status post biopsy. Pathology is positive for high-grade noninvasive papillary urothelial carcinoma. Patient is scheduled to undergo MRI of the brain and cervical spine today for further evaluation and highly suspicious for bone mets. Patient is in extreme amount of pain reporting 10/10 and is having difficulty controlling the pain. Will adjust pain medications accordingly and oncology has added long-acting. Overall prognosis is guarded at this time. 08/11/24 Patient sitting up in bed, looks tired and generally weak but pleasant and relaxed She states her pain almost controlled for her. She is not in distress Continue with pain medication 08/12 Pain is controlled better today with Toradol Slept well last night Still has constipation On Colace and milk of magnesium, she does not want more for now Objective - Vital Signs Vital signs: Vital Signs Temp 98.1 F 08/12/24 07:08 Pulse 92 08/12/24 07:08 Resp 16 08/12/24 07:08 BP 153/77 08/12/24 07:08 Pulse Ox 93 L 08/12/24 07:08 FiO2 Intake & Output 08/11/24 08/12/24 08/12/24 18:59 06:59 18:59 Intake Total 590 Output Total 250 800 Balance -250 -210 Intake: Oral 590 Output: Urine 250 800 Other: Voiding Method External Catheter # Voids 3 - Exam -GENERAL: The patient is alert and oriented x3, not in any acute distress. Well developed, well nourished. Generally weak HEENT: Pupils are round and equally reacting to light. EOMI. No scleral icterus. No conjunctival pallor. Normocephalic, atraumatic. No pharyngeal erythema. No thyromegaly. CARDIOVASCULAR: S1 and S2 present. No murmurs, rubs, or gallops. PULMONARY: Chest is clear to auscultation, no wheezing , no crackles. ABDOMEN: Soft, nontender, nondistended, normoactive bowel sounds. No palpable organomegaly. MUSCULOSKELETAL: No joint swelling or deformity. EXTREMITIES: No cyanosis, clubbing, or pedal edema. NEUROLOGICAL: Gross neurological examination did not reveal any focal deficits. SKIN: No rashes. no petechiae. - Labs CBC & Chem 7: 08/11/24 07:24 08/11/24 07:24 Labs: Abnormal Lab Results - Last 24 Hours (Table) 08/11/24 08/11/24 08/11/24 Range/Units 12:11 17:30 20:11 POC Glucose (mg/dL) 178 H 177 H 236 H (70-110) mg/dL 08/12/24 Range/Units 07:09 POC Glucose (mg/dL) 127 H (70-110) mg/dL Assessment and Plan Assessment: Severe back pain, MRI positive for L3 lytic lesion with renal cell carcinoma with multiple mets Bone scan this admission showing concerns for diffuse bony mets Severe symptomatic anemia, possibly secondary to malignancy Possible neoplasm of uncertain behavior of the left renal pelvis and left ureter status post ureteroscopy with cystoscopy and biopsies taken, biopsies are positive for high-grade carcinoma Paraparesis Increased white count, improving, likely reactive as well as patient is on high- dose steroids Degenerative joint disease Continued ongoing nicotine dependence Plan: Recommend to continue with current medications and management with multiple consultations following. Patient is status post biopsies with urology with cystoscopy and pathology is positive for high-grade papillary urothelial carcinoma. Oncology following making recommendations regarding pain management and also following closely with multiple other consultations will discuss further treatm ent plan moving forward. MRI of the of the brain and spine are pending today. PT/OT therapy evaluation. Patient is persistent ongoing home and will arrange for home care and also necessary equipment including a wheelchair and walker. Discussed with patient and possibly considering rehab. Will have PT/OT therapy evaluate once pain is more manageable Repeat labs ordered for a.m. replace electrolytes per protocol Resume Accu-Cheks and sliding scale as patient is being resumed on steroids per oncology Overall prognosis is extremely guarded at this time
[2024-08-12 20:11] LABS: Glucose,Whole Blood 147 mg/dL (70-110)
--- NOTE | 2024-08-12 20:40 | P.PN ---
Progress Note - Text Progress Note Date: 08/12/24 Imaging reviewed, full consult pending. MRI of C spine shows multilevel degenerative changes with degenerative HNP and spondylosis with disc height collapse causing moderate to severe central stenosis from C5-7. Moderate noted at C4-5 and small HNP noted at C3-4 not causing stenosis. Flattened CL noted. No large lesions in the cervical spine. CT of the CTL spine is reviwed as well. L3 shows a large left sided lytic lesion in the vertebral body just anterior to and in the path of the pedicle. This could be either metestatic disease or a secondary primary disease. MRI w/wo contrast and biopsy is warranted for this area given the nature of her disease and the potential for fracture in this area. Ideally would be biopsy and likely ablation with cement augmentation to this VB to treat area. Will follow tomorrow with further recs.
[2024-08-12] MEDS: SENNOSIDES-DOCUSATE SODIUM 1 EACH TAB PO SCH (21:17)
[2024-08-13 07:04] LABS: Anisocytosis Slight; HCT 30.8 % (34.0-46.0); HGB 10.1 gm/dL (11.4-16.0); MCH 28.3 pg (25.0-35.0); MCHC 32.9 g/dL (31.0-37.0); Mean Platelet Volume 8.5; Platelet Count 242 k/uL (150-450); RBC 3.58 m/uL (3.80-5.40); RDW 19.7 % (11.5-15.5)
[2024-08-13 07:22] LABS: African American GFR (CKD) >90 (>60 ml/min/1.73 sqM); Anion Gap 7 mmol/L; Blood Urea Nitrogen 41 mg/dL (7-17); Calcium 7.3 mg/dL (8.4-10.2); Carbon Dioxide 22 mmol/L (22-30); Chloride 105 mmol/L (98-107); Glucose 96 mg/dL (74-99); Non-African American GFR(CKD) >90 (>60 ml/min/1.73 sqM); Sodium 134 mmol/L (137-145)
[2024-08-13 07:25] LABS: Glucose,Whole Blood 103 mg/dL (70-110)
[2024-08-13 07:56] LABS: Band Neutrophils % 3 %; Lymphocytes # (M) 1.32 k/uL (1.0-4.8); Metamyelocytes % 3 %; Monocytes # (M) 0.53 k/uL (0-1.0); Myelocytes # (M) 0.26 k/uL (0); Myelocytes % 2 %; Neutrophils % (M) 81 %; Nucleated Red Blood Cells 2 /100 WBC (0-0); Total Cells Counted 200; WBC 13.2 k/uL (3.8-10.6)
[2024-08-13 13:11] LABS: Glucose,Whole Blood 89 mg/dL (70-110)
--- NOTE | 2024-08-13 13:17 | P.PN ---
Progress Note - Text Progress Note Date: 08/13/24 MRI of the lumbar spine is reviewed There is widespread marrow changes throughout the lumbar spine noted in L3 on the left-hand side just anterior to the pedicle there is a large lytic lesion that translates to a hypodense T1 marginally intense hyper T2 signal change measuring around 21.3 x 17.2 mm AP to ML. This does start to invest into the pedicle on the left side and is also showing extravasation from the bone or extra medullary migration into the psoas muscle on the left-hand side. It is capsulated does not appear to invest intramuscular. No other fractures noted. No other large lesions like this however again marrow changes noted. Will discussed with the patient options and wishes. Will discuss with the team as well there is a potential for ablation of this tumor with a biopsy as well as cement augmentation. Intralesional removal if not a secondary primary tumor. Patient has history of transitional cell carcinoma if this is metastatic would favor that treatment if it is primary bone tumor she would need a spondylectomy at this level of which she would then need to be transferred to a different facility for treatment. Full consult pending
--- NOTE | 2024-08-13 15:57 | P.CNOR ---
History of Present Illness - [facility] Consult date: 08/13/24 Requesting physician: Pradeep Chiang Consult reason: other (left upper extremiy weakness wth cervical stenosis) History of present illness: Patient is a 59-year-old female who presents to the emergency department on 08/05/2024 due to back pain with left lower extremity weakness. Patient has been following with medicine, urology and neurology over the past week. Orthopedics was consulted from neurology based on cervical stenosis and left upper extremity weakness. Patient was seen this afternoon at bedside lying the semirecumbent position on 5 N. Patient states about 3 months ago she began having increasing low back pain. Patient states she did not have any trauma or falls. She said it was somewhat of an insidious onset of back pain. Patient says the pain is fairly constant. Patient says she does have numbness and tingling that moves down both lower extremities. She states also some numbness and tingling in the left upper extremity that goes from the left shoulder down into the hand. Patient also notes some left leg weakness. 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 Patient denies any previous history of stroke or heart attack. Patient does smoke half a pack a day. Patient denies any loss of bowel/bladder control or saddle anesthesia. Patient denies any previous orthopedic spine surgery. Patient says she has had 1 orthopedic surgery where she had pins placed in her right shoulder in the past. Patient denies issues with fine motor skills. CT scans of the cervical, thoracic and lumbar spine reported multiple mixed lucent sclerotic lesions throughout the spine. There is evident lytic lesion along the left side of the L3 vertebral body. Patient denies any other significant issues Past Medical History Past Medical History: No Reported History History of Any Multi-Drug Resistant Organisms: None Reported Past Surgical History: Orthopedic Surgery (shoulder surgery ) Additional Past Surgical History / Comment(s): Cataract surgery Past Anesthesia/Blood Transfusion Reactions: No Reported Reaction Past Psychological History: No Psychological Hx Reported Smoking Status: Current every day smoker Past Alcohol Use History: None Reported Past Drug Use History: None Reported Medications and Allergies Home Medications Medication Instructions Recorded Confirmed Type Cyclobenzaprine [Flexeril] 10 mg PO TID PRN #15 tab 07/11/24 08/05/24 Rx Fluticasone Propion/Salmeterol 1 puff INHALATION RT-BID 08/05/24 08/05/24 History [Advair 250-50 Diskus] HYDROcodone/APAP 5-325MG [Fombell 1 tab PO BID PRN 08/05/24 08/05/24 History 5-325] Allergies Allergy/AdvReac Type Severity Reaction Status Date / Time No Known Allergies Allergy Verified 08/05/24 14:23 Physical Examination Inspection: Negative for any significant for open fracture, erythema/ecchymosis. Positive for a couple wounds surrounding the bilateral knees. Sensation: Somewhat altered in the left upper extremity diffusely due to numbness tingling. Numbness and tingling present throughout the bilateral lower extremities on exam. Palpation: Some generalized tenderness to palpation throughout lumbar spine at m idline. Nontender to palpation throughout rest of exam. Range of motion: Patient has full range of motion throughout bilateral upper extremities on exam. Patient has good range of motion throughout right lower extremity on exam. Patient does have good range of motion in left ankle dorsi/plantarflexion and EHL/FHL. Patient does have limited range of motion in the left hip and left knee secondary to referred pain to the low back as well as weakness. Motor: 3/5 in left hip and knee flexion and extension. 4/5 in all other major motor groups in bilateral lower extremities. 4+/5 in all major motor groups in bilateral upper extremities. Neurovascular: Radial pulse intact, 2+ bilaterally. Cap refill under 3 seconds in digits of upper extremities. DP pulses palpable bilaterally. Special test: Negative Homans bilaterally. Negative clonus bilaterally. Negative Zoya bilaterally. Results - Labs Labs: Abnormal Lab Results - Last 24 Hours (Table) 08/12/24 08/12/24 08/13/24 Range/Units 17:04 20:09 06:38 WBC 13.2 H (3.8-10.6) k/uL RBC 3.58 L (3.80-5.40) m/uL Hgb 10.1 L (11.4-16.0) gm/dL Hct 30.8 L (34.0-46.0) % RDW 19.7 H (11.5-15.5) % Neutrophils # (Manual) 11.00 H (1.3-7.7) k/uL Metamyelocytes # (Man) 0.40 H (0) k/uL Myelocytes # (Manual) 0.26 H (0) k/uL Nucleated RBCs 2 H (0-0) /100 WBC Sodium (137-145) mmol/L BUN (7-17) mg/dL POC Glucose (mg/dL) 141 H 147 H (70-110) mg/dL Calcium (8.4-10.2) mg/dL 08/13/24 Range/Units 06:38 WBC (3.8-10.6) k/uL RBC (3.80-5.40) m/uL Hgb (11.4-16.0) gm/dL Hct (34.0-46.0) % RDW (11.5-15.5) % Neutrophils # (Manual) (1.3-7.7) k/uL Metamyelocytes # (Man) (0) k/uL Myelocytes # (Manual) (0) k/uL Nucleated RBCs (0-0) /100 WBC Sodium 134 L (137-145) mmol/L BUN 41 H (7-17) mg/dL POC Glucose (mg/dL) (70-110) mg/dL Calcium 7.3 L (8.4-10.2) mg/dL H & H 08/05/24 08/05/24 08/05/24 Range/Units 10:05 10:36 19:12 Hgb 3.9 L* 4.7 L* 7.8 L D (11.4-16.0) gm/dL Hct 12.9 L* 15.6 L* 25.4 L (34.0-46.0) % 08/06/24 08/07/24 08/08/24 Range/Units 06:34 06:46 06:51 Hgb 7.8 L 7.5 L 7.0 L (11.4-16.0) gm/dL Hct 24.7 L 24.2 L 22.1 L (34.0-46.0) % 08/09/24 08/10/24 08/11/24 Range/Units 03:32 04:38 07:24 Hgb 9.7 L D 10.1 L 9.4 L (11.4-16.0) gm/dL Hct 30.1 L 31.6 L 29.9 L (34.0-46.0) % 08/13/24 Range/Units 06:38 Hgb 10.1 L (11.4-16.0) gm/dL Hct 30.8 L (34.0-46.0) % Coagulation 08/05/24 Range/Units 10:36 INR 1.4 H (<1.2) Result Diagrams: 08/13/24 06:38 08/13/24 06:38 - Diagnostic results CT scan - cervical: report reviewed, image reviewed (CT of cervical spine does show multiple areas of cervical lesion at C2, C4, C5, C6 and C7. There is evidence for central canal stenosis as well as neuroforaminal stenosis.) CT Scan - lumbar: report reviewed, image reviewed (CT scan lumbar spine does show lytic lesion at L3 along the left side of the vertebral body.) Assessment and Plan Assessment: 1. Degenerative disc disease; cervical spine central canal stenosis; cervical spine neuroforaminal stenosis; L3 vertebral body lytic lesion; multiple lytic lesions throughout the cervical and thoracic spine Plan: 1. Degenerative disc disease; cervical spine central canal stenosis; cervical spine neuroforaminal stenosis; L3 vertebral body lytic lesion; multiple lytic lesions throughout the cervical and thoracic spine; left lower extremity weakness; left upper extremity radiculopathy; bilateral lower extremity radiculopathy -I did review the findings of the imaging and exam with my attending, Dr. Mc's and. There is evident lytic lesions throughout the cervical and thoracic spine and CT scan. Evidence for L3 lytic lesion of vertebral body. We are awaiting results of MRI of lumbar spine. At this time we are recommending potential ablation of L3 lytic lesion as well as biopsy and cement augmentation. Patient is agreeable with this treatment option. Pending MRI results of lumbar spine we will plan for intervention for later this week likely , 08/16/2024. Recommend pain medication as needed. PT/OT recommendations. We will continue to follow patient during her stay in hospital. 2. Appreciate medical, neuro, urology management 3. Pain management - tylenol; norco; morphine; flexeril 4. DVT prophylaxis - heparin 5. GI prophylaxis -Protonix; milk of magnesia; senna 6. PT/OT recs 7. Encourage incentive spirometer use 8. Appreciate consult Time with Patient: Less than 30
[2024-08-13 17:08] LABS: Glucose,Whole Blood 155 mg/dL (70-110)
[2024-08-13 20:14] LABS: Glucose,Whole Blood 112 mg/dL (70-110)
--- NOTE | 2024-08-13 20:47 | P.PN ---
Subjective Progress Note Date: 08/13/24 Principal diagnosis: Transitional cell carcinoma, metastatic disease. Pain from malignancy In f/u today pt reports she is feeling good, she is able to disposition clerk her legs, she has some strength, she wants to get up. Her abd feels really full and distended, she has not had a BM in 5 days now. No other acute c/o. Objective - Vital Signs Vital signs: Vital Signs Temp 97.5 F L 08/13/24 13:01 Pulse 91 08/13/24 13:01 Resp 18 08/13/24 13:01 BP 159/75 08/13/24 13:01 Pulse Ox 94 L 08/13/24 13:01 FiO2 Intake & Output 08/13/24 08/13/24 08/14/24 06:59 18:59 06:59 Intake Total 780 Output Total 225 Balance 555 Intake: Oral 780 Output: Urine 225 Other: Voiding Method External Catheter External Catheter # Voids 2 # Bowel Movements 1 - Constitutional General appearance: Present: average body habitus, cooperative, no acute distress - EENT Eyes: Present: anicteric sclerae, EOMI ENT: Present: hearing grossly normal - Respiratory Respiratory: bilateral: CTA - Cardiovascular Rhythm: regular Heart sounds: normal: S1, S2 Abnormal Heart Sounds: Absent: systolic murmur, diastolic murmur, rub, S3 Gallop, S4 Gallop, click, other - Peripheral edema leg Peripheral Edema: bilateral: None - Gastrointestinal Gastrointestinal Comment(s): firmness around umbilicus General gastrointestinal: Present: distended, tenderness - Integumentary Integumentary: Present: normal - Neurologic Neurologic: Present: CNII-XII intact - Musculoskeletal Musculoskeletal: Present: generalized weakness - Psychiatric Psychiatric: Present: A&O x's 3, appropriate affect, intact judgment & insight - Labs CBC & Chem 7: 08/13/24 06:38 08/13/24 06:38 Labs: Abnormal Lab Results - Last 24 Hours (Table) 08/13/24 08/13/24 08/13/24 Range/Units 06:38 06:38 17:06 WBC 13.2 H (3.8-10.6) k/uL RBC 3.58 L (3.80-5.40) m/uL Hgb 10.1 L (11.4-16.0) gm/dL Hct 30.8 L (34.0-46.0) % RDW 19.7 H (11.5-15.5) % Neutrophils # (Manual) 11.00 H (1.3-7.7) k/uL Metamyelocytes # (Man) 0.40 H (0) k/uL Myelocytes # (Manual) 0.26 H (0) k/uL Nucleated RBCs 2 H (0-0) /100 WBC Sodium 134 L (137-145) mmol/L BUN 41 H (7-17) mg/dL POC Glucose (mg/dL) 155 H (70-110) mg/dL Calcium 7.3 L (8.4-10.2) mg/dL 08/13/24 Range/Units 20:13 WBC (3.8-10.6) k/uL RBC (3.80-5.40) m/uL Hgb (11.4-16.0) gm/dL Hct (34.0-46.0) % RDW (11.5-15.5) % Neutrophils # (Manual) (1.3-7.7) k/uL Metamyelocytes # (Man) (0) k/uL Myelocytes # (Manual) (0) k/uL Nucleated RBCs (0-0) /100 WBC Sodium (137-145) mmol/L BUN (7-17) mg/dL POC Glucose (mg/dL) 112 H (70-110) mg/dL Calcium (8.4-10.2) mg/dL Assessment and Plan (1) Urothelial carcinoma Current Visit: Yes Status: Acute Priority: High Code(s): C68.9 - MALIGNANT NEOPLASM OF URINARY ORGAN, UNSPECIFIED SNOMED Code(s): 059156393 (2) Anemia Current Visit: Yes Status: Acute Priority: High Code(s): D64.9 - ANEMIA, UNSPECIFIED SNOMED Code(s): 717408632 (3) Lesion of lumbar spine Current Visit: Yes Status: Acute Priority: High Code(s): M89.9 - DISORDER OF BONE, UNSPECIFIED SNOMED Code(s): 141139360 Plan: Metastatic urothelial carcinoma, newly diagnosed -Presented with low back pain, progressive over few months, associated with some difficulty ambulating as well as some incontinence of stool when she was experiencing diarrhea. -Biopsy with Dr. Farrell 08/07. Path reporting high-grade, noninvasive papillary urothelial carcinoma, bx from the left ureter, renal pelvis -Vertebral bone metastases noted on imaging. Brain/Cervical MRI negative for acute intracranial processes. Cervical spine showing multilevel degenerative disc disease and central stenosis as well as foraminal encroachment. No pathologic enhancement, nothing appears to be acutely encroaching on the spinal cord. On physical exam today patient does have strength and sensation in the bilateral lower extremities, she denies incontinence. Zometa given for bone mets. -Orthopedic spine is following patient. Pending recommendations -Did speak with Physical Therapist. They are awaiting [facility]'s recommendations to see if the patient needs bracing for ambulation. -Referral to Radiation Oncology if patient's symptoms progress or pain is not able to be managed. -Discussed with case management need for durable medical equipment and also assistance in getting patient information so that she can apply for disability -Medications will be adjusted to pt tolerance-dex dose decreased, cont sherine and short acting pain meds, toradol PRN Constipation -Likely r/t pain meds, decreased mobility. MOM and warm prune juice ordered acutely. Cont all current meds Normocytic anemia -Hgb 4.7 on admit, s/p 3 units PRBCs with appropriate increase in Hgb. Hgb stable -No nutritional deficiencies noted, consistent with anemia of inflammation. -Vance paraproteinemia, M-spike negative, K/L ratio normal at 1.2. May be inc idental finding/MGUS. Will repeat outpt in 3months -Continue to monitor CBC. Transfuse for hgb less than 7 or if symptomatic
--- NOTE | 2024-08-13 21:05 | P.PN ---
Subjective This is a pleasant 59-year-old female who was recently admitted with back pain and difficulty with ambulation and a possible L3 lytic lesion being closely monitored with multiple medical consultations. Patient also underwent CT scanning showing multiple lesions in the osseous spine although no compression fractures noted. Patient also with a left supraclavicular lymph node enlargement and underwent a nuclear med bone scan which showed diffuse osseous metastatic disease. Patient is status post cystoscopy with pyelogram and left biopsy of the ureter and highly suspicious of carcinoma per urology. Patient's hemoglobin is 7.0 today with no active bleeding noted although will give unit of PRBC and follow-up with repeat labs. Recommend PT/OT therapy evaluation and discuss further with case management for possible ECF. 08/09/2024 Patient is seen in follow-up today in severe 10/10 pain. Patient reports since yesterday afternoon into last night and this morning she was having severe pain in the lower back and is maintained on IV Dilaudid along with oral medications and lidocaine. Will adjust and have also discussed with oncology regarding pain management and they will be initiating long-acting pain management. Patient is scheduled to undergo an MRI of the brain which has been pending. Pathology remains pending as well. White count remains elevated although patient was on steroids which has been discontinued. Patient is afebrile with no reports of chest pain or shortness of breath. Will have PT/OT therapy reevaluate once pain is better controlled as patient reports she wants to go home. Concerned and fearful that she is extremely weak and may need ECF on discharge for continued strength and mobility. 08/10/2024 Patient is seen in follow-up this morning with multiple consultations following including urology status post biopsy. Pathology is positive for high-grade noninvasive papillary urothelial carcinoma. Patient is scheduled to undergo MRI of the brain and cervical spine today for further evaluation and highly suspicious for bone mets. Patient is in extreme amount of pain reporting 10/10 and is having difficulty controlling the pain. Will adjust pain medications accordingly and oncology has added long-acting. Overall prognosis is guarded at this time. 08/11/24 Patient sitting up in bed, looks tired and generally weak but pleasant and relaxed She states her pain almost controlled for her. She is not in distress Continue with pain medication 08/12 Pain is controlled better today with Toradol Slept well last night Still has constipation On Colace and milk of magnesium, she does not want more for now 08/13 She looks pleasant and comfortable, she is sitting up in bed and smiling She had 1 bowel movement tonight MRI of the thoracolumbar spine is pending She is currently on dexamethasone 6 mg twice daily Objective - Vital Signs Vital signs: Vital Signs Temp 97.8 F 08/13/24 07:16 Pulse 89 08/13/24 07:16 Resp 16 08/13/24 07:16 BP 177/72 08/13/24 07:16 Pulse Ox 95 08/13/24 07:16 FiO2 Intake & Output 08/12/24 08/13/24 08/13/24 18:59 06:59 18:59 Intake Total 780 Output Total 150 225 Balance -150 555 Intake: Oral 780 Output: Urine 150 225 Other: Voiding Method External Catheter External Catheter # Voids 1 - Exam -GENERAL: The patient is alert and oriented x3, not in any acute distress. Well developed, well nourished. Generally weak HEENT: Pupils are round and equally reacting to light. EOMI. No scleral icterus. No conjunctival pallor. Normocephalic, atraumatic. No pharyngeal erythema. No thyromegaly. CARDIOVASCULAR: S1 and S2 present. No murmurs, rubs, or gallops. PULMONARY: Chest is clear to auscultation, no wheezing , no crackles. ABDOMEN: Soft, nontender, nondistended, normoactive bowel sounds. No palpable organomegaly. MUSCULOSKELETAL: No joint swelling or deformity. EXTREMITIES: No cyanosis, clubbing, or pedal edema. NEUROLOGICAL: Gross neurological examination did not reveal any focal deficits. SKIN: No rashes. no petechiae. - Labs CBC & Chem 7: 08/13/24 06:38 08/13/24 06:38 Labs: Abnormal Lab Results - Last 24 Hours (Table) 08/12/24 08/12/24 08/12/24 Range/Units 12:29 17:04 20:09 WBC (3.8-10.6) k/uL RBC (3.80-5.40) m/uL Hgb (11.4-16.0) gm/dL Hct (34.0-46.0) % RDW (11.5-15.5) % Neutrophils # (Manual) (1.3-7.7) k/uL Metamyelocytes # (Man) (0) k/uL Myelocytes # (Manual) (0) k/uL Nucleated RBCs (0-0) /100 WBC Sodium (137-145) mmol/L BUN (7-17) mg/dL POC Glucose (mg/dL) 134 H 141 H 147 H (70-110) mg/dL Calcium (8.4-10.2) mg/dL 08/13/24 08/13/24 Range/Units 06:38 06:38 WBC 13.2 H (3.8-10.6) k/uL RBC 3.58 L (3.80-5.40) m/uL Hgb 10.1 L (11.4-16.0) gm/dL Hct 30.8 L (34.0-46.0) % RDW 19.7 H (11.5-15.5) % Neutrophils # (Manual) 11.00 H (1.3-7.7) k/uL Metamyelocytes # (Man) 0.40 H (0) k/uL Myelocytes # (Manual) 0.26 H (0) k/uL Nucleated RBCs 2 H (0-0) /100 WBC Sodium 134 L (137-145) mmol/L BUN 41 H (7-17) mg/dL POC Glucose (mg/dL) (70-110) mg/dL Calcium 7.3 L (8.4-10.2) mg/dL Assessment and Plan Assessment: Severe back pain, MRI positive for L3 lytic lesion with renal cell carcinoma with multiple mets Bone scan this admission showing concerns for diffuse bony mets Severe symptomatic anemia, possibly secondary to malignancy Possible neoplasm of uncertain behavior of the left renal pelvis and left ureter status post ureteroscopy with cystoscopy and biopsies taken, biopsies are positive for high-grade carcinoma Paraparesis Increased white count, improving, likely reactive as well as patient is on high- dose steroids Degenerative joint disease Continued ongoing nicotine dependence Plan: Recommend to continue with current medications and management with multiple consultations following. Patient is status post biopsies with urology with cystoscopy and pathology is positive for high-grade papillary urothelial carcinoma. Oncology following making recommendations regarding pain management and also following closely with multiple other consultations will discuss further treatment plan moving forward. MRI of the of the thoracic and lumbar spine is ordered Orthopedic and oncology team on the case. Pain controlled continue with pain management PT/OT therapy evaluation. Patient is persistent ongoing home and will arrange for home care and also necessary equipment including a wheelchair and walker. Discussed with patient and possibly considering rehab. Will have PT/OT therapy evaluate once pain is more manageable Repeat labs ordered for a.m. replace electrolytes per protocol Resume Accu-Cheks and sliding scale as patient is being resumed on steroids per oncology Overall prognosis is extremely guarded at this time
[2024-08-13] MEDS: dexAMETHasone 2 MG TAB PO SCH (21:23)
[2024-08-14 07:25] LABS: Glucose,Whole Blood 102 mg/dL (70-110)
--- NOTE | 2024-08-14 08:51 | P.PN ---
Subjective Progress Note Date: 08/14/24 Principal diagnosis: Left upper extremity weakness Cervical spondylosis with stenosis Lumbar pain Patient seen and examined this morning. Patient is sitting up in chair at be dside. Patient continues to report an aching and sharp pain to the lumbar region that radiates into the bilateral lower extremities, associated with numbness and tingling. MRI results of the lumbar spine have been reviewed and discussed with patient. Discussed with patient surgical intervention of L3 tumor ablation with biopsy and kyphoplasty. Patient would like to proceed with this procedure. This has been tentatively scheduled for 08/16/2024. No acute concerns at this time. Objective - Vital Signs Vital signs: Vital Signs Temp 97.4 F L 08/14/24 07:19 Pulse 82 08/14/24 07:19 Resp 16 08/14/24 07:19 BP 165/76 08/14/24 07:19 Pulse Ox 96 08/14/24 07:19 FiO2 Intake & Output 08/13/24 08/14/24 08/14/24 18:59 06:59 18:59 Intake Total 1160 Output Total 500 Balance 660 Intake: Oral 1160 Output: Urine 500 Other: Voiding Method External Catheter External Catheter # Voids 2 # Bowel Movements 1 - Exam Physical Examination General: The patient is awake and alert, in no acute distress Skin: Skin is warm and dry with no obvious rashes or lesions. Eye: Pupils are equal, round and reactive to light, extra-ocular movements are intact; there is normal conjunctiva bilaterally. Neck: The neck is supple, there is no tenderness and ROM intact. Cardiovascular: There is a regular rate and rhythm. No murmur, rub or gallop is appreciated. Respiratory: Respirations are non-labored, breath sounds are equal. Gastrointestinal: Soft, non-distended, non-tender abdomen. Back: There is no tenderness to palpation in the midline, paralumbar, parathoracic or buttocks region. There is no obvious deformity . Musculoskeletal: ROM limited secondary to pain and stiffness. Right: Shoulder abduction 5/5, elbow flexors 5/5, wrist dorsiflexors 5/5. finger abductor 5/5, outpatient scheduler 5/5, hip flexor 4/5, knee flexor 4/5, ankle dorsiflexor 4/5, ankle plantarflexion 4/5 and extensor hallucis 5/5. Left: Shoulder abduction 5/5, elbow flexors 5/5, wrist dorsiflexors 5/5. finger abductor 5/5, outpatient scheduler 5/5, hip flexor 4/5, knee flexor 4/5, ankle dorsiflexor 4/5, ankle plantarflexion 4/5 and extensor hallucis 5/5. Neurological: CN 2-12 intact. There are no obvious motor or sensory deficits. Movement and coordination equal and intact. Sensory exam to light touch intact C5-T1 and intact from L2-S1. Reflexes 2/4 in bilateral upper and lower extremities. Negative Hoffmans, babinski, and clonus signs. Psychiatric: Cooperative, appropriate mood & affect, normal judgment. - Labs CBC & Chem 7: 08/13/24 06:38 08/13/24 06:38 Labs: Abnormal Lab Results - Last 24 Hours (Table) 08/13/24 08/13/24 Range/Units 17:06 20:13 POC Glucose (mg/dL) 155 H 112 H (70-110) mg/dL Assessment and Plan Assessment: Degenerative disc disease Cervical spine central canal stenosis Cervical spine neuroforaminal stenosis L3 vertebral body lytic lesion Multiple lytic lesions throughout the cervical and thoracic spine Plan: MRI has been reviewed and discussed with patient. At this time we do recommend a L3 ablation with biopsy and kyphoplasty. Patient would like to proceed with procedure. This has been tentatively scheduled for 08/16/2024. 2. Appreciate medical management 3. Pain management -continue with oral and IV pain medications, continue with use of ice and heat therapy. 4. GI prophylaxis -senna 5. DVT prophylaxis -heparin 6. PT/OT - weightbearing as tolerated with a walker as needed. 7. Appreciate consult
[2024-08-14 10:06] LABS: Blood Urea Nitrogen 31.3 mg/dL (9.0-27.0); Calcium 6.5 mg/dL (8.7-10.3); Chloride 101 mmol/L (96-109); Glucose 88 mg/dL (70-110); Potassium 5.1 mmol/L (3.5-5.5); Sodium 134 mmol/L (135-145)
[2024-08-14 12:13] LABS: Glucose,Whole Blood 143 mg/dL (70-110)
--- NOTE | 2024-08-14 13:34 | MR ---
EXAMINATION TYPE: MR lumbar spine wo/w con, MR thoracic spine wo/w con DATE OF EXAM: 08/13/2024 1:08 PM CLINICAL INDICATION: Female, 59 years old with history of lytic lesion L3, mets; PHH, lytic lesion L3 , mets (accession [id number]), Lt sided weakness (accession [id number]) COMPARISON: 08/06/2024 TECHNIQUE: Multi planar, multi sequence imaging was performed utilizing: T1-weighted, T2-weighted, a nd turbo inversion recovery imaging of the lumbar spine. IV Contrast: 6 cc Gadavist. (None if empty) FINDINGS: Alignment: The lumbar vertebral bodies have preserved heights and alignment. Cord: The conus medullaris and the distal spinal cord appear unremarkable with regards to their signa l intensity and morphology. Bones/Discs: Diffuse low signal throughout the bone marrow. Moderate degeneration changes throughout the spine with osteophyte formation and facet joint arthropathy. Intervertebral disc signal is mainta ined. Heterogenous bone marrow signal throughout the spine. Enhancing mass in the L3 vertebrae measur ing up to 22 x 14 mm which extends to the left lateral vertebral body wall. Limited thoracic spine MRI due to patient unable to lay flat for the post melvin images. There is somewh at diffuse heterogenous inversion recovery signal to the midthoracic spine. No discrete enhancing mas ses definitively visualized. No evidence for significant spinal canal stenosis and thoracic spine. Ec centric left disc bulging at the level of T9-T10 which displaces the spinal cord. T12-L1: No evidence of significant spinal canal stenosis or neural foraminal stenosis. L1-L2: No evidence of significant spinal canal stenosis or neural foraminal stenosis. L2-L3: No evidence of significant spinal canal stenosis. Facet joint arthropathy moderate bilateral n eural foraminal stenosis. L3-L4: No evidence of significant spinal canal stenosis. Facet joint arthropathy moderate bilateral n eural foraminal stenosis. L4-L5: Disc bulge and facet joint arthropathy result in mild spinal canal and moderate bilateral neur al foraminal stenosis. L5-S1: The disc has a rounded posterior morphology without significant spinal canal stenosis. Facet j oint arthropathy with mild bilateral neural foraminal stenosis. No significant spinal canal or neural foraminal stenosis in the remainder of the visualized levels. Other findings: Dilation of the left collecting system with layering excreted contrast present. The urinary bladder is distended. Trace high T2 signal in the bilateral pleural spaces. IMPRESSION: 1. L3 vertebral body enhancing mass which extends through the vertebral body lateral plate on CT edwin ging. Findings concerning for malignancy until proven otherwise. Consider pet/CT for complete evaluat ion. No evidence for significant spinal canal stenosis or evidence of fracture. 2. Limited thoracic spine MRI due to patient unable to lay flat for the post melvin images. There is so mewhat diffuse heterogenous inversion recovery signal to the midthoracic spine. No discrete masses de finitively visualized. 3. Eccentric left disc bulging at the level of T9-T10 which displaces the spinal cord. 4. No definitive evidence of disc herniation or significant spinal canal stenosis. 5. Mild to moderate disc degeneration with associated osteoarthritic changes and heterogenous bone m arrow signal.. 6. Moderate left hydronephrosis. 7. Trace bilateral pleural effusions. 8. Diffuse low signal throughout the bone marrow possibly secondary to red marrow reconversion. [facility], , 08/14/2024 1:32 PM
--- NOTE | 2024-08-14 15:58 | P.PN ---
Subjective Progress Note Date: 08/14/24 Patient reporting pain has overall improved, with intermittent sharp severe pain. Also reporting left hand tingling. Patient had large BM last night. Continues on senokot-S. Scheduled for lumbar MRI today, with possible surgery this with ortho spine. Objective - Vital Signs Vital signs: Vital Signs Temp 97.4 F L 08/14/24 07:19 Pulse 82 08/14/24 07:19 Resp 16 08/14/24 07:19 BP 165/76 08/14/24 07:19 Pulse Ox 96 08/14/24 07:19 FiO2 Intake & Output 08/13/24 08/14/24 08/14/24 18:59 06:59 18:59 Intake Total 1160 Output Total 500 Balance 660 Intake: Oral 1160 Output: Urine 500 Other: Voiding Method External Catheter External Catheter External Catheter # Voids 2 # Bowel Movements 1 - Constitutional General appearance: Present: average body habitus, no acute distress - EENT Eyes: Present: anicteric sclerae, EOMI ENT: Present: hearing grossly normal - Respiratory Details: breathing is even and unlabored - Cardiovascular Details: skin warm and dry - Gastrointestinal General gastrointestinal: Present: soft. Absent: tenderness - Psychiatric Psychiatric: Present: A&O x's 3 - Labs CBC & Chem 7: 08/13/24 06:38 08/14/24 05:05 Labs: Abnormal Lab Results - Last 24 Hours (Table) 08/13/24 08/13/24 08/14/24 Range/Units 17:06 20:13 05:05 Sodium 134 L (135-145) mmol/L Carbon Dioxide 21.0 L (21.6-31.8) mmol/L BUN 31.3 H (9.0-27.0) mg/dL Creatinine 0.5 L (0.6-1.5) mg/dL BUN/Creatinine Ratio 62.60 H (12.00-20.00) Ratio POC Glucose (mg/dL) 155 H 112 H (70-110) mg/dL Calcium 6.5 L (8.7-10.3) mg/dL Assessment and Plan (1) Renal mass Current Visit: Yes Status: Acute Priority: High Code(s): N28.89 - OTHER SPECIFIED DISORDERS OF KIDNEY AND URETER SNOMED Code(s): 123349298 (2) Anemia Current Visit: Yes Status: Acute Priority: High Code(s): D64.9 - ANEMIA, UNSPECIFIED SNOMED Code(s): 475639013 (3) Lesion of lumbar spine Current Visit: Yes Status: Acute Priority: High Code(s): M89.9 - DISORDER OF BONE, UNSPECIFIED SNOMED Code(s): 801991084 (4) Weakness Current Visit: Yes Status: Acute Priority: High Code(s): R53.1 - WEAKNESS SNOMED Code(s): 10520437 (5) Urothelial carcinoma Current Visit: Yes Status: Acute Priority: High Code(s): C68.9 - MALIGNANT NEOPLASM OF URINARY ORGAN, UNSPECIFIED SNOMED Code(s): 967871416 Plan: Metastatic urothelial carcinoma, newly diagnosed -Presented with low back pain, progressive over few months, associated with some difficulty ambulating as well as some incontinence of stool when she was expe riencing diarrhea. -Biopsy with Dr. Farrell 08/07. Path reporting high-grade, noninvasive papillary urothelial carcinoma, bx from the left ureter, renal pelvis -Vertebral bone metastases noted on imaging. Brain/Cervical MRI negative for acute intracranial processes. Cervical spine showing multilevel degenerative disc disease and central stenosis as well as foraminal encroachment. No pathologic enhancement, nothing appears to be acutely encroaching on the spinal cord. On physical exam today patient does have strength and sensation in the bilateral lower extremities, she denies incontinence. Zometa given for bone mets. -Orthopedic spine is following patient. Plan for L3 ablation and cementing pending MRI today -Referral to Radiation Oncology if patient's symptoms progress or pain is not able to be managed. -Discussed with case management need for durable medical equipment and also assistance in getting patient information so that she can apply for disability -Medications will be adjusted to pt tolerance-dex dose decreased, cont long and short acting pain meds, toradol PRN Constipation -Likely r/t pain meds, decreased mobility. MOM and warm prune juice ordered acutely. Had large BM yesterday -Cont Senokot-S and prn meds Normocytic anemia -Hgb 4.7 on admit, s/p 3 units PRBCs with appropriate increase in Hgb. Hgb stable -No nutritional deficiencies noted, consistent with anemia of inflammation. -IgG kappa paraprotein noted on immunofixation, M-spike negative, K/L ratio normal at 1.2. May be incidental finding/MGUS. Will repeat outpt in 3months -Continue to monitor CBC. Transfuse for hgb less than 7 or if symptomatic
[2024-08-14 17:10] LABS: Glucose,Whole Blood 165 mg/dL (70-110)
[2024-08-14] MEDS ORDERED: ZINC OXIDE PASTE (Z-GUARD) 1 APPLIC TOPICAL PRN (17:36)
--- NOTE | 2024-08-14 20:14 | P.PN ---
Subjective This is a pleasant 59-year-old female who was recently admitted with back pain and difficulty with ambulation and a possible L3 lytic lesion being closely monitored with multiple medical consultations. Patient also underwent CT scanning showing multiple lesions in the osseous spine although no compression fractures noted. Patient also with a left supraclavicular lymph node enlargement and underwent a nuclear med bone scan which showed diffuse osseous metastatic disease. Patient is status post cystoscopy with pyelogram and left biopsy of the ureter and highly suspicious of carcinoma per urology. Patient's hemoglobin is 7.0 today with no active bleeding noted although will give unit of PRBC and follow-up with repeat labs. Recommend PT/OT therapy evaluation and discuss further with case management for possible ECF. 08/09/2024 Patient is seen in follow-up today in severe 10/10 pain. Patient reports since yesterday afternoon into last night and this morning she was having severe pain in the lower back and is maintained on IV Dilaudid along with oral medications and lidocaine. Will adjust and have also discussed with oncology regarding pain management and they will be initiating long-acting pain management. Patient is scheduled to undergo an MRI of the brain which has been pending. Pathology remains pending as well. White count remains elevated although patient was on steroids which has been discontinued. Patient is afebrile with no reports of chest pain or shortness of breath. Will have PT/OT therapy reevaluate once pain is better controlled as patient reports she wants to go home. Concerned and fearful that she is extremely weak and may need ECF on discharge for continued strength and mobility. 08/10/2024 Patient is seen in follow-up this morning with multiple consultations following including urology status post biopsy. Pathology is positive for high-grade noninvasive papillary urothelial carcinoma. Patient is scheduled to undergo MRI of the brain and cervical spine today for further evaluation and highly suspicious for bone mets. Patient is in extreme amount of pain reporting 10/10 and is having difficulty controlling the pain. Will adjust pain medications accordingly and oncology has added long-acting. Overall prognosis is guarded at this time. 08/11/24 Patient sitting up in bed, looks tired and generally weak but pleasant and relaxed She states her pain almost controlled for her. She is not in distress Continue with pain medication 08/12 Pain is controlled better today with Toradol Slept well last night Still has constipation On Colace and milk of magnesium, she does not want more for now 08/13 She looks pleasant and comfortable, she is sitting up in bed and smiling She had 1 bowel movement tonight MRI of the thoracolumbar spine is pending She is currently on dexamethasone 6 mg twice daily 08/14 Patient back pain is controlled however it looks like she has some radicular symptoms with tingling in the extremities MRI of the thoracic spine showing no metastatic lesion but lumbar spine showing L3 tumor although there is no evidence of spinal cord compression but is symp tomatic. Therefore orthopedic team are planning for ( L3 tumor ablation with biopsy and kyphoplasty } on 08/16 Objective - Vital Signs Vital signs: Vital Signs Temp 98 F 08/14/24 19:24 Pulse 92 08/14/24 19:24 Resp 16 08/14/24 19:24 BP 164/82 08/14/24 19:24 Pulse Ox 97 08/14/24 19:24 FiO2 Intake & Output 08/14/24 08/14/24 08/15/24 06:59 18:59 06:59 Intake Total 1160 Output Total 500 600 Balance 660 -600 Weight 60.3 kg Intake: Oral 1160 Output: Urine 500 600 Other: Voiding Method External Catheter External Catheter - Exam -GENERAL: The patient is alert and oriented x3, not in any acute distress. Well developed, well nourished. Generally weak HEENT: Pupils are round and equally reacting to light. EOMI. No scleral icterus. No conjunctival pallor. Normocephalic, atraumatic. No pharyngeal erythema. No thyromegaly. CARDIOVASCULAR: S1 and S2 present. No murmurs, rubs, or gallops. PULMONARY: Chest is clear to auscultation, no wheezing , no crackles. ABDOMEN: Soft, nontender, nondistended, normoactive bowel sounds. No palpable organomegaly. MUSCULOSKELETAL: No joint swelling or deformity. EXTREMITIES: No cyanosis, clubbing, or pedal edema. NEUROLOGICAL: Gross neurological examination did not reveal any focal deficits. SKIN: No rashes. no petechiae. - Labs CBC & Chem 7: 08/13/24 06:38 08/14/24 05:05 Labs: Abnormal Lab Results - Last 24 Hours (Table) 08/13/24 08/14/24 08/14/24 Range/Units 20:13 05:05 12:12 Sodium 134 L (135-145) mmol/L Carbon Dioxide 21.0 L (21.6-31.8) mmol/L BUN 31.3 H (9.0-27.0) mg/dL Creatinine 0.5 L (0.6-1.5) mg/dL BUN/Creatinine Ratio 62.60 H (12.00-20.00) Ratio POC Glucose (mg/dL) 112 H 143 H (70-110) mg/dL Calcium 6.5 L (8.7-10.3) mg/dL 08/14/24 Range/Units 17:09 Sodium (135-145) mmol/L Carbon Dioxide (21.6-31.8) mmol/L BUN (9.0-27.0) mg/dL Creatinine (0.6-1.5) mg/dL BUN/Creatinine Ratio (12.00-20.00) Ratio POC Glucose (mg/dL) 165 H (70-110) mg/dL Calcium (8.7-10.3) mg/dL Assessment and Plan Assessment: -Severe back pain, with radiculopathy. MRI positive for L3 lytic lesion with renal cell carcinoma with multiple mets. MRI showing L3 vertebral body tumor with no spinal cord compression, plan for ( L3 tumor ablation with biopsy and kyphoplasty } on 08/16 -Bone scan this admission showing concerns for diffuse bony mets -Severe symptomatic anemia, possibly secondary to malignancy -Possible neoplasm of uncertain behavior of the left renal pelvis and left ureter status post ureteroscopy with cystoscopy and biopsies taken, biopsies are positive for high-grade carcinoma, Patient is status post stent of the left ureter -Paraparesis. -Increased white count, improving, likely reactive as well as patient is on high-dose steroids -Degenerative joint disease -Continued ongoing nicotine dependence Plan: Recommend to continue with current medications and management with multiple consultations following. Patient is status post biopsies with urology with cystoscopy and pathology is positive for high-grade papillary urothelial carcinoma. C. difficile are planning for ( L3 tumor ablation with biopsy and kyphoplasty } on 08/16 Oncology following making recommendations regarding pain management and also following closely with multiple other consultations will discuss further treatment plan moving forward. MRI of the of the thoracic and lumbar spine is ordered Orthopedic and oncology team on the case. Pain controlled continue with pain management PT/OT therapy evaluation. Patient is persistent ongoing home and will arrange for home care and also necessary equipment including a wheelchair and walker. Discussed with patient and possibly considering rehab. Will have PT/OT therapy evaluate once pain is more manageable Repeat labs ordered for a.m. replace electrolytes per protocol Resume Accu-Cheks and sliding scale as patient is being resumed on steroids per oncology Overall prognosis is extremely guarded at this time
[2024-08-14 20:18] LABS: Glucose,Whole Blood 118 mg/dL (70-110)
[2024-08-15 07:18] LABS: Glucose,Whole Blood 109 mg/dL (70-110)
--- NOTE | 2024-08-15 09:44 | P.PN ---
Subjective Progress Note Date: 08/15/24 Principal diagnosis: Left upper extremity weakness Cervical spondylosis with stenosis Lumbar pain Patient seen and examined this morning. [facility] is resting in bed[facility]. Patient continues to report an aching and sharp pain to the lumbar region that radiates into the bilateral lower extremities, associated with numbness and tingling. Patient is agreeable to proceed with surgical intervention of L3 tumor ablation with biopsy and kyph oplasty. This has been scheduled for 08/16/2024. Patient will be NPO at [place]. No acute concerns at this time. Objective - Vital Signs Vital signs: Vital Signs Temp 97.9 F 08/15/24 07:14 Pulse 83 08/15/24 07:14 Resp 18 08/15/24 07:14 BP 162/75 08/15/24 07:14 Pulse Ox 97 08/15/24 07:14 FiO2 Intake & Output 08/14/24 08/15/24 08/15/24 18:59 06:59 18:59 Output Total 600 500 Balance -600 -500 Weight 60.3 kg Output: Urine 600 500 Other: Voiding Method External Catheter External Catheter External Catheter - Exam Physical Examination General: The patient is awake and alert, in no acute distress Skin: Skin is warm and dry with no obvious rashes or lesions. Eye: Pupils are equal, round and reactive to light, extra-ocular movements are intact; there is normal conjunctiva bilaterally. Neck: The neck is supple, there is no tenderness and ROM intact. Cardiovascular: There is a regular rate and rhythm. No murmur, rub or gallop is appreciated. Respiratory: Respirations are non-labored, breath sounds are equal. Gastrointestinal: Soft, non-distended, non-tender abdomen. Back: There is no tenderness to palpation in the midline, paralumbar, parathoracic or buttocks region. There is no obvious deformity . Musculoskeletal: ROM limited secondary to pain and stiffness. Right: Shoulder abduction 5/5, elbow flexors 5/5, wrist dorsiflexors 5/5. finger abductor 5/5, hydroelectric plant mechanical engineer 5/5, hip flexor 4/5, knee flexor 4/5, ankle dorsiflexor 4/5, ankle plantarflexion 4/5 and extensor hallucis 5/5. Left: Shoulder abduction 5/5, elbow flexors 5/5, wrist dorsiflexors 5/5. finger abductor 5/5, hydroelectric plant mechanical engineer 5/5, hip flexor 4/5, knee flexor 4/5, ankle dorsiflexor 4/5, ankle plantarflexion 4/5 and extensor hallucis 5/5. Neurological: CN 2-12 intact. There are no obvious motor or sensory deficits. Movement and coordination equal and intact. Sensory exam to light touch intact C5-T1 and intact from L2-S1. Reflexes 2/4 in bilateral upper and lower extremiti es. Negative Hoffmans, babinski, and clonus signs. Psychiatric: Cooperative, appropriate mood & affect, normal judgment. - Labs CBC & Chem 7: 08/13/24 06:38 08/14/24 05:05 Labs: Abnormal Lab Results - Last 24 Hours (Table) 08/14/24 08/14/24 08/14/24 Range/Units 05:05 12:12 17:09 Sodium 134 L (135-145) mmol/L Carbon Dioxide 21.0 L (21.6-31.8) mmol/L BUN 31.3 H (9.0-27.0) mg/dL Creatinine 0.5 L (0.6-1.5) mg/dL BUN/Creatinine Ratio 62.60 H (12.00-20.00) Ratio POC Glucose (mg/dL) 143 H 165 H (70-110) mg/dL Calcium 6.5 L (8.7-10.3) mg/dL 08/14/24 Range/Units 20:17 Sodium (135-145) mmol/L Carbon Dioxide (21.6-31.8) mmol/L BUN (9.0-27.0) mg/dL Creatinine (0.6-1.5) mg/dL BUN/Creatinine Ratio (12.00-20.00) Ratio POC Glucose (mg/dL) 118 H (70-110) mg/dL Calcium (8.7-10.3) mg/dL Assessment and Plan Assessment: Degenerative disc disease Cervical spine central canal stenosis Cervical spine neuroforaminal stenosis L3 vertebral body lytic lesion Multiple lytic lesions throughout the cervical and thoracic spine Plan: L3 ablation with biopsy and kyphoplasty has been scheduled for tomorrow 08/16/2024. NPO at [place] 2. Appreciate medical management 3. Pain management -continue with oral and IV pain medications, continue with use of ice and heat therapy. 4. GI prophylaxis -senna 5. DVT prophylaxis -heparin, hold dosing on 08/16/24 6. PT/OT - weightbearing as tolerated with a walker as needed. 7. Appreciate consult
[2024-08-15 12:29] LABS: Glucose,Whole Blood 136 mg/dL (70-110)
--- NOTE | 2024-08-15 15:40 | P.PN ---
Subjective Progress Note Date: 08/15/24 Patient reporting pain has overall improved, but still experiencing intermittent sharp severe pain in BLE and low back. Also reporting left hand tingling. Scheduled for L3 tumor ablation with biopsy and kyphoplasty tomorrow. Objective - Vital Signs Vital signs: Vital Signs Temp 97.9 F 08/15/24 07:14 Pulse 83 08/15/24 07:14 Resp 18 08/15/24 07:14 BP 162/75 08/15/24 07:14 Pulse Ox 97 08/15/24 07:14 FiO2 Intake & Output 08/14/24 08/15/24 08/15/24 18:59 06:59 18:59 Output Total 600 500 Balance -600 -500 Weight 60.3 kg Output: Urine 600 500 Other: Voiding Method External Catheter External Catheter External Catheter - Constitutional General appearance: Present: no acute distress - EENT Eyes: Present: anicteric sclerae, EOMI ENT: Present: hearing grossly normal - Respiratory Details: breathing is even and unlabored - Cardiovascular Details: skin warm and dry - Psychiatric Psychiatric: Present: A&O x's 3 - Labs CBC & Chem 7: 08/13/24 06:38 08/14/24 05:05 Labs: Abnormal Lab Results - Last 24 Hours (Table) 08/14/24 08/14/24 08/14/24 Range/Units 12:12 17:09 20:17 POC Glucose (mg/dL) 143 H 165 H 118 H (70-110) mg/dL Assessment and Plan (1) Renal mass Current Visit: Yes Status: Acute Priority: High Code(s): N28.89 - OTHER SPECIFIED DISORDERS OF KIDNEY AND URETER SNOMED Code(s): 013972155 (2) Anemia Current Visit: Yes Status: Acute Priority: High Code(s): D64.9 - ANEMIA, UNSPECIFIED SNOMED Code(s): 028713739 (3) Lesion of lumbar spine Current Visit: Yes Status: Acute Priority: High Code(s): M89.9 - DISORDER OF BONE, UNSPECIFIED SNOMED Code(s): 832273257 (4) Weakness Current Visit: Yes Status: Acute Priority: High Code(s): R53.1 - WEAKNESS SNOMED Code(s): 13498784 (5) Urothelial carcinoma Current Visit: Yes Status: Acute Priority: High Code(s): C68.9 - MALIGNANT NEOPLASM OF URINARY ORGAN, UNSPECIFIED SNOMED Code(s): 584976245 Plan: Metastatic urothelial carcinoma, newly diagnosed -Presented with low back pain, progressive over few months, associated with some difficulty ambulating as well as some incontinence of stool when she was experiencing diarrhea. -Biopsy with Dr. Farrell 08/07. Path reporting high-grade, noninvasive papillary urothelial carcinoma, bx from the left ureter, renal pelvis -Vertebral bone metastases noted on imaging. Brain/Cervical MRI negative for acute intracranial processes. Cervical spine showing multilevel degenerative disc disease and central stenosis as well as foraminal encroachment. No pathologic enhancement, nothing appears to be acutely encroaching on the spinal cord. On physical exam today patient does have strength and sensation in the bilateral lower extremities, she denies incontinence. Zometa given for bone mets. -Orthopedic spine is following patient. -MRI thoracic and lumbar spine revealed L3 vertebral body enhancing mass which extends through the vertebral body lateral plate. Limited thoracic spine MRI. Somewhat diffuse heterogeneous inversion recovery signal to the mid thoracic spine. No discrete masses definitively visualized. Eccentric left disc bulging at the level of T9-T10 which displaces the spinal cord. Scheduled for L3 tumor ablation with biopsy and kyphoplasty tomorrow -Referral to Radiation Oncology if patient's symptoms progress or pain is not able to be managed. -Discussed with case management need for durable medical equipment and also assistance in getting patient information so that she can apply for disability -Medications will be adjusted to pt tolerance-continue decadron, long and short acting pain meds, toradol PRN. -Increase MS contin to 30mg BID Constipation -Likely r/t pain meds, decreased mobility. MOM and warm prune juice ordered acutely. Had large BM -Cont Senokot-S and prn meds Normocytic anemia -Hgb 4.7 on admit, s/p 3 units PRBCs with appropriate increase in Hgb. Hgb stable -No nutritional deficiencies noted, consistent with anemia of inflammation. -IgG kappa paraprotein noted on immunofixation, M-spike negative, K/L ratio normal at 1.2. May be incidental finding/MGUS. Will repeat outpt in 3months -Continue to monitor CBC. Transfuse for hgb less than 7 or if symptomatic
[2024-08-15 16:56] LABS: Glucose,Whole Blood 139 mg/dL (70-110)
[2024-08-15 19:56] LABS: Glucose,Whole Blood 110 mg/dL (70-110)
[2024-08-15] MEDS: MORPHINE SULFATE ER 30 MG TABLET PO SCH (20:49)
[2024-08-15 21:26] LABS: Anisocytosis Slight; Basophils # (A) 0.1 k/uL (0-0.2); Basophils % (A) 1 %; Eosinophils % (A) 0 %; HCT 31.2 % (34.0-46.0); HGB 9.6 gm/dL (11.4-16.0); Hypochromasia Marked; Lymphocytes # (A) 1.8 k/uL (1.0-4.8); Lymphocytes % (A) 12 %; MCH 28.2 pg (25.0-35.0); MCHC 30.7 g/dL (31.0-37.0); MCV 91.6 fL (80.0-100.0); Mean Platelet Volume 8.1; Monocytes # (A) 0.5 k/uL (0-1.0); Monocytes % (A) 3 %; Neutrophils # (A) 12.3 k/uL (1.3-7.7); Neutrophils % (A) 82 %; Platelet Count 253 k/uL (150-450); RBC 3.41 m/uL (3.80-5.40); RDW 19.3 % (11.5-15.5)
[2024-08-15 21:30] LABS: African American GFR (CKD) >90 (>60 ml/min/1.73 sqM); Anion Gap 7 mmol/L; Blood Urea Nitrogen 21 mg/dL (7-17); Carbon Dioxide 21 mmol/L (22-30); Chloride 102 mmol/L (98-107); Glucose 89 mg/dL (74-99); Non-African American GFR(CKD) >90 (>60 ml/min/1.73 sqM); Potassium 4.8 mmol/L (3.5-5.1); Sodium 130 mmol/L (137-145)
[2024-08-15 21:50] LABS: Calcium 6.1 mg/dL (8.4-10.2)
[2024-08-15] MEDS: CALCIUM GLUCONATE IN NACL 1 GM in SALINE 1 100ML.BAG IVPB SCH (22:31)
--- NOTE | 2024-08-15 23:32 | P.PN ---
Subjective This is a pleasant 59-year-old female who was recently admitted with back pain and difficulty with ambulation and a possible L3 lytic lesion being closely monitored with multiple medical consultations. Patient also underwent CT scanning showing multiple lesions in the osseous spine although no compression fractures noted. Patient also with a left supraclavicular lymph node enlargement and underwent a nuclear med bone scan which showed diffuse osseous metastatic disease. Patient is status post cystoscopy with pyelogram and left biopsy of the ureter and highly suspicious of carcinoma per urology. Patient's hemoglobin is 7.0 today with no active bleeding noted although will give unit of PRBC and follow-up with repeat labs. Recommend PT/OT therapy evaluation and discuss further with case management for possible ECF. 08/09/2024 Patient is seen in follow-up today in severe 10/10 pain. Patient reports since yesterday afternoon into last night and this morning she was having severe pain in the lower back and is maintained on IV Dilaudid along with oral medications and lidocaine. Will adjust and have also discussed with oncology regarding pain management and they will be initiating long-acting pain management. Patient is scheduled to undergo an MRI of the brain which has been pending. Pathology remains pending as well. White count remains elevated although patient was on steroids which has been discontinued. Patient is afebrile with no reports of chest pain or shortness of breath. Will have PT/OT therapy reevaluate once pain is better controlled as patient reports she wants to go home. Concerned and fearful that she is extremely weak and may need ECF on discharge for continued strength and mobility. 08/10/2024 Patient is seen in follow-up this morning with multiple consultations following including urology status post biopsy. Pathology is positive for high-grade noninvasive papillary urothelial carcinoma. Patient is scheduled to undergo MRI of the brain and cervical spine today for further evaluation and highly suspicious for bone mets. Patient is in extreme amount of pain reporting 10/10 and is having difficulty controlling the pain. Will adjust pain medications accordingly and oncology has added long-acting. Overall prognosis is guarded at this time. 08/11/24 Patient sitting up in bed, looks tired and generally weak but pleasant and relaxed She states her pain almost controlled for her. She is not in distress Continue with pain medication 08/12 Pain is controlled better today with Toradol Slept well last night Still has constipation On Colace and milk of magnesium, she does not want more for now 08/13 She looks pleasant and comfortable, she is sitting up in bed and smiling She had 1 bowel movement tonight MRI of the thoracolumbar spine is pending She is currently on dexamethasone 6 mg twice daily 08/14 Patient back pain is controlled however it looks like she has some radicular symptoms with tingling in the extremities MRI of the thoracic spine showing no metastatic lesion but lumbar spine showing L3 tumor although there is no evidence of spinal cord compression but is symp tomatic. Therefore orthopedic team are planning for ( L3 tumor ablation with biopsy and kyphoplasty } on 08/16 08/15 Patient today is pleasant sitting up in bed She denies chest pain or dyspnea She is agreeable and feels ready to go for surgery tomorrow Objective - Vital Signs Vital signs: Vital Signs Temp 98.2 F 08/15/24 20:00 Pulse 89 08/15/24 20:00 Resp 16 08/15/24 20:00 BP 160/77 08/15/24 20:00 Pulse Ox 96 08/15/24 20:00 FiO2 Intake & Output 08/15/24 08/15/24 08/16/24 06:59 18:59 06:59 Output Total 500 850 Balance -500 -850 Output: Urine 500 850 Other: Voiding Method External Catheter External Catheter External Catheter - Exam -GENERAL: The patient is alert and oriented x3, not in any acute distress. Well developed, well nourished. Generally weak HEENT: Pupils are round and equally reacting to light. EOMI. No scleral icterus. No conjunctival pallor. Normocephalic, atraumatic. No pharyngeal erythema. No thyromegaly. CARDIOVASCULAR: S1 and S2 present. No murmurs, rubs, or gallops. PULMONARY: Chest is clear to auscultation, no wheezing , no crackles. ABDOMEN: Soft, nontender, nondistended, normoactive bowel sounds. No palpable organomegaly. MUSCULOSKELETAL: No joint swelling or deformity. EXTREMITIES: No cyanosis, clubbing, or pedal edema. NEUROLOGICAL: Gross neurological examination did not reveal any focal deficits. SKIN: No rashes. no petechiae. - Labs CBC & Chem 7: 08/15/24 20:24 08/15/24 20:24 Labs: Abnormal Lab Results - Last 24 Hours (Table) 08/15/24 08/15/2408/15/24 Range/Units 12:28 16:54 20:24 WBC 15.0 H (3.8-10.6) k/uL RBC 3.41 L (3.80-5.40) m/uL Hgb 9.6 L (11.4-16.0) gm/dL Hct 31.2 L (34.0-46.0) % MCHC 30.7 L (31.0-37.0) g/dL RDW 19.3 H (11.5-15.5) % Neutrophils # 12.3 H (1.3-7.7) k/uL Sodium (137-145) mmol/L Carbon Dioxide (22-30) mmol/L BUN (7-17) mg/dL POC Glucose (mg/dL) 136 H 139 H (70-110) mg/dL Calcium (8.4-10.2) mg/dL 08/15/24 Range/Units 20:24 WBC (3.8-10.6) k/uL RBC (3.80-5.40) m/uL Hgb (11.4-16.0) gm/dL Hct (34.0-46.0) % MCHC (31.0-37.0) g/dL RDW (11.5-15.5) % Neutrophils # (1.3-7.7) k/uL Sodium 130 L (137-145) mmol/L Carbon Dioxide 21 L (22-30) mmol/L BUN 21 H (7-17) mg/dL POC Glucose (mg/dL) (70-110) mg/dL Calcium 6.1 L* (8.4-10.2) mg/dL Assessment and Plan Assessment: -Severe back pain, with radiculopathy. MRI positive for L3 lytic lesion with renal cell carcinoma with multiple mets. MRI showing L3 vertebral body tumor with no spinal cord compression, plan for ( L3 tumor ablation with biopsy and kyphoplasty } on 08/16 -Bone scan this admission showing concerns for diffuse bony mets -Severe symptomatic anemia, possibly secondary to malignancy -Possible neoplasm of uncertain behavior of the left renal pelvis and left ureter status post ureteroscopy with cystoscopy and biopsies taken, biopsies are positive for high-grade carcinoma, Patient is status post stent of the left ureter -Paraparesis. -Increased white count, improving, likely reactive as well as patient is on high-dose steroids -Degenerative joint disease -Continued ongoing nicotine dependence Plan: Recommend to continue with current medications and management with multiple consultations following. Patient is status post biopsies with urology with cystoscopy and pathology is positive for high-grade papillary urothelial carcinoma. C. difficile are planning for ( L3 tumor ablation with biopsy and kyphoplasty } on 08/16 Oncology following making recommendations regarding pain management and also following closely with multiple other consultations will discuss further treatment plan moving forward. MRI of the of the thoracic and lumbar spine is ordered Orthopedic and oncology team on the case. Pain controlled continue with pain management PT/OT therapy evaluation. Patient is persistent ongoing home and will arrange for home care and also necessary equipment including a wheelchair and walker. Discussed with patient and possibly considering rehab. Will have PT/OT therapy evaluate once pain is more manageable Repeat labs ordered for a.m. replace electrolytes per protocol Resume Accu-Cheks and sliding scale as patient is being resumed on steroids per oncology Overall prognosis is extremely guarded at this time
[2024-08-16] MEDS: IV FLUID CONTINUATION 1,000 ML IV ONE ×4 (06:41→06:50)
[2024-08-16] MEDS: ONDANSETRON 4 MG/2 ML VIAL IVP PRN (07:08)
[2024-08-16] MEDS: HYDROCORTISONE SUCCINATE 100 MG/2 ML VIAL IV STA (07:09)
[2024-08-16] MEDS: LACTATED RINGERS 1,000 ML BAG IV STA (07:09)
[2024-08-16 07:12] LABS: Glucose,Whole Blood 84 mg/dL (70-110)
[2024-08-16] MEDS ORDERED: PROPOFOL 10 MG/ML 20 ML VIAL IV ONE (07:25)
[2024-08-16] MEDS ORDERED: MIDAZOLAM 2 MG/2 ML VIAL ONE (07:25)
[2024-08-16] MEDS ORDERED: SUCCINYLCHOLINE CHLORIDE 200 MG/10 ML VIAL IV ONE (07:25)
[2024-08-16] MEDS ORDERED: LIDOCAINE 1% INJ 10MG/ML (20 ML MDV) ONE (07:25)
[2024-08-16] MEDS ORDERED: KETAMINE HCL IN 0.9 % NACL 50 MG/5 ML SYRINGE ONE (07:25)
[2024-08-16] MEDS ORDERED: fentaNYL (PF) 50 MCG/ML 2 ML AMP ONE (07:25)
--- NOTE | 2024-08-16 07:25 | P.PN ---
Progress Note - Text Progress Note Date: 08/16/24 Spine Surgery Clinical and Risk Review Raya Reyes is a 59 yo female presenting for evaluation of severe low back pain, debility, inability to ambulate and concern for spine lesions. Pt is from [place] and just moved back up here with her family. She has seen Urology and was found to have a renopelvic mass on the left. She states she is unsure what is going on as far as her diagnosis. There are potentials of transitional cell vs renal cell. No hx of trauma to the area. She states the pain has been getting worse now for the past two weeks. It was my pleasure to have seen and examined Raya Reyes. In our visit today we have had a chance to go over subjective complaints, physical examination findings and treatments including the natural course history without intervention and various interventional options. We will attempt to biopsy the area and while there ablate the tumor region and augment it. MRI of the neuralaxis shows multiple areas of likely metestatic type disease with largest foci in L3. She is also having LUE numbness/tingling and weakness. She has Cervical stenosis as well, but not related to tumor or any intraspinal lesions that are visible at this time. There are multilevel spondylotic chages with HNP and stenosis which are likely causing this. Her low back however is her main concern. The patients imaging demonstrates L3 lytic lesion on the left just anterior to the pedicle with extension past the cortical rim on the left into the left IS muscle. No posterior extension at this time. On physical exam, Raya Reyes demonstrates Severe low back pain, pain with motion, LLE weakness. 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 + flank Edema due to laying dependent for so long due to pain * Painful ROM low back and to lesser extent neck * Alignment normal * Abd soft and NTTP, nursing concern on the floor for new mass on the left near inguinal area, nothing palpated or visualized today. No pain with palpation. +BS. * Resp non labored * RRR, Sinus I have explained to the patient that as their condition progresses it will cause further neurological deficits and eventual paralysis. Based on the patients imaging, physical exam, and the rapid progression and disabling nature of their symptoms, at this time I recommend surgery in the form or a: L3 BIOPSY WITH ABLATION AND AUGMENTATION I discussed the risk and benefits of this procedure at length with Raya Reyes. The patient agreed to considered pursuing the procedure abovementioned. Prior to surgery, she should follow up with her PCP (Cardio, ID, IM etc) for clearance. Questions were invited and answered, and the patient wishes to proceed as outlined below. Currently, I am recommendin. L3 BIOPSY WITH ABLATION AND AUGMENTATION 2. Follow up with PCP for surgical clearance 3. Review of surgical risks and benefits as well as an educational packet on the proposed surgical procedure. Risks: All surgical procedures come with inherent risks, including those related to positioning, anesthesia, intraoperative findings, and postoperative complications. It is important to understand that surgery does not come with any guarantee of a successful outcome as complications and adverse events are always possible. The patient was given a handout in office today discussing the surgical procedure and risks associated with the intervention, both of which were discussed with the patient. These risks include but are not limited to the following: * Experiencing same, different or even worse symptoms in back, neck, arms, or legs compared to before surgery. * Requiring further surgery or other forms of treatment presently or at some time in the future at same or other levels of the intended spine surgery. * On an extreme but fortunately relatively rare basis severe complication such as blindness, stroke, heart attack, temporary and/or permanent nerve injury, paralysis, coma, or may occur, sometimes without known explanat ion. * Surgical complications may include but are not limited to risk of infection, fluid accumulation in the surgical dissection site, including a seroma or hematoma, that requires additional surgery, wound drainage, bleeding, new numbness or weakness, vision changes/loss, spinal fluid leakage, non-healing and/or infected incision, headaches, difficulty or inability to swallow, hoarseness, hemopneumothorax, pneumothorax, impotence, retrograde ejaculation, vaginal dryness; injury to nerves, spinal cord, blood vessels, lymphatics or other vital organs (i.e., bowel injury, injury to the great vessels); heterotopic bone formation; complications related to the hardware such as screws, rods, cages including misplaced hardware, device failure, instrumentation at the wrong spine level, hardware fracture/breakage, or hardware loosening; vertebral failure of the spinal column above or below the newly placed hardware; retained surgical instrumentations or devices and the need for further surgery. * Medical risks of the planned spine surgery include but are not limited to generalized Infections to the whole body or local areas outside of the surgical site (sepsis), heart attack, bleeding, anaphylaxis, meningitis, seizure, epilepsy, hearing loss, burn aldrich, laceration of the head or other areas of the body, bruising, hypersensitivity of the skin, bladder over distension; allergic reaction; shoulder injury related to positioning; fat, blood and air clots to other areas of the body like heart, lungs, brain; failure of internal organs such as lungs, kidneys, liver and excessive bleeding. If blood transfusions are necessary, note that transfusions may cause intolerance reactions such as anaphylaxis or other complex reactions. * Despite best efforts, the results of spine surgery might not heal in terms of bone, soft tissues such as skin, fascia, ligaments, and joints. Additionally, in order to achieve best possible results, spine surgery may be carried out beyond the initially planned levels and involve decompression, fusion including insertion of hardware at levels other than the original intended area of surgical interest change some portions of the procedure in order to ensure the best possible outcomes. * With spine surgery and spinal fusion, there are different off label uses of instrumentation (devices, implants and hardware) as well as biological substa nces (bone morphogenic proteins, demineralized bone matrix) as well as using extra bone from allograft sources (i.e. cadaver bone) or autograft (iliac crest bone, ribs, or the spine itself). The patient has been given information about these practices and their inherent risks and benefits. The patient has had a chance to review all the listed information, has been given print outs detailing this information, and has had all his/her questions answered to their satisfaction. It was my pleasure to have seen and examined Raya Reyes. In our visit today we have had a chance to go over my understanding of our patient's current condition, the natural course history without intervention and various interventional options. Questions were invited and answered, and the patient wishes to proceed as outlined above. I have seen and examined the patient for 25 minutes and we have spent more than 50% of the time in repeat and detailed counseling about the patient's condition, its natural course history with out and as much as can be predicted with surgery and re-review of various surgical treatment options. In conclusion, Raya Reyes and and family requested we proceed with the above suggested surgery and are willing to accept risks and limitations of the suggested surgery as nature of the disease process and our best attempts at treatment for the condition. Thank you again for allowing us to be part of your patient's care. Please don't hesitate to contact me if you have any further questions. Signed and authenticated by: Neri [facility] [address], [address] [address]
[2024-08-16] MEDS: BUPIVACAINE (PF) 0.5% 30 ML VIAL SQ ONE (08:10)
[2024-08-16] MEDS: IOPAMIDOL M200 10 ML VIAL MISCELLANE ONE (08:11)
[2024-08-16] MEDS: LIDOCAINE 2%-EPI 1:100,000 20 ML VIAL SQ ONE (08:11)
[2024-08-16] MEDS: LACTATED RINGERS 1,000 ML IV ONE (08:30)
--- NOTE | 2024-08-16 09:06 | XR ---
EXAM TYPE: LUMBAR SPINE X RAY SERIES COMPARISON: NONE HISTORY: Intraoperative images TECHNIQUE: 9 views are submitted. FINDINGS: Limited resolution intraoperative images demonstrate changes vertebral plasty. There does appear to b e hyperdense material extending into a tubular structure or vascular structure along the left lateral margin of the vertebral, which should be correlated clinically. Additional contrast material or kyph oplasty material is seen outside the left lateral margin of the vertebral body. IMPRESSION: 1. See above. [facility], , 08/16/2024 9:04 AM
[2024-08-16] MEDS ORDERED: hydrALAZINE HCL 20 MG/ML 1 ML VIAL IM STA (09:07)
--- NOTE | 2024-08-16 09:07 | FL ---
EXAMINATION TYPE: FL guidance operating room DATE OF EXAM: 08/16/2024 HISTORY: Fluoroscopy time Total dose area product (DAP) in uGy*m?, mGy*cm? (or similar): 12.944 IMPRESSION: 1. Fluoroscopy time. [facility], , 08/16/2024 9:04 AM
[2024-08-16] MEDS: hydrALAZINE HCL 20 MG/ML 1 ML VIAL IVP STA (09:10)
--- NOTE | 2024-08-16 09:14 | P.OP ---
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 Path called with results, high grade mets consistent with CA) Condition: stable Disposition: PACU Indications for Procedure: Raya Reyes is a 59 yo female presenting for evaluation of severe low back pain, debility, inability to ambulate and concern for spine lesions. Pt is from [place] and just moved back up here with her family. She has seen Urology and was found to have a renopelvic mass on the left. She states she is unsure what is going on as far as her diagnosis. There are potentials of transitional cell vs renal cell. No hx of trauma to the area. She states the pain has been getting worse now for the past two weeks. It was my pleasure to have seen and examined Raya Reyes. In our visit today we have had a chance to go over subjective complaints, physical examination findings and treatments including the natural course history without intervention and various interventional options. We will attempt to biopsy the area and while there ablate the tumor region and augment it. MRI of the neuralaxis shows multiple areas of likely metestatic type disease with largest foci in L3. She is also having LUE numbness/tingling and weakness. She has Cervical stenosis as well, but not related to tumor or any intraspinal lesions that are visible at this time. There are multilevel spondylotic chages with HNP and stenosis which are likely causing this. Her low back however is her main concern. The patients imaging demonstrates L3 lytic lesion on the left just anterior to the pedicle with extension past the cortical rim on the left into the left IS muscle. No posterior extension at this time. On physical exam, Raya Reyes demonstrates Severe low back pain, pain with motion, LLE weakness. 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 + flank Edema due to laying dependent for so long due to pain * Painful ROM low back and to lesser extent neck * Alignment normal * Abd soft and NTTP, nursing concern on the floor for new mass on the left near inguinal area, nothing palpated or visualized today. No pain with palpation. +BS. * Resp non labored * RRR, Sinus I have explained to the patient that as their condition progresses it will cause further neurological deficits and eventual paralysis. Based on the patients imaging, physical exam, and the rapid progression and disabling nature of their symptoms, at this time I recommend surgery in the form or a: L3 BIOPSY WITH ABLATION AND AUGMENTATION I discussed the risk and benefits of this procedure at length with Raya Reyes. The patient agreed to considered pursuing the procedure abovementioned. Prior to surgery, she should follow up with her PCP (Cardio, ID, IM etc) for clearance. Questions were invited and answered, and the patient wishes to proceed as outlined below. Currently, I am recommendin. L3 BIOPSY WITH ABLATION AND AUGMENTATION Description of Procedure: L3 BIOPSY, TUMORAL ABLATION AND VERTEBROPLASTY The patient was seen and examined in the preoperative area. All preoperative protocols were followed. Informed consent was obtained, risks and benefits of the procedure were discussed at length. Risks including bleeding infection damage to the surrounding tissue and risk of reoperation were discussed with the patient. Risk of anesthesia up to and including was discussed with the patient. These are outlined in the risk review. They were willing to accept these risks and all the risks of surgery. The patient was given a weight-based dose of antibiotics in the form of 2 g Ancef. The patient was seen and evaluated by the anesthesia team who deemed them fit for surgery. The site was marked, the patient was willing to proceed with the procedure. The patient was transferred to the operative suite by the Department of anesthesia. They were then drifted off to sleep by the department anesthesia and GETA was performed. The patient tolerated this well. Once confirmation of lines and ventilation the patient was transferred to a prone Scott table very carefully. All bony prominences including wrists, elbows, axilla, chest, hips, and thighs, and feet were padded very well. Special attention was paid to the genitalia, and these were padded accordingly. SCDs were placed on bilateral lower extremities and were connected. Arms were well padded and placed on arm boards up and out in the 90/90 position. Once in position, again we confirmed good ventilation capabilities and that lines were running appropriately. The patients Lumbar spine was then exposed. 1010s were placed outlining the incision site. Standard alcohol was used to clean the incision site and allowed to dry. C-arm was used to needle localize the pedicles at L3 and bio-ji the patient and confirm level for incision which was marked with a skin marker. Operative briefing was performed with all teams and everyone in agreement to proceed. The patient was then prepped and draped in a normal sterile fashion. Timeout was then performed, and all parties agreed with the procedure to be performed. Bilateral Skin jake was made. Jamshitdis was passed into the L3 vertebral body via the pedicle. This was done with biplane fluoroscopy. Once in good position in the body the trochar is removed. Biopsy needle was passed into the body and a biopsy taken. Drill was then passed and biopsy material taken from drill as well. Biopsy was sent frozen and permanent. Callback from pathologist confirmed high grade carcinoma consistent with metestatic disease. We then proceeded to ablation. Ablation probes were then passed into the vertebral body bilaterally and the tumoral ablation was run for 9 min as prescribed and as directed in [facility] Ablation protocol. Cement was then placed bilaterally under fluoroscopic guidance. Reasonable fill of cement was seen with some minor extravasation laterally due to vertebral body wall compromise and minor angiogram likey due to high grade tumoral angiogenisis in the area. Pt remained stable through the process. Once good fill, the Jamshedi was removed and the wound irrigated. AP and lateral confirmed good reduction of the fracture and good cement fill. The skin was closed with a simple stitch and dressed with glue and a bandaid. The patient was then transferred off the table back to their hospital bed a- traumatically. They were extubated by the department of anesthesia. They were then transferred to PACU in stable condition having tolerated the procedure with no complications. POST OP: Patient will be transferred to their room when awake and stable per PACU staff and anesthesia. They are able to be WBAT with limited BLTPP <10 lbs. Turn q2 while in bed to relieve pressures from her developing bed sores. Clean m eticulously after BM. Shower daily. PT/OT daily.
[2024-08-16 12:13] LABS: Glucose,Whole Blood 95 mg/dL (70-110)
--- NOTE | 2024-08-16 12:41 | P.PN ---
Subjective Progress Note Date: 08/15/24 Patient initially seen by Dr. Pradeep Chiang. Please refer to his note for details. Patient is a 59-year-old female with suspected new metastatic lesion to L3. MRI revealed L3 lytic lesion with renal cell carcinoma with multiple mets. Bone scan was concerning for diffuse bony mets. Patient at present in significant pain. She is stating that her quadriceps are hurting. This has been going on for few days. She states that it occurred because she has been sitting up a little bit more in the recliner. Patient is undergoing back surgery with fusion tomorrow. She walks with a walker. But her low back hurts very bad. This is a 59-year-old woman with lower back pain for several months is having radicular pain to her legs and feels she is having significant weakness in the left lower extremity. She was referred to orthopedic as an outpatient she had MRI which there is a concern for spinal cancer and was recommended to follow-up with oncologist. In our facility she had a bone scan whole body which shows feels osseous metastatic disease that is diffuse. On imaging of the CT of the abdomen pelvis there is a concern for neoplasm in the left renal pelvis and left ureter. Suspected lytic area of the L3. Some of workup during this hospital visit consisted of: This hospital visit patient hemoglobin was severely low was 3.9 and 08/05/2024 and she had blood transfusion currently 7.8. Vitamin B12: 2321 RBC 1694 MMA: 0.24 CT cervical, thoracic and lumbar spine is reported as multiple mixed lucent sclerotic lesion in the dorsal spine. Correlate with bone scan regarding bone metastasis. NM bone scan whole body is reported as SuperScan compatible with diffuse osseous metastasis disease. CT abdomen and pelvis is reported as increased density with and a prominent left renal pelvis and distal left ureter consider neoplasm such as transitional cell carcinoma. Moderate left hydronephrosis. Suspected lytic area of L3. Thickened left adrenal gland. MRI of the brain is reported as age related atrophy and chronic small vessel ischemic change. No acute intracranial process at this time. MRI of the cervical spine is reported as multilevel degenerative disc disease and central stenosis as well as foraminal encroachment. Objective - Vital Signs Vital signs: Vital Signs Temp 98.4 F 08/15/24 13:34 Pulse 87 08/15/24 13:34 Resp 18 10/16/24 13:34 BP 164/82 08/15/24 13:34 Pulse Ox 97 08/15/24 13:34 FiO2 Intake & Output 08/14/24 08/15/24 08/15/24 18:59 06:59 18:59 Output Total 600 500 Balance -600 -500 Weight 60.3 kg Output: Urine 600 500 Other: Voiding Method External Catheter External Catheter External Catheter - Exam Patient is alert and awake in no distress. Speech and language functions are normal. Cranial nerves are normal. Muscle strength appears normal in the arms, and ankle dorsiflexion. Hip flexion not checked. Examination performed very minimally because of back pain. - Labs CBC & Chem 7: 08/15/24 20:24 08/15/24 20:24 Labs: Abnormal Lab Results - Last 24 Hours (Table) 08/14/24 08/14/24 08/15/24 Range/Units 17:09 20:17 12:28 POC Glucose (mg/dL) 165 H 118 H 136 H (70-110) mg/dL Assessment and Plan Assessment: Severe back pain with radiculopathy. MRI positive for L3 lytic lesion with renal cell carcinoma with multiple mets. No spinal cord compression. Patient to undergo L3 tumor ablation with biopsy and kyphoplasty on 08/16/2024. Bone scan revealed diffuse bony mets. Possible neoplasm of uncertain behavior of the left renal pelvis and left ureter status post ureteroscopy with cystoscopy and biopsies taken. Biopsies positive for high-grade carcinoma. Patient is status post stent of the left ureter. Leg weakness Metastatic renal cancer. Cystoscopy with left ureteroscopy with biopsy on 08/07/2024. Tobacco use. Plan: * MRI of the thoracic and lumbar spine with and without contrast revealed L3 vertebral body enhancing mass which extends through the vertebral body lateral. On the CT imaging. Findings concerning for malignancy until proven otherwise. Consider PET/CT for complete evaluation. No evidence for significant spinal canal stenosis or evidence of fracture. Thoracic MRI was limited because patient not able to tolerate. There is somewhat diffuse heterogeneous inversion recovery signal to the mid thoracic spine. No discrete masses definitely visualized. Eccentric left disc bulging at the level of T9-T10 which displaces the spinal cord. No definitive evidence of disc herniation or significant spinal canal stenosis. Mild to moderate disc degeneration with associated osteoarthritic changes and heterogeneous bone marrow signal. Moderate left hydronephrosis. Diffuse low signal throughout the bone marrow possibly secondary to red marrow reconversion. * Orthopedic surgery on board. * Patient to undergo L3 tumor ablation with biopsy and kyphoplasty on 08/16/2024. 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 * Will defer the rest of the medical management to primary and other specialist * Patient was counseled on tobacco cessation. * Optimize pain control as per IM.
--- NOTE | 2024-08-16 13:58 | P.PN ---
Subjective This is a pleasant 59-year-old female who was recently admitted with back pain and difficulty with ambulation and a possible L3 lytic lesion being closely monitored with multiple medical consultations. Patient also underwent CT scanning showing multiple lesions in the osseous spine although no compression fractures noted. Patient also with a left supraclavicular lymph node enlargement and underwent a nuclear med bone scan which showed diffuse osseous metastatic disease. Patient is status post cystoscopy with pyelogram and left biopsy of the ureter and highly suspicious of carcinoma per urology. Patient's hemoglobin is 7.0 today with no active bleeding noted although will give unit of PRBC and follow-up with repeat labs. Recommend PT/OT therapy evaluation and discuss further with case management for possible ECF. 08/09/2024 Patient is seen in follow-up today in severe 10/10 pain. Patient reports since yesterday afternoon into last night and this morning she was having severe pain in the lower back and is maintained on IV Dilaudid along with oral medications and lidocaine. Will adjust and have also discussed with oncology regarding pain management and they will be initiating long-acting pain management. Patient is scheduled to undergo an MRI of the brain which has been pending. Pathology remains pending as well. White count remains elevated although patient was on steroids which has been discontinued. Patient is afebrile with no reports of chest pain or shortness of breath. Will have PT/OT therapy reevaluate once pain is better controlled as patient reports she wants to go home. Concerned and fearful that she is extremely weak and may need ECF on discharge for continued strength and mobility. 08/10/2024 Patient is seen in follow-up this morning with multiple consultations following including urology status post biopsy. Pathology is positive for high-grade noninvasive papillary urothelial carcinoma. Patient is scheduled to undergo MRI of the brain and cervical spine today for further evaluation and highly suspicious for bone mets. Patient is in extreme amount of pain reporting 10/10 and is having difficulty controlling the pain. Will adjust pain medications accordingly and oncology has added long-acting. Overall prognosis is guarded at this time. 08/11/24 Patient sitting up in bed, looks tired and generally weak but pleasant and relaxed She states her pain almost controlled for her. She is not in distress Continue with pain medication 08/12 Pain is controlled better today with Toradol Slept well last night Still has constipation On Colace and milk of magnesium, she does not want more for now 08/13 She looks pleasant and comfortable, she is sitting up in bed and smiling She had 1 bowel movement tonight MRI of the thoracolumbar spine is pending She is currently on dexamethasone 6 mg twice daily 08/14 Patient back pain is controlled however it looks like she has some radicular symptoms with tingling in the extremities MRI of the thoracic spine showing no metastatic lesion but lumbar spine showing L3 tumor although there is no evidence of spinal cord compression but is symp tomatic. Therefore orthopedic team are planning for ( L3 tumor ablation with biopsy and kyphoplasty } on 08/16 08/15 Patient today is pleasant sitting up in bed She denies chest pain or dyspnea She is agreeable and feels ready to go for surgery tomorrow 08/16 Patient is status post L3 vertebral body biopsy, frozen section and ablation and vertebroplasty. Today's postop day #0 Patient postoperatively fully awake oriented, she is pleasant smiling looks comfortable, states that she feels her pain and spasm in the back better, her left leg weakness slightly better but early to comment on that. Blood pressure 177/81. Leukocytosis improving down to 15,000, hemoglobin is 9.6. She is status post 3 units of blood transfusion on admission. Objective - Vital Signs Vital signs: Vital Signs Temp 97.9 F 08/16/24 09:56 Pulse 110 H 08/16/24 12:56 Resp 17 08/16/24 09:56 BP 177/82 08/16/24 12:56 Pulse Ox 96 08/16/24 12:56 FiO2 Intake & Output 08/15/24 08/16/24 08/16/24 18:59 06:59 18:59 Intake Total 300 1350 Output Total 850 1000 855 Balance -850 -700 495 Intake: IV 300 1350 Oral 0 Output: Urine 850 1000 850 Estimated Blood Loss 5 Other: Voiding Method External Catheter External Catheter External Catheter - Exam -GENERAL: The patient is alert and oriented x3, not in any acute distress. Well developed, well nourished. Generally weak HEENT: Pupils are round and equally reacting to light. EOMI. No scleral icterus. No conjunctival pallor. Normocephalic, atraumatic. No pharyngeal erythema. No thyromegaly. CARDIOVASCULAR: S1 and S2 present. No murmurs, rubs, or gallops. PULMONARY: Chest is clear to auscultation, no wheezing , no crackles. ABDOMEN: Soft, nontender, nondistended, normoactive bowel sounds. No palpable organomegaly. MUSCULOSKELETAL: No joint swelling or deformity. EXTREMITIES: No cyanosis, clubbing, or pedal edema. NEUROLOGICAL: Gross neurological examination did not reveal any focal deficits. SKIN: No rashes. no petechiae. - Labs CBC & Chem 7: 08/15/24 20:24 08/15/24 20:24 Labs: Abnormal Lab Results - Last 24 Hours (Table) 08/15/24 08/15/24 08/15/24 Range/Units 16:54 20:24 20:24 WBC 15.0 H (3.8-10.6) k/uL RBC 3.41 L (3.80-5.40) m/uL Hgb 9.6 L (11.4-16.0) gm/dL Hct 31.2 L (34.0-46.0) % MCHC 30.7 L (31.0-37.0) g/dL RDW 19.3 H (11.5-15.5) % Neutrophils # 12.3 H (1.3-7.7) k/uL Sodium 130 L (137-145) mmol/L Carbon Dioxide 21 L (22-30) mmol/L BUN 21 H (7-17) mg/dL POC Glucose (mg/dL) 139 H (70-110) mg/dL Calcium 6.1 L* (8.4-10.2) mg/dL Assessment and Plan Assessment: -Severe back pain, with radiculopathy. MRI positive for L3 lytic lesion with renal cell carcinoma with multiple mets. 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 -Increased white count, improving, likely reactive as well as patient is on high-dose steroids -Degenerative joint disease -Continued ongoing nicotine dependence Plan: Recommend to continue with current medications and management with multiple consultations following. Patient is status post biopsies with urology with cystoscopy and pathology is positive for high-grade papillary urothelial carcinoma. C. difficile are planning for ( L3 tumor ablation with biopsy and kyphoplasty } on 08/16 Oncology following making recommendations regarding pain management and also following closely with multiple other consultations will discuss further treatment plan moving forward. MRI of the of the thoracic and lumbar spine is ordered Orthopedic and oncology team on the case. Pain controlled continue with pain management PT/OT therapy evaluation. Patient is persistent ongoing home and will arrange for home care and also necessary equipment including a wheelchair and walker. Discussed with patient and possibly considering rehab. Will have PT/OT therapy evaluate once pain is more manageable Repeat labs ordered for a.m. replace electrolytes per protocol Resume Accu-Cheks and sliding scale as patient is being resumed on steroids per oncology Overall prognosis is extremely guarded at this time
--- NOTE | 2024-08-16 15:27 | P.CONS ---
History of Present Illness - Reason for Consult Consult date: 08/16/24 Metastatic urothelial cancer with osseous disease Requesting physician: Christine De La Cruz - Chief Complaint "My pain is better" - History of Present Illness Ms. Reyes is a 59-year-old with concern for metastatic urothelial carcinoma with diffuse osseous metastases. We are consulted for LBP and left arm paresthesias. The patient endorses a several month history of progressively worsening lower back pain. Over this period, she has also had intermittent left hand numbness, with episodes on the order of seconds. Due to such, she presented to the in early July. CT abdomen/pelvis on 08/05/2024 demonstrated a lytic L3 lesion and a left renal pelvis/ureteral mass. Bone scan on 08/06/2024 demonstrated diffuse osseous disease. Cystoscopy/ureteroscopy on 08/07/2024 demonstrated multiple distal ureteral papillary tumors. Final pathology demonstrated noninvasive high grade papillary carcinoma. CT cervical/thoracic/lumbar spine on 08/06/2024 confirmed metastatic disease throughout the spine. MRI brain and C-spine on 08/10/2024 were unremarkable. MRI thoracic and lumbar spines on 08/13/2024 reconfirmed L3 lesion without canal compromise. Due to persistent lower back pain, she underwent biopsy/cementing/augmentation of L3 per Dr. Benitez on 08/16/2024. Frozen section was consistent with metastatic carcinoma. Final pathology is pending. Today, the patient notes that her lower back pain is actually much improved. She denies bowel or bladder difficulties. She denies saddle anesthesia. She notes ongoing LLE weakness, but on formal examination, she admits that both legs are actually weak. She has not been up to ambulate in some time. She has never had cancer or radiation therapy before. She does not have a pacemaker. She notes her left arm paresthesias are chronic and not recently worse. Review of Systems as per HPI Past Medical History Past Medical History: No Reported History History of Any Multi-Drug Resistant Organisms: None Reported Past Surgical History: Orthopedic Surgery (shoulder surgery ) Additional Past Surgical History / Comment(s): Cataract surgery Past Anesthesia/Blood Transfusion Reactions: No Reported Reaction Past Psychological History: No Psychological Hx Reported Smoking Status: Current every day smoker Past Alcohol Use History: None Reported Past Drug Use History: None Reported Medications and Allergies Home Medications Medication Instructions Recorded Confirmed Type Cyclobenzaprine [Flexeril] 10 mg PO TID PRN #15 tab 07/11/24 08/05/24 Rx Fluticasone Propion/Salmeterol 1 puff INHALATION RT-BID 08/05/24 08/05/24 History [Advair 250-50 Diskus] HYDROcodone/APAP 5-325MG [[place] 1 tab PO BID PRN 08/05/24 08/05/24 History 5-325] Allergies Allergy/AdvReac Type Severity Reaction Status Date / Time No Known Allergies Allergy Verified 08/05/24 14:23 Physical Exam Vitals: Vital Signs Temp Pulse Pulse Resp BP BP Pulse Ox 08/16/24 12:56 110 H 177/82 96 08/16/24 11:56 90 166/88 97 08/16/24 11:26 89 172/75 98 08/16/24 10:56 98 168/74 99 08/16/24 10:41 102 H 158/80 98 08/16/24 10:26 90 154/78 98 08/16/24 10:11 97 156/71 97 08/16/24 09:56 97.9 F 101 H 17 168/80 96 08/16/24 09:32 153/70 08/16/24 09:24 87 16 168/75 97 08/16/24 09:15 87 16 184/80 100 08/16/24 08:59 92 14 188/84 100 08/16/24 08:54 97.7 F 83 14 184/80 100 08/16/24 08:40 102 H 98 17 08/16/24 06:44 99.0 F 87 16 155/71 97 08/16/24 01:32 98.2 F 87 16 168/73 97 08/15/24 20:00 98.2 F 89 16 160/77 96 Intake and Output 08/16/24 08/16/24 08/16/24 06:59 14:59 22:59 Intake Total 300 1350 Output Total 1000 855 Balance -700 495 Intake: IV 300 1350 Oral 0 Output: Urine 1000 850 Estimated Blood Loss 5 Other: Voiding Method External Catheter - Constitutional General appearance: average body habitus - Respiratory Respiratory: negative: prolonged expiration, prolonged inspiration - Neurologic 4-/5 weakness in bilateral lower extremities Neurologic: CNII-XII intact - Psychiatric Psychiatric: A&O x's 3 Results CBC & Chem 7: 08/15/24 20:24 08/15/24 20:24 Labs: Abnormal Lab Results - Last 24 Hours (Table) 08/15/24 08/15/24 08/15/24 Range/Units 16:54 20:24 20:24 WBC 15.0 H (3.8-10.6) k/uL RBC 3.41 L (3.80-5.40) m/uL Hgb 9.6 L (11.4-16.0) gm/dL Hct 31.2 L (34.0-46.0) % MCHC 30.7 L (31.0-37.0) g/dL RDW 19.3 H (11.5-15.5) % Neutrophils # 12.3 H (1.3-7.7) k/uL Sodium 130 L (137-145) mmol/L Carbon Dioxide 21 L (22-30) mmol/L BUN 21 H (7-17) mg/dL POC Glucose (mg/dL) 139 H (70-110) mg/dL Calcium 6.1 L* (8.4-10.2) mg/dL Assessment and Plan Assessment: Ms. Reyes is a 59-year-old with concern for metastatic urothelial carcinoma with diffuse osseous metastases. We are consulted for LBP and left arm paresthesias. Plan: The patient has concern for newly-diagnosed metastatic urothelial carcinoma. She will require PET/CT upon discharge followed by systemic therapy. Her lower back pain is much improved, and her LUE paresthesias are not new. Moreover, there is not an overly impressive cervical or thoracic spinal lesion that would explain these findings. There is no concern for malignant spinal cord compression. As such, there is no role for inpatient radiation therapy. I asked her to follow-up with me upon discharge. Should her symptoms persist, palliative radiation on a non-urgent basis may be considered. I would recommend PT/OT assessment as I also suspect a degree of deconditioning. Ricardo Mejia MD Radiation Oncology Time with Patient: Greater than 30
[2024-08-16 17:15] LABS: Glucose,Whole Blood 155 mg/dL (70-110)
--- NOTE | 2024-08-16 18:06 | P.PN ---
Subjective Progress Note Date: 08/16/24 S/p L3 tumor ablation and kyphoplasty today with Dr. Benitez. At todays visit, pt reporting no acute changes. Pain currently controlled Objective - Vital Signs Vital signs: Vital Signs Temp 97.9 F 08/16/24 09:56 Pulse 102 H 08/16/24 10:41 Resp 17 08/16/24 09:56 BP 158/80 08/16/24 10:41 Pulse Ox 98 08/16/24 10:41 FiO2 Intake & Output 08/15/24 08/16/24 08/16/24 18:59 06:59 18:59 Intake Total 300 1350 Output Total 850 1000 855 Balance -850 -700 495 Intake: IV 300 1350 Oral 0 Output: Urine 850 1000 850 Estimated Blood Loss 5 Other: Voiding Method External Catheter External Catheter - Constitutional General appearance: Present: average body habitus, no acute distress - EENT Eyes: Present: anicteric sclerae, EOMI ENT: Present: hearing grossly normal - Respiratory Details: breathing is even and unlabored - Cardiovascular Details: skin warm and dry - Integumentary Integumentary: Absent: cyanotic - Musculoskeletal Musculoskeletal: Present: strength equal bilaterally - Psychiatric Psychiatric: Present: A&O x's 3 - Labs CBC & Chem 7: 08/15/24 20:24 08/15/24 20:24 Labs: Abnormal Lab Results - Last 24 Hours (Table) 08/15/24 08/15/24 08/15/24 Range/Units 12:28 16:54 20:24 WBC 15.0 H (3.8-10.6) k/uL RBC 3.41 L (3.80-5.40) m/uL Hgb 9.6 L (11.4-16.0) gm/dL Hct 31.2 L (34.0-46.0) % MCHC 30.7 L (31.0-37.0) g/dL RDW 19.3 H (11.5-15.5) % Neutrophils # 12.3 H (1.3-7.7) k/uL Sodium (137-145) mmol/L Carbon Dioxide (22-30) mmol/L BUN (7-17) mg/dL POC Glucose (mg/dL) 136 H 139 H (70-110) mg/dL Calcium (8.4-10.2) mg/dL 08/15/24 Range/Units 20:24 WBC (3.8-10.6) k/uL RBC (3.80-5.40) m/uL Hgb (11.4-16.0) gm/dL Hct (34.0-46.0) % MCHC (31.0-37.0) g/dL RDW (11.5-15.5) % Neutrophils # (1.3-7.7) k/uL Sodium 130 L (137-145) mmol/L Carbon Dioxide 21 L (22-30) mmol/L BUN 21 H (7-17) mg/dL POC Glucose (mg/dL) (70-110) mg/dL Calcium 6.1 L* (8.4-10.2) mg/dL Assessment and Plan (1) Renal mass Current Visit: Yes Status: Acute Priority: High Code(s): N28.89 - OTHER SPECIFIED DISORDERS OF KIDNEY AND URETER SNOMED Code(s): 287927807 (2) Anemia Current Visit: Yes Status: Acute Priority: High Code(s): D64.9 - ANEMIA, U NSPECIFIED SNOMED Code(s): 010195154 (3) Lesion of lumbar spine Current Visit: Yes Status: Acute Priority: High Code(s): M89.9 - DISORDER OF BONE, UNSPECIFIED SNOMED Code(s): 392293255 (4) Weakness Current Visit: Yes Status: Acute Priority: High Code(s): R53.1 - WEAKNESS SNOMED Code(s): 87911034 (5) Urothelial carcinoma Current Visit: Yes Status: Acute Priority: High Code(s): C68.9 - MALIGNANT NEOPLASM OF URINARY ORGAN, UNSPECIFIED SNOMED Code(s): 708172804 Plan: Metastatic urothelial carcinoma, newly diagnosed -Presented with low back pain, progressive over few months, associated with some difficulty ambulating as well as some incontinence of stool when she was experiencing diarrhea. -Biopsy with Dr. Farrell 08/07. Path reporting high-grade, noninvasive papillary urothelial carcinoma, bx from the left ureter, renal pelvis -Vertebral bone metastases noted on imaging. Brain/Cervical MRI negative for acute intracranial processes. Cervical spine showing multilevel degenerative disc disease and central stenosis as well as foraminal encroachment. No pa thologic enhancement, nothing appears to be acutely encroaching on the spinal cord. On physical exam today patient does have strength and sensation in the bilateral lower extremities, she denies incontinence. Zometa given for bone mets. -Orthopedic spine is following patient. -MRI thoracic and lumbar spine revealed L3 vertebral body enhancing mass which extends through the vertebral body lateral plate. Limited thoracic spine MRI. Somewhat diffuse heterogeneous inversion recovery signal to the mid thoracic spine. No discrete masses definitively visualized. Eccentric left disc bulging at the level of T9-T10 which displaces the spinal cord. -S/p L3 tumor ablation with biopsy and kyphoplasty. Pathology pending -Spoke with Radiation Oncology regarding case, consult placed. Will plan for outpt f/u to revaluate, no plan for inpt RT -Discussed with case management need for durable medical equipment and also assistance in getting patient information so that she can apply for disability -Medications will be adjusted to pt tolerance-continue decadron, long and short acting pain meds, toradol PRN. -Increase MS contin to 30mg BID Constipation -Likely r/t pain meds, decreased mobility. MOM and warm prune juice ordered acutely. Had large BM -Cont Senokot-S and prn meds Normocytic anemia -Hgb 4.7 on admit, s/p 3 units PRBCs with appropriate increase in Hgb. Hgb stable -No nutritional deficiencies noted, consistent with anemia of inflammation. -IgG kappa paraprotein noted on immunofixation, M-spike negative, K/L ratio normal at 1.2. May be incidental finding/MGUS. Will repeat outpt in 3months -Continue to monitor CBC. Transfuse for hgb less than 7 or if symptomatic Doctor attests: I performed a history and physical examination of this patient, developed impression and plan of care. Discussed with dictator. I agree with dictators note, documented as a scribe.
[2024-08-16 20:06] LABS: Glucose,Whole Blood 300 mg/dL (70-110)
[2024-08-17 07:17] LABS: Glucose,Whole Blood 102 mg/dL (70-110)
--- NOTE | 2024-08-17 10:26 | P.PN ---
Subjective Progress Note Date: 08/17/24 Principal diagnosis: Degenerative disc disease; cervical spine central canal stenosis; cervical spine neuroforaminal stenosis; L3 vertebral body lytic lesion; multiple lytic lesions throughout the cervical and thoracic spine Patient was seen at bedside this morning sitting up in chair on 5 N. with legs elevated. Raguelles catheters currently in place. Dressings are present over l umbar spine. Patient says she is having moderate mount of pain in the back at this time as surgery was just performed yesterday. She says she did get up with therapy this morning and was hoping to walk out to the hallway but only moved from the bed to the chair. Patient is hoping to get up later today to work more with therapy. She says she is trying to do range of motion exercises while she is sitting up in a chair. Patient denies any other changes at this time. Objective - Vital Signs Vital signs: Vital Signs Temp 98.1 F 08/17/24 06:45 Pulse 95 08/17/24 06:45 Resp 17 08/17/24 06:45 BP 175/81 08/17/24 06:45 Pulse Ox 98 08/17/24 06:45 FiO2 Intake & Output 08/16/24 08/17/24 08/17/24 18:59 06:59 18:59 Intake Total 1890 590 Output Total 1555 1000 Balance 335 -410 Intake: IV 1350 Oral 540 590 Output: Urine 1550 1000 Estimated Blood Loss 5 Other: Voiding Method External Catheter External Catheter - Exam Inspection: Negative for any significant for open fracture, erythema/ecchymosis. Dressings over lumbar spine appear to be clean, dry, intact. Negative for any drainage. Positive for a couple wounds surrounding the bilateral knees. Sensation: Somewhat altered in the left upper extremity diffusely due to numbness tingling. Numbness and tingling present throughout the bilateral lower extremities on exam. Palpation: Some generalized tenderness to palpation throughout lumbar spine at m idline and near incisions. Nontender to palpation throughout rest of exam. Range of motion: Patient has full range of motion throughout bilateral upper extremities on exam. Patient has good range of motion throughout right lower extremity on exam. Patient does have good range of motion in left ankle dorsi/plantarflexion and EHL/FHL. Patient does have limited range of motion in the left hip and left knee secondary to referred pain to the low back as well as weakness. Motor: 3/5 in left hip and knee flexion and extension. 4/5 in all other major motor groups in bilateral lower extremities. 4+/5 in all major motor groups in bilateral upper extremities. Neurovascular: Radial pulse intact, 2+ bilaterally. Cap refill under 3 seconds in digits of upper extremities. DP pulses palpable bilaterally. Special test: Negative Homans bilaterally. Negative clonus bilaterally. Negative Zoya bilaterally. - Labs CBC & Chem 7: 08/15/24 20:24 08/15/24 20:24 Labs: Abnormal Lab Results - Last 24 Hours (Table) 08/16/24 08/16/24 08/17/24 Range/Units 17:14 20:04 05:09 POC Glucose (mg/dL) 155 H 300 H (70-110) mg/dL Calcium 6.5 L (8.4-10.2) mg/dL Assessment and Plan Assessment: 1. Degenerative disc disease; cervical spine central canal stenosis; cervical spine neuroforaminal stenosis; L3 vertebral body lytic lesion; multiple lytic lesions throughout the cervical and thoracic spine -Postop day 1 status post L3 VERTEBRAL BODY BIOPSY, FROZEN AND PERMANENT WITH TUMORAL ABLATION AND VERTEBROPLASTY Plan: 1. Degenerative disc disease; cervical spine central canal stenosis; cervical spine neuroforaminal stenosis; L3 vertebral body lytic lesion; multiple lytic lesions throughout the cervical and thoracic spine; left lower extremity weakness; left upper extremity radiculopathy; bilateral lower extremity radiculopathy -surgery performed yesterday, 08/16/2024 L3 VERTEBRAL BODY BIOPSY, FROZEN AND PERMANENT WITH TUMORAL ABLATION AND VERTEBROPLASTY. Pain medication as needed. Weightbearing as tolerated with walker and assistance. In addition to PT/OT, nursing staff to get patient out of bed to walk once every day in the afternoon. Dressings clean, dry, intact. Assess dressings daily. Orthopedics will continue to be available as needed. 2. Appreciate medical, neuro, urology management 3. Pain management - tylenol; norco; morphine; flexeril 4. DVT prophylaxis - mechanical 5. GI prophylaxis -Protonix; milk of magnesia; senna 6. PT/OT -weightbearing as tolerated with walker and assistance 7. Encourage incentive spirometer use Time with Patient: Less than 30
[2024-08-17 12:03] LABS: Glucose,Whole Blood 158 mg/dL (70-110)
[2024-08-17] MEDS: polyethylene glycoL 3350 17 GM POWD.PACK PO SCH (12:48)
[2024-08-17] MEDS: GABAPENTIN 300 MG CAP PO SCH (16:07)
[2024-08-17] MEDS ORDERED: IBUPROFEN 600 MG TAB PO PRN (16:22)
--- NOTE | 2024-08-17 16:35 | P.PN ---
Subjective Progress Note Date: 08/17/24 S/p L3 tumor ablation and kyphoplasty with Dr. Benitez. At todays visit, pt reporting worsening low back pain. No loss of bowel or bladder control Objective - Vital Signs Vital signs: Vital Signs Temp 97.9 F 08/17/24 12:52 Pulse 104 H 08/17/24 12:52 Resp 19 08/17/24 12:52 BP 139/85 08/17/24 12:52 Pulse Ox 96 08/17/24 12:52 FiO2 Intake & Output 08/16/24 08/17/24 08/17/24 18:59 06:59 18:59 Intake Total 1890 590 Output Total 1555 1000 Balance 335 -410 Intake: IV 1350 Oral 540 590 Output: Urine 1550 1000 Estimated Blood Loss 5 Other: Voiding Method External Catheter External Catheter Indwelling Catheter - Constitutional General appearance: Present: mild distress - EENT Eyes: Present: anicteric sclerae, EOMI ENT: Present: hearing grossly normal - Respiratory Details: breathing is even and unlabored - Cardiovascular Details: skin warm and dry - Gastrointestinal General gastrointestinal: Present: soft. Absent: tenderness - Musculoskeletal Musculoskeletal Comment(s): sensation of BLE intact Musculoskeletal: Present: strength equal bilaterally - Psychiatric Psychiatric: Present: A&O x's 3 - Labs CBC & Chem 7: 08/15/24 20:24 08/15/24 20:24 Labs: Abnormal Lab Results - Last 24 Hours (Table) 08/16/24 08/16/24 08/17/24 Range/Units 17:14 20:04 05:09 POC Glucose (mg/dL) 155 H 300 H (70-110) mg/dL Calcium 6.5 L (8.4-10.2) mg/dL 08/17/24 Range/Units 12:02 POC Glucose (mg/dL) 158 H (70-110) mg/dL Calcium (8.4-10.2) mg/dL Assessment and Plan (1) Renal mass Current Visit: Yes Status: Acute Priority: High Code(s): N28.89 - OTHER SPECIFIED DISORDERS OF KIDNEY AND URETER SNOMED Code(s): 668288161 (2) Anemia Current Visit: Yes Status: Acute Priority: High Code(s): D64.9 - ANEMIA, UNSPECIFIED SNOMED Code(s): 310912486 (3) Lesion of lumbar spine Current Visit: Yes Status: Acute Priority: High Code(s): M89.9 - DISORDER OF BONE, UNSPECIFIED SNOMED Code(s): 308885494 (4) Weakness Current Visit: Yes Status: Acute Priority: High Code(s): R53.1 - WEAKNESS SNOMED Code(s): 76931487 (5) Urothelial carcinoma Current Visit: Yes Status: Acute Priority: High Code(s): C68.9 - MALIGNANT NEOPLASM OF URINARY ORGAN, UNSPECIFIED SNOMED Code(s): 212794090 Plan: Metastatic urothelial carcinoma -Presented with low back pain, progressive over few months, associated with some difficulty ambulating as well as some incontinence of stool when she was experiencing diarrhea. -Biopsy with Dr. Farrell 08/07. Path reporting high-grade, noninvasive papillary urothelial carcinoma, bx from the left ureter, renal pelvis -Vertebral bone metastases noted on imaging. Brain/Cervical MRI negative for acute intracranial processes. Cervical spine showing multilevel degenerative disc disease and central stenosis as well as foraminal encroachment. No pathologic enhancement, nothing appears to be acutely encroaching on the spinal cord. On physical exam today patient does have strength and sensation in the bilateral lower extremities, she denies incontinence. Zometa given for bone mets. -Orthopedic spine is following . -MRI thoracic and lumbar spine revealed L3 vertebral body enhancing mass which extends through the vertebral body lateral plate. Limited thoracic spine MRI. Somewhat diffuse heterogeneous inversion recovery signal to the mid thoracic spine. No discrete masses definitively visualized. Eccentric left disc bulging at the level of T9-T10 which displaces the spinal cord. -S/p L3 tumor ablation with biopsy and kyphoplasty. Pathology pending -Spoke with Radiation Oncology regarding case, consult placed. Will plan for outpt f/u to revaluate, no plan for inpt RT -Discussed with case management need for durable medical equipment and also assistance in getting patient information so that she can apply for disability. -Pain continues to be difficult to manage. Medications will be adjusted to pt tolerance-continue decadron, long and short acting pain meds, motrin and topical analgesics prn. Increase MS contin to 30mg BID, norco d/c, start morphine IR 15mg q 4hrs prn. Will also add Gabapentin for radiculopathy and parathesias Constipation -Likely r/t pain meds, decreased mobility. -Cont Senokot-S and miralax and prn meds Normocytic anemia -Hgb 4.7 on admit, s/p 3 units PRBCs with appropriate increase in Hgb. Hgb stable -No nutritional deficiencies noted, consistent with anemia of inflammation. -IgG kappa paraprotein noted on immunofixation, M-spike negative, K/L ratio normal at 1.2. May be incidental finding/MGUS. Will repeat outpt in 3months -Continue to monitor CBC. Transfuse for hgb less than 7 or if symptomatic Doctor attests: I performed a history and physical examination of this patient, developed impression and plan of care. Discussed with dictator. I agree with dictators note, documented as a scribe.
[2024-08-17 17:21] LABS: Glucose,Whole Blood 111 mg/dL (70-110)
--- NOTE | 2024-08-17 18:58 | P.PN ---
Subjective This is a pleasant 59-year-old female who was recently admitted with back pain and difficulty with ambulation and a possible L3 lytic lesion being closely monitored with multiple medical consultations. Patient also underwent CT scanning showing multiple lesions in the osseous spine although no compression fractures noted. Patient also with a left supraclavicular lymph node enlargement and underwent a nuclear med bone scan which showed diffuse osseous metastatic disease. Patient is status post cystoscopy with pyelogram and left biopsy of the ureter and highly suspicious of carcinoma per urology. Patient's hemoglobin is 7.0 today with no active bleeding noted although will give unit of PRBC and follow-up with repeat labs. Recommend PT/OT therapy evaluation and discuss further with case management for possible ECF. 08/09/2024 Patient is seen in follow-up today in severe 10/10 pain. Patient reports since yesterday afternoon into last night and this morning she was having severe pain in the lower back and is maintained on IV Dilaudid along with oral medications and lidocaine. Will adjust and have also discussed with oncology regarding pain management and they will be initiating long-acting pain management. Patient is scheduled to undergo an MRI of the brain which has been pending. Pathology remains pending as well. White count remains elevated although patient was on steroids which has been discontinued. Patient is afebrile with no reports of chest pain or shortness of breath. Will have PT/OT therapy reevaluate once pain is better controlled as patient reports she wants to go home. Concerned and fearful that she is extremely weak and may need ECF on discharge for continued strength and mobility. 08/10/2024 Patient is seen in follow-up this morning with multiple consultations following including urology status post biopsy. Pathology is positive for high-grade noninvasive papillary urothelial carcinoma. Patient is scheduled to undergo MRI of the brain and cervical spine today for further evaluation and highly suspicious for bone mets. Patient is in extreme amount of pain reporting 10/10 and is having difficulty controlling the pain. Will adjust pain medications accordingly and oncology has added long-acting. Overall prognosis is guarded at this time. 08/11/24 Patient sitting up in bed, looks tired and generally weak but pleasant and relaxed She states her pain almost controlled for her. She is not in distress Continue with pain medication 08/12 Pain is controlled better today with Toradol Slept well last night Still has constipation On Colace and milk of magnesium, she does not want more for now 08/13 She looks pleasant and comfortable, she is sitting up in bed and smiling She had 1 bowel movement tonight MRI of the thoracolumbar spine is pending She is currently on dexamethasone 6 mg twice daily 08/14 Patient back pain is controlled however it looks like she has some radicular symptoms with tingling in the extremities MRI of the thoracic spine showing no metastatic lesion but lumbar spine showing L3 tumor although there is no evidence of spinal cord compression but is symp tomatic. Therefore orthopedic team are planning for ( L3 tumor ablation with biopsy and kyphoplasty } on 08/16 08/15 Patient today is pleasant sitting up in bed She denies chest pain or dyspnea She is agreeable and feels ready to go for surgery tomorrow 08/16 Patient is status post L3 vertebral body biopsy, frozen section and ablation and vertebroplasty. Today's postop day #0 Patient postoperatively fully awake oriented, she is pleasant smiling looks comfortable, states that she feels her pain and spasm in the back better, her left leg weakness slightly better but early to comment on that. Blood pressure 177/81. Leukocytosis improving down to 15,000, hemoglobin is 9.6. She is status post 3 units of blood transfusion on admission. 08/17 Patient had severe back pain today postoperative day #1. Related to her surgery yesterday at L3 vertebra with biopsy ablation and vertebroplasty. The pain has been addressed and when I checked on the patient later on she was more comfortable and sleeping Also has been complaining of from medication given her repeated doses of narcotics. Discussed with the staff she is on Colace senna and we will add MiraLAX daily Objective - Vital Signs Vital signs: Vital Signs Temp 97.9 F 08/17/24 12:52 Pulse 104 H 08/17/24 12:52 Resp 19 08/17/24 12:52 BP 139/85 08/17/24 12:52 Pulse Ox 96 08/17/24 12:52 FiO2 Intake & Output 08/16/24 08/17/24 08/17/24 18:59 06:59 18:59 Intake Total 1890 590 540 Output Total 1555 1000 1200 Balance 335 -410 -660 Intake: IV 1350 Oral 540 590 540 Output: Urine 1550 1000 1200 Estimated Blood Loss 5 Other: Voiding Method External Catheter External Catheter Indwelling Catheter - Exam -GENERAL: The patient is alert and oriented x3, not in any acute distress. Well developed, well nourished. Generally weak HEENT: Pupils are round and equally reacting to light. EOMI. No scleral icterus. No conjunctival pallor. Normocephalic, atraumatic. No pharyngeal erythema. No thyromegaly. CARDIOVASCULAR: S1 and S2 present. No murmurs, rubs, or gallops. PULMONARY: Chest is clear to auscultation, no wheezing , no crackles. ABDOMEN: Soft, nontender, nondistended, normoactive bowel sounds. No palpable organomegaly. MUSCULOSKELETAL: No joint swelling or deformity. EXTREMITIES: No cyanosis, clubbing, or pedal edema. NEUROLOGICAL: Gross neurological examination did not reveal any focal deficits. SKIN: No rashes. no petechiae. - Labs CBC & Chem 7: 08/15/24 20:24 08/15/24 20:24 Labs: Abnormal Lab Results - Last 24 Hours (Table) 08/16/24 08/17/24 08/17/24 Range/Units 20:04 05:09 12:02 POC Glucose (mg/dL) 300 H 158 H (70-110) mg/dL Calcium 6.5 L (8.4-10.2) mg/dL 08/17/24 Range/Units 17:18 POC Glucose (mg/dL) 111 H (70-110) mg/dL Calcium (8.4-10.2) mg/dL Assessment and Plan Assessment: -Severe back pain, with radiculopathy. MRI positive for L3 lytic lesion with renal cell carcinoma with multiple mets. 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 -Increased white count, improving, likely reactive as well as patient is on high-dose steroids -Degenerative joint disease -Continued ongoing nicotine dependence Plan: Recommend to continue with current medications and management with multiple consultations following. Patient is status post biopsies with urology with cystoscopy and pathology is positive for high-grade papillary urothelial carcinoma. C. difficile are planning for ( L3 tumor ablation with biopsy and kyphoplasty } on 08/16 Oncology following making recommendations regarding pain management and also following closely with multiple other consultations will discuss further treatment plan moving forward. MRI of the of the thoracic and lumbar spine is ordered Orthopedic and oncology team on the case. Pain controlled continue with pain management PT/OT therapy evaluation. Patient is persistent ongoing home and will arrange for home care and also necessary equipment including a wheelchair and walker. Discussed with patient and possibly considering rehab. Will have PT/OT therapy evaluate once pain is more manageable Repeat labs ordered for a.m. replace electrolytes per protocol Resume Accu-Cheks and sliding scale as patient is being resumed on steroids per oncology Overall prognosis is extremely guarded at this time
[2024-08-17 20:04] LABS: Glucose,Whole Blood 104 mg/dL (70-110)
[2024-08-18] MEDS: MORPHINE SULFATE IR 15 MG TABLET PO PRN (02:24)
[2024-08-18 07:44] LABS: Glucose,Whole Blood 92 mg/dL (70-110)
[2024-08-18 12:14] LABS: Glucose,Whole Blood 98 mg/dL (70-110)
--- NOTE | 2024-08-18 15:56 | P.PN ---
Subjective This is a pleasant 59-year-old female who was recently admitted with back pain and difficulty with ambulation and a possible L3 lytic lesion being closely monitored with multiple medical consultations. Patient also underwent CT scanning showing multiple lesions in the osseous spine although no compression fractures noted. Patient also with a left supraclavicular lymph node enlargement and underwent a nuclear med bone scan which showed diffuse osseous metastatic disease. Patient is status post cystoscopy with pyelogram and left biopsy of the ureter and highly suspicious of carcinoma per urology. Patient's hemoglobin is 7.0 today with no active bleeding noted although will give unit of PRBC and follow-up with repeat labs. Recommend PT/OT therapy evaluation and discuss further with case management for possible ECF. 08/09/2024 Patient is seen in follow-up today in severe 10/10 pain. Patient reports since yesterday afternoon into last night and this morning she was having severe pain in the lower back and is maintained on IV Dilaudid along with oral medications and lidocaine. Will adjust and have also discussed with oncology regarding pain management and they will be initiating long-acting pain management. Patient is scheduled to undergo an MRI of the brain which has been pending. Pathology remains pending as well. White count remains elevated although patient was on steroids which has been discontinued. Patient is afebrile with no reports of chest pain or shortness of breath. Will have PT/OT therapy reevaluate once pain is better controlled as patient reports she wants to go home. Concerned and fearful that she is extremely weak and may need ECF on discharge for continued strength and mobility. 08/10/2024 Patient is seen in follow-up this morning with multiple consultations following including urology status post biopsy. Pathology is positive for high-grade noninvasive papillary urothelial carcinoma. Patient is scheduled to undergo MRI of the brain and cervical spine today for further evaluation and highly suspicious for bone mets. Patient is in extreme amount of pain reporting 10/10 and is having difficulty controlling the pain. Will adjust pain medications accordingly and oncology has added long-acting. Overall prognosis is guarded at this time. 08/11/24 Patient sitting up in bed, looks tired and generally weak but pleasant and relaxed She states her pain almost controlled for her. She is not in distress Continue with pain medication 08/12 Pain is controlled better today with Toradol Slept well last night Still has constipation On Colace and milk of magnesium, she does not want more for now 08/13 She looks pleasant and comfortable, she is sitting up in bed and smiling She had 1 bowel movement tonight MRI of the thoracolumbar spine is pending She is currently on dexamethasone 6 mg twice daily 08/14 Patient back pain is controlled however it looks like she has some radicular symptoms with tingling in the extremities MRI of the thoracic spine showing no metastatic lesion but lumbar spine showing L3 tumor although there is no evidence of spinal cord compression but is symp tomatic. Therefore orthopedic team are planning for ( L3 tumor ablation with biopsy and kyphoplasty } on 08/16 08/15 Patient today is pleasant sitting up in bed She denies chest pain or dyspnea She is agreeable and feels ready to go for surgery tomorrow 08/16 Patient is status post L3 vertebral body biopsy, frozen section and ablation and vertebroplasty. Today's postop day #0 Patient postoperatively fully awake oriented, she is pleasant smiling looks comfortable, states that she feels her pain and spasm in the back better, her left leg weakness slightly better but early to comment on that. Blood pressure 177/81. Leukocytosis improving down to 15,000, hemoglobin is 9.6. She is status post 3 units of blood transfusion on admission. 08/17 Patient had severe back pain today postoperative day #1. Related to her surgery yesterday at L3 vertebra with biopsy ablation and vertebroplasty. The pain has been addressed and when I checked on the patient later on she was more comfortable and sleeping Also has been complaining of from medication given her repeated doses of narcotics. Discussed with the staff she is on Colace senna and we will add MiraLAX daily 08/18 Pain control down to 2-3/ Complains from constipation x 8 days but no abdominal distention or pain/tenderness We will add lactulose and DC MiraLAX Objective - Vital Signs Vital signs: Vital Signs Temp 98.3 F 08/18/24 12:09 Pulse 105 H 08/18/24 12:09 Resp 14 08/18/24 12:09 BP 144/77 08/18/24 12:09 Pulse Ox 95 08/18/24 12:09 FiO2 Intake & Output 08/17/24 08/18/24 08/18/24 18:59 06:59 18:59 Intake Total 540 540 Output Total 1200 1025 Balance -660 -485 Intake: Oral 540 540 Output: Urine 1200 1025 Other: Voiding Method Indwelling Catheter Diaper Diaper Indwelling Catheter Indwelling Catheter - Exam -GENERAL: The patient is alert and oriented x3, not in any acute distress. Well developed, well nourished. Generally weak HEENT: Pupils are round and equally reacting to light. EOMI. No scleral icterus. No conjunctival pallor. Normocephalic, atraumatic. No pharyngeal erythema. No thyromegaly. CARDIOVASCULAR: S1 and S2 present. No murmurs, rubs, or gallops. PULMONARY: Chest is clear to auscultation, no wheezing , no crackles. ABDOMEN: Soft, nontender, nondistended, normoactive bowel sounds. No palpable organomegaly. MUSCULOSKELETAL: No joint swelling or deformity. EXTREMITIES: No cyanosis, clubbing, or pedal edema. NEUROLOGICAL: Gross neurological examination did not reveal any focal deficits. SKIN: No rashes. no petechiae. - Labs CBC & Chem 7: 08/15/24 20:24 08/15/24 20:24 Labs: Abnormal Lab Results - Last 24 Hours (Table) 08/17/24 08/18/24 Range/Units 17:18 05:12 POC Glucose (mg/dL) 111 H (70-110) mg/dL Calcium 6.7 L (8.4-10.2) mg/dL Assessment and Plan Assessment: -Severe back pain, with radiculopathy. MRI positive for L3 lytic lesion with renal cell carcinoma with multiple mets. 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 -Increased white count, improving, likely reactive as well as patient is on high-dose steroids -Degenerative joint disease -Continued ongoing nicotine dependence Plan: Recommend to continue with current medications and management with multiple consultations following. Patient is status post biopsies with urology with cystoscopy and pathology is positive for high-grade papillary urothelial carcinoma. C. difficile are planning for ( L3 tumor ablation with biopsy and kyphoplasty } on 08/16 Oncology following making recommendations regarding pain management and also fo llowing closely with multiple other consultations will discuss further treatment plan moving forward. MRI of the of the thoracic and lumbar spine is ordered Orthopedic and oncology team on the case. Pain controlled continue with pain management PT/OT therapy evaluation. Patient is persistent ongoing home and will arrange for home care and also necessary equipment including a wheelchair and walker. Discussed with patient and possibly considering rehab. Will have PT/OT therapy evaluate once pain is more manageable Repeat labs ordered for a.m. replace electrolytes per protocol Resume Accu-Cheks and sliding scale as patient is being resumed on steroids per oncology Overall prognosis is extremely guarded at this time
[2024-08-18] MEDS: LACTULOSE 20 GM/30 ML CUP PO SCH (16:28)
[2024-08-18 17:07] LABS: Glucose,Whole Blood 185 mg/dL (70-110)
[2024-08-18 20:26] LABS: Glucose,Whole Blood 131 mg/dL (70-110)
[2024-08-19 07:47] LABS: Glucose,Whole Blood 113 mg/dL (70-110)
[2024-08-19 12:41] LABS: Glucose,Whole Blood 132 mg/dL (70-110)
--- NOTE | 2024-08-19 17:08 | P.PN ---
Subjective This is a pleasant 59-year-old female who was recently admitted with back pain and difficulty with ambulation and a possible L3 lytic lesion being closely monitored with multiple medical consultations. Patient also underwent CT scanning showing multiple lesions in the osseous spine although no compression fractures noted. Patient also with a left supraclavicular lymph node enlargement and underwent a nuclear med bone scan which showed diffuse osseous metastatic disease. Patient is status post cystoscopy with pyelogram and left biopsy of the ureter and highly suspicious of carcinoma per urology. Patient's hemoglobin is 7.0 today with no active bleeding noted although will give unit of PRBC and follow-up with repeat labs. Recommend PT/OT therapy evaluation and discuss further with case management for possible ECF. 08/09/2024 Patient is seen in follow-up today in severe 10/10 pain. Patient reports since yesterday afternoon into last night and this morning she was having severe pain in the lower back and is maintained on IV Dilaudid along with oral medications and lidocaine. Will adjust and have also discussed with oncology regarding pain management and they will be initiating long-acting pain management. Patient is scheduled to undergo an MRI of the brain which has been pending. Pathology remains pending as well. White count remains elevated although patient was on steroids which has been discontinued. Patient is afebrile with no reports of chest pain or shortness of breath. Will have PT/OT therapy reevaluate once pain is better controlled as patient reports she wants to go home. Concerned and fearful that she is extremely weak and may need ECF on discharge for continued strength and mobility. 08/10/2024 Patient is seen in follow-up this morning with multiple consultations following including urology status post biopsy. Pathology is positive for high-grade noninvasive papillary urothelial carcinoma. Patient is scheduled to undergo MRI of the brain and cervical spine today for further evaluation and highly suspicious for bone mets. Patient is in extreme amount of pain reporting 10/10 and is having difficulty controlling the pain. Will adjust pain medications accordingly and oncology has added long-acting. Overall prognosis is guarded at this time. 08/11/24 Patient sitting up in bed, looks tired and generally weak but pleasant and relaxed She states her pain almost controlled for her. She is not in distress Continue with pain medication 08/12 Pain is controlled better today with Toradol Slept well last night Still has constipation On Colace and milk of magnesium, she does not want more for now 08/13 She looks pleasant and comfortable, she is sitting up in bed and smiling She had 1 bowel movement tonight MRI of the thoracolumbar spine is pending She is currently on dexamethasone 6 mg twice daily 08/14 Patient back pain is controlled however it looks like she has some radicular symptoms with tingling in the extremities MRI of the thoracic spine showing no metastatic lesion but lumbar spine showing L3 tumor although there is no evidence of spinal cord compression but is symp tomatic. Therefore orthopedic team are planning for ( L3 tumor ablation with biopsy and kyphoplasty } on 08/16 08/15 Patient today is pleasant sitting up in bed She denies chest pain or dyspnea She is agreeable and feels ready to go for surgery tomorrow 08/16 Patient is status post L3 vertebral body biopsy, frozen section and ablation and vertebroplasty. Today's postop day #0 Patient postoperatively fully awake oriented, she is pleasant smiling looks comfortable, states that she feels her pain and spasm in the back better, her left leg weakness slightly better but early to comment on that. Blood pressure 177/81. Leukocytosis improving down to 15,000, hemoglobin is 9.6. She is status post 3 units of blood transfusion on admission. 08/17 Patient had severe back pain today postoperative day #1. Related to her surgery yesterday at L3 vertebra with biopsy ablation and vertebroplasty. The pain has been addressed and when I checked on the patient later on she was more comfortable and sleeping Also has been complaining of from medication given her repeated doses of narcotics. Discussed with the staff she is on Colace senna and we will add MiraLAX daily 08/18 Pain control down to 2-3/10 Complains from constipation x 8 days but no abdominal distention or pain/tenderness We will add lactulose and DC MiraLAX 08/19 Today patient is sleepy probably she is taking also morning pain medication for her L3 back surgery done on 08/16 No other new complaint. Still has some mild distention but is improving Objective - Vital Signs Vital signs: Vital Signs Temp 97.3 F L 08/19/24 12:35 Pulse 115 H 08/19/24 12:35 Resp 16 08/19/24 12:35 BP 166/78 08/19/24 12:35 Pulse Ox 92 L 08/19/24 12:35 FiO2 Intake & Output 08/18/24 08/19/24 08/19/24 18:59 06:59 18:59 Intake Total 540 Output Total 550 750 Balance -550 -210 Intake: Oral 540 Output: Urine 550 750 Other: Voiding Method Diaper Diaper Indwelling Catheter Indwelling Catheter Indwelling Catheter # Bowel Movements 1 - Exam -GENERAL: The patient is alert and oriented x3, not in any acute distress. Well developed, well nourished. Generally weak HEENT: Pupils are round and equally reacting to light. EOMI. No scleral icterus. No conjunctival pallor. Normocephalic, atraumatic. No pharyngeal erythema. No thyromegaly. CARDIOVASCULAR: S1 and S2 present. No murmurs, rubs, or gallops. PULMONARY: Chest is clear to auscultation, no wheezing , no crackles. ABDOMEN: Soft, nontender, nondistended, normoactive bowel sounds. No palpable organomegaly. MUSCULOSKELETAL: No joint swelling or deformity. EXTREMITIES: No cyanosis, clubbing, or pedal edema. NEUROLOGICAL: Gross neurological examination did not reveal any focal deficits. SKIN: No rashes. no petechiae. - Labs CBC & Chem 7: 08/15/24 20:24 08/15/24 20:24 Labs: Abnormal Lab Results - Last 24 Hours (Table) 08/18/24 08/18/24 08/19/24 Range/Units 17:06 20:24 05:02 POC Glucose (mg/dL) 185 H 131 H (70-110) mg/dL Calcium 7.0 L (8.4-10.2) mg/dL 08/19/24 08/19/24 Range/Units 07:41 12:38 POC Glucose (mg/dL) 113 H 132 H (70-110) mg/dL Calcium (8.4-10.2) mg/dL Assessment and Plan Assessment: -Severe back pain, with radiculopathy. MRI positive for L3 lytic lesion with renal cell carcinoma with multiple mets. 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 -Increased white count, improving, likely reactive as well as patient is on high-dose steroids -Degenerative joint disease -Continued ongoing nicotine dependence Plan: Recommend to continue with current medications and management with multiple consultations following. Patient is status post biopsies with urology with cystoscopy and pathology is positive for high-grade papillary urothelial carcino ma. C. difficile are planning for ( L3 tumor ablation with biopsy and kyphoplasty } on 08/16 Oncology following making recommendations regarding pain management and also following closely with multiple other consultations will discuss further treatment plan moving forward. MRI of the of the thoracic and lumbar spine is ordered Orthopedic and oncology team on the case. Pain controlled continue with pain management PT/OT therapy evaluation. Patient is persistent ongoing home and will arrange for home care and also necessary equipment including a wheelchair and walker. Discussed with patient and possibly considering rehab. Will have PT/OT therapy evaluate once pain is more manageable Repeat labs ordered for a.m. replace electrolytes per protocol Resume Accu-Cheks and sliding scale as patient is being resumed on steroids per oncology Overall prognosis is extremely guarded at this time
[2024-08-19 17:20] LABS: Glucose,Whole Blood 137 mg/dL (70-110)
[2024-08-19 20:05] LABS: Glucose,Whole Blood 147 mg/dL (70-110)
[2024-08-20] MEDS ORDERED: HYDROmorphone 0.5 MG/0.5 ML SYRINGE IVP PRN (07:21)
[2024-08-20 07:23] LABS: Glucose,Whole Blood 155 mg/dL (70-110)
[2024-08-20] MEDS: DEXAMETHASONE SOD PHOSPHATE 4 MG/ML 1 ML VIAL IV ONE (08:24)
[2024-08-20] MEDS: LACTATED RINGERS 1,000 ML IV SCH (08:45)
--- NOTE | 2024-08-20 11:36 | P.PN ---
Subjective Progress Note Date: 08/20/24 Principal diagnosis: Transitional cell carcinoma, metastatic disease. Pain from malignancy In f/u today pt reports decent pain control, she keeps pain in the 2-4 range or it gets out of control. Pain is in the back, no progressive, no neurological symptoms to report at this time. On meds to prevent narcotic induced constipation, she has had at least 3 BMs. No other acute c/o. Objective - Vital Signs Vital signs: Vital Signs Temp 98.2 F 08/20/24 08:00 Pulse 91 08/20/24 08:00 Resp 17 08/20/24 08:00 BP 137/82 08/20/24 08:00 Pulse Ox 93 L 08/20/24 08:00 FiO2 Intake & Output 08/19/24 08/20/24 08/20/24 18:59 06:59 18:59 Intake Total 240 540 Output Total 300 Balance 240 240 Intake: Oral 240 540 Output: Urine 300 Other: Voiding Method Indwelling Catheter Indwelling Catheter # Bowel Movements 1 - Constitutional General appearance: Present: cooperative, no acute distress, thin - EENT Eyes: Present: anicteric sclerae, EOMI ENT: Present: hearing grossly normal - Respiratory Details: resp even and unlabored - Cardiovascular Details: skin warm and dry to touch - Peripheral edema leg Peripheral Edema: bilateral: Trace - Gastrointestinal General gastrointestinal: Present: distended, normal bowel sounds, soft - Neurologic Neurologic: Present: CNII-XII intact - Musculoskeletal Musculoskeletal: Present: generalized weakness - Psychiatric Psychiatric: Present: A&O x's 3, appropriate affect, intact judgment & insight - Labs CBC & Chem 7: 08/15/24 20:24 08/15/24 20:24 Labs: Abnormal Lab Results - Last 24 Hours (Table) 08/19/24 08/19/24 08/19/24 Range/Units 12:38 17:15 20:03 POC Glucose (mg/dL) 132 H 137 H 147 H (70-110) mg/dL Calcium (8.4-10.2) mg/dL 08/20/24 08/20/24 Range/Units 04:58 07:20 POC Glucose (mg/dL) 155 H (70-110) mg/dL Calcium 7.1 L (8.4-10.2) mg/dL Assessment and Plan (1) Urothelial carcinoma Current Visit: Yes Status: Acute Priority: High Code(s): C68.9 - MALIGNANT NEOPLASM OF URINARY ORGAN, UNSPECIFIED SNOMED Code(s): 124670182 (2) Anemia Current Visit: Yes Status: Acute Priority: High Code(s): D64.9 - ANEMIA, UNSPECIFIED SNOMED Code(s): 028853532 (3) Lesion of lumbar spine Current Visit: Yes Status: Acute Priority: High Code(s): M89.9 - DISORDER OF BONE, UNSPECIFIED SNOMED Code(s): 806393005 Plan: Metastatic urothelial carcinoma, newly diagnosed -Presented with low back pain, progressive over few months, associated with some difficulty ambulating as well as some incontinence of stool when she was experiencing diarrhea. -Biopsy with Dr. Farrell 08/07. Path reporting high-grade, noninvasive papillary urothelial carcinoma, bx from the left ureter, renal pelvis -Vertebral bone metastases noted on imaging. Brain/Cervical MRI negative for acute intracranial processes. Cervical spine showing multilevel degenerative disc disease and central stenosis as well as foraminal encroachment. No pathologic enhancement, nothing appears to be acutely encroaching on the spinal cord. Zometa given for bone mets. -S/P surgical intervention with Orthopedic spine. Biopsy pending -PT/OT working with pt. Plans for rehab on DC, then home care after discharge fr rehab. -Options for systemic treatment of malignancy will be discussed at outpt follow up. No treatment until pt is discharged from rehab and home -Referral to Radiation Oncology after discharge from rehab-treatment if patient's symptoms progress or pain is not able to be managed. -Discussed with case management. Pending adequate pain mgmt on oral meds. Pt will also need home care when she goes home to transition. -Pt on ER morphine, IR morphine, 6mg dex BID (decrease to 4 BID), and gabapent in. Ibuprofen and flexeril PRN, which pt has not used, is available PRN If needed. Constipation -MOM and warm prune juice ordered acutely. Cont all current meds -Pt has had BMs now, cont aggressive bowel mgmt Normocytic anemia -Hgb 4.7 on admit, s/p 3 units PRBCs. She had an appropriate increase in Hgb. Not checked since last week, will recheck in AM. -No nutritional deficiencies noted, consistent with anemia of inflammation. -Small paraproteinemia, M-spike negative, K/L ratio normal at 1.2. May be incidental finding/MGUS. Will repeat outpt in 3months, no active mgmt needed -Continue to monitor CBC. Transfuse for hgb less than 7 or if symptomatic Called and spoke to Joe, pt room mate. Summarized pt hospitalization, reviewed the diagnosis of cancer, plan for rehab 1st then follow up with Oncology after she is stronger and at home. All questions were answered to his satisfaction.
[2024-08-20 12:28] LABS: Glucose,Whole Blood 125 mg/dL (70-110)
[2024-08-20 17:35] LABS: Glucose,Whole Blood 136 mg/dL (70-110)
[2024-08-20 20:11] LABS: Glucose,Whole Blood 149 mg/dL (70-110)
[2024-08-20] MEDS: dexAMETHasone 4 MG TAB PO SCH (21:57)
[2024-08-21] MEDS: BENZOCAINE/MENTHOL LOZENG 1 EACH LOZENGE MUCOUS MEM PRN (04:53)
[2024-08-21] MEDS: guaiFENesin-DM 100-10MG/5ML 10 ML CUP PO PRN (04:54)
[2024-08-21 05:11] LABS: Anisocytosis Slight; HCT 26.5 % (34.0-46.0); HGB 8.3 gm/dL (11.4-16.0); Hypochromasia Slight; MCH 28.2 pg (25.0-35.0); MCHC 31.5 g/dL (31.0-37.0); MCV 89.6 fL (80.0-100.0); Mean Platelet Volume 8.1; Platelet Count 176 k/uL (150-450); RBC 2.96 m/uL (3.80-5.40); RDW 19.6 % (11.5-15.5)
--- NOTE | 2024-08-21 05:42 | P.PN ---
Subjective Progress Note Date: 08/20/24 This is a pleasant 59-year-old female who was recently admitted with back pain and difficulty with ambulation and a possible L3 lytic lesion being closely monitored with multiple medical consultations. Patient also underwent CT scanning showing multiple lesions in the osseous spine although no compression fractures noted. Patient also with a left supraclavicular lymph node enlargement and underwent a nuclear med bone scan which showed diffuse osseous metastatic disease. Patient is status post cystoscopy with pyelogram and left biopsy of the ureter and highly suspicious of carcinoma per urology. Patient's hemoglobin is 7.0 today with no active bleeding noted although will give unit of PRBC and follow-up with repeat labs. Recommend PT/OT therapy evaluation and discuss further with case management for possible ECF. 08/09/2024 Patient is seen in follow-up today in severe 10/10 pain. Patient reports since yesterday afternoon into last night and this morning she was having severe pain in the lower back and is maintained on IV Dilaudid along with oral medications and lidocaine. Will adjust and have also discussed with oncology regarding pain management and they will be initiating long-acting pain management. Patient is scheduled to undergo an MRI of the brain which has been pending. Pathology remains pending as well. White count remains elevated although patient was on steroids which has been discontinued. Patient is afebrile with no reports of chest pain or shortness of breath. Will have PT/OT therapy reevaluate once pain is better controlled as patient reports she wants to go home. Concerned and fearful that she is extremely weak and may need ECF on discharge for continued strength and mobility. 08/10/2024 Patient is seen in follow-up this morning with multiple consultations following including urology status post biopsy. Pathology is positive for high-grade no ninvasive papillary urothelial carcinoma. Patient is scheduled to undergo MRI of the brain and cervical spine today for further evaluation and highly suspicious for bone mets. Patient is in extreme amount of pain reporting 10/10 and is having difficulty controlling the pain. Will adjust pain medications accordingly and oncology has added long-acting. Overall prognosis is guarded at this time. 08/11/24 Patient sitting up in bed, looks tired and generally weak but pleasant and relaxed She states her pain almost controlled for her. She is not in distress Continue with pain medication 08/12 Pain is controlled better today with Toradol Slept well last night Still has constipation On Colace and milk of magnesium, she does not want more for now 08/13 She looks pleasant and comfortable, she is sitting up in bed and smiling She had 1 bowel movement tonight MRI of the thoracolumbar spine is pending She is currently on dexamethasone 6 mg twice daily 08/14 Patient back pain is controlled however it looks like she has some radicular symptoms with tingling in the extremities MRI of the thoracic spine showing no metastatic lesion but lumbar spine showing L3 tumor although there is no evidence of spinal cord compression but is symptomatic. Therefore orthopedic team are planning for ( L3 tumor ablation with biopsy and kyphoplasty } on 08/16 08/15 Patient today is pleasant sitting up in bed She denies chest pain or dyspnea She is agreeable and feels ready to go for surgery tomorrow 08/16 Patient is status post L3 vertebral body biopsy, frozen section and ablation and vertebroplasty. Today's postop day #0 Patient postoperatively fully awake oriented, she is pleasant smiling looks comfortable, states that she feels her pain and spasm in the back better, her left leg weakness slightly better but early to comment on that. Blood pressure 177/81. Leukocytosis improving down to 15,000, hemoglobin is 9.6. She is status post 3 units of blood transfusion on admission. 08/17 Patient had severe back pain today postoperative day #1. Related to her surgery yesterday at L3 vertebra with biopsy ablation and vertebroplasty. The pain has been addressed and when I checked on the patient later on she was more comfortable and sleeping Also has been complaining of from medication given her repeated doses of narcotics. Discussed with the staff she is on Colace senna and we will add MiraLAX daily 08/18 Pain control down to 2-3/10 Complains from constipation x 8 days but no abdominal distention or pain/tenderness We will add lactulose and DC MiraLAX 08/19 Today patient is sleepy probably she is taking also morning pain medication for her L3 back surgery done on 08/16 No other new complaint. Still has some mild distention but is improving 08/20/2024 Patient is seen in follow-up this morning continuing to work on pain management. Discussed with oncology and plan will be for continued pain regimen with limit of IV narcotic use. Monitor patient overnight after discontinuing Dilaudid for pain control with possible discharge planning to [facility] for continued strength and mobility. Patient is agreeable to withhold all oncological care and follow-up outpatient once discharged from rehab. Patient is afebrile with no reports of chest pain or shortness of breath. Patient has been tolerating diet and needs encouragement on eating. Recommend supplements between meals. Continue aggressive bowel regimen scheduled as well as as needed medications. Review of systems: Constitutional: No reports of fatigue, fever, or chills Cardiovascular: No reports of chest pain or palpitations Respiratory: No reports of shortness of breath or cough GI: No reports of nausea, vomiting, or diarrhea : No reports of dysuria or retention Neurovascular: reports of generalized weakness and some continued back pain All medications have been reviewed Physical exam: GENERAL: The patient is alert and oriented x3, not in any acute distress. Well developed, ill-appearing, appears older than stated age. Generally weak HEENT: Pupils are round and equally reacting to light. EOMI. No scleral icterus. No conjunctival pallor. Normocephalic, atraumatic. No pharyngeal erythema. No th yromegaly. CARDIOVASCULAR: S1 and S2 present. No murmurs, rubs, or gallops. PULMONARY: Chest is clear to auscultation, no wheezing , no crackles. ABDOMEN: Soft, nontender, nondistended, normoactive bowel sounds. No palpable organomegaly. MUSCULOSKELETAL: No joint swelling or deformity. EXTREMITIES: No cyanosis, clubbing, or pedal edema. NEUROLOGICAL: Gross neurological examination did not reveal any focal deficits. Diffusely weak SKIN: No rashes. no petechiae. Assessment: -Severe back pain, with radiculopathy. MRI positive for L3 lytic lesion with renal cell carcinoma with multiple mets. MRI showing L3 vertebral body tumor with no spinal cord compression, status post ( L3 tumor ablation with biopsy and kyphoplasty } on 08/16 -Bone scan this admission showing concerns for diffuse bony mets -Severe symptomatic anemia, possibly secondary to malignancy, improving -neoplasm of the left renal pelvis and left ureter status post ureteroscopy with cystoscopy and biopsies taken, biopsies are positive for high-grade carcinoma, Patient is status post stent of the left ureter -Paraparesis. -Increased white count, improving, likely reactive as well as patient is on high-dose steroids -Degenerative joint disease -Continued ongoing nicotine dependence GI prophylaxis DVT prophylaxis Full code Plan: Recommend to continue with current medications and management with multiple con sultations following. Patient is status post biopsies with urology with cystoscopy and pathology is positive for high-grade papillary urothelial carcinoma. Orthopedics following status post L3 tumor ablation with biopsy and kyphoplasty on 08/16 Oncology following making recommendations regarding pain management and also following closely with multiple other consultations will discuss further deanna atment plan moving forward. Plan is to continue current pain regimen and discontinue IV Dilaudid and monitor patient overnight for pain management with possible discharge planning to ECF in the next 24 to 48 hours. Orthopedic and oncology team on the case. Patient will be going to ECF for continued strength and mobility to get stronger and will follow-up with oncology once discharged from ECF. Patient is agreeable to no oncological care while at rehab. Oncology is aware as well. Continue Accu-Cheks and sliding scale as patient is being resumed on steroids per oncology Overall prognosis is extremely guarded at this time Possible discharge planning to the ECF in the next 24 to 48 hours. Social work is following and will require insurance authorization. Currently pending. The impression and plan of care has been dictated by Carmella Moore, Nurse Practitioner as directed. Dr. Bhargav MD I have performed a history and examination and MDM of this patient, discussed the same with the dictator, and agree with the dictator's assessment and plan as written ,documented as a scribe. Based on total visit time, I have performed more than 50% of the visit. Objective - Vital Signs Vital signs: Vital Signs Temp 98.2 F 08/20/24 08:00 Pulse 91 08/20/24 08:00 Resp 17 08/20/24 08:00 BP 137/82 08/20/24 08:00 Pulse Ox 93 L 08/20/24 08:00 FiO2 Intake & Output 08/19/24 08/20/24 08/20/24 18:59 06:59 18:59 Intake Total 240 540 Output Total 300 Balance 240 240 Intake: Oral 240 540 Output: Urine 300 Other: Voiding Method Indwelling Catheter Indwelling Catheter # Bowel Movements 1 - Labs CBC & Chem 7: 08/15/24 20:24 08/15/24 20:24 Labs: Abnormal Lab Results - Last 24 Hours (Table) 08/19/24 08/19/24 08/19/24 Range/Units 12:38 17:15 20:03 POC Glucose (mg/dL) 132 H 137 H 147 H (70-110) mg/dL Calcium (8.4-10.2) mg/dL 08/20/24 08/20/24 Range/Units 04:58 07:20 POC Glucose (mg/dL) 155 H (70-110) mg/dL Calcium 7.1 L (8.4-10.2) mg/dL
[2024-08-21 06:45] LABS: Metamyelocytes % 2 %
[2024-08-21 06:51] LABS: Band Neutrophils % 2 %; Lymphocytes # (M) 1.63 k/uL (1.0-4.8); Metamyelocytes # (M) 0.19 k/uL (0); Monocytes # (M) 0.19 k/uL (0-1.0); Neutrophils % (M) 79 %; Nucleated Red Blood Cells 5 /100 WBC (0-0); Total Cells Counted 200; WBC 9.6 k/uL (3.8-10.6)
[2024-08-21 07:08] LABS: Crenated RBC Present
[2024-08-21 07:11] LABS: RBC Fragments Present
[2024-08-21 07:12] LABS: Glucose,Whole Blood 119 mg/dL (70-110)
[2024-08-21 12:08] LABS: Glucose,Whole Blood 140 mg/dL (70-110)
--- NOTE | 2024-08-21 14:30 | P.PN ---
Subjective Progress Note Date: 08/21/24 This is a pleasant 59-year-old female who was recently admitted with back pain and difficulty with ambulation and a possible L3 lytic lesion being closely monitored with multiple medical consultations. Patient also underwent CT scanning showing multiple lesions in the osseous spine although no compression fractures noted. Patient also with a left supraclavicular lymph node enlargement and underwent a nuclear med bone scan which showed diffuse osseous metastatic disease. Patient is status post cystoscopy with pyelogram and left biopsy of the ureter and highly suspicious of carcinoma per urology. Patient's hemoglobin is 7.0 today with no active bleeding noted although will give unit of PRBC and follow-up with repeat labs. Recommend PT/OT therapy evaluation and discuss further with case management for possible ECF. 08/09/2024 Patient is seen in follow-up today in severe 10/10 pain. Patient reports since yesterday afternoon into last night and this morning she was having severe pain in the lower back and is maintained on IV Dilaudid along with oral medications and lidocaine. Will adjust and have also discussed with oncology regarding pain management and they will be initiating long-acting pain management. Patient is scheduled to undergo an MRI of the brain which has been pending. Pathology remains pending as well. White count remains elevated although patient was on steroids which has been discontinued. Patient is afebrile with no reports of chest pain or shortness of breath. Will have PT/OT therapy reevaluate once pain is better controlled as patient reports she wants to go home. Concerned and fearful that she is extremely weak and may need ECF on discharge for continued strength and mobility. 08/10/2024 Patient is seen in follow-up this morning with multiple consultations following including urology status post biopsy. Pathology is positive for high-grade no ninvasive papillary urothelial carcinoma. Patient is scheduled to undergo MRI of the brain and cervical spine today for further evaluation and highly suspicious for bone mets. Patient is in extreme amount of pain reporting 10/10 and is having difficulty controlling the pain. Will adjust pain medications accordingly and oncology has added long-acting. Overall prognosis is guarded at this time. 08/11/24 Patient sitting up in bed, looks tired and generally weak but pleasant and relaxed She states her pain almost controlled for her. She is not in distress Continue with pain medication 08/12 Pain is controlled better today with Toradol Slept well last night Still has constipation On Colace and milk of magnesium, she does not want more for now 08/13 She looks pleasant and comfortable, she is sitting up in bed and smiling She had 1 bowel movement tonight MRI of the thoracolumbar spine is pending She is currently on dexamethasone 6 mg twice daily 08/14 Patient back pain is controlled however it looks like she has some radicular symptoms with tingling in the extremities MRI of the thoracic spine showing no metastatic lesion but lumbar spine showing L3 tumor although there is no evidence of spinal cord compression but is symptomatic. Therefore orthopedic team are planning for ( L3 tumor ablation with biopsy and kyphoplasty } on 08/16 08/15 Patient today is pleasant sitting up in bed She denies chest pain or dyspnea She is agreeable and feels ready to go for surgery tomorrow 08/16 Patient is status post L3 vertebral body biopsy, frozen section and ablation and vertebroplasty. Today's postop day #0 Patient postoperatively fully awake oriented, she is pleasant smiling looks comfortable, states that she feels her pain and spasm in the back better, her left leg weakness slightly better but early to comment on that. Blood pressure 177/81. Leukocytosis improving down to 15,000, hemoglobin is 9.6. She is status post 3 units of blood transfusion on admission. 08/17 Patient had severe back pain today postoperative day #1. Related to her surgery yesterday at L3 vertebra with biopsy ablation and vertebroplasty. The pain has been addressed and when I checked on the patient later on she was more comfortable and sleeping Also has been complaining of from medication given her repeated doses of narcotics. Discussed with the staff she is on Colace senna and we will add MiraLAX daily 08/18 Pain control down to 2-3/10 Complains from constipation x 8 days but no abdominal distention or pain/tenderness We will add lactulose and DC MiraLAX 08/19 Today patient is sleepy probably she is taking also morning pain medication for her L3 back surgery done on 08/16 No other new complaint. Still has some mild distention but is improving 08/20/2024 Patient is seen in follow-up this morning continuing to work on pain management. Discussed with oncology and plan will be for continued pain regimen with limit of IV narcotic use. Monitor patient overnight after discontinuing Dilaudid for pain control with possible discharge planning to [facility] for continued strength and mobility. Patient is agreeable to withhold all oncological care and follow-up outpatient once discharged from rehab. Patient is afebrile with no reports of chest pain or shortness of breath. Patient has been tolerating diet and needs encouragement on eating. Recommend supplements between meals. Continue aggressive bowel regimen scheduled as well as as needed medications. 08/21/2024 Patient is seen and evaluated in follow-up today lethargic although arousable. Patient continues to have pain although reports controlled on current regimen and patient is off IV narcotics. Continue with scheduled bowel regimen and current pain management. Patient continues on 2 L of oxygen via nasal cannula and strongly recommend continued incentive spirometer use and oxygen saturation is 93% on 2 L and she does not normally wear oxygen outpatient. Will obtain a chest x-ray. Blood pressures have been elevated as well. Case management/social work following working on discharge planning to rehab although rehabs in [facility] have denied the patient and will look into possible inpatient rehab at [facility]. Consult was placed and pending at this time. Review of systems: Constitutional: No reports of fatigue, fever, or chills Cardiovascular: No reports of chest pain or palpitations Respiratory: No reports of shortness of breath or cough GI: No reports of nausea, vomiting, or diarrhea : No reports of dysuria or retention Neurovascular: reports of generalized weakness and some continued back pain All medications have been reviewed Physical exam: GENERAL: The patient is lethargic although arousable, alert and oriented x3, not in any acute distress. Well developed, ill-appearing, appears older than stated age. Generally weak HEENT: Pupils are round and equally reacting to light. EOMI. No scleral icterus. No conjunctival pallor. Normocephalic, atraumatic. No pharyngeal erythema. No thyromegaly. CARDIOVASCULAR: S1 and S2 present. No murmurs, rubs, or gallops. PULMONARY: Diminished breath sounds bilaterally otherwise chest is clear to auscultation, no wheezing , no crackles. ABDOMEN: Soft, nontender, nondistended, normoactive bowel sounds. No palpable organomegaly. MUSCULOSKELETAL: No joint swelling or deformity. EXTREMITIES: No cyanosis, clubbing, or pedal edema. NEUROLOGICAL: Gross neurological examination did not reveal any focal deficits. Diffusely weak SKIN: No rashes. no petechiae. Assessment: -Severe back pain, with radiculopathy. MRI positive for L3 lytic lesion with renal cell carcinoma with multiple mets. MRI showing L3 vertebral body tumor with no spinal cord compression, status post ( L3 tumor ablation with biopsy and kyphoplasty } on 08/16 -Bone scan this admission showing concerns for diffuse bony mets -Severe symptomatic anemia, possibly secondary to malignancy, improving -neoplasm of the left renal pelvis and left ureter status post ureteroscopy with cystoscopy and biopsies taken, biopsies are positive for high-grade carcinoma, Patient is status post stent of the left ureter -Paraparesis. -Increased white count, improving, likely reactive as well as patient is on high-dose steroids -Degenerative joint disease -Continued ongoing nicotine dependence GI prophylaxis DVT prophylaxis Full code Plan: Recommend to continue with current medications and management with multiple consultations following. Patient is status post biopsies with urology with cystoscopy and pathology is positive for high-grade papillary urothelial carcinoma. Orthopedics following status post L3 tumor ablation with biopsy and kyphoplasty on 08/16 Oncology following making recommendations regarding pain management and also following closely with multiple other consultations will discuss further treatment plan moving forward. Plan is to continue current pain regimen and discontinue IV Dilaudid and monitor patient overnight for pain management with possible discharge planning to ECF in the next 24 to 48 hours. Patient continues on 2 to 3 L of oxygen via nasal cannula and does not chronically wear this, will obtain a chest x-ray for further evaluation. Orthopedic and oncology team on the case. Case management/social work following working on discharge planning. Apparently multiple ECF's in the area have denied the patient and looking into other options. Will place a consult to Dr. Alonzo for inpatient rehab evaluation. Patient will be going to ECF for continued strength and mobility to get stronger and will follow-up with oncology once discharged from ECF. Patient is agreeable to no oncological care while at rehab. Oncology is aware as well. Continue Accu-Cheks and sliding scale as patient is being resumed on steroids per oncology Overall prognosis is extremely guarded at this time Possible discharge planning to the ECF in the next 24 to 48 hours. Social work is following and will require insurance authorization. Currently pending. The impression and plan of care has been dictated by Carmella Moore, Nurse Practitioner as directed. Dr. Bhargav MD I have performed a history and examination and MDM of this patient, discussed the same with the dictator, and agree with the dictator's assessment and plan as written ,documented as a scribe. Based on total visit time, I have performed more than 50% of the visit. Objective - Vital Signs Vital signs: Vital Signs Temp 98.3 F 08/21/24 13:42 Pulse 87 08/21/24 13:42 Resp 16 08/21/24 13:42 BP 166/77 08/21/24 13:42 Pulse Ox 93 L 08/21/24 13:42 FiO2 Intake & Output 08/20/24 08/21/24 08/21/24 18:59 06:59 18:59 Intake Total 540 590 Output Total 500 0 Balance 40 590 Intake: Oral 540 590 Output: Urine 500 0 Uretheral (Arguelles) 500 Other: Voiding Method Indwelling Catheter # Bowel Movements 2 1 - Labs CBC & Chem 7: 08/21/24 04:42 08/15/24 20:24 Labs: Abnormal Lab Results - Last 24 Hours (Table) 08/20/24 08/20/24 08/21/24 Range/Units 17:30 20:09 04:42 RBC 2.96 L (3.80-5.40) m/uL Hgb 8.3 L (11.4-16.0) gm/dL Hct 26.5 L (34.0-46.0) % RDW 19.6 H (11.5-15.5) % Metamyelocytes # (Man) 0.19 H (0) k/uL Nucleated RBCs 5 H (0-0) /100 WBC POC Glucose (mg/dL) 136 H 149 H (70-110) mg/dL 08/21/24 08/21/24 Range/Units 07:00 12:07 RBC (3.80-5.40) m/uL Hgb (11.4-16.0) gm/dL Hct (34.0-46.0) % RDW (11.5-15.5) % Metamyelocytes # (Man) (0) k/uL Nucleated RBCs (0-0) /100 WBC POC Glucose (mg/dL) 119 H 140 H (70-110) mg/dL
--- NOTE | 2024-08-21 14:37 | P.PN ---
Subjective Progress Note Date: 08/21/24 Principal diagnosis: Transitional cell carcinoma, metastatic disease. Pain from malignancy In f/u today pt reports decent pain control, she keeps pain in the 2-4 range or it gets out of control. Pain is in the back, no progressive, no neurological symptoms to report at this time. On meds to prevent narcotic induced constipation, she has had at least 3 BMs. No other acute c/o. Objective - Vital Signs Vital signs: Vital Signs Temp 98.3 F 08/21/24 13:42 Pulse 87 08/21/24 13:42 Resp 16 08/21/24 13:42 BP 166/77 08/21/24 13:42 Pulse Ox 93 L 08/21/24 13:42 FiO2 Intake & Output 08/20/24 08/21/24 08/21/24 18:59 06:59 18:59 Intake Total 540 590 Output Total 500 0 Balance 40 590 Intake: Oral 540 590 Output: Urine 500 0 Uretheral (Arguelles) 500 Other: Voiding Method Indwelling Catheter # Bowel Movements 2 1 - Constitutional Constitutional Comment(s): frail, skin is clammy General appearance: Present: cooperative, no acute distress, thin - EENT Eyes: Present: anicteric sclerae, EOMI ENT: Present: hearing grossly normal - Respiratory Details: weak cough, pt instructed on IS - Cardiovascular Rhythm: regular (radial pulse 2+) - Peripheral edema leg Peripheral Edema: bilateral: Trace (compression socks on) - Gastrointestinal General gastrointestinal: Present: soft - Integumentary Integumentary: Present: pale - Neurologic Neurologic Comment(s): plantar flexion strength 4/5 bilaterally Neurologic: Present: CNII-XII intact - Musculoskeletal Musculoskeletal Comment(s): decreased ROM in lt shoulder - Psychiatric Psychiatric: Present: A&O x's 3, appropriate affect, intact judgment & insight - Labs CBC & Chem 7: 08/21/24 04:42 08/15/24 20:24 Labs: Abnormal Lab Results - Last 24 Hours (Table) 08/20/24 08/20/24 08/21/24 Range/Units 17:30 20:09 04:42 RBC 2.96 L (3.80-5.40) m/uL Hgb 8.3 L (11.4-16.0) gm/dL Hct 26.5 L (34.0-46.0) % RDW 19.6 H (11.5-15.5) % Metamyelocytes # (Man) 0.19 H (0) k/uL Nucleated RBCs 5 H (0-0) /100 WBC POC Glucose (mg/dL) 136 H 149 H (70-110) mg/dL 08/21/24 08/21/24 Range/Units 07:00 12:07 RBC (3.80-5.40) m/uL Hgb (11.4-16.0) gm/dL Hct (34.0-46.0) % RDW (11.5-15.5) % Metamyelocytes # (Man) (0) k/uL Nucleated RBCs (0-0) /100 WBC POC Glucose (mg/dL) 119 H 140 H (70-110) mg/dL Assessment and Plan (1) Urothelial carcinoma Current Visit: Yes Status: Acute Priority: High Code(s): C68.9 - MALIGNANT NEOPLASM OF URINARY ORGAN, UNSPECIFIED SNOMED Code(s): 182960010 (2) Anemia Current Visit: Yes Status: Acute Priority: High Code(s): D64.9 - ANEMIA, UNSPECIFIED SNOMED Code(s): 598419000 (3) Lesion of lumbar spine Current Visit: Yes Status: Acute Priority: High Code(s): M89.9 - DISORDER OF BONE, UNSPECIFIED SNOMED Code(s): 612024126 Plan: Metastatic urothelial carcinoma, newly diagnosed -Presented with low back pain, progressive over few months, associated with some difficulty ambulating as well as some incontinence of stool when she was experiencing diarrhea. -Biopsy with Dr. Farrell 08/07. Path reporting high-grade, noninvasive papillary urothelial carcinoma, bx from the left ureter, renal pelvis -Vertebral bone metastases noted on imaging. Brain/Cervical MRI negative for acute intracranial processes. Cervical spine showing multilevel degenerative disc disease and central stenosis as well as foraminal encroachment. No pathologic enhancement, nothing appears to be acutely encroaching on the spinal cord. Zometa given for bone mets. -S/P surgical intervention with Orthopedic spine. Biopsy pending -PT/OT working with pt. Plans for rehab on DC, leaving today. Then home with [facility] after discharge from rehab. -Options for systemic treatment of malignancy will be discussed at outpt follow up. No treatment until pt is discharged from rehab and home -Referral to Radiation Oncology after discharge from rehab-treatment if patient's symptoms progress or pain is not able to be managed. Did speak with Rad Oncologist who will get a f/u sched with pt -Pt on ER morphine, IR morphine, 6mg dex BID (decrease to 4 BID), and gabapentin. Ibuprofen and flexeril PRN, which pt has not used, pt encouraged to use is needed. Constipation -MOM and warm prune juice ordered acutely. Cont all current meds -Pt has had BMs now, cont aggressive bowel mgmt Normocytic anemia -Hgb 4.7 on admit, s/p 3 units PRBCs. She had an appropriate increase in Hgb. Hgb stable at 8.3 today -No nutritional deficiencies noted, consistent with anemia of inflammation, 2/2 malignancy -Small paraproteinemia, M-spike negative, K/L ratio normal at 1.2. May be incidental finding/MGUS. Will repeat outpt in 3 months, no active mgmt needed Reviewed with pt plan for staging scan and f/u with Medical Oncologist for discussion and treatment options. She verbalized understanding and has requested that appts dates and times be communicated with [facility] phone number.
--- NOTE | 2024-08-21 14:58 | XR ---
EXAMINATION TYPE: XR chest 1V portable DATE OF EXAM: 08/21/2024 Comparison: 08/05/2024 Clinical History: 59-year-old female with cough and shortness of breath Findings: Heart borderline enlarged. Increased medial and fine diffuse interstitial opacities and development o f patchy airspace opacity at the right base. No sizable pleural effusion on the frontal view. Impression: Borderline cardiomegaly. New bilateral interstitial opacities and development of patchy airspace dise ase at the right base. Correlate for developing interstitial pulmonary edema versus pneumonia includi ng the possibility of atypical pneumonia. [facility], , 08/21/2024 2:56 PM
[2024-08-21 17:25] LABS: Glucose,Whole Blood 108 mg/dL (70-110)
--- NOTE | 2024-08-21 19:32 | P.CONS ---
History of Present Illness - Reason for Consult Consult date: 08/21/24 rehab recommendation - Chief Complaint back pain, l3 lesion - History of Present Illness Ms Reyes is a 59 y/o right handed female who lives with her significant other in a single story home with 3 yamila w/o HR. Prior to admission, patient was modified independent with a 4 prong cane for ambulation. Per her S/o Joe, he has been assisting with ADLs for the past month or longer. She is currently not driving, Joe is able to provide transportation and reports he is now going to be available 23/05. Patient presented to the hospital on 08/05/24 with back pain and difficulty with ambulation. Patient recently had an MRI with Orthospine surgeon and was told to schedule an appointment with Oncology due to a possible L3 lytic lesion. On admission, patient's hgb was 4.7. She had a transfusion. Patient also underwent CT scanning showing multiple lesions in the osseous spine although no compression fractures noted. Patient also with a left supraclavicular lymph node enlargement and underwent a nuclear med bone scan which showed diffuse osseous metastatic disease. She had a cystoscopy with pyelogram on 08/07/24, left biopsy of the ureter and highly suspicious of carcinoma per urology. 08/09/2024 Patient was seen by oncology, having difficulty with pain management, oncology initiated long-acting pain management. MRI C spine and brain ordered, no metastatic disease. Pathology is positive for high-grade noninvasive papillary urothelial carcinoma. MRI of the thoracolumbar spine ordered, no metastatic lesion but lumbar spine showing L3 tumor although there is no evidence of spinal cord compression but is symptomatic. Therefore orthopedic team are planning for ( L3 tumor ablation wi th biopsy and kyphoplasty } on 08/16 PM&R consulted for rehab recommendations. Patient seen by OT on 08/15/24 mod assist with bathing and LB dressing, 08/21 PT notes patient is max assist with bed mobility, unable to complete transfers or ambulate due to pain. 08/21/24: Patient states she is 'alright', still having quite a bit of back pain and having difficulty moving her legs due to the pain. She also reports leg weakness. She states " they have to take it slow and my pace" with therapy. She denies CP and abdominal pain. She has SOB, wheezing and cough. She states she is using her IS every 20 minutes. She states her medications are helping some. Reviewed MAR, she is not taking her medications as frequently as she could. Review of Systems reviewed, negative unless stated above in HPI Past Medical History Past Medical History: No Reported History, Osteoarthritis (OA) Additional Past Medical History / Comment(s): back pain History of Any Multi-Drug Resistant Organisms: None Reported Past Surgical History: Orthopedic Surgery (shoulder surgery ) Additional Past Surgical History / Comment(s): Cataract surgery Past Anesthesia/Blood Transfusion Reactions: No Reported Reaction Past Psychological History: No Psychological Hx Reported Smoking Status: Current every day smoker Past Alcohol Use History: None Reported Past Drug Use History: None Reported Medications and Allergies Home Medications Medication Instructions Recorded Confirmed Type Cyclobenzaprine [Flexeril] 10 mg PO TID PRN #15 tab 07/11/24 08/05/24 Rx Fluticasone Propion/Salmeterol 1 puff INHALATION RT-BID 08/05/24 08/05/24 History [Advair 250-50 Diskus] HYDROcodone/APAP 5-325MG [[place] 1 tab PO BID PRN 08/05/24 08/05/24 History 5-325] Allergies Allergy/AdvReac Type Severity Reaction Status Date / Time No Known Allergies Allergy Verified 08/05/24 14:23 Physical Exam Vitals: Vital Signs Temp Pulse Resp BP Pulse Ox 08/21/24 13:42 98.3 F 87 16 166/77 93 L 08/21/24 07:58 98.6 F 95 18 163/82 93 L 08/21/24 02:00 98.1 F 98 16 157/76 96 08/20/24 20:00 98.1 F 91 16 156/79 93 L Intake and Output 08/20/24 08/21/24 08/21/24 22:59 06:59 14:59 Intake Total 540 590 Output Total 500 0 Balance 40 590 Intake: Oral 540 590 Output: Urine 500 0 Uretheral ([place]) 500 Other: # Bowel Movements 2 1 General: Well-developed, well-nourished, female laying in bed with HOB elevated, S/O at bedside, appears fatigued HEENT: NC/AT, external ears intact, hearing intact to conversational speech Cardiovascular: B/L calves are supple, nontender, no cords, + peripheral edema, compression stockings on Respiratory: Even, slightly labored breathing with exertion, + wheezing, shallow breathing Abdomen: Soft, nontender, nondistended Genitourinary: not assessed Musculoskeletal: Decreased bilateral shoulder abduction and flexion- chronic per patient, decreased bilateral HF and KE- pain and weakness limiting. Neurological: Alert and oriented x 4. CN II-XII: Grossly intact. Speech is clear, fluent MMT: B/L SABD 4-/5, EF EE, FABD HG 4/5 B/L DF 4+/5, KE with assist of HF < 3/5, HF 1-2/5 pain limiting Reflexes: UE 1/4, LE 2/4, negative clonus Skin: Skin intact where visible to head, neck, and bilateral upper and lower extremities EXCEPT: back surgical site not assessed Psychiatric: Mood calm, affect appropriate Results CBC & Chem 7: 08/21/24 04:42 08/15/24 20:24 Labs: Abnormal Lab Results - Last 24 Hours (Table) 08/20/24 08/20/24 08/21/24 Range/Units 17:30 20:09 04:42 RBC 2.96 L (3.80-5.40) m/uL Hgb 8.3 L (11.4-16.0) gm/dL Hct 26.5 L (34.0-46.0) % RDW 19.6 H (11.5-15.5) % Metamyelocytes # (Man) 0.19 H (0) k/uL Nucleated RBCs 5 H (0-0) /100 WBC POC Glucose (mg/dL) 136 H 149 H (70-110) mg/dL 08/21/24 08/21/24 Range/Units 07:00 12:07 RBC (3.80-5.40) m/uL Hgb (11.4-16.0) gm/dL Hct (34.0-46.0) % RDW (11.5-15.5) % Metamyelocytes # (Man) (0) k/uL Nucleated RBCs (0-0) /100 WBC POC Glucose (mg/dL) 119 H 140 H (70-110) mg/dL Assessment and Plan Assessment: # Impaired gait and ADLs secondary to L3 metastatic disease d/t urethelial cancer s/p biopsy with tumoral ablation and L3 vertebroplasty -PT/OT -Orthospine and oncology following, urology following -Dexamethasone # Pain secondary to above #Sympomatic anemia s/p transfusion -hgb on admission 4.7 #Insomnia -Restoril 15 mg QHS prn # Anxiety Xanax 0.25 mg TID prn # Bowel/ Bladder: Nursing to monitor and report concerns if any. # Skin/wound: Skin/Wound care to follow as needed # Pain Management -MS Contin 30 mg Q 12 hrs, Morpine Sulfate 15 mg Q 4 hrs prn, Ibuprofen 600 mh Q 6 hrs prn, Gabapentin 300 mg TID, Flexeril 10 mg TID prn, Tylenol 650 mg Q 6 hrs prn -08/21 patient needs to better utilize her pain medications to allow for better participation with therapy # DVT Prophylaxis: none per MAR, defer to surgical team/IM # Comorbidities: OA, chronic back pain # Your medical dx and mgt Dispo: Patient is aware she needs to participate with therapy, will have therapy re-evaluate patient tomorrow. If she does not show any progress with transfers and ambulation, do not feel she will be able to tolerate 3 hrs of therapy on IPR. Patient is aware she needs to participate in order to qualify for IPR and is aware that [facility] is more likely the best option for her. Patient seen and examined in coordination with Dr Lyons and Barbara Metcalf NP
[2024-08-21 20:28] LABS: Glucose,Whole Blood 122 mg/dL (70-110)
[2024-08-22 07:24] LABS: Glucose,Whole Blood 103 mg/dL (70-110)
[2024-08-22 08:50] LABS: BUN/Creat Ratio 62.33 Ratio (12.00-20.00); Blood Urea Nitrogen 18.7 mg/dL (9.0-27.0); Carbon Dioxide 20.8 mmol/L (21.6-31.8); Chloride 100 mmol/L (96-109); Glucose 105 mg/dL (70-110); Potassium 4.5 mmol/L (3.5-5.5); Sodium 133 mmol/L (135-145)
[2024-08-22 08:51] LABS: Calcium 7.9 mg/dL (8.7-10.3)
[2024-08-22 12:23] LABS: Glucose,Whole Blood 124 mg/dL (70-110)
[2024-08-22 17:34] LABS: Glucose,Whole Blood 119 mg/dL (70-110)
[2024-08-22 20:20] LABS: Glucose,Whole Blood 94 mg/dL (70-110)
--- NOTE | 2024-08-23 04:35 | P.PN ---
Subjective Progress Note Date: 08/22/24 This is a pleasant 59-year-old female who was recently admitted with back pain and difficulty with ambulation and a possible L3 lytic lesion being closely monitored with multiple medical consultations. Patient also underwent CT scanning showing multiple lesions in the osseous spine although no compression fractures noted. Patient also with a left supraclavicular lymph node enlargement and underwent a nuclear med bone scan which showed diffuse osseous metastatic disease. Patient is status post cystoscopy with pyelogram and left biopsy of the ureter and highly suspicious of carcinoma per urology. Patient's hemoglobin is 7.0 today with no active bleeding noted although will give unit of PRBC and follow-up with repeat labs. Recommend PT/OT therapy evaluation and discuss further with case management for possible ECF. 08/09/2024 Patient is seen in follow-up today in severe 10/10 pain. Patient reports since yesterday afternoon into last night and this morning she was having severe pain in the lower back and is maintained on IV Dilaudid along with oral medications and lidocaine. Will adjust and have also discussed with oncology regarding pain management and they will be initiating long-acting pain management. Patient is scheduled to undergo an MRI of the brain which has been pending. Pathology remains pending as well. White count remains elevated although patient was on steroids which has been discontinued. Patient is afebrile with no reports of chest pain or shortness of breath. Will have PT/OT therapy reevaluate once pain is better controlled as patient reports she wants to go home. Concerned and fearful that she is extremely weak and may need ECF on discharge for continued strength and mobility. 08/10/2024 Patient is seen in follow-up this morning with multiple consultations following including urology status post biopsy. Pathology is positive for high-grade no ninvasive papillary urothelial carcinoma. Patient is scheduled to undergo MRI of the brain and cervical spine today for further evaluation and highly suspicious for bone mets. Patient is in extreme amount of pain reporting 10/10 and is having difficulty controlling the pain. Will adjust pain medications accordingly and oncology has added long-acting. Overall prognosis is guarded at this time. 08/11/24 Patient sitting up in bed, looks tired and generally weak but pleasant and relaxed She states her pain almost controlled for her. She is not in distress Continue with pain medication 08/12 Pain is controlled better today with Toradol Slept well last night Still has constipation On Colace and milk of magnesium, she does not want more for now 08/13 She looks pleasant and comfortable, she is sitting up in bed and smiling She had 1 bowel movement tonight MRI of the thoracolumbar spine is pending She is currently on dexamethasone 6 mg twice daily 08/14 Patient back pain is controlled however it looks like she has some radicular symptoms with tingling in the extremities MRI of the thoracic spine showing no metastatic lesion but lumbar spine showing L3 tumor although there is no evidence of spinal cord compression but is symptomatic. Therefore orthopedic team are planning for ( L3 tumor ablation with biopsy and kyphoplasty } on 08/16 08/15 Patient today is pleasant sitting up in bed She denies chest pain or dyspnea She is agreeable and feels ready to go for surgery tomorrow 08/16 Patient is status post L3 vertebral body biopsy, frozen section and ablation and vertebroplasty. Today's postop day #0 Patient postoperatively fully awake oriented, she is pleasant smiling looks comfortable, states that she feels her pain and spasm in the back better, her left leg weakness slightly better but early to comment on that. Blood pressure 177/81. Leukocytosis improving down to 15,000, hemoglobin is 9.6. She is status post 3 units of blood transfusion on admission. 08/17 Patient had severe back pain today postoperative day #1. Related to her surgery yesterday at L3 vertebra with biopsy ablation and vertebroplasty. The pain has been addressed and when I checked on the patient later on she was more comfortable and sleeping Also has been complaining of from medication given her repeated doses of narcotics. Discussed with the staff she is on Colace senna and we will add MiraLAX daily 08/18 Pain control down to 2-3/10 Complains from constipation x 8 days but no abdominal distention or pain/tenderness We will add lactulose and DC MiraLAX 08/19 Today patient is sleepy probably she is taking also morning pain medication for her L3 back surgery done on 08/16 No other new complaint. Still has some mild distention but is improving 08/20/2024 Patient is seen in follow-up this morning continuing to work on pain management. Discussed with oncology and plan will be for continued pain regimen with limit of IV narcotic use. Monitor patient overnight after discontinuing Dilaudid for pain control with [facility] and [facility]. Patient is agreeable to withhold all oncological care and follow-up outpatient once discharged from rehab. Patient is afebrile with no reports of chest pain or shortness of breath. Patient has been tolerating diet and needs encouragement on eating. Recommend supplements between meals. Continue aggressive bowel regimen scheduled as well as as needed medications. 08/21/2024 Patient is seen and evaluated in follow-up today lethargic although arousable. Patient continues to have pain although reports controlled on current regimen and patient is off IV narcotics. Continue with scheduled bowel regimen and current pain management. Patient continues on 2 L of oxygen via nasal cannula and strongly recommend continued incentive spirometer use and oxygen saturation is 93% on 2 L and she does not normally wear oxygen outpatient. Will obtain a chest x-ray. Blood pressures have been elevated as well. Case management/social work following working on discharge planning to rehab although rehabs in [facility] have denied the patient and will look into possible inpatient rehab at [facility]. Consult was placed and pending at this time. 08/22/2024 Patient is seen in follow-up this morning reports she is not receiving enough breast but has been sleeping frequently throughout the day. Patient was evaluated by inpatient rehab and further worked with physical therapy recommending subacute rehab and not a candidate for inpatient at this time. Social work following working on other facilities and awaiting insurance authorization. Patient is afebrile with no reports of chest pain or shortness of breath. Patient has been tolerating diet with no reported nausea or vomiting. Review of systems: Constitutional: reports of fatigue, no fever, or chills Cardiovascular: No reports of chest pain or palpitations Respiratory: No reports of shortness of breath or cough GI: No reports of nausea, vomiting, or diarrhea, reports not much of an appetite : No reports of dysuria or retention Neurovascular: reports of generalized weakness and some continued back pain All medications have been reviewed Physical exam: GENERAL: The patient is lethargic although arousable, alert and oriented x3, not in any acute distress. Well developed, ill-appearing, appears older than stated age. Generally weak HEENT: Pupils are round and equally reacting to light. EOMI. No scleral icterus. No conjunctival pallor. Normocephalic, atraumatic. No pharyngeal erythema. No thyromegaly. CARDIOVASCULAR: S1 and S2 present. No murmurs, rubs, or gallops. PULMONARY: Diminished breath sounds bilaterally otherwise chest is clear to auscultation, no wheezing , no crackles. ABDOMEN: Soft, nontender, nondistended, normoactive bowel sounds. No palpable organomegaly. MUSCULOSKELETAL: No joint swelling or deformity. EXTREMITIES: No cyanosis, clubbing, or pedal edema. NEUROLOGICAL: Gross neurological examination did not reveal any focal deficits. Diffusely weak SKIN: No rashes. no petechiae. Assessment: -Severe back pain, with radiculopathy. MRI positive for L3 lytic lesion with renal cell carcinoma with multiple mets. MRI showing L3 vertebral body tumor with no spinal cord compression, status post ( L3 tumor ablation with biopsy and kyphoplasty } on 08/16 -Bone scan this admission showing concerns for diffuse bony mets -Severe symptomatic anemia, possibly secondary to malignancy, improving -neoplasm of the left renal pelvis and left ureter status post ureteroscopy with cystoscopy and biopsies taken, biopsies are positive for high-grade carcinoma, Patient is status post stent of the left ureter -Paraparesis. -Increased white count, improving, likely reactive as well as patient is on high-dose steroids -Degenerative joint disease -Continued ongoing nicotine dependence GI prophylaxis DVT prophylaxis Full code Plan: Recommend to continue with current medications and management with multiple consultations following. Patient is status post biopsies with urology with cystoscopy and pathology is positive for high-grade papillary urothelial carcinoma. Orthopedics following status post L3 tumor ablation with biopsy and kyphoplasty on 08/16 Oncology following making recommendations regarding pain management and also following closely with multiple other consultations will discuss further treatment plan moving forward. Plan is to continue current pain regimen and IV narcotics have been discontinued Patient continues on 2 to 3 L of oxygen via nasal cannula and does not chronically wear this, most recent chest x-ray reveals no acute process. Enc ourage incentive spirometer use at least 10 times every hour while awake. Case management/social work following working on discharge planning. Apparently multiple ECF's in the area have denied the patient and looking into other options. Attempted inpatient rehab although denied as patient would likely not tolerate aggressive therapy and more recommended for subacute rehab Patient will be going to ECF for continued strength and mobility to get stronger and will follow-up with oncology once discharged from ECF. Patient is agreeable to no oncological care while at rehab. Oncology is aware as well. Continue Accu-Cheks and sliding scale as patient is being resumed on steroids per oncology Overall prognosis is extremely guarded at this time Possible discharge planning to the ECF in the next 24 to 48 hours if the facility has accepted. Social work is following and will require insurance authorization. The impression and plan of care has been dictated by Carmella Moore, Nurse Practitioner as directed. Dr. Bhargav MD I have performed a history and examination and MDM of this patient, discussed the same with the dictator, and agree with the dictator's assessment and plan as written ,documented as a scribe. Based on total visit time, I have performed more than 50% of the visit. Objective - Vital Signs Vital signs: Vital Signs Temp 97.6 F 08/22/24 07:20 Pulse 92 08/22/24 07:20 Resp 18 08/22/24 07:20 BP 164/80 08/22/24 07:20 Pulse Ox 95 08/22/24 07:20 FiO2 Intake & Output 08/21/24 08/22/24 08/22/24 18:59 06:59 18:59 Weight 60.3 kg Other: Voiding Method Diaper # Voids 1 2 # Bowel Movements 2 - Labs CBC & Chem 7: 08/21/24 04:42 08/22/24 05:05 Labs: Abnormal Lab Results - Last 24 Hours (Table) 08/21/24 08/21/24 08/22/24 Range/Units 12:07 20:27 05:05 Sodium 133 L (135-145) mmol/L Carbon Dioxide 20.8 L (21.6-31.8) mmol/L Anion Gap 12.20 H (4.00-12.00) mmol/L Creatinine 0.3 L (0.6-1.5) mg/dL BUN/Creatinine Ratio 62.33 H (12.00-20.00) Ratio POC Glucose (mg/dL) 140 H 122 H (70-110) mg/dL Calcium 7.9 L (8.7-10.3) mg/dL
[2024-08-23 07:15] LABS: Glucose,Whole Blood 109 mg/dL (70-110)
[2024-08-23 12:31] LABS: Glucose,Whole Blood 111 mg/dL (70-110)
[2024-08-23] MEDS: FUROSEMIDE 10 MG/ML 4 ML VIAL IV STA (13:56)
--- NOTE | 2024-08-23 14:08 | P.PN ---
Subjective Progress Note Date: 08/23/24 This is a pleasant 59-year-old female who was recently admitted with back pain and difficulty with ambulation and a possible L3 lytic lesion being closely monitored with multiple medical consultations. Patient also underwent CT scanning showing multiple lesions in the osseous spine although no compression fractures noted. Patient also with a left supraclavicular lymph node enlargement and underwent a nuclear med bone scan which showed diffuse osseous metastatic disease. Patient is status post cystoscopy with pyelogram and left biopsy of the ureter and highly suspicious of carcinoma per urology. Patient's hemoglobin is 7.0 today with no active bleeding noted although will give unit of PRBC and follow-up with repeat labs. Recommend PT/OT therapy evaluation and discuss further with case management for possible ECF. 08/09/2024 Patient is seen in follow-up today in severe 10/10 pain. Patient reports since yesterday afternoon into last night and this morning she was having severe pain in the lower back and is maintained on IV Dilaudid along with oral medications and lidocaine. Will adjust and have also discussed with oncology regarding pain management and they will be initiating long-acting pain management. Patient is scheduled to undergo an MRI of the brain which has been pending. Pathology remains pending as well. White count remains elevated although patient was on steroids which has been discontinued. Patient is afebrile with no reports of chest pain or shortness of breath. Will have PT/OT therapy reevaluate once pain is better controlled as patient reports she wants to go home. Concerned and fearful that she is extremely weak and may need ECF on discharge for continued strength and mobility. 08/10/2024 Patient is seen in follow-up this morning with multiple consultations following including urology status post biopsy. Pathology is positive for high-grade no ninvasive papillary urothelial carcinoma. Patient is scheduled to undergo MRI of the brain and cervical spine today for further evaluation and highly suspicious for bone mets. Patient is in extreme amount of pain reporting 10/10 and is having difficulty controlling the pain. Will adjust pain medications accordingly and oncology has added long-acting. Overall prognosis is guarded at this time. 08/11/24 Patient sitting up in bed, looks tired and generally weak but pleasant and relaxed She states her pain almost controlled for her. She is not in distress Continue with pain medication 08/12 Pain is controlled better today with Toradol Slept well last night Still has constipation On Colace and milk of magnesium, she does not want more for now 08/13 She looks pleasant and comfortable, she is sitting up in bed and smiling She had 1 bowel movement tonight MRI of the thoracolumbar spine is pending She is currently on dexamethasone 6 mg twice daily 08/14 Patient back pain is controlled however it looks like she has some radicular symptoms with tingling in the extremities MRI of the thoracic spine showing no metastatic lesion but lumbar spine showing L3 tumor although there is no evidence of spinal cord compression but is symptomatic. Therefore orthopedic team are planning for ( L3 tumor ablation with biopsy and kyphoplasty } on 08/16 08/15 Patient today is pleasant sitting up in bed She denies chest pain or dyspnea She is agreeable and feels ready to go for surgery tomorrow 08/16 Patient is status post L3 vertebral body biopsy, frozen section and ablation and vertebroplasty. Today's postop day #0 Patient postoperatively fully awake oriented, she is pleasant smiling looks comfortable, states that she feels her pain and spasm in the back better, her left leg weakness slightly better but early to comment on that. Blood pressure 177/81. Leukocytosis improving down to 15,000, hemoglobin is 9.6. She is status post 3 units of blood transfusion on admission. 08/17 Patient had severe back pain today postoperative day #1. Related to her surgery yesterday at L3 vertebra with biopsy ablation and vertebroplasty. The pain has been addressed and when I checked on the patient later on she was more comfortable and sleeping Also has been complaining of from medication given her repeated doses of narcotics. Discussed with the staff she is on Colace senna and we will add MiraLAX daily 08/18 Pain control down to 2-3/10 Complains from constipation x 8 days but no abdominal distention or pain/tenderness We will add lactulose and DC MiraLAX 08/19 Today patient is sleepy probably she is taking also morning pain medication for her L3 back surgery done on 08/16 No other new complaint. Still has some mild distention but is improving 08/20/2024 Patient is seen in follow-up this morning continuing to work on pain management. Discussed with oncology and plan will be for continued pain regimen with limit of IV narcotic use. Monitor patient overnight after discontinuing Dilaudid for pain control with possible discharge planning to [facility] for continued strength and mobility. Patient is agreeable to withhold all oncological care and follow-up outpatient once discharged from rehab. Patient is afebrile with no reports of chest pain or shortness of breath. Patient has been tolerating diet and needs encouragement on eating. Recommend supplements between meals. Continue aggressive bowel regimen scheduled as well as as needed medications. 08/21/2024 Patient is seen and evaluated in follow-up today lethargic although arousable. Patient continues to have pain although reports controlled on current regimen and patient is off IV narcotics. Continue with scheduled bowel regimen and current pain management. Patient continues on 2 L of oxygen via nasal cannula and strongly recommend continued incentive spirometer use and oxygen saturation is 93% on 2 L and she does not normally wear oxygen outpatient. Will obtain a chest x-ray. Blood pressures have been elevated as well. Case management/social work following working on discharge planning to rehab although rehabs in [facility] have denied the patient and will look into possible inpatient rehab at [facility]. Consult was placed and pending at this time. 08/22/2024 Patient is seen in follow-up this morning reports she is not receiving enough breast but has been sleeping frequently throughout the day. Patient was evaluated by inpatient rehab and further worked with physical therapy recommending subacute rehab and not a candidate for inpatient at this time. Social work following working on other facilities and awaiting insurance authorization. Patient is afebrile with no reports of chest pain or shortness of breath. Patient has been tolerating diet with no reported nausea or vomiting. 08/23/2024 Patient is seen and evaluated in follow-up today with no acute overnight issues noted. Patient with some bronchial congestion and reports no shortness of breath and chest x-ray showing some vascular congestion. Will initiate DuoNeb treatments and also give a dose of Lasix. Patient has been instructed to get up out of the bed more frequently and work with physical therapy daily. Social work following working on [facility] although multiple facilities have denied the patient. Apparently patient only has fdc care on her insurance and has no coverage for rehab. Patient is afebrile with no reports of chest pain or palpitations. Patient reports she is eating and has been tolerating diet. Continue current pain regimen and continue off IV narcotics. Review of systems: Constitutional: reports of fatigue, no fever, or chills Cardiovascular: No reports of chest pain or palpitations Respiratory: No reports of shortness of breath or cough GI: No reports of nausea, vomiting, or diarrhea, reports not much of an appetite : No reports of dysuria or retention Neurovascular: reports of generalized weakness and some continued back pain All medications have been reviewed Physical exam: GENERAL: The patient is lethargic although more awake today, alert and oriented x3, not in any acute distress. Well developed, ill-appearing, appears older than stated age. Generally weak HEENT: Pupils are round and equally reacting to light. EOMI. No scleral icterus. No conjunctival pallor. Normocephalic, atraumatic. No pharyngeal erythema. No thyromegaly. CARDIOVASCULAR: S1 and S2 present. No murmurs, rubs, or gallops. PULMONARY: Diminished breath sounds bilaterally otherwise chest is clear to auscultation, no wheezing , no crackles. ABDOMEN: Soft, nontender, nondistended, normoactive bowel sounds. No palpable organomegaly. MUSCULOSKELETAL: No joint swelling or deformity. EXTREMITIES: No cyanosis, clubbing, or pedal edema. NEUROLOGICAL: Gross neurological examination did not reveal any focal deficits. Diffusely weak SKIN: No rashes. no petechiae. Assessment: -Severe back pain, with radiculopathy. MRI positive for L3 lytic lesion with renal cell carcinoma with multiple mets. MRI showing L3 vertebral body tumor with no spinal cord compression, status post ( L3 tumor ablation with biopsy and kyphoplasty } on 08/16 -Bone scan this admission showing concerns for diffuse bony mets -Severe symptomatic anemia, possibly secondary to malignancy, improving -neoplasm of the left renal pelvis and left ureter status post ureteroscopy with cystoscopy and biopsies taken, biopsies are positive for high-grade carcinoma, Patient is status post stent of the left ureter -Paraparesis. -Increased white count, improving, likely reactive as well as patient is on high-dose steroids -Degenerative joint disease -Continued ongoing nicotine dependence GI prophylaxis DVT prophylaxis Full code Plan: Recommend to continue with current medications and management with multiple consultations following. Patient is status post biopsies with urology with cystoscopy and pathology is positive for high-grade papillary urothelial carcinoma. Orthopedics following status post L3 tumor ablation with biopsy and kyphoplasty on 08/16 Oncology following making recommendations regarding pain management and also following closely with multiple other consultations will discuss further treatment plan moving forward. Plan is to continue current pain regimen and IV narcotics have been discontinued Patient continues on 2 to 3 L of oxygen via nasal cannula and does not chronically wear this, most recent chest x-ray reveals some vascular congestion. Encourage incentive spirometer use at least 10 times every hour while awake. Will add DuoNebs and also give a dose of Lasix. Recommend discontinuing IV fluids. Case management/social work following working on discharge planning. Apparently multiple ECF's in the area have denied the patient and looking into other options. Attempted inpatient rehab although denied as patient would likely not tolerate aggressive therapy and more recommended for subacute rehab. Multiple other referrals placed for ECF and pending at this time Patient will be going to ECF for continued strength and mobility to get stronger and will follow-up with oncology once discharged from ECF. Patient is agreeable to no oncological care while at rehab. Oncology is aware as well. Continue Accu-Cheks and sliding scale as patient is being resumed on steroids per oncology Overall prognosis is extremely guarded at this time Possible discharge planning to the ECF once a facility has accepted. Social work is following and will require insurance authorization. The impression and plan of care has been dictated by Carmella Moore, Nurse Practitioner as directed. Dr. Bhargav MD I have performed a history and examination and MDM of this patient, discussed the same with the dictator, and agree with the dictator's assessment and plan as written ,documented as a scribe. Based on total visit time, I have performed more than 50% of the visit. Objective - Vital Signs Vital signs: Vital Signs Temp 97.5 F L 08/23/24 07:15 Pulse 110 H 08/23/24 07:15 Resp 14 08/23/24 07:15 BP 132/78 08/23/24 07:15 Pulse Ox 96 08/23/24 07:15 FiO2 Intake & Output 08/22/24 08/23/24 08/23/24 18:59 06:59 18:59 Intake Total 320 300 Output Total 700 Balance 320 -400 Intake: Intake, IV Titration 320 300 Amount Calcium Gluconate in NaCl 100 100 1 gm In Saline 1 100ml. bag @ 100 mls/hr IVPB BID [facility]LEXIS Rx#:[id number] Lactated Ringers 1,000 ml 220 200 @ 20 mls/hr IV .Q24H ALEXIS Rx#:[id number] Output: Urine 700 Other: Voiding Method External Catheter External Catheter # Bowel Movements 1 - Labs CBC & Chem 7: 08/21/24 04:42 08/22/24 05:05 Labs: Abnormal Lab Results - Last 24 Hours (Table) 08/22/24 08/22/24 Range/Units 12:21 17:32 POC Glucose (mg/dL) 124 H 119 H (70-110) mg/dL
--- NOTE | 2024-08-23 17:06 | P.PN ---
Subjective Progress Note Date: 08/23/24 Principal diagnosis: Transitional cell carcinoma, metastatic disease. Pain from malignancy In f/u today pt support person is at bedside. Pt does not hurt a long as she doesn't move, the more she doesn't move the harder it is for her to move. Reports most of the pain is in the back but if she cannot even move her arms to get her water cup off of the bedside table. No new symptoms to report, she states she feels like she needs to cough out phelgm but it won't come out because her cough is too weak. Objective - Vital Signs Vital signs: Vital Signs Temp 98.3 F 08/23/24 12:49 Pulse 85 08/23/24 12:49 Resp 16 08/23/24 12:49 BP 156/84 08/23/24 12:49 Pulse Ox 92 L 08/23/24 12:49 FiO2 Intake & Output 08/22/24 08/23/24 08/23/24 18:59 06:59 18:59 Intake Total 320 300 Output Total 700 900 Balance 320 -400 -900 Intake: Intake, IV Titration 320 300 Amount Calcium Gluconate in NaCl 100 100 1 gm In Saline 1 100ml. bag @ 100 mls/hr IVPB BID [facility] Rx#:[id number] Lactated Ringers 1,000 ml 220 200 @ 20 mls/hr IV .Q24H [facility] Rx#:[id number] Output: Urine 700 900 Other: Voiding Method External Catheter External Catheter External Catheter # Bowel Movements 1 - Constitutional General appearance: Present: cooperative, mild distress, thin - EENT Eyes: Present: anicteric sclerae, EOMI ENT: Present: hearing grossly normal - Respiratory Respiratory: bilateral: diminished (bases), rales (anterior) - Cardiovascular Rhythm: regular - Peripheral edema leg Peripheral Edema: bilateral: None - Musculoskeletal Musculoskeletal: Present: generalized weakness - Psychiatric Psychiatric: Present: A&O x's 3, appropriate affect, intact judgment & insight - Labs CBC & Chem 7: 08/21/24 04:42 08/22/24 05:05 Labs: Abnormal Lab Results - Last 24 Hours (Table) 08/22/24 08/23/24 Range/Units 17:32 12:30 POC Glucose (mg/dL) 119 H 111 H (70-110) mg/dL Assessment and Plan (1) Urothelial carcinoma Current Visit: Yes Status: Acute Priority: High Code(s): C68.9 - MALIGNANT NEOPLASM OF URINARY ORGAN, UNSPECIFIED SNOMED Code(s): 756961919 (2) Anemia Current Visit: Yes Status: Acute Priority: High Code(s): D64.9 - ANEMIA, UNSPECIFIED SNOMED Code(s): 591362072 (3) Lesion of lumbar spine Current Visit: Yes Status: Acute Priority: High Code(s): M89.9 - DISORDER OF BONE, UNSPECIFIED SNOMED Code(s): 139240038 Plan: Metastatic urothelial carcinoma, newly diagnosed -Presented with low back pain, progressive over few months, associated with some difficulty ambulating as well as some incontinence of stool when she was experiencing diarrhea. -Biopsy with Dr. Farrell 08/07. Path reporting high-grade, noninvasive papillary urothelial carcinoma, bx from the left ureter, renal pelvis -Vertebral bone metastases noted on imaging. Brain/Cervical MRI negative for acute intracranial processes. Cervical spine showing multilevel degenerative disc disease and central stenosis as well as foraminal encroachment. No pathologic enhancement, nothing appears to be acutely encroaching on the spinal cord. Zometa given for bone mets. -S/P surgical intervention with Orthopedic spine. Biopsy positive for metastatic urothelial carcinoma. Options for systemic treatment of malignancy will be discussed at outpt follow up. No treatment until pt is discharged from rehab and home Medical debility-2/2 malignancy, pain from malignancy and prolonged immobility -PT/OT working with pt. When I observed the interaction today, not sure if pt is going to be able to tolerate IPR, she may have to be snf care. It was discuss with pt and her friend that pt needs to do what she can and staff can help her with pain. She is not using all of the PRN meds available to her at this time, she is only using breakthrough narcotic 2-3 times a day. -Pt is likely going to need additional radiation for pain control. Radiation Oncology will see her after discharge from rehab and evaluate for treatment if needed -Pt on ER morphine, IR morphine, 4mg dex BID (will go back up to 6 BID), and gabapentin. Ibuprofen and flexeril PRN, which pt has not used, pt encouraged to use is needed. -Reeducated pt on IS use and why she needs to be using every hour while awake- she has not been using. It was stressed to her that if she cont to be unable to expectorate the mucus in her airways she is going to get pneumonia. Constipation -Pt has had BMs now, cont aggressive bowel mgmt for prevention of narcotic induced constipation Normocytic anemia -Hgb 4.7 on admit, s/p 3 units PRBCs. She had an appropriate increase in Hgb. Hgb has been stable -No nutritional deficiencies noted, consistent with anemia of inflammation, 2/2 malignancy -Small paraproteinemia, M-spike negative, K/L ratio normal at 1.2. May be incidental finding/MGUS. Will repeat outpt in 3 months, no active mgmt needed Appt dates and scans have been scheduled and communicated to Joe. Not sure if pt will be in any shape to make those appts. Time with Patient: Greater than 30
[2024-08-23 17:32] LABS: Glucose,Whole Blood 132 mg/dL (70-110)
[2024-08-23] MEDS: IPRATROPIUM-ALBUTEROL 3 ML NEB INHALATION SCH (20:05)
[2024-08-23 20:28] LABS: Glucose,Whole Blood 182 mg/dL (70-110)
[2024-08-24 07:14] LABS: Glucose,Whole Blood 175 mg/dL (70-110)
[2024-08-24 12:19] LABS: Glucose,Whole Blood 115 mg/dL (70-110)
[2024-08-24 12:24] LABS: Anisocytosis Slight; Basophils # (A) 0.1 k/uL (0-0.2); Basophils % (A) 1 %; Eosinophils % (A) 0 %; HCT 26.7 % (34.0-46.0); HGB 8.8 gm/dL (11.4-16.0); Hypochromasia Slight; Lymphocytes # (A) 1.4 k/uL (1.0-4.8); Lymphocytes % (A) 16 %; MCH 28.5 pg (25.0-35.0); MCV 86.6 fL (80.0-100.0); Mean Platelet Volume 8.7; Monocytes # (A) 0.3 k/uL (0-1.0); Monocytes % (A) 3 %; Neutrophils % (A) 78 %; Platelet Count 114 k/uL (150-450); Poikilocytosis Slight; RBC 3.08 m/uL (3.80-5.40); RDW 19.6 % (11.5-15.5)
[2024-08-24 13:51] LABS: Band Neutrophils % 6 %; Metamyelocytes % 2 %; Myelocytes % 4 %; Neutrophils % (M) 73 %; Nucleated Red Blood Cells 3 /100 WBC (0-0); Total Cells Counted 200
[2024-08-24 13:56] LABS: Lymphocytes # (M) 1.29 k/uL (1.0-4.8); Metamyelocytes # (M) 0.17 k/uL (0); Monocytes # (M) 0.17 k/uL (0-1.0); Myelocytes # (M) 0.34 k/uL (0); WBC 8.6 k/uL (3.8-10.6)
[2024-08-24 15:13] VITALS: BP 154/85; PULSE 102; RESP 15; TEMP 98.2
--- NOTE | 2024-08-24 15:43 | P.DS ---
Providers Date of admission: 08/05/24 13:22 Expected date of discharge: 08/24/24 Attending physician: Kamron Benton MD Consults: 08/05/24 13:27 Consult Physician Routine Consulting Provider: Tyrese Gray Consult Reason/Comments: Kidney mass Do you want consulting provider notified?: Yes 08/05/24 13:29 Consult Physician Routine Consulting Provider: Christine De La Cruz Consult Reason/Comments: Kidney mass, lumbar lytic lesion Do you want consulting provider notified?: Yes 08/05/24 14:44 Consult Physician Routine Consulting Provider: Rufina Lucero Consult Reason/Comments: paraparesis, L3 lesion? Do you want consulting provider notified?: Yes 08/12/24 14:12 Consult Physician Routine Consulting Provider: Neri Benitez Consult Reason/Comments: left upper extremiy weakness wth cervical stenosis Do you want consulting provider notified?: Yes 08/16/24 11:20 Consult Physician Routine Consulting Provider: Ricardo Mejia Consult Reason/Comments: spine mets Do you want consulting provider notified?: Yes 08/21/24 10:53 Consult Physician Urgent Consulting Provider: Gerardo Alonzo Consult Reason/Comments: t3 lesion, recent dx of Ca, weak, prolonged hospital stay Do you want consulting provider notified?: Yes Primary care physician: [facility] Course: Final diagnosis Severe back pain, with radiculopathy. MRI positive for L3 lytic lesion with r enal cell carcinoma with multiple mets. MRI showing L3 vertebral body tumor with no spinal cord compression, status post ( L3 tumor ablation with biopsy and kyphoplasty } on 08/16 -Bone scan this admission showing concerns for diffuse bony mets -Severe symptomatic anemia, possibly secondary to malignancy, improving -neoplasm of the left renal pelvis and left ureter status post ureteroscopy with cystoscopy and biopsies taken, biopsies are positive for high-grade carcinoma, Patient is status post stent of the left ureter -Paraparesis. -Increased white count, improving, likely reactive as well as patient is on high-dose steroids -Degenerative joint disease -Continued ongoing nicotine dependence -COPD, acute exacerbation GI prophylaxis DVT prophylaxis Full code Discharge disposition Patient is being discharged in a stable condition with guarded prognosis to [facility]. Patient will follow-up with pcp in the outpatient setting upon discharge. Patient is to continue with current medications and outpatient follow up with orthopedics as scheduled. Patient is agreeable to no oncological care during ECF and will follow-up with oncology in the outpatient setting once discharged from the extended care facility. Total time taken is greater than 35 minutes. Hospital course This is a 59-year-old female who was recently admitted with severe back pain with radiculopathy and noted to have an L3 lytic lesion with renal cell carcinoma with metastasis being closely monitored with prolonged hospitalization. Patient did undergo L3 tumor ablation along with biopsy and kyphoplasty with orthopedics. Bone scan was also suggestive of diffuse bony metastasis. Patient with extreme weakness and continued lower extremity paresthesias evaluated by physical therapy recommending rehab and patient is agreeable. Patient has had prolonged hospitalization with continued pain and is extremely weak with inability to ambulate. Patient was having issues with ambulation prior to hospitalization although the pain became too intense patient was brought here for further evaluation. Patient has met with oncology and will follow-up in the outpatient setting once discharged from ECF. Patient again is agreeable to no oncological care during ECF. Please refer to other consultation notes for further HPI. Currently no reports of chest pain, shortness of breath, or palpitations. Patient is afebrile. No reports of nausea or vomiting and patient is tolerating diet. Patient will be going [facility] today. Guarded prognosis and high risk for readmissions. Physical exam: Gen: This is a 59-year-old female who is awake, alert and oriented x 3, well- developed, elderly appearing, ill-appearing HEENT: Head is atraumatic, normocephalic. Pupils equal, round. Sclerae is anicteric. NECK: Supple. No JVD. No lymphadenopathy. No thyromegaly. LUNGS: Diminished breath sounds bilaterally otherwise clear to auscultation. No wheezes, a few coarse rhonchi noted and some bronchial congestion. No intercostal retractions. HEART: Regular rate and rhythm. No murmur. ABDOMEN: Soft. Bowel sounds are present. No masses. No tenderness. EXTREMITIES: No pedal edema. No calf tenderness. NEUROLOGICAL: Patient is awake, alert and oriented x3. Cranial nerves 2 through 12 are grossly intact. Diffusely weak Please refer to medication reconciliation sheet for a list of medications. The impression and plan of care has been dictated by Carmella Moore, Nurse Practitioner as directed. Dr. Bhargav MD I have performed a history and examination and MDM of this patient, discussed the same with the dictator, and agree with the dictator's assessment and plan as written ,documented as a scribe. Based on total visit time, I have performed more than 50% of the visit. Patient Condition at Discharge: Poor Plan - Discharge Summary Discharge Rx Participant: No New Discharge Prescriptions: New Benzocaine/Menthol Lozeng [Cepacol lozenge] 1 each MUCOUS MEM Q4HR PRN lozenge PRN Reason: Sore Throat Ipratropium-Albuterol Nebulize [Duoneb 0.5 mg-3 mg/3 ml Soln] 3 ml INHALATION RT-TID each dexAMETHasone ORAL [Hexadrol] 4 mg PO BID tab Lidocaine 4% Cream [Lmx 4] 1 applic TOPICAL TID PRN each PRN Reason: Pain Ibuprofen [Motrin] 600 mg PO Q6HR PRN tab PRN Reason: Pain INSULIN ASPART (NovoLOG) [NovoLOG (formulary)] 0 unit SQ ACHS each Sennosides-Docusate Sodium [Senokot-S] 2 each PO BID tab Acetaminophen Tab [Tylenol] 650 mg PO Q6HR PRN tab PRN Reason: Fever And/Or Mild Pain Lactulose [Cephulac] 20 gm PO BID ml Magnesium Hydroxide [Milk of Magnesia] 2,400 mg PO DAILY PRN ml PRN Reason: Constipation Morphine Sulfate ER [Ms Contin] 30 mg PO Q12HR #6 tab Morphine Sulfate Ir [MSIR] 15 mg PO Q4HR PRN #4 tab PRN Reason: Pain Gabapentin [Neurontin] 300 mg PO TID cap guaiFENesin-DM 100-10MG/5ML [Robitussin DM] 10 ml PO Q6HR PRN ml PRN Reason: Cough ALPRAZolam [Xanax] 0.25 mg PO TID PRN #6 tab PRN Reason: Anxiety Calcium Carbonate [Calcium] 600 mg PO DAILY #30 tablet Continue Cyclobenzaprine [Flexeril] 10 mg PO TID PRN #15 tab PRN Reason: Muscle Spasm Fluticasone Propion/Salmeterol [Advair 250-50 Diskus] 1 puff INHALATION RT- BID Discontinued HYDROcodone/APAP 5-325MG [[place] 5-325] 1 tab PO BID PRN PRN Reason: Pain Discharge Medication List Cyclobenzaprine [Flexeril] 10 mg PO TID PRN #15 tab 07/11/24 [Rx] Fluticasone Propion/Salmeterol [Advair 250-50 Diskus] 1 puff INHALATION RT-BID 08/05/24 [History] ALPRAZolam [Xanax] 0.25 mg PO TID PRN #6 tab 08/24/24 [Rx] Acetaminophen Tab [Tylenol] 650 mg PO Q6HR PRN tab 08/24/24 [Rx] Benzocaine/Menthol Lozeng [Cepacol lozenge] 1 each MUCOUS MEM Q4HR PRN lozenge 08/24/24 [Rx] Calcium Carbonate [Calcium] 600 mg PO DAILY #30 tablet 08/24/24 [Rx] Gabapentin [Neurontin] 300 mg PO TID cap 08/24/24 [Rx] INSULIN ASPART (NovoLOG) [NovoLOG (formulary)] 0 unit SQ ACHS each 08/24/24 [Rx] Ibuprofen [Motrin] 600 mg PO Q6HR PRN tab 08/24/24 [Rx] Ipratropium-Albuterol Nebulize [Duoneb 0.5 mg-3 mg/3 ml Soln] 3 ml INHALATION RT-TID each 08/24/24 [Rx] Lactulose [Cephulac] 20 gm PO BID ml 08/24/24 [Rx] Lidocaine 4% Cream [Lmx 4] 1 applic TOPICAL TID PRN each 08/24/24 [Rx] Magnesium Hydroxide [Milk of Magnesia] 2,400 mg PO DAILY PRN ml 08/24/24 [Rx] Morphine Sulfate ER [Ms Contin] 30 mg PO Q12HR #6 tab 08/24/24 [Rx] Morphine Sulfate Ir [MSIR] 15 mg PO Q4HR PRN #4 tab 08/24/24 [Rx] Sennosides-Docusate Sodium [Senokot-S] 2 each PO BID tab 08/24/24 [Rx] dexAMETHasone ORAL [Hexadrol] 4 mg PO BID tab 08/24/24 [Rx] guaiFENesin-DM 100-10MG/5ML [Robitussin DM] 10 ml PO Q6HR PRN ml 08/24/24 [Rx] Follow up Appointment(s)/Referral(s): None,Stated [REFERRING] - 1-2 days Neri Benitez DO [Doctor of Osteopathic Medicine] - 1 Week Activity/Diet/Wound Care/Special Instructions: Patient is going to [facility] Activity as tolerated Follow-up with orthopedics outpatient Follow-up with oncology outpatient once discharged from [facility] To apply for disability benefits in [place], you can: Apply online: Visit the [employer] website at www.ssa.gov/disability Apply by phone: Call the [employer] toll-free number at (TTY for people who are deaf or hard of hearing) Apply in person: Visit your local Social Security office You can check the status of your application by signing in to or creating a personal [employer] account. You can also call the automated phone ser vice at and say "application status" when prompted. On average, it takes 6 to 8 months to receive a decision on a disability application. You may qualify for disability benefits if you have a condition that prevents you from working for at least one year. Some common conditions include: musculoskeletal disorders, mental disorders, nervous system diseases, and circulatory system diseases. Discharge Disposition: TRANSFER TO SNF/ECF
--- NOTE | 2024-08-24 16:17 | P.PN ---
Subjective Progress Note Date: 08/24/24 Patient was last seen by Dr. Lucero from our neurology team. Patient is known to me during this admission. Patient feels the same and denies any new neurological issues. During this hospital visit patient has L3 lytic lesion of the vertebral body and had L3 vertebral body biopsy and tumor ablation 08/16/2024 Objective - Vital Signs Vital signs: Vital Signs Temp 98.2 F 08/24/24 15:08 Pulse 102 H 08/24/24 15:08 Resp 15 08/24/24 15:08 BP 154/85 08/24/24 15:08 Pulse Ox 92 L 08/24/24 15:08 FiO2 Intake & Output 08/23/24 08/24/24 08/24/24 18:59 06:59 18:59 Intake Total 320 Output Total 1800 700 Balance -1800 -380 Intake: Intake, IV Titration 320 Amount Calcium Gluconate in NaCl 100 1 gm In Saline 1 100ml. bag @ 100 mls/hr IVPB BID ALEXIS Rx#:[id number] Lactated Ringers 1,000 ml 220 @ 20 mls/hr IV .Q24H ALEXIS Rx#:[id number] Output: Urine 1800 700 Other: Voiding Method External Catheter External Catheter External Catheter # Bowel Movements 1 - Exam GENERAL: The patient is lying in bed and is not in acute distress. Respiratory: Coarse. NEUROLOGICAL: Was sleeping but was awake to voice. She was oriented to self, place and time. Is following simple commands. No aphasia. No facial weakness. No dysarthria. The motor the strength is able to lift up arms above gravity and wiggling her toes. Her lowers is limited because of the pain but again as stated in earlier she is wiggling her toes Some of workup during this hospital visit consisted of: This hospital visit patient hemoglobin was severely low was 3.9 and 08/05/2024 and she had blood transfusion currently 7.8. Vitamin B12: 2321 RBC 1694 MMA: 0.24 CT cervical, thoracic and lumbar spine is reported as multiple mixed lucent sclerotic lesion in the dorsal spine. Correlate with bone scan regarding bone metastasis. NM bone scan whole body is reported as SuperScan compatible with diffuse osseous metastasis disease. CT abdomen and pelvis is reported as increased density with and a prominent left renal pelvis and distal left ureter consider neoplasm such as transitional cell carcinoma. Moderate left hydronephrosis. Suspected lytic area of L3. Thickened left adrenal gland. MRI of the brain is reported as age related atrophy and chronic small vessel ischemic change. No acute intracranial process at this time. MRI of the cervical spine is reported as multilevel degenerative disc disease and central stenosis as well as foraminal encroachment. MRI thoracic and lumbar spine revealed L3 vertebral body enhancing mass which extends through the vertebral body lateral plate. Limited thoracic spine MRI. Somewhat diffuse heterogeneous inversion recovery signal to the mid thoracic spine. No discrete masses definitively visualized. Eccentric left disc bulging at the level of T9-T10 which displaces the spinal cord. - Labs CBC & Chem 7: 08/24/24 11:06 08/22/24 05:05 Labs: Abnormal Lab Results - Last 24 Hours (Table) 08/23/24 08/23/24 08/24/24 Range/Units 17:31 20:26 06:08 RBC (3.80-5.40) m/uL Hgb (11.4-16.0) gm/dL Hct (34.0-46.0) % RDW (11.5-15.5) % Plt Count (150-450) k/uL Metamyelocytes # (Man) (0) k/uL Myelocytes # (Manual) (0) k/uL Nucleated RBCs (0-0) /100 WBC POC Glucose (mg/dL) 132 H 182 H (70-110) mg/dL Calcium 7.7 L (8.4-10.2) mg/dL 08/24/24 08/24/24 08/24/24 Range/Units 07:13 11:06 12:17 RBC 3.08 L (3.80-5.40) m/uL Hgb 8.8 L (11.4-16.0) gm/dL Hct 26.7 L (34.0-46.0) % RDW 19.6 H (11.5-15.5) % Plt Count 114 L (150-450) k/uL Metamyelocytes # (Man) 0.17 H (0) k/uL Myelocytes # (Manual) 0.34 H (0) k/uL Nucleated RBCs 3 H (0-0) /100 WBC POC Glucose (mg/dL) 175 H 115 H (70-110) mg/dL Calcium (8.4-10.2) mg/dL Assessment and Plan Assessment: This is a 59-year-old woman with lower back pain for several months is having radicular pain to her legs and feels she is having significant weakness in the left lower extremity. She was referred to orthopedic as an outpatient she had MRI which there is a concern for spinal cancer and was recommended to follow-up with oncologist. In our facility she had a bone scan whole body which shows feels osseous metastatic disease that is diffuse. On imaging of the CT of the abdomen pelvis there is a concern for neoplasm in the left renal pelvis and left ureter. Suspected lytic area of the L3. Examination patient has weakness over the left side with some dysarthria. Severe back pain with radiculopathy. MRI positive for L3 lytic lesion with renal cell carcinoma with multiple mets. No spinal cord compression. S/P L3 tumor ablation with biopsy and kyphoplasty on 08/16/2024. Bone scan revealed diffuse bony mets. Possible neoplasm of uncertain behavior of the left renal pelvis and left ureter status post ureteroscopy with cystoscopy and biopsies taken. Biopsies positive for high-grade carcinoma. Patient is status post stent of the left ureter. Leg weakness Metastatic renal cancer. Cystoscopy with left ureteroscopy with biopsy on 08/07/2024. Tobacco use. Plan: Orthopedic team performed S/P L3 tumor ablation with biopsy and kyphoplasty on 08/16/2024. 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 Oncology is on board Will defer the rest of the medical management to primary and other specialist Condition is very guarded. No further neurological workup. Will sign off. Please reconsult if needed. Time with Patient: Less than 30
[2024-08-24 17:17] LABS: Glucose,Whole Blood 149 mg/dL (70-110)
== END 2024-08-24 17:25 | DRG 951 ==
LOC: EC 09:25 → 3SCARD 13:22 → 5NMEDONC 08-08 23:11
PROVIDERS: ADMIT Internal Medicine; ATTEND Internal Medicine
PROC: 30233N1 Transfusion of Nonautologous Red Blood Cells into Peripheral Vein, Percutaneous Approach (ICD-10-PCS; 2024-08-05)
PROC: BT1F1ZZ Fluoroscopy of Left Kidney, Ureter and Bladder using Low Osmolar Contrast (ICD-10-PCS; 2024-08-07)
PROC: 0TB78ZX Excision of Left Ureter, Via Natural or Artificial Opening Endoscopic, Diagnostic (ICD-10-PCS; principal; 2024-08-07 10:30)
PROC: 0QU03JZ Supplement Lumbar Vertebra with Synthetic Substitute, Percutaneous Approach (ICD-10-PCS; 2024-08-16)
PROC: 0Q903ZX Drainage of Lumbar Vertebra, Percutaneous Approach, Diagnostic (ICD-10-PCS; 2024-08-16)
PROC: 0Q503ZZ Destruction of Lumbar Vertebra, Percutaneous Approach (ICD-10-PCS; 2024-08-16)
DX: C65.2 Malignant neoplasm of left renal pelvis (principal); C79.51 Secondary malignant neoplasm of bone; G82.20 Paraplegia, unspecified; M84.48XA Pathological fracture, other site, initial encounter for fracture; J44.1 Chronic obstructive pulmonary disease with (acute) exacerbation; M50.21 Other cervical disc displacement, high cervical region; C66.2 Malignant neoplasm of left ureter; D63.0 Anemia in neoplastic disease; R47.1 Dysarthria and anarthria; R60.0 Localized edema; G89.3 Neoplasm related pain (acute) (chronic); F17.210 Nicotine dependence, cigarettes, uncomplicated; F41.9 Anxiety disorder, unspecified; G47.00 Insomnia, unspecified; K59.00 Constipation, unspecified; M48.02 Spinal stenosis, cervical region; M47.22 Other spondylosis with radiculopathy, cervical region; M48.061 Spinal stenosis, lumbar region without neurogenic claudication; M50.122 Cervical disc disorder at C5-C6 level with radiculopathy; Z74.09 Other reduced mobility; Z79.1 Long term (current) use of non-steroidal anti-inflammatories (NSAID); Z79.4 Long term (current) use of insulin; Z79.899 Other long term (current) drug therapy
CPT/HCPCS: 36415; 36430; 70553; 71045; 71046; 71275; 72100; 72126; 72129; 72132; 72156; 72157; 72158; 74177; 78306; 80048; 80053; 81001; 82310; 82607; 82728; 82747; 82784; 83540; 83550; 83605; 83735; 83880; 83883; 83921; 84165; 84484; 85025; 85379; 85610; 85730; 86140; 86334; 86850; 86900; 86901; 86920; 87040; 87086; 88305; 88307; 88311; 88331; 88341; 88342; 93970; 94640; 96374; 96376; 99291